=== PATIENT | female | born 1960 | race Caucasian/White ===

== ENCOUNTER 2018-03-18 13:28 | Inpatient (IN) ==
[2018-03-18] MEDS ORDERED: Acetaminophen 325 MG Tablet PO ONE (14:43)
[2018-03-18] MEDS ORDERED: MethylPREDNISolone Sod Succinate Inj 125 MG/2 ML Vial IV.PUSH ONE (14:43)
[2018-03-18] MEDS ORDERED: Sod Chloride 0.9% Inj 2,000 ML IV.SIG ONE (14:48)
[2018-03-18 14:59] LABS: VBG Base Excess 0.2 mmol/L (-2-2); VBG Blood Gas Oxygen Content 9.7 Vol % (9.0-17.0); VBG PCO2 33 mmHG (44-48); VBG PH 7.47 (7.360-7.400); VBG PO2 34 mmHG (35-40)
[2018-03-18 15:18] LABS: Baso % (Auto) 0.3 % (0.0-2.0); Eos % (Auto) 0.3 % (0.0-4.0); Hematocrit 33.3 % (35.0-46.0); Hemoglobin 11.2 gm/dL (11.6-15.3); Lymph # (Auto) 1.4 th/mm3 (1.0-4.8); Lymph % (Auto) 13.1 % (9.0-44.0); Mean Corpuscular HGB Conc 33.8 % (32.0-36.0); Mean Corpuscular Hemoglobin 31.2 pg (27.0-34.0); Mean Corpuscular Volume 92.4 fL (80.0-100.0); Mean Platelet Volume 7.7 fL (7.0-11.0); Mono % (Auto) 8.8 % (0.0-8.0); Neut # (Auto) 8.4 th/mm3 (1.8-7.7); Neut % (Auto) 77.5 % (16.0-70.0); Platelet Count 441 th/mm3 (150-450); Red Cell Distribution Width 14.4 % (11.6-17.2); White Blood Count 10.9 th/mm3 (4.0-11.0)
--- NOTE | 2018-03-18 15:27 | ED ---
HPI General Chief Complaint: Respiratory Symptoms Stated Complaint: Sob Time Seen by Provider: 03/18/18 14:35 Source: patient Mode of arrival: ambulatory Limitations: no limitations History of Present Illness HPI Narrative: 58-year-old female with PMH of GERD presents to the ED for evaluation of 1 week history of SOB. She endorses accompanying chest tightness, nausea and palpitations. She denies chest pain, diaphoresis ,vomiting. She states that she was evaluated a few days ago. She states that the chest x-ray was "clear." At that time the provider suspected that she was having asthma symptoms. She has been treating with albuterol treatments at home. She states that her symptoms became acutely worse 2 days ago after flying to [facility] from [place]. She states that she is unable to walk "even a few feet" without GALINDO. She denies cigarette smoking, OC use, leg pain, history of blood clot. Related Data Allergies Allergy/AdvReac Type Severity Reaction Status Date / Time Penicillins Allergy Intermediate Hives Verified 03/19/18 21:08 Sulfa (Sulfonamide Allergy Intermediate Anxiety Verified 03/18/18 14:16 Antibiotics) Review of Systems ROS: all other systems reviewed are negative [facility] Medical History Medical History BMI 38.0-38.9,adult (Acute) Bronchitis (Acute) Chronic kidney disease, stage II (mild) (Acute) Gastroesophageal reflux disease (Acute) Hyperlipidemia (Acute) Mild intermittent asthma (Acute) Surgical History Surgical History H/O wisdom tooth extraction (Acute) S/P bunionectomy (Acute) Family History Family History Brother Family history of hypertension Sister Family history of hypertension Family history of hyperlipidemia Other Family history of breast cancer in mother Social History Social History Substance History: No History of Abuse Second Hand Smoke Exposure: Yes Smoking Status: Never smoker Tobacco Type: Cigarettes How Often Do You Have a Drink Containing Alcohol: Monthly or less Recent Travel in [facility] within the Last 8 Weeks: No Recent Out of Country Travel within the Last 8 Weeks: No Immunization History Tetanus Immunization: Unsure Hx Influenza Vaccine This Season: No Exam Narrative Exam Narrative: GENERAL: Well-nourished, well-developed, tachypneic white female. Speaking in complete sentences. On 15 L by nonrebreather. SKIN: Focused skin assessment warm/dry. HEAD: Atraumatic. Normocephalic. EYES: Pupils equal and round. No scleral icterus. No injection or drainage. ENT: No nasal bleeding or discharge. Mucous membranes pink and moist. NECK: Trachea midline. No JVD. CARDIOVASCULAR: Regular rate and rhythm. No murmur appreciated. RESPIRATORY: No accessory muscle use. Crackles in bilateral lower lobes.. Breath sounds equal bilaterally. GASTROINTESTINAL: Abdomen soft, non-tender, nondistended. Hepatic and splenic margins not palpable. MUSCULOSKELETAL: No obvious deformities. No clubbing. No cyanosis. No edema. NEUROLOGICAL: Awake and alert. No obvious cranial nerve deficits. Motor grossly within normal limits. Normal speech. PSYCHIATRIC: Appropriate mood and affect; insight and judgment normal. Course Initial Documented Vital Signs Temperature 102.6 F H 03/18/18 13:38 Pulse Rate 117 H 03/18/18 13:38 Respiratory Rate 16 03/18/18 13:38 Blood Pressure 128/59 L 03/18/18 13:38 Pulse Oximetry 66 L 03/18/18 13:38 Last Documented Vital Signs Temperature 98.6 F 03/21/18 04:00 Pulse Rate 91 H 03/21/18 11:46 Respiratory Rate 24 03/21/18 11:46 Blood Pressure 129/69 03/21/18 09:57 Pulse Oximetry 91 L 03/21/18 11:00 Critical Care Time Critical Care Time: Yes Total Critical Care Time: 35 Attestation: Aggregate critical care time was 35 minutes. Time to perform other separately billable procedures was not included in the critical care time. My time did not include minutes spent treating any other patients simultaneously or on activities that did not directly contribute to the patient's treatment. The services I provided to this patient were to treat and/or prevent clinically significant deterioration that could result in: , disability, organ failure. I provided critical care services requiring my management, as noted below: Chart data review, documentation time, medication orders and management, vital sign assessments/reviewing monitor data, ordering and reviewing lab tests, ordering and interpreting/reviewing x-rays and diagnostic studies, care of the patient and discussion of the patient with the admitting physicians. Medical Decision Making BALDEMAR Attestation BALDEMAR supervised visit: Yes Attestation: I, Dr. Ward, have reviewed the advance practice practitioner's documentation and am in agreement, met with the patient face to face, made the diagnosis, and the medical decision making was done by me. *My assessment and Findings: Patient seen and examined by me in addition to Denise Menchaca. My first evaluation with the patient she has bi-basilar rales , tachypneic and tachycardic on a non-rebreather. Apparently had saturations of 60% in the waiting room. She is improving quickly however. BP WNL. CXR shows near white out of both lung ignacio. She has a history of recent travel and possibility for PE remains. Patient needs CT regardless to further assess this CXR finding. Patient trop, BNP are elevated. No CP, no EKG changes to support active stemi. Patient reassessed several times by me, improving quite well on NRB O2. Several differentials have been given consideration, pneumonia , acute pulmonary edema, CHF, NSTEMI, renal failure, ARDS, Pulmonary embolism, and less likely is tuberculosis as the patient has no identifiable risk factors. She was started on broad spectrum antibiotics, initially ordered for 2L NS bolus, lactic acid returns WNL and fluid recussitation was halted at 500cc total in the ER. Patient states she feels much better. No CO2 retention. Patient discussed with Dr. Graham. We discussed and formed the DDx above together. Patient had orders for isolation, will be admitted to ICU under Dr. Graham's care. MDM Narrative Medical decision making narrative: 58-year-old female with PMH of GERD presents to the ED for evaluation of 1 week history of SOB. She endorses accompanying chest tightness, nausea and palpitations. She denies chest pain, diaphoresis , vomiting. She states that her symptoms became acutely worse 2 days ago after flying to [facility] from [place]. She states that she is unable to walk "even a few feet" without GALINDO. She denies cigarette smoking, OC use, leg pain, history of blood clot. Patient's febrile, tachycardic, tachypneic and O2 saturations are in the 60s on arrival and triaged. She was placed on 15 mL O2 by nonrebreather, O2 sats improved. On exam she is able to speak in complete sentences. There are crackles in the lung base, otherwise unremarkable. She was administered approximately half liter of normal saline, duo nebs x2, IV steroids. X-ray suspicious for bilateral pneumonia. She was administered IV vancomycin and Zosyn. Plan to place in the ICU. Dr. Ward spoke with Dr. Graham who agrees to accept the patient. Please see medicine notes for disposition. Medical Screen Exam Complete: Yes Emergency Medical Condition: Yes Differential Diagnosis Differential Diagnosis: PNA versus sepsis versus PE versus acute heart failure versus flash pulmonary edema versus other Lab Data Result diagrams: 03/20/18 03:27 03/20/18 03:27 Lab Results 03/18/18 03/18/18 03/18/18 Range/Units 14:49 14:55 14:55 WBC 10.9 (4.0-11.0) th/mm3 RBC 3.60 L (4.00-5.30) mil/mm3 Hgb 11.2 L (11.6-15.3) gm/dL Hct 33.3 L (35.0-46.0) % MCV 92.4 (80.0-100.0) fL MCH 31.2 (27.0-34.0) pg MCHC 33.8 (32.0-36.0) % RDW 14.4 (11.6-17.2) % Plt Count 441 (150-450) th/mm3 MPV 7.7 (7.0-11.0) fL Neut % (Auto) 77.5 H (16.0-70.0) % Lymph % (Auto) 13.1 (9.0-44.0) % Long % (Auto) 8.8 H (0.0-8.0) % Eos % (Auto) 0.3 (0.0-4.0) % Baso % (Auto) 0.3 (0.0-2.0) % Neut # (Auto) 8.4 H (1.8-7.7) th/mm3 Lymph # (Auto) 1.4 (1.0-4.8) th/mm3 Long # (Auto) 1.0 H (0.0-0.9) th/mm3 Eos # (Auto) 0.0 (0.0-0.4) th/mm3 Baso # (Auto) 0.0 (0.0-0.2) th/mm3 WBC Differential . Differential Comment Auto diff final PT (9.8-11.6) sec INR Ratio APTT (24.3-30.1) sec D-Dimer Quant (PE/DVT) (0.00-0.50) mg/L FEU Puncture Site Lh Patient Temperature 98.6 O2 Saturation (90-100) % ABG pH (7.380-7.420) ABG pCO2 (38-42) mmHg ABG pO2 (61-120) mmHG ABG HCO3 (22-26) mmol/L ABG O2 Content (12.0-20.0) Vol % ABG Base Excess (-2-2) mmol/L ABG Methemoglobin (0-2) % Jorge Luis Test VBG pH 7.47 H (7.360-7.400) VBG pCO2 33 L (44-48) mmHG VBG pO2 34 L (35-40) mmHG VBG HCO3 24 (22-26) mmol/L VBG O2 Saturation 59 L (70-76) % VBG O2 Content 9.7 (9.0-17.0) Vol % VBG Base Excess 0.2 (-2-2) mmol/L VBG Carboxyhemoglobin 1.5 (0-4) % VBG Methemoglobin 0.6 (0-2) % Hemoglobin 11.6 L (12.0-16.0) G/DL Carboxyhemoglobin (0-4) % O2 Delivery Device Nrb Liter Flow 15.00 L/M Inspired O2 % Critical Value No Sodium 137 (136-145) meq/L Potassium 4.2 (3.5-5.1) meq/L Chloride 102 (98-107) meq/L Carbon Dioxide 23.8 (21.0-32.0) meq/L Anion Gap 11 (5-15) meq/L BUN 12 (7-18) mg/dL Creatinine 0.75 (0.50-1.00) mg/dL Estimated GFR 80 L (>89) mL/min POC Glucose (68-110) mg/dl Random Glucose 101 (74-106) mg/dL Lactic Acid (0.4-2.0) mmol/L Calcium 8.3 L (8.5-10.1) mg/dL Phosphorus (2.5-4.9) mg/dL Magnesium (1.5-2.5) mg/dL Total Bilirubin (0.2-1.0) mg/dL Direct Bilirubin (0.0-0.2) mg/dL Indirect Bilirubin (0.0-0.8) mg/dL AST (15-37) U/L ALT (10-53) U/L Alkaline Phosphatase (45-117) U/L Total Creatine Kinase 146 (26-192) U/L CK-MB (CK-2) 1.8 (0.5-3.6) ng/mL Troponin I 0.55 H (0.02-0.05) ng/mL C-Reactive Protein (0.00-0.30) mg/dL B-Natriuretic Peptide (0-100) pg/mL Total Protein (6.4-8.2) g/dL Albumin (3.4-5.0) g/dL Triglycerides (42-150) mg/dL Cholesterol (120-200) mg/dL LDL Cholesterol, Calc (0-99) mg/dL HDL Cholesterol (40.0-60.0) mg/dL Cholesterol/HDL Ratio Ratio Amylase (25-115) U/L Lipase (73-393) U/L Procalcitonin (0.00-0.08) ng/mL TSH (0.358-3.740) uIU/mL Urine Color (Yellw/Straw) Urine Clarity (Clear) Urine pH (5.0-8.5) Ur Specific [place] (1.002-1.035) Urine Protein (Neg-Trace) mg/dL Urine Glucose (UA) (Negative) mg/dL Urine Ketones (Negative) mg/dL Urine Occult Blood (Negative) Urine Nitrate (Negative) Urine Bilirubin (Negative) Urine Urobilinogen (Less than 2) mg/dL Ur Leukocyte Esterase (Negative) Urine WBC (0-5) /hpf Urine Mucus (Occasional) /lpf Micro UA Comment Ur Microscopic Review Urine Culture Comments Nasal Screen MRSA (PCR) (Negative) Vancomycin Trough (5.0-10.0) mcg/mL IgE (<= 214) kU/L Rheumatoid Factor Scrn (Negative) Rheumatoid Factor Titer (0.0-14.9) IU/mL ELIN Screen (Neg) Complement C3 (90-180) mg/dL Complement C4 (10-40) mg/dL [place] Type B(1) Ab [place] Type B(2) Ab [place] Type B(3) Ab [place] Type B(4) Ab [place] Type B(5) Ab [place] Type B(6) Ab M. pneumoniae Interp Mycoplasma pneumon IgG (Negative) Mycoplasma pneumon IgM (Negative) 03/18/18 03/18/18 03/18/18 Range/Units 14:55 14:55 14:55 WBC (4.0-11.0) th/mm3 RBC (4.00-5.30) mil/mm3 Hgb (11.6-15.3) gm/dL Hct (35.0-46.0) % MCV (80.0-100.0) fL MCH (27.0-34.0) pg MCHC (32.0-36.0) % RDW (11.6-17.2) % Plt Count (150-450) th/mm3 MPV (7.0-11.0) fL Neut % (Auto) (16.0-70.0) % Lymph % (Auto) (9.0-44.0) % Long % (Auto) (0.0-8.0) % Eos % (Auto) (0.0-4.0) % Baso % (Auto) (0.0-2.0) % Neut # (Auto) (1.8-7.7) th/mm3 Lymph # (Auto) (1.0-4.8) th/mm3 Long # (Auto) (0.0-0.9) th/mm3 Eos # (Auto) (0.0-0.4) th/mm3 Baso # (Auto) (0.0-0.2) th/mm3 WBC Differential Differential Comment PT 10.3 (9.8-11.6) sec INR 1.0 Ratio APTT (24.3-30.1) sec D-Dimer Quant (PE/DVT) 1.47 H (0.00-0.50) mg/L FEU Puncture Site Patient Temperature O2 Saturation (90-100) % ABG pH (7.380-7.420) ABG pCO2 (38-42) mmHg ABG pO2 (61-120) mmHG ABG HCO3 (22-26) mmol/L ABG O2 Content (12.0-20.0) Vol % ABG Base Excess (-2-2) mmol/L ABG Methemoglobin (0-2) % Jorge Luis Test VBG pH (7.360-7.400) VBG pCO2 (44-48) mmHG VBG pO2 (35-40) mmHG VBG HCO3 (22-26) mmol/L VBG O2 Saturation (70-76) % VBG O2 Content (9.0-17.0) Vol % VBG Base Excess (-2-2) mmol/L VBG Carboxyhemoglobin (0-4) % VBG Methemoglobin (0-2) % Hemoglobin (12.0-16.0) G/DL Carboxyhemoglobin (0-4) % O2 Delivery Device Liter Flow L/M Inspired O2 % Critical Value Sodium (136-145) meq/L Potassium (3.5-5.1) meq/L Chloride (98-107) meq/L Carbon Dioxide (21.0-32.0) meq/L Anion Gap (5-15) meq/L BUN (7-18) mg/dL Creatinine (0.50-1.00) mg/dL Estimated GFR (>89) mL/min POC Glucose (68-110) mg/dl Random Glucose (74-106) mg/dL Lactic Acid 1.6 (0.4-2.0) mmol/L Calcium (8.5-10.1) mg/dL Phosphorus (2.5-4.9) mg/dL Magnesium (1.5-2.5) mg/dL Total Bilirubin (0.2-1.0) mg/dL Direct Bilirubin (0.0-0.2) mg/dL Indirect Bilirubin (0.0-0.8) mg/dL AST (15-37) U/L ALT (10-53) U/L Alkaline Phosphatase (45-117) U/L Total Creatine Kinase (26-192) U/L CK-MB (CK-2) (0.5-3.6) ng/mL Troponin I (0.02-0.05) ng/mL C-Reactive Protein (0.00-0.30) mg/dL B-Natriuretic Peptide 397 H (0-100) pg/mL Total Protein (6.4-8.2) g/dL Albumin (3.4-5.0) g/dL Triglycerides (42-150) mg/dL Cholesterol (120-200) mg/dL LDL Cholesterol, Calc (0-99) mg/dL HDL Cholesterol (40.0-60.0) mg/dL Cholesterol/HDL Ratio Ratio Amylase (25-115) U/L Lipase (73-393) U/L Procalcitonin (0.00-0.08) ng/mL TSH (0.358-3.740) uIU/mL Urine Color (Yellw/Straw) Urine Clarity (Clear) Urine pH (5.0-8.5) Ur Specific [place] (1.002-1.035) Urine Protein (Neg-Trace) mg/dL Urine Glucose (UA) (Negative) mg/dL Urine Ketones (Negative) mg/dL Urine Occult Blood (Negative) Urine Nitrate (Negative) Urine Bilirubin (Negative) Urine Urobilinogen (Less than 2) mg/dL Ur Leukocyte Esterase (Negative) Urine WBC (0-5) /hpf Urine Mucus (Occasional) /lpf Micro UA Comment Ur Microscopic Review Urine Culture Comments Nasal Screen MRSA (PCR) (Negative) Vancomycin Trough (5.0-10.0) mcg/mL IgE (<= 214) kU/L Rheumatoid Factor Scrn (Negative) Rheumatoid Factor Titer (0.0-14.9) IU/mL ELIN Screen (Neg) Complement C3 (90-180) mg/dL Complement C4 (10-40) mg/dL [place] Type B(1) Ab [place] Type B(2) Ab [place] Type B(3) Ab [place] Type B(4) Ab [place] Type B(5) Ab [place] Type B(6) Ab M. pneumoniae Interp Mycoplasma pneumon IgG (Negative) Mycoplasma pneumon IgM (Negative) 03/18/18 03/18/18 03/18/18 Range/Units 15:42 17:23 18:04 WBC (4.0-11.0) th/mm3 RBC (4.00-5.30) mil/mm3 Hgb (11.6-15.3) gm/dL Hct (35.0-46.0) % MCV (80.0-100.0) fL MCH (27.0-34.0) pg MCHC (32.0-36.0) % RDW (11.6-17.2) % Plt Count (150-450) th/mm3 MPV (7.0-11.0) fL Neut % (Auto) (16.0-70.0) % Lymph % (Auto) (9.0-44.0) % Long % (Auto) (0.0-8.0) % Eos % (Auto) (0.0-4.0) % Baso % (Auto) (0.0-2.0) % Neut # (Auto) (1.8-7.7) th/mm3 Lymph # (Auto) (1.0-4.8) th/mm3 Long # (Auto) (0.0-0.9) th/mm3 Eos # (Auto) (0.0-0.4) th/mm3 Baso # (Auto) (0.0-0.2) th/mm3 WBC Differential Differential Comment PT (9.8-11.6) sec INR Ratio APTT (24.3-30.1) sec D-Dimer Quant (PE/DVT) (0.00-0.50) mg/L FEU Puncture Site Patient Temperature O2 Saturation (90-100) % ABG pH (7.380-7.420) ABG pCO2 (38-42) mmHg ABG pO2 (61-120) mmHG ABG HCO3 (22-26) mmol/L ABG O2 Content (12.0-20.0) Vol % ABG Base Excess (-2-2) mmol/L ABG Methemoglobin (0-2) % Jorge Luis Test VBG pH (7.360-7.400) VBG pCO2 (44-48) mmHG VBG pO2 (35-40) mmHG VBG HCO3 (22-26) mmol/L VBG O2 Saturation (70-76) % VBG O2 Content (9.0-17.0) Vol % VBG Base Excess (-2-2) mmol/L VBG Carboxyhemoglobin (0-4) % VBG Methemoglobin (0-2) % Hemoglobin (12.0-16.0) G/DL Carboxyhemoglobin (0-4) % O2 Delivery Device Liter Flow L/M Inspired O2 % Critical Value Sodium (136-145) meq/L Potassium (3.5-5.1) meq/L Chloride (98-107) meq/L Carbon Dioxide (21.0-32.0) meq/L Anion Gap (5-15) meq/L BUN (7-18) mg/dL Creatinine (0.50-1.00) mg/dL Estimated GFR (>89) mL/min POC Glucose 138 H (68-110) mg/dl Random Glucose (74-106) mg/dL Lactic Acid (0.4-2.0) mmol/L Calcium (8.5-10.1) mg/dL Phosphorus (2.5-4.9) mg/dL Magnesium (1.5-2.5) mg/dL Total Bilirubin (0.2-1.0) mg/dL Direct Bilirubin (0.0-0.2) mg/dL Indirect Bilirubin (0.0-0.8) mg/dL AST (15-37) U/L ALT (10-53) U/L Alkaline Phosphatase (45-117) U/L Total Creatine Kinase (26-192) U/L CK-MB (CK-2) (0.5-3.6) ng/mL Troponin I (0.02-0.05) ng/mL C-Reactive Protein (0.00-0.30) mg/dL B-Natriuretic Peptide (0-100) pg/mL Total Protein (6.4-8.2) g/dL Albumin (3.4-5.0) g/dL Triglycerides (42-150) mg/dL Cholesterol (120-200) mg/dL LDL Cholesterol, Calc (0-99) mg/dL HDL Cholesterol (40.0-60.0) mg/dL Cholesterol/HDL Ratio Ratio Amylase (25-115) U/L Lipase (73-393) U/L Procalcitonin (0.00-0.08) ng/mL TSH (0.358-3.740) uIU/mL Urine Color Yellow (Yellw/Straw) Urine Clarity Hazy H (Clear) Urine pH 5.0 (5.0-8.5) Ur Specific [place] 1.021 (1.002-1.035) Urine Protein 30 H (Neg-Trace) mg/dL Urine Glucose (UA) Negative (Negative) mg/dL Urine Ketones Negative (Negative) mg/dL Urine Occult Blood Negative (Negative) Urine Nitrate Negative (Negative) Urine Bilirubin Negative (Negative) Urine Urobilinogen Less than 2 (Less than 2) mg/dL Ur Leukocyte Esterase Negative (Negative) Urine WBC 2 (0-5) /hpf Urine Mucus Few H (Occasional) /lpf Micro UA Comment Culture not ind Ur Microscopic Review Not Reportable Urine Culture Comments Culture not ind Nasal Screen MRSA (PCR) Not detected (Negative) Vancomycin Trough (5.0-10.0) mcg/mL IgE (<= 214) kU/L Rheumatoid Factor Scrn (Negative) Rheumatoid Factor Titer (0.0-14.9) IU/mL ELIN Screen (Neg) Complement C3 (90-180) mg/dL Complement C4 (10-40) mg/dL [place] Type B(1) Ab [place] Type B(2) Ab [place] Type B(3) Ab [place] Type B(4) Ab [place] Type B(5) Ab [place] Type B(6) Ab M. pneumoniae Interp Mycoplasma pneumon IgG (Negative) Mycoplasma pneumon IgM (Negative) 03/18/18 03/18/18 03/18/18 Range/Units 18:06 18:06 18:06 WBC (4.0-11.0) th/mm3 RBC (4.00-5.30) mil/mm3 Hgb (11.6-15.3) gm/dL Hct (35.0-46.0) % MCV (80.0-100.0) fL MCH (27.0-34.0) pg MCHC (32.0-36.0) % RDW (11.6-17.2) % Plt Count (150-450) th/mm3 MPV (7.0-11.0) fL Neut % (Auto) (16.0-70.0) % Lymph % (Auto) (9.0-44.0) % Long % (Auto) (0.0-8.0) % Eos % (Auto) (0.0-4.0) % Baso % (Auto) (0.0-2.0) % Neut # (Auto) (1.8-7.7) th/mm3 Lymph # (Auto) (1.0-4.8) th/mm3 Long # (Auto) (0.0-0.9) th/mm3 Eos # (Auto) (0.0-0.4) th/mm3 Baso # (Auto) (0.0-0.2) th/mm3 WBC Differential Differential Comment PT (9.8-11.6) sec INR Ratio APTT (24.3-30.1) sec D-Dimer Quant (PE/DVT) (0.00-0.50) mg/L FEU Puncture Site Patient Temperature O2 Saturation (90-100) % ABG pH (7.380-7.420) ABG pCO2 (38-42) mmHg ABG pO2 (61-120) mmHG ABG HCO3 (22-26) mmol/L ABG O2 Content (12.0-20.0) Vol % ABG Base Excess (-2-2) mmol/L ABG Methemoglobin (0-2) % Jorge Luis Test VBG pH (7.360-7.400) VBG pCO2 (44-48) mmHG VBG pO2 (35-40) mmHG VBG HCO3 (22-26) mmol/L VBG O2 Saturation (70-76) % VBG O2 Content (9.0-17.0) Vol % VBG Base Excess (-2-2) mmol/L VBG Carboxyhemoglobin (0-4) % VBG Methemoglobin (0-2) % Hemoglobin (12.0-16.0) G/DL Carboxyhemoglobin (0-4) % O2 Delivery Device Liter Flow L/M Inspired O2 % Critical Value Sodium (136-145) meq/L Potassium (3.5-5.1) meq/L Chloride (98-107) meq/L Carbon Dioxide (21.0-32.0) meq/L Anion Gap (5-15) meq/L BUN (7-18) mg/dL Creatinine (0.50-1.00) mg/dL Estimated GFR (>89) mL/min POC Glucose (68-110) mg/dl Random Glucose (74-106) mg/dL Lactic Acid (0.4-2.0) mmol/L Calcium (8.5-10.1) mg/dL Phosphorus (2.5-4.9) mg/dL Magnesium (1.5-2.5) mg/dL Total Bilirubin 0.6 (0.2-1.0) mg/dL Direct Bilirubin 0.2 (0.0-0.2) mg/dL Indirect Bilirubin 0.4 (0.0-0.8) mg/dL AST 52 H (15-37) U/L ALT 35 (10-53) U/L Alkaline Phosphatase 81 (45-117) U/L Total Creatine Kinase 141 (26-192) U/L CK-MB (CK-2) (0.5-3.6) ng/mL Troponin I 0.47 H (0.02-0.05) ng/mL C-Reactive Protein 21.10 H (0.00-0.30) mg/dL B-Natriuretic Peptide (0-100) pg/mL Total Protein 7.5 (6.4-8.2) g/dL Albumin 2.4 L (3.4-5.0) g/dL Triglycerides (42-150) mg/dL Cholesterol (120-200) mg/dL LDL Cholesterol, Calc (0-99) mg/dL HDL Cholesterol (40.0-60.0) mg/dL Cholesterol/HDL Ratio Ratio Amylase 63 (25-115) U/L Lipase (73-393) U/L Procalcitonin (0.00-0.08) ng/mL TSH (0.358-3.740) uIU/mL Urine Color (Yellw/Straw) Urine Clarity (Clear) Urine pH (5.0-8.5) Ur Specific [place] (1.002-1.035) Urine Protein (Neg-Trace) mg/dL Urine Glucose (UA) (Negative) mg/dL Urine Ketones (Negative) mg/dL Urine Occult Blood (Negative) Urine Nitrate (Negative) Urine Bilirubin (Negative) Urine Urobilinogen (Less than 2) mg/dL Ur Leukocyte Esterase (Negative) Urine WBC (0-5) /hpf Urine Mucus (Occasional) /lpf Micro UA Comment Ur Microscopic Review Urine Culture Comments Nasal Screen MRSA (PCR) (Negative) Vancomycin Trough (5.0-10.0) mcg/mL IgE (<= 214) kU/L Rheumatoid Factor Scrn (Negative) Rheumatoid Factor Titer (0.0-14.9) IU/mL ELIN Screen (Neg) Complement C3 (90-180) mg/dL Complement C4 (10-40) mg/dL [place] Type B(1) Ab [place] Type B(2) Ab [place] Type B(3) Ab [place] Type B(4) Ab [place] Type B(5) Ab [place] Type B(6) Ab M. pneumoniae Interp . Mycoplasma pneumon IgG Positive (Negative) Mycoplasma pneumon IgM Negative (Negative) 03/18/18 03/18/18 03/18/18 Range/Units 18:06 20:45 22:07 WBC (4.0-11.0) th/mm3 RBC (4.00-5.30) mil/mm3 Hgb (11.6-15.3) gm/dL Hct (35.0-46.0) % MCV (80.0-100.0) fL MCH (27.0-34.0) pg MCHC (32.0-36.0) % RDW (11.6-17.2) % Plt Count (150-450) th/mm3 MPV (7.0-11.0) fL Neut % (Auto) (16.0-70.0) % Lymph % (Auto) (9.0-44.0) % Long % (Auto) (0.0-8.0) % Eos % (Auto) (0.0-4.0) % Baso % (Auto) (0.0-2.0) % Neut # (Auto) (1.8-7.7) th/mm3 Lymph # (Auto) (1.0-4.8) th/mm3 Long # (Auto) (0.0-0.9) th/mm3 Eos # (Auto) (0.0-0.4) th/mm3 Baso # (Auto) (0.0-0.2) th/mm3 WBC Differential Differential Comment PT (9.8-11.6) sec INR Ratio APTT (24.3-30.1) sec D-Dimer Quant (PE/DVT) (0.00-0.50) mg/L FEU Puncture Site Patient Temperature O2 Saturation (90-100) % ABG pH (7.380-7.420) ABG pCO2 (38-42) mmHg ABG pO2 (61-120) mmHG ABG HCO3 (22-26) mmol/L ABG O2 Content (12.0-20.0) Vol % ABG Base Excess (-2-2) mmol/L ABG Methemoglobin (0-2) % Jorge Luis Test VBG pH (7.360-7.400) VBG pCO2 (44-48) mmHG VBG pO2 (35-40) mmHG VBG HCO3 (22-26) mmol/L VBG O2 Saturation (70-76) % VBG O2 Content (9.0-17.0) Vol % VBG Base Excess (-2-2) mmol/L VBG Carboxyhemoglobin (0-4) % VBG Methemoglobin (0-2) % Hemoglobin (12.0-16.0) G/DL Carboxyhemoglobin (0-4) % O2 Delivery Device Liter Flow L/M Inspired O2 % Critical Value Sodium (136-145) meq/L Potassium (3.5-5.1) meq/L Chloride (98-107) meq/L Carbon Dioxide (21.0-32.0) meq/L Anion Gap (5-15) meq/L BUN (7-18) mg/dL Creatinine (0.50-1.00) mg/dL Estimated GFR (>89) mL/min POC Glucose 239 H 214 H (68-110) mg/dl Random Glucose (74-106) mg/dL Lactic Acid (0.4-2.0) mmol/L Calcium (8.5-10.1) mg/dL Phosphorus (2.5-4.9) mg/dL Magnesium (1.5-2.5) mg/dL Total Bilirubin (0.2-1.0) mg/dL Direct Bilirubin (0.0-0.2) mg/dL Indirect Bilirubin (0.0-0.8) mg/dL AST (15-37) U/L ALT (10-53) U/L Alkaline Phosphatase (45-117) U/L Total Creatine Kinase (26-192) U/L CK-MB (CK-2) (0.5-3.6) ng/mL Troponin I (0.02-0.05) ng/mL C-Reactive Protein (0.00-0.30) mg/dL B-Natriuretic Peptide (0-100) pg/mL Total Protein (6.4-8.2) g/dL Albumin (3.4-5.0) g/dL Triglycerides (42-150) mg/dL Cholesterol (120-200) mg/dL LDL Cholesterol, Calc (0-99) mg/dL HDL Cholesterol (40.0-60.0) mg/dL Cholesterol/HDL Ratio Ratio Amylase (25-115) U/L Lipase (73-393) U/L Procalcitonin 0.17 H (0.00-0.08) ng/mL TSH (0.358-3.740) uIU/mL Urine Color (Yellw/Straw) Urine Clarity (Clear) Urine pH (5.0-8.5) Ur Specific [place] (1.002-1.035) Urine Protein (Neg-Trace) mg/dL Urine Glucose (UA) (Negative) mg/dL Urine Ketones (Negative) mg/dL Urine Occult Blood (Negative) Urine Nitrate (Negative) Urine Bilirubin (Negative) Urine Urobilinogen (Less than 2) mg/dL Ur Leukocyte Esterase (Negative) Urine WBC (0-5) /hpf Urine Mucus (Occasional) /lpf Micro UA Comment Ur Microscopic Review Urine Culture Comments Nasal Screen MRSA (PCR) (Negative) Vancomycin Trough (5.0-10.0) mcg/mL IgE (<= 214) kU/L Rheumatoid Factor Scrn (Negative) Rheumatoid Factor Titer (0.0-14.9) IU/mL ELIN Screen (Neg) Complement C3 (90-180) mg/dL Complement C4 (10-40) mg/dL [place] Type B(1) Ab [place] Type B(2) Ab [place] Type B(3) Ab [place] Type B(4) Ab [place] Type B(5) Ab [place] Type B(6) Ab M. pneumoniae Interp Mycoplasma pneumon IgG (Negative) Mycoplasma pneumon IgM (Negative) 03/19/18 03/19/18 03/19/18 Range/Units 03:46 03:46 03:46 WBC 9.8 (4.0-11.0) th/mm3 RBC 3.39 L (4.00-5.30) mil/mm3 Hgb 10.5 L (11.6-15.3) gm/dL Hct 32.0 L (35.0-46.0) % MCV 94.5 (80.0-100.0) fL MCH 30.9 (27.0-34.0) pg MCHC 32.7 (32.0-36.0) % RDW 14.6 (11.6-17.2) % Plt Count 396 (150-450) th/mm3 MPV 7.8 (7.0-11.0) fL Neut % (Auto) 76.3 H (16.0-70.0) % Lymph % (Auto) 20.5 (9.0-44.0) % Long % (Auto) 2.9 (0.0-8.0) % Eos % (Auto) 0.0 (0.0-4.0) % Baso % (Auto) 0.3 (0.0-2.0) % Neut # (Auto) 7.4 (1.8-7.7) th/mm3 Lymph # (Auto) 2.0 (1.0-4.8) th/mm3 Long # (Auto) 0.3 (0.0-0.9) th/mm3 Eos # (Auto) 0.0 (0.0-0.4) th/mm3 Baso # (Auto) 0.0 (0.0-0.2) th/mm3 WBC Differential . Differential Comment Auto diff final PT 10.5 (9.8-11.6) sec INR 1.0 Ratio APTT 29.2 (24.3-30.1) sec D-Dimer Quant (PE/DVT) (0.00-0.50) mg/L FEU Puncture Site Patient Temperature O2 Saturation (90-100) % ABG pH (7.380-7.420) ABG pCO2 (38-42) mmHg ABG pO2 (61-120) mmHG ABG HCO3 (22-26) mmol/L ABG O2 Content (12.0-20.0) Vol % ABG Base Excess (-2-2) mmol/L ABG Methemoglobin (0-2) % Jorge Luis Test VBG pH (7.360-7.400) VBG pCO2 (44-48) mmHG VBG pO2 (35-40) mmHG VBG HCO3 (22-26) mmol/L VBG O2 Saturation (70-76) % VBG O2 Content (9.0-17.0) Vol % VBG Base Excess (-2-2) mmol/L VBG Carboxyhemoglobin (0-4) % VBG Methemoglobin (0-2) % Hemoglobin (12.0-16.0) G/DL Carboxyhemoglobin (0-4) % O2 Delivery Device Liter Flow L/M Inspired O2 % Critical Value Sodium (136-145) meq/L Potassium (3.5-5.1) meq/L Chloride (98-107) meq/L Carbon Dioxide (21.0-32.0) meq/L Anion Gap (5-15) meq/L BUN (7-18) mg/dL Creatinine (0.50-1.00) mg/dL Estimated GFR (>89) mL/min POC Glucose (68-110) mg/dl Random Glucose (74-106) mg/dL Lactic Acid (0.4-2.0) mmol/L Calcium (8.5-10.1) mg/dL Phosphorus (2.5-4.9) mg/dL Magnesium (1.5-2.5) mg/dL Total Bilirubin (0.2-1.0) mg/dL Direct Bilirubin (0.0-0.2) mg/dL Indirect Bilirubin (0.0-0.8) mg/dL AST (15-37) U/L ALT (10-53) U/L Alkaline Phosphatase (45-117) U/L Total Creatine Kinase (26-192) U/L CK-MB (CK-2) (0.5-3.6) ng/mL Troponin I (0.02-0.05) ng/mL C-Reactive Protein (0.00-0.30) mg/dL B-Natriuretic Peptide 389 H (0-100) pg/mL Total Protein (6.4-8.2) g/dL Albumin (3.4-5.0) g/dL Triglycerides (42-150) mg/dL Cholesterol (120-200) mg/dL LDL Cholesterol, Calc (0-99) mg/dL HDL Cholesterol (40.0-60.0) mg/dL Cholesterol/HDL Ratio Ratio Amylase (25-115) U/L Lipase (73-393) U/L Procalcitonin (0.00-0.08) ng/mL TSH (0.358-3.740) uIU/mL Urine Color (Yellw/Straw) Urine Clarity (Clear) Urine pH (5.0-8.5) Ur Specific [place] (1.002-1.035) Urine Protein (Neg-Trace) mg/dL Urine Glucose (UA) (Negative) mg/dL Urine Ketones (Negative) mg/dL Urine Occult Blood (Negative) Urine Nitrate (Negative) Urine Bilirubin (Negative) Urine Urobilinogen (Less than 2) mg/dL Ur Leukocyte Esterase (Negative) Urine WBC (0-5) /hpf Urine Mucus (Occasional) /lpf Micro UA Comment Ur Microscopic Review Urine Culture Comments Nasal Screen MRSA (PCR) (Negative) Vancomycin Trough (5.0-10.0) mcg/mL IgE (<= 214) kU/L Rheumatoid Factor Scrn (Negative) Rheumatoid Factor Titer (0.0-14.9) IU/mL ELIN Screen (Neg) Complement C3 (90-180) mg/dL Complement C4 (10-40) mg/dL [place] Type B(1) Ab [place] Type B(2) Ab [place] Type B(3) Ab [place] Type B(4) Ab [place] Type B(5) Ab [place] Type B(6) Ab M. pneumoniae Interp Mycoplasma pneumon IgG (Negative) Mycoplasma pneumon IgM (Negative) 03/19/18 03/19/18 03/19/18 Range/Units 03:46 03:46 04:28 WBC (4.0-11.0) th/mm3 RBC (4.00-5.30) mil/mm3 Hgb (11.6-15.3) gm/dL Hct (35.0-46.0) % MCV (80.0-100.0) fL MCH (27.0-34.0) pg MCHC (32.0-36.0) % RDW (11.6-17.2) % Plt Count (150-450) th/mm3 MPV (7.0-11.0) fL Neut % (Auto) (16.0-70.0) % Lymph % (Auto) (9.0-44.0) % Long % (Auto) (0.0-8.0) % Eos % (Auto) (0.0-4.0) % Baso % (Auto) (0.0-2.0) % Neut # (Auto) (1.8-7.7) th/mm3 Lymph # (Auto) (1.0-4.8) th/mm3 Long # (Auto) (0.0-0.9) th/mm3 Eos # (Auto) (0.0-0.4) th/mm3 Baso # (Auto) (0.0-0.2) th/mm3 WBC Differential Differential Comment PT (9.8-11.6) sec INR Ratio APTT (24.3-30.1) sec D-Dimer Quant (PE/DVT) (0.00-0.50) mg/L FEU Puncture Site Right radial Patient Temperature 98.6 O2 Saturation 88 L* (90-100) % ABG pH 7.43 H (7.380-7.420) ABG pCO2 32 L (38-42) mmHg ABG pO2 61 (61-120) mmHG ABG HCO3 21 L (22-26) mmol/L ABG O2 Content 13.1 (12.0-20.0) Vol % ABG Base Excess -2.8 L (-2-2) mmol/L ABG Methemoglobin 1.4 (0-2) % Jorge Luis Test Present VBG pH (7.360-7.400) VBG pCO2 (44-48) mmHG VBG pO2 (35-40) mmHG VBG HCO3 (22-26) mmol/L VBG O2 Saturation (70-76) % VBG O2 Content (9.0-17.0) Vol % VBG Base Excess (-2-2) mmol/L VBG Carboxyhemoglobin (0-4) % VBG Methemoglobin (0-2) % Hemoglobin 10.5 L (12.0-16.0) G/DL Carboxyhemoglobin 0.9 (0-4) % O2 Delivery Device Venti mask Liter Flow 6.00 L/M Inspired O2 50 % Critical Value Yes Sodium 142 (136-145) meq/L Potassium 3.9 (3.5-5.1) meq/L Chloride 108 H (98-107) meq/L Carbon Dioxide 22.2 (21.0-32.0) meq/L Anion Gap 12 (5-15) meq/L BUN 13 (7-18) mg/dL Creatinine 0.66 (0.50-1.00) mg/dL Estimated GFR Greater than 89 (>89) mL/min POC Glucose (68-110) mg/dl Random Glucose 141 H (74-106) mg/dL Lactic Acid 1.6 (0.4-2.0) mmol/L Calcium 8.0 L (8.5-10.1) mg/dL Phosphorus 3.0 (2.5-4.9) mg/dL Magnesium 2.2 (1.5-2.5) mg/dL Total Bilirubin 0.2 (0.2-1.0) mg/dL Direct Bilirubin (0.0-0.2) mg/dL Indirect Bilirubin (0.0-0.8) mg/dL AST 46 H (15-37) U/L ALT 34 (10-53) U/L Alkaline Phosphatase 79 (45-117) U/L Total Creatine Kinase (26-192) U/L CK-MB (CK-2) (0.5-3.6) ng/mL Troponin I 0.10 H D (0.02-0.05) ng/mL C-Reactive Protein (0.00-0.30) mg/dL B-Natriuretic Peptide (0-100) pg/mL Total Protein 7.6 (6.4-8.2) g/dL Albumin 2.3 L (3.4-5.0) g/dL Triglycerides 100 (42-150) mg/dL Cholesterol 186 (120-200) mg/dL LDL Cholesterol, Calc 137 H (0-99) mg/dL HDL Cholesterol 28.8 L (40.0-60.0) mg/dL Cholesterol/HDL Ratio 6.45 Ratio Amylase (25-115) U/L Lipase 80 (73-393) U/L Procalcitonin (0.00-0.08) ng/mL TSH 0.998 (0.358-3.740) uIU/mL Urine Color (Yellw/Straw) Urine Clarity (Clear) Urine pH (5.0-8.5) Ur Specific [place] (1.002-1.035) Urine Protein (Neg-Trace) mg/dL Urine Glucose (UA) (Negative) mg/dL Urine Ketones (Negative) mg/dL Urine Occult Blood (Negative) Urine Nitrate (Negative) Urine Bilirubin (Negative) Urine Urobilinogen (Less than 2) mg/dL Ur Leukocyte Esterase (Negative) Urine WBC (0-5) /hpf Urine Mucus (Occasional) /lpf Micro UA Comment Ur Microscopic Review Urine Culture Comments Nasal Screen MRSA (PCR) (Negative) Vancomycin Trough (5.0-10.0) mcg/mL IgE (<= 214) kU/L Rheumatoid Factor Scrn (Negative) Rheumatoid Factor Titer (0.0-14.9) IU/mL ELIN Screen (Neg) Complement C3 (90-180) mg/dL Complement C4 (10-40) mg/dL [place] Type B(1) Ab [place] Type B(2) Ab [place] Type B(3) Ab [place] Type B(4) Ab [place] Type B(5) Ab [place] Type B(6) Ab M. pneumoniae Interp Mycoplasma pneumon IgG (Negative) Mycoplasma pneumon IgM (Negative) 03/19/18 03/19/18 03/19/18 Range/Units 08:29 09:51 11:45 WBC (4.0-11.0) th/mm3 RBC (4.00-5.30) mil/mm3 Hgb (11.6-15.3) gm/dL Hct (35.0-46.0) % MCV (80.0-100.0) fL MCH (27.0-34.0) pg MCHC (32.0-36.0) % RDW (11.6-17.2) % Plt Count (150-450) th/mm3 MPV (7.0-11.0) fL Neut % (Auto) (16.0-70.0) % Lymph % (Auto) (9.0-44.0) % Long % (Auto) (0.0-8.0) % Eos % (Auto) (0.0-4.0) % Baso % (Auto) (0.0-2.0) % Neut # (Auto) (1.8-7.7) th/mm3 Lymph # (Auto) (1.0-4.8) th/mm3 Long # (Auto) (0.0-0.9) th/mm3 Eos # (Auto) (0.0-0.4) th/mm3 Baso # (Auto) (0.0-0.2) th/mm3 WBC Differential Differential Comment PT (9.8-11.6) sec INR Ratio APTT (24.3-30.1) sec D-Dimer Quant (PE/DVT) (0.00-0.50) mg/L FEU Puncture Site Patient Temperature O2 Saturation (90-100) % ABG pH (7.380-7.420) ABG pCO2 (38-42) mmHg ABG pO2 (61-120) mmHG ABG HCO3 (22-26) mmol/L ABG O2 Content (12.0-20.0) Vol % ABG Base Excess (-2-2) mmol/L ABG Methemoglobin (0-2) % Jorge Luis Test VBG pH (7.360-7.400) VBG pCO2 (44-48) mmHG VBG pO2 (35-40) mmHG VBG HCO3 (22-26) mmol/L VBG O2 Saturation (70-76) % VBG O2 Content (9.0-17.0) Vol % VBG Base Excess (-2-2) mmol/L VBG Carboxyhemoglobin (0-4) % VBG Methemoglobin (0-2) % Hemoglobin (12.0-16.0) G/DL Carboxyhemoglobin (0-4) % O2 Delivery Device Liter Flow L/M Inspired O2 % Critical Value Sodium (136-145) meq/L Potassium (3.5-5.1) meq/L Chloride (98-107) meq/L Carbon Dioxide (21.0-32.0) meq/L Anion Gap (5-15) meq/L BUN (7-18) mg/dL Creatinine (0.50-1.00) mg/dL Estimated GFR (>89) mL/min POC Glucose 137 H (68-110) mg/dl Random Glucose (74-106) mg/dL Lactic Acid (0.4-2.0) mmol/L Calcium (8.5-10.1) mg/dL Phosphorus (2.5-4.9) mg/dL Magnesium (1.5-2.5) mg/dL Total Bilirubin (0.2-1.0) mg/dL Direct Bilirubin (0.0-0.2) mg/dL Indirect Bilirubin (0.0-0.8) mg/dL AST (15-37) U/L ALT (10-53) U/L Alkaline Phosphatase (45-117) U/L Total Creatine Kinase (26-192) U/L CK-MB (CK-2) (0.5-3.6) ng/mL Troponin I (0.02-0.05) ng/mL C-Reactive Protein (0.00-0.30) mg/dL B-Natriuretic Peptide (0-100) pg/mL Total Protein (6.4-8.2) g/dL Albumin (3.4-5.0) g/dL Triglycerides (42-150) mg/dL Cholesterol (120-200) mg/dL LDL Cholesterol, Calc (0-99) mg/dL HDL Cholesterol (40.0-60.0) mg/dL Cholesterol/HDL Ratio Ratio Amylase (25-115) U/L Lipase (73-393) U/L Procalcitonin (0.00-0.08) ng/mL TSH (0.358-3.740) uIU/mL Urine Color (Yellw/Straw) Urine Clarity (Clear) Urine pH (5.0-8.5) Ur Specific [place] (1.002-1.035) Urine Protein (Neg-Trace) mg/dL Urine Glucose (UA) (Negative) mg/dL Urine Ketones (Negative) mg/dL Urine Occult Blood (Negative) Urine Nitrate (Negative) Urine Bilirubin (Negative) Urine Urobilinogen (Less than 2) mg/dL Ur Leukocyte Esterase (Negative) Urine WBC (0-5) /hpf Urine Mucus (Occasional) /lpf Micro UA Comment Ur Microscopic Review Urine Culture Comments Nasal Screen MRSA (PCR) (Negative) Vancomycin Trough (5.0-10.0) mcg/mL IgE 27.4 (<= 214) kU/L Rheumatoid Factor Scrn Positive H (Negative) Rheumatoid Factor Titer 19.4 H (0.0-14.9) IU/mL ELIN Screen (Neg) Complement C3 164 (90-180) mg/dL Complement C4 24 (10-40) mg/dL [place] Type B(1) Ab [place] Type B(2) Ab [place] Type B(3) Ab [place] Type B(4) Ab [place] Type B(5) Ab [place] Type B(6) Ab M. pneumoniae Interp Mycoplasma pneumon IgG (Negative) Mycoplasma pneumon IgM (Negative) 03/19/18 03/19/18 03/19/18 Range/Units 11:45 12:18 17:28 WBC (4.0-11.0) th/mm3 RBC (4.00-5.30) mil/mm3 Hgb (11.6-15.3) gm/dL Hct (35.0-46.0) % MCV (80.0-100.0) fL MCH (27.0-34.0) pg MCHC (32.0-36.0) % RDW (11.6-17.2) % Plt Count (150-450) th/mm3 MPV (7.0-11.0) fL Neut % (Auto) (16.0-70.0) % Lymph % (Auto) (9.0-44.0) % Long % (Auto) (0.0-8.0) % Eos % (Auto) (0.0-4.0) % Baso % (Auto) (0.0-2.0) % Neut # (Auto) (1.8-7.7) th/mm3 Lymph # (Auto) (1.0-4.8) th/mm3 Long # (Auto) (0.0-0.9) th/mm3 Eos # (Auto) (0.0-0.4) th/mm3 Baso # (Auto) (0.0-0.2) th/mm3 WBC Differential Differential Comment PT (9.8-11.6) sec INR Ratio APTT (24.3-30.1) sec D-Dimer Quant (PE/DVT) (0.00-0.50) mg/L FEU Puncture Site Patient Temperature O2 Saturation (90-100) % ABG pH (7.380-7.420) ABG pCO2 (38-42) mmHg ABG pO2 (61-120) mmHG ABG HCO3 (22-26) mmol/L ABG O2 Content (12.0-20.0) Vol % ABG Base Excess (-2-2) mmol/L ABG Methemoglobin (0-2) % Jorge Luis Test VBG pH (7.360-7.400) VBG pCO2 (44-48) mmHG VBG pO2 (35-40) mmHG VBG HCO3 (22-26) mmol/L VBG O2 Saturation (70-76) % VBG O2 Content (9.0-17.0) Vol % VBG Base Excess (-2-2) mmol/L VBG Carboxyhemoglobin (0-4) % VBG Methemoglobin (0-2) % Hemoglobin (12.0-16.0) G/DL Carboxyhemoglobin (0-4) % O2 Delivery Device Liter Flow L/M Inspired O2 % Critical Value Sodium (136-145) meq/L Potassium (3.5-5.1) meq/L Chloride (98-107) meq/L Carbon Dioxide (21.0-32.0) meq/L Anion Gap (5-15) meq/L BUN (7-18) mg/dL Creatinine (0.50-1.00) mg/dL Estimated GFR (>89) mL/min POC Glucose 134 H 126 H (68-110) mg/dl Random Glucose (74-106) mg/dL Lactic Acid (0.4-2.0) mmol/L Calcium (8.5-10.1) mg/dL Phosphorus (2.5-4.9) mg/dL Magnesium (1.5-2.5) mg/dL Total Bilirubin (0.2-1.0) mg/dL Direct Bilirubin (0.0-0.2) mg/dL Indirect Bilirubin (0.0-0.8) mg/dL AST (15-37) U/L ALT (10-53) U/L Alkaline Phosphatase (45-117) U/L Total Creatine Kinase (26-192) U/L CK-MB (CK-2) (0.5-3.6) ng/mL Troponin I (0.02-0.05) ng/mL C-Reactive Protein (0.00-0.30) mg/dL B-Natriuretic Peptide (0-100) pg/mL Total Protein (6.4-8.2) g/dL Albumin (3.4-5.0) g/dL Triglycerides (42-150) mg/dL Cholesterol (120-200) mg/dL LDL Cholesterol, Calc (0-99) mg/dL HDL Cholesterol (40.0-60.0) mg/dL Cholesterol/HDL Ratio Ratio Amylase (25-115) U/L Lipase (73-393) U/L Procalcitonin (0.00-0.08) ng/mL TSH (0.358-3.740) uIU/mL Urine Color (Yellw/Straw) Urine Clarity (Clear) Urine pH (5.0-8.5) Ur Specific [place] (1.002-1.035) Urine Protein (Neg-Trace) mg/dL Urine Glucose (UA) (Negative) mg/dL Urine Ketones (Negative) mg/dL Urine Occult Blood (Negative) Urine Nitrate (Negative) Urine Bilirubin (Negative) Urine Urobilinogen (Less than 2) mg/dL Ur Leukocyte Esterase (Negative) Urine WBC (0-5) /hpf Urine Mucus (Occasional) /lpf Micro UA Comment Ur Microscopic Review Urine Culture Comments Nasal Screen MRSA (PCR) (Negative) Vancomycin Trough (5.0-10.0) mcg/mL IgE (<= 214) kU/L Rheumatoid Factor Scrn (Negative) Rheumatoid Factor Titer (0.0-14.9) IU/mL ELIN Screen Pos H (Neg) Complement C3 (90-180) mg/dL Complement C4 (10-40) mg/dL [place] Type B(1) Ab [place] Type B(2) Ab [place] Type B(3) Ab [place] Type B(4) Ab [place] Type B(5) Ab [place] Type B(6) Ab M. pneumoniae Interp Mycoplasma pneumon IgG (Negative) Mycoplasma pneumon IgM (Negative) 03/19/18 03/20/18 03/20/18 Range/Units 20:43 03:27 03:27 WBC 12.8 H (4.0-11.0) th/mm3 RBC 3.11 L (4.00-5.30) mil/mm3 Hgb 9.5 L (11.6-15.3) gm/dL Hct 29.1 L (35.0-46.0) % MCV 93.3 (80.0-100.0) fL MCH 30.5 (27.0-34.0) pg MCHC 32.7 (32.0-36.0) % RDW 14.5 (11.6-17.2) % Plt Count 421 (150-450) th/mm3 MPV 7.8 (7.0-11.0) fL Neut % (Auto) 87.2 H (16.0-70.0) % Lymph % (Auto) 8.3 L (9.0-44.0) % Long % (Auto) 4.4 (0.0-8.0) % Eos % (Auto) 0.0 (0.0-4.0) % Baso % (Auto) 0.1 (0.0-2.0) % Neut # (Auto) 11.1 H (1.8-7.7) th/mm3 Lymph # (Auto) 1.1 (1.0-4.8) th/mm3 Long # (Auto) 0.6 (0.0-0.9) th/mm3 Eos # (Auto) 0.0 (0.0-0.4) th/mm3 Baso # (Auto) 0.0 (0.0-0.2) th/mm3 WBC Differential . Differential Comment Auto diff final PT (9.8-11.6) sec INR Ratio APTT (24.3-30.1) sec D-Dimer Quant (PE/DVT) (0.00-0.50) mg/L FEU Puncture Site Patient Temperature O2 Saturation (90-100) % ABG pH (7.380-7.420) ABG pCO2 (38-42) mmHg ABG pO2 (61-120) mmHG ABG HCO3 (22-26) mmol/L ABG O2 Content (12.0-20.0) Vol % ABG Base Excess (-2-2) mmol/L ABG Methemoglobin (0-2) % Jorge Luis Test VBG pH (7.360-7.400) VBG pCO2 (44-48) mmHG VBG pO2 (35-40) mmHG VBG HCO3 (22-26) mmol/L VBG O2 Saturation (70-76) % VBG O2 Content (9.0-17.0) Vol % VBG Base Excess (-2-2) mmol/L VBG Carboxyhemoglobin (0-4) % VBG Methemoglobin (0-2) % Hemoglobin (12.0-16.0) G/DL Carboxyhemoglobin (0-4) % O2 Delivery Device Liter Flow L/M Inspired O2 % Critical Value Sodium (136-145) meq/L Potassium (3.5-5.1) meq/L Chloride (98-107) meq/L Carbon Dioxide (21.0-32.0) meq/L Anion Gap (5-15) meq/L BUN (7-18) mg/dL Creatinine (0.50-1.00) mg/dL Estimated GFR (>89) mL/min POC Glucose 92 (68-110) mg/dl Random Glucose (74-106) mg/dL Lactic Acid (0.4-2.0) mmol/L Calcium (8.5-10.1) mg/dL Phosphorus (2.5-4.9) mg/dL Magnesium (1.5-2.5) mg/dL Total Bilirubin (0.2-1.0) mg/dL Direct Bilirubin (0.0-0.2) mg/dL Indirect Bilirubin (0.0-0.8) mg/dL AST (15-37) U/L ALT (10-53) U/L Alkaline Phosphatase (45-117) U/L Total Creatine Kinase (26-192) U/L CK-MB (CK-2) (0.5-3.6) ng/mL Troponin I (0.02-0.05) ng/mL C-Reactive Protein (0.00-0.30) mg/dL B-Natriuretic Peptide 196 H (0-100) pg/mL Total Protein (6.4-8.2) g/dL Albumin (3.4-5.0) g/dL Triglycerides (42-150) mg/dL Cholesterol (120-200) mg/dL LDL Cholesterol, Calc (0-99) mg/dL HDL Cholesterol (40.0-60.0) mg/dL Cholesterol/HDL Ratio Ratio Amylase (25-115) U/L Lipase (73-393) U/L Procalcitonin (0.00-0.08) ng/mL TSH (0.358-3.740) uIU/mL Urine Color (Yellw/Straw) Urine Clarity (Clear) Urine pH (5.0-8.5) Ur Specific [place] (1.002-1.035) Urine Protein (Neg-Trace) mg/dL Urine Glucose (UA) (Negative) mg/dL Urine Ketones (Negative) mg/dL Urine Occult Blood (Negative) Urine Nitrate (Negative) Urine Bilirubin (Negative) Urine Urobilinogen (Less than 2) mg/dL Ur Leukocyte Esterase (Negative) Urine WBC (0-5) /hpf Urine Mucus (Occasional) /lpf Micro UA Comment Ur Microscopic Review Urine Culture Comments Nasal Screen MRSA (PCR) (Negative) Vancomycin Trough (5.0-10.0) mcg/mL IgE (<= 214) kU/L Rheumatoid Factor Scrn (Negative) Rheumatoid Factor Titer (0.0-14.9) IU/mL ELIN Screen (Neg) Complement C3 (90-180) mg/dL Complement C4 (10-40) mg/dL [place] Type B(1) Ab [place] Type B(2) Ab [place] Type B(3) Ab [place] Type B(4) Ab [place] Type B(5) Ab [place] Type B(6) Ab M. pneumoniae Interp Mycoplasma pneumon IgG (Negative) Mycoplasma pneumon IgM (Negative) 03/20/18 03/20/18 03/20/18 Range/Units 03:27 07:37 11:49 WBC (4.0-11.0) th/mm3 RBC (4.00-5.30) mil/mm3 Hgb (11.6-15.3) gm/dL Hct (35.0-46.0) % MCV (80.0-100.0) fL MCH (27.0-34.0) pg MCHC (32.0-36.0) % RDW (11.6-17.2) % Plt Count (150-450) th/mm3 MPV (7.0-11.0) fL Neut % (Auto) (16.0-70.0) % Lymph % (Auto) (9.0-44.0) % Long % (Auto) (0.0-8.0) % Eos % (Auto) (0.0-4.0) % Baso % (Auto) (0.0-2.0) % Neut # (Auto) (1.8-7.7) th/mm3 Lymph # (Auto) (1.0-4.8) th/mm3 Long # (Auto) (0.0-0.9) th/mm3 Eos # (Auto) (0.0-0.4) th/mm3 Baso # (Auto) (0.0-0.2) th/mm3 WBC Differential Differential Comment PT (9.8-11.6) sec INR Ratio APTT (24.3-30.1) sec D-Dimer Quant (PE/DVT) (0.00-0.50) mg/L FEU Puncture Site Patient Temperature O2 Saturation (90-100) % ABG pH (7.380-7.420) ABG pCO2 (38-42) mmHg ABG pO2 (61-120) mmHG ABG HCO3 (22-26) mmol/L ABG O2 Content (12.0-20.0) Vol % ABG Base Excess (-2-2) mmol/L ABG Methemoglobin (0-2) % Jorge Luis Test VBG pH (7.360-7.400) VBG pCO2 (44-48) mmHG VBG pO2 (35-40) mmHG VBG HCO3 (22-26) mmol/L VBG O2 Saturation (70-76) % VBG O2 Content (9.0-17.0) Vol % VBG Base Excess (-2-2) mmol/L VBG Carboxyhemoglobin (0-4) % VBG Methemoglobin (0-2) % Hemoglobin (12.0-16.0) G/DL Carboxyhemoglobin (0-4) % O2 Delivery Device Liter Flow L/M Inspired O2 % Critical Value Sodium 142 (136-145) meq/L Potassium 4.2 (3.5-5.1) meq/L Chloride 107 (98-107) meq/L Carbon Dioxide 24.7 (21.0-32.0) meq/L Anion Gap 10 (5-15) meq/L BUN 15 (7-18) mg/dL Creatinine 0.59 (0.50-1.00) mg/dL Estimated GFR Greater than 89 (>89) mL/min POC Glucose 149 H 184 H (68-110) mg/dl Random Glucose 139 H (74-106) mg/dL Lactic Acid (0.4-2.0) mmol/L Calcium 7.6 L (8.5-10.1) mg/dL Phosphorus 3.3 (2.5-4.9) mg/dL Magnesium 2.2 (1.5-2.5) mg/dL Total Bilirubin (0.2-1.0) mg/dL Direct Bilirubin (0.0-0.2) mg/dL Indirect Bilirubin (0.0-0.8) mg/dL AST (15-37) U/L ALT (10-53) U/L Alkaline Phosphatase (45-117) U/L Total Creatine Kinase (26-192) U/L CK-MB (CK-2) (0.5-3.6) ng/mL Troponin I (0.02-0.05) ng/mL C-Reactive Protein (0.00-0.30) mg/dL B-Natriuretic Peptide (0-100) pg/mL Total Protein (6.4-8.2) g/dL Albumin (3.4-5.0) g/dL Triglycerides (42-150) mg/dL Cholesterol (120-200) mg/dL LDL Cholesterol, Calc (0-99) mg/dL HDL Cholesterol (40.0-60.0) mg/dL Cholesterol/HDL Ratio Ratio Amylase (25-115) U/L Lipase (73-393) U/L Procalcitonin (0.00-0.08) ng/mL TSH (0.358-3.740) uIU/mL Urine Color (Yellw/Straw) Urine Clarity (Clear) Urine pH (5.0-8.5) Ur Specific [place] (1.002-1.035) Urine Protein (Neg-Trace) mg/dL Urine Glucose (UA) (Negative) mg/dL Urine Ketones (Negative) mg/dL Urine Occult Blood (Negative) Urine Nitrate (Negative) Urine Bilirubin (Negative) Urine Urobilinogen (Less than 2) mg/dL Ur Leukocyte Esterase (Negative) Urine WBC (0-5) /hpf Urine Mucus (Occasional) /lpf Micro UA Comment Ur Microscopic Review Urine Culture Comments Nasal Screen MRSA (PCR) (Negative) Vancomycin Trough (5.0-10.0) mcg/mL IgE (<= 214) kU/L Rheumatoid Factor Scrn (Negative) Rheumatoid Factor Titer (0.0-14.9) IU/mL ELIN Screen (Neg) Complement C3 (90-180) mg/dL Complement C4 (10-40) mg/dL [place] Type B(1) Ab [place] Type B(2) Ab [place] Type B(3) Ab [place] Type B(4) Ab [place] Type B(5) Ab [place] Type B(6) Ab M. pneumoniae Interp Mycoplasma pneumon IgG (Negative) Mycoplasma pneumon IgM (Negative) 03/20/18 03/20/1803/20/18 Range/Units 17:03 20:16 21:14 WBC (4.0-11.0) th/mm3 RBC (4.00-5.30) mil/mm3 Hgb (11.6-15.3) gm/dL Hct (35.0-46.0) % MCV (80.0-100.0) fL MCH (27.0-34.0) pg MCHC (32.0-36.0) % RDW (11.6-17.2) % Plt Count (150-450) th/mm3 MPV (7.0-11.0) fL Neut % (Auto) (16.0-70.0) % Lymph % (Auto) (9.0-44.0) % Long % (Auto) (0.0-8.0) % Eos % (Auto) (0.0-4.0) % Baso % (Auto) (0.0-2.0) % Neut # (Auto) (1.8-7.7) th/mm3 Lymph # (Auto) (1.0-4.8) th/mm3 Long # (Auto) (0.0-0.9) th/mm3 Eos # (Auto) (0.0-0.4) th/mm3 Baso # (Auto) (0.0-0.2) th/mm3 WBC Differential Differential Comment PT (9.8-11.6) sec INR Ratio APTT (24.3-30.1) sec D-Dimer Quant (PE/DVT) (0.00-0.50) mg/L FEU Puncture Site Patient Temperature O2 Saturation (90-100) % ABG pH (7.380-7.420) ABG pCO2 (38-42) mmHg ABG pO2 (61-120) mmHG ABG HCO3 (22-26) mmol/L ABG O2 Content (12.0-20.0) Vol % ABG Base Excess (-2-2) mmol/L ABG Methemoglobin (0-2) % Jorge Luis Test VBG pH (7.360-7.400) VBG pCO2 (44-48) mmHG VBG pO2 (35-40) mmHG VBG HCO3 (22-26) mmol/L VBG O2 Saturation (70-76) % VBG O2 Content (9.0-17.0) Vol % VBG Base Excess (-2-2) mmol/L VBG Carboxyhemoglobin (0-4) % VBG Methemoglobin (0-2) % Hemoglobin (12.0-16.0) G/DL Carboxyhemoglobin (0-4) % O2 Delivery Device Liter Flow L/M Inspired O2 % Critical Value Sodium (136-145) meq/L Potassium (3.5-5.1) meq/L Chloride (98-107) meq/L Carbon Dioxide (21.0-32.0) meq/L Anion Gap (5-15) meq/L BUN (7-18) mg/dL Creatinine (0.50-1.00) mg/dL Estimated GFR (>89) mL/min POC Glucose 141 H 132 H (68-110) mg/dl Random Glucose (74-106) mg/dL Lactic Acid (0.4-2.0) mmol/L Calcium (8.5-10.1) mg/dL Phosphorus (2.5-4.9) mg/dL Magnesium (1.5-2.5) mg/dL Total Bilirubin (0.2-1.0) mg/dL Direct Bilirubin (0.0-0.2) mg/dL Indirect Bilirubin (0.0-0.8) mg/dL AST (15-37) U/L ALT (10-53) U/L Alkaline Phosphatase (45-117) U/L Total Creatine Kinase (26-192) U/L CK-MB (CK-2) (0.5-3.6) ng/mL Troponin I (0.02-0.05) ng/mL C-Reactive Protein (0.00-0.30) mg/dL B-Natriuretic Peptide (0-100) pg/mL Total Protein (6.4-8.2) g/dL Albumin (3.4-5.0) g/dL Triglycerides (42-150) mg/dL Cholesterol (120-200) mg/dL LDL Cholesterol, Calc (0-99) mg/dL HDL Cholesterol (40.0-60.0) mg/dL Cholesterol/HDL Ratio Ratio Amylase (25-115) U/L Lipase (73-393) U/L Procalcitonin (0.00-0.08) ng/mL TSH (0.358-3.740) uIU/mL Urine Color (Yellw/Straw) Urine Clarity (Clear) Urine pH (5.0-8.5) Ur Specific [place] (1.002-1.035) Urine Protein (Neg-Trace) mg/dL Urine Glucose (UA) (Negative) mg/dL Urine Ketones (Negative) mg/dL Urine Occult Blood (Negative) Urine Nitrate (Negative) Urine Bilirubin (Negative) Urine Urobilinogen (Less than 2) mg/dL Ur Leukocyte Esterase (Negative) Urine WBC (0-5) /hpf Urine Mucus (Occasional) /lpf Micro UA Comment Ur Microscopic Review Urine Culture Comments Nasal Screen MRSA (PCR) (Negative) Vancomycin Trough 6.7 (5.0-10.0) mcg/mL IgE (<= 214) kU/L Rheumatoid Factor Scrn (Negative) Rheumatoid Factor Titer (0.0-14.9) IU/mL ELIN Screen (Neg) Complement C3 (90-180) mg/dL Complement C4 (10-40) mg/dL [place] Type B(1) Ab [place] Type B(2) Ab [place] Type B(3) Ab [place] Type B(4) Ab [place] Type B(5) Ab [place] Type B(6) Ab M. pneumoniae Interp Mycoplasma pneumon IgG (Negative) Mycoplasma pneumon IgM (Negative) 03/21/18 03/21/18 Range/Units 02:39 08:40 WBC (4.0-11.0) th/mm3 RBC (4.00-5.30) mil/mm3 Hgb (11.6-15.3) gm/dL Hct (35.0-46.0) % MCV (80.0-100.0) fL MCH (27.0-34.0) pg MCHC (32.0-36.0) % RDW (11.6-17.2) % Plt Count (150-450) th/mm3 MPV (7.0-11.0) fL Neut % (Auto) (16.0-70.0) % Lymph % (Auto) (9.0-44.0) % Long % (Auto) (0.0-8.0) % Eos % (Auto) (0.0-4.0) % Baso % (Auto) (0.0-2.0) % Neut # (Auto) (1.8-7.7) th/mm3 Lymph # (Auto) (1.0-4.8) th/mm3 Long # (Auto) (0.0-0.9) th/mm3 Eos # (Auto) (0.0-0.4) th/mm3 Baso # (Auto) (0.0-0.2) th/mm3 WBC Differential Differential Comment PT (9.8-11.6) sec INR Ratio APTT (24.3-30.1) sec D-Dimer Quant (PE/DVT) (0.00-0.50) mg/L FEU Puncture Site Patient Temperature O2 Saturation (90-100) % ABG pH (7.380-7.420) ABG pCO2 (38-42) mmHg ABG pO2 (61-120) mmHG ABG HCO3 (22-26) mmol/L ABG O2 Content (12.0-20.0) Vol % ABG Base Excess (-2-2) mmol/L ABG Methemoglobin (0-2) % Jorge Luis Test VBG pH (7.360-7.400) VBG pCO2 (44-48) mmHG VBG pO2 (35-40) mmHG VBG HCO3 (22-26) mmol/L VBG O2 Saturation (70-76) % VBG O2 Content (9.0-17.0) Vol % VBG Base Excess (-2-2) mmol/L VBG Carboxyhemoglobin (0-4) % VBG Methemoglobin (0-2) % Hemoglobin (12.0-16.0) G/DL Carboxyhemoglobin (0-4) % O2 Delivery Device Liter Flow L/M Inspired O2 % Critical Value Sodium (136-145) meq/L Potassium (3.5-5.1) meq/L Chloride (98-107) meq/L Carbon Dioxide (21.0-32.0) meq/L Anion Gap (5-15) meq/L BUN (7-18) mg/dL Creatinine (0.50-1.00) mg/dL Estimated GFR (>89) mL/min POC Glucose 151 H (68-110) mg/dl Random Glucose (74-106) mg/dL Lactic Acid (0.4-2.0) mmol/L Calcium (8.5-10.1) mg/dL Phosphorus (2.5-4.9) mg/dL Magnesium (1.5-2.5) mg/dL Total Bilirubin (0.2-1.0) mg/dL Direct Bilirubin (0.0-0.2) mg/dL Indirect Bilirubin (0.0-0.8) mg/dL AST (15-37) U/L ALT (10-53) U/L Alkaline Phosphatase (45-117) U/L Total Creatine Kinase (26-192) U/L CK-MB (CK-2) (0.5-3.6) ng/mL Troponin I (0.02-0.05) ng/mL C-Reactive Protein (0.00-0.30) mg/dL B-Natriuretic Peptide (0-100) pg/mL Total Protein (6.4-8.2) g/dL Albumin (3.4-5.0) g/dL Triglycerides (42-150) mg/dL Cholesterol (120-200) mg/dL LDL Cholesterol, Calc (0-99) mg/dL HDL Cholesterol (40.0-60.0) mg/dL Cholesterol/HDL Ratio Ratio Amylase (25-115) U/L Lipase (73-393) U/L Procalcitonin (0.00-0.08) ng/mL TSH (0.358-3.740) uIU/mL Urine Color (Yellw/Straw) Urine Clarity (Clear) Urine pH (5.0-8.5) Ur Specific [place] (1.002-1.035) Urine Protein (Neg-Trace) mg/dL Urine Glucose (UA) (Negative) mg/dL Urine Ketones (Negative) mg/dL Urine Occult Blood (Negative) Urine Nitrate (Negative) Urine Bilirubin (Negative) Urine Urobilinogen (Less than 2) mg/dL Ur Leukocyte Esterase (Negative) Urine WBC (0-5) /hpf Urine Mucus (Occasional) /lpf Micro UA Comment Ur Microscopic Review Urine Culture Comments Nasal Screen MRSA (PCR) (Negative) Vancomycin Trough (5.0-10.0) mcg/mL IgE (<= 214) kU/L Rheumatoid Factor Scrn (Negative) Rheumatoid Factor Titer (0.0-14.9) IU/mL ELIN Screen (Neg) Complement C3 (90-180) mg/dL Complement C4 (10-40) mg/dL [place]ackie Type B(1) Ab Cancelled [place] Type B(2) Ab Cancelled [place] Type B(3) Ab Cancelled [place] Type B(4) Ab Cancelled [place] Type B(5) Ab Cancelled [place] Type B(6) Ab Cancelled M. pneumoniae Interp Mycoplasma pneumon IgG (Negative) Mycoplasma pneumon IgM (Negative) Imaging Data Radiologist's impression: Abdomen X-Ray 03/18/18 00:00 CONCLUSION: Negative examination. Venous Doppler Study 03/18/18 00:00 CONCLUSION: 1. The study is negative for bilateral lower extremity deep venous thrombosis. Chest X-Ray 03/18/18 14:35 CONCLUSION: Bilateral pulmonary infiltrates. Chest CTA 03/18/18 16:02 CONCLUSION: 1. There is no evidence of PE for technique. 2. Extensive airspace process most likely inflammatory and pneumonia, possibility of pulmonary edema is not excluded. 3. Tiny bilateral pleural effusions with nonspecific most likely benign lymph nodes within the mediastinum. Chest X-Ray 03/19/18 06:00 CONCLUSION: No significant interval change in bilateral diffuse pulmonary opacity. Chest X-Ray 03/20/18 06:00 CONCLUSION: No significant interval change of bilateral diffuse pulmonary parenchymal opacity. Chest X-Ray 03/21/18 09:43 CONCLUSION: 1. Improving patchy bilateral diffuse airspace disease. Discharge Plan Discharge Disposition Patient Disposition: 30 Still Patient Physicians Team ED Provider: Albert Ward ED Midlevel Provider: Denise Menchaca Primary Care Provider: UNKNOWN, Attending Provider: Garcia Graham Other Providers: Duarte Calixto ; Joseluis Hudson ; Levy Smith ; Walter Eng Discharge Interventions Interventions: ED Discharge Assessment Last Done: 03/18/18 17:57 Status ED Status: Left Department Discharge Information Discharge Date/Time: 03/18/18 18:00
[2018-03-18 15:31] LABS: Anion Gap 11 meq/L (5-15); Blood Urea Nitrogen 12 mg/dL (7-18); Calcium 8.3 mg/dL (8.5-10.1); Carbon Dioxide 23.8 meq/L (21.0-32.0); Chloride 102 meq/L (98-107); Glomerular Filtration Rate 80 mL/min (>89); Glucose,Random 101 mg/dL (74-106); Potassium 4.2 meq/L (3.5-5.1); Sodium 137 meq/L (136-145)
[2018-03-18 15:35] LABS: Creatine Kinase 146 U/L (26-192); Troponin I 0.55 ng/mL (0.02-0.05)
--- NOTE | 2018-03-18 15:43 | XR ---
EXAM DATE: 03/18/2018 3:40 PM EDT AGE/SEX: 58 years / Female INDICATIONS: . Shortness of breath. CLINICAL DATA: This is the patient's initial encounter. Patient reports that signs and symptoms have been present for 1 day and indicates a pain score of 0/10. MEDICAL/SURGICAL HISTORY: None. None. COMPARISON: No prior exams available for comparison. FINDINGS: There are diffuse bilateral alveolar infiltrates suspected. Osseous structures demonstrate degenerati ve changes of the spine. Air bronchogram formation is noted in the lower lobes. Cardiomegaly. CONCLUSION: Bilateral pulmonary infiltrates. Electronically signed by: Parmjit Vallecillo MD 03/18/2018 3:42 PM EDT
[2018-03-18 15:47] LABS: Creatine Kinase MB 1.8 ng/mL (0.5-3.6)
[2018-03-18] MEDS ORDERED: Piperacil/Tazo 4.5 GM Premix 4.5 GM/100 ML BAG IV.SIG ONE (15:53)
[2018-03-18] MEDS ORDERED: Vancomycin Inj 1 GM/200 ML PIGGYBACK IV.SIG ONE (15:53)
[2018-03-18 15:57] LABS: Prothrombin Time 10.3 sec (9.8-11.6)
[2018-03-18 15:58] LABS: D-Dimer 1.47 mg/L FEU (0.00-0.50)
[2018-03-18 16:17] LABS: Bilirubin,Urine Negative (Negative); Clarity,Urine Hazy (Clear); Color,Urine Yellow (Yellw/Straw); Glucose,Urine (UA) Negative (Negative); Leukocyte Esterase,Urine Negative (Negative); Mucus,Urine Few /lpf (Occasional); Nitrite,Urine Negative (Negative); Specific Gravity,Urine 1.021 (1.002-1.035)
[2018-03-18] MEDS ORDERED: Bisacodyl 10 MG Supp RECTAL PRN (16:28)
[2018-03-18] MEDS ORDERED: Morphine Sulfate Inj 2 MG/ML Vial IV.PUSH PRN (16:28)
[2018-03-18] MEDS ORDERED: Acetaminophen 325 MG Tablet PO PRN (16:28)
[2018-03-18] MEDS ORDERED: Vancomycin Inj 1,000 MG in Sodium Chlor 0.9% Inj 250 ML IV.SIG ONE (16:30)
[2018-03-18] MEDS ORDERED: Heparin - SQ 10,000 UNITS/ML Vial SQ SCH (16:30)
[2018-03-18] MEDS ORDERED: Vancomycin Consult Pharmacy OTHER PRN (16:36)
[2018-03-18] MEDS ORDERED: Sodium Phosphate Inj 30 MMOL in Sodium Chlor 0.9% Inj 250 ML IV.SIG PRN (16:37)
[2018-03-18] MEDS ORDERED: Potassium Phosphate 500 MG Soluble Tablet PO PRN ×2 (16:37)
[2018-03-18] MEDS ORDERED: Magnesium Sulfate Inj 4 GM in Sodium Chlor 0.9% Inj 92 ML IV.SIG PRN (16:37)
[2018-03-18] MEDS ORDERED: Potassium Phosphate Inj 30 MMOL in Sodium Chlor 0.9% Inj 250 ML IV.SIG PRN (16:37)
[2018-03-18] MEDS ORDERED: Potassium Chloride 25 MEQ Effervescent Tablet PO PRN (16:37)
[2018-03-18] MEDS ORDERED: Dextrose 50% in Water 50 ML Vial IV.PUSH PRN (16:37)
[2018-03-18] MEDS ORDERED: Magnesium Oxide 400 MG Tablet PO PRN ×2 (16:37→16:58)
[2018-03-18] MEDS ORDERED: Potassium Chlor 20 mEq Premix 20 MEQ/100 ML PIGGYBACK IV.SIG PRN ×2 (16:37)
[2018-03-18] MEDS ORDERED: Magnesium Sulfate Inj 2 GM in Sodium Chlor 0.9% Inj 96 ML IV.SIG PRN (16:37)
[2018-03-18] MEDS ORDERED: Potassium Chlor 40 mEq Premix 40 MEQ/100 ML PIGGYBACK IV.SIG PRN ×2 (16:37)
--- NOTE | 2018-03-18 16:38 | P.HPCC ---
History of Present Illness Service: Critical care medicine Primary Care Physician: UNKNOWN Chief Complaint: Shortness of breath History of Present Illness: This is a 58-year-old female. Date of admission 03/18/2018. Past medical history includes gastroesophageal reflux disease, seasonal asthma, elevated BMI, hyperlipidemia untreated and chronic kidney disease. Today, she presents to [facility] ED for evaluation of 1 week history of SOB. She is originally from [facility]. Her chief complaint consists of shortness of breath, chest tightness without radiation to the neck, down left arm or back, persistent nausea without emesis, abdominal pain or diarrhea. Her original temperature was 102 Fahrenheit according to patient, patient was evaluated in [place]. At that time, she states the chest x-ray was "clear. " At that time the provider suspected that she was having asthma symptoms. She was prescribed albuterol nebulizers and sent home. She is normally on an albuterol inhaler at home along with ranitidine and intermittently intermixing with PPI for gastroesophageal reflux disease. She states that her respiratory and nausea symptoms became acutely worse 2 days ago after flying to [facility] from [place]. She states that she is unable to walk "even a few feet" without GALINDO. Lying flat also makes symptoms worse. Chest x-ray revealed diffuse pulmonary fluffy infiltrates bilaterally.. EKG revealed sinus tachycardia with normal TX, QRS and QT intervals. Troponin was 0.55. She was seen in consultation by cardiology who recommended possible heart catheterization in the a.m. Will trend troponins. She is currently undergoing a CT angiogram of the chest. She received piperacillin/tazobactam and vancomycin in the ED. Her white blood cell count is normal. Her lactate was normal. Her d-dimer was slightly elevated. She complains of some slightly increased swelling in her bilateral lower extremities. She was placed on 100% nonrebreather with saturations currently 99-100%. At the present time she is able to speak complete sentences. Denies cough Inpatient Certification: I certify that the inpatient services were ordered in accordance with Medicare regulations governing the order. This includes certification that hospital inpatient services are reasonable and necessary and in the case of services not specified as inpatient-only under 42 CFR 419.22(n), that they are appropriately provided as inpatient services in accordance to with the 2-midnight benchmark under 43 CFR 412.3(e) Estimated Total Length of Stay (Days): 5 Plans for Post Hospital Care: Home Review of Systems Constitutional: Reports body ache(s), Reports chills, Reports excessive sweating , Reports fatigue, Reports fever(s), Reports lack of energy, Reports malaise, Reports night sweats, Reports weakness, Denies anorexia, Denies daytime sleepiness, Denies headache(s), Denies weight gain, Denies weight loss Eyes: Denies blind spots, Denies blurry vision, Denies dry eyes, Denies sensitivity to light Ears, Nose, Mouth, and Throat: Denies bleeding gums, Denies dry mouth, Denies hoarseness, Denies mouth lesions, Denies nasal congestion, Denies post nasal drip, Denies sinus pressure, Denies sore throat Cardiovascular: Reports chest pain, Reports excessive sweating, Reports fast heart rate, Reports leg swelling, Reports shortness of breath, Reports shortness of breath with activity, Reports shortness of breath when lying down, Denies generalized swelling, Denies leg sores, Denies radiating jaw, neck or arm pain, Denies rapid, pounding, or irregular heartbeat, Denies shortness of breath causing sudden awakening Respiratory: Reports chest congestion, Denies change in phlegm color, Denies cough, Denies excessive phlegm production, Denies pain on inspiration, Denies snoring Gastrointestinal: Reports constipation, Reports nausea, Denies abdominal pain, Denies vomiting Genitourinary: Reports frequent nighttime urination, Denies difficulty urinating Musculoskeletal: Reports body aches, Denies abnormal walking, Denies back pain Skin/Breast: Denies bleeding lesions, Denies rash Neurologic: Reports dizziness, Denies confusion, Denies fainting Psychiatric: Reports anxiety, Denies behavioral changes Endocrine: Reports cold intolerance, Reports excessive sweating, Denies flushing Hematologic/Lymphatic: Denies easy bleeding Allergic/Immunologic: Reports GI upset with certain foods, Reports seasonal runny nose PMFSH - History History Provided By: Patient, Family Member - Medical History Medical History: Medical History (Last Updated 03/18/18 @ 16:42 by Walter Eng MD) BMI 38.0-38.9,adult Bronchitis Chronic kidney disease, stage II (mild) Gastroesophageal reflux disease Hyperlipidemia Mild intermittent asthma - Surgical History Surgical History: Surgical History (Last Updated 03/18/18 @ 16:42 by Walter Eng MD) H/O wisdom tooth extraction S/P bunionectomy - Family History Family History: Family History (Last Updated 03/18/18 @ 16:43 by Walter Eng MD) Brother Family history of hypertension Sister Family history of hypertension Family history of hyperlipidemia Other Family history of breast cancer in mother - Tobacco History Second Hand Smoke Exposure: No Tobacco Use In Past 30 Days: No Smoking Status: Never smoker Tobacco Type: Cigarettes - Alcohol History How Often Do You Have a Drink Containing Alcohol: Never - Substance Use History Substance History: No History of Abuse - Travel History Recent Travel in the [place] Within the Last 8 Weeks: No Recent Travel Out of the Country Within the Last 8 Weeks: No - Immunization History Tetanus Immunization: Unsure Hx Influenza Vaccine This Season: No Medications and Allergies Active Medications: Active Medications Acetaminophen (Tylenol) 650 mg PO Q6H PRN PRN Reason: Fever >100f Hydrocodone Bitart/Acetaminophen ([place] 5/325) 1 tab PO Q4H PRN PRN Reason: PAIN SCALE 1 TO 5 Al Hydroxide/Mg Hydroxide (Milk Of Magnesia Liq) 30 ml PO Q12H PRN PRN Reason: Mild Constipation Albuterol (Albuterol Neb (Bill)) 2.5 mg NEB Q2HR NEB PRN PRN Reason: SHORTNESS OF BREATH/WHEEZING Albuterol (Duoneb Neb (Prn)) 1 ampul NEB Q4HR NEB BILL Aspirin (Aspirin Chew) 81 mg PO DAILY BILL Bisacodyl (Dulcolax Supp) 10 mg RECTAL DAILY PRN PRN Reason: SEVERE CONSITIPATION Chlorhexidine Gluconate (Chlorhexidine 2% Cloth) 3 pack TOPICAL DAILY@0400 BILL Stop: 03/24/18 03:59 Chlorhexidine Gluconate (Chlorhexidine 2% Cloth) 3 pack TOPICAL DAILY@0400 PRN PRN Reason: Extra cloth needed Stop: 03/24/18 03:59 Heparin Sodium (Porcine) (Heparin Inj) 5,000 units SQ Q8H BILL Vancomycin HCl 1,000 mg/ (Sodium Chloride) 250 mls @ 250 mls/hr IV.SIG ONCE ONE Stop: 03/18/18 17:29 Lactulose (Lactulose Liq) 30 ml PO DAILY PRN PRN Reason: SEVERE CONSITIPATION Morphine Sulfate (Morphine Inj) 2 mg IV.PUSH Q2H PRN PRN Reason: PAIN SCALE 6 TO 10 Ondansetron HCl (Zofran Inj) 4 mg IV.PUSH Q6H PRN PRN Reason: NAUSEA OR VOMITING Pantoprazole Sodium (Protonix Inj) 40 mg IV.PUSH DAILY BILL Senna/Docusate Sodium (Sofi-Colace) 1 tab PO BID BILL Sennosides (Senokot) 17.2 mg PO Q12H PRN PRN Reason: Moderate Constipation Sodium Chloride (Ns Flush) 2 ml IV.FLUSH BID BILL Sodium Chloride (Ns Flush) 2 ml IV.FLUSH PRN PRN PRN Reason: FLUSH AFTER USING IV ACCESS Allergies Allergy/AdvReac Type Severity Reaction Status Date / Time Sulfa (Sulfonamide Allergy Intermediate Anxiety Verified 03/18/18 14:16 Antibiotics) Results - Labs CBC & Chem 7: 03/18/18 14:55 03/18/18 14:55 Labs: Short CBC 03/18/18 Range/Units 14:55 WBC 10.9 (4.0-11.0) th/mm3 Hgb 11.2 L (11.6-15.3) gm/dL Hct 33.3 L (35.0-46.0) % Plt Count 441 (150-450) th/mm3 BMP 03/18/18 14:55 Sodium 137 Potassium 4.2 Chloride 102 Carbon Dioxide 23.8 BUN 12 Creatinine 0.75 Calcium 8.3 L Cardiac Enzymes 03/18/18 Range/Units 14:55 Total Creatine Kinase 146 (26-192) U/L CK-MB (CK-2) 1.8 (0.5-3.6) ng/mL Troponin I 0.55 H (0.02-0.05) ng/mL Urine 03/18/18 Range/Units 15:42 Urine Color Yellow (Yellw/Straw) Urine Clarity Hazy H (Clear) Urine pH 5.0 (5.0-8.5) Ur Specific [place] 1.021 (1.002-1.035) Urine Protein 30 H (Neg-Trace) mg/dL Urine Glucose (UA) Negative (Negative) mg/dL - Imaging Impressions Chest X-Ray 03/18/18 14:35 CONCLUSION: Bilateral pulmonary infiltrates. Exam Vital signs: Vital Signs 03/18/18 13:38 03/18/18 14:35 03/18/18 14:37 Temperature 102.6 F H 100.8 F H Pulse Rate 117 H 112 H Respiratory Rate 16 30 H Blood Pressure 128/59 L 136/71 Pulse Oximetry 66 L 99 98 03/18/18 14:45 03/18/18 15:00 03/18/18 16:10 Temperature 99.3 F Pulse Rate 112 H 107 H 102 H Respiratory Rate 28 H 28 H 18 Blood Pressure 127/67 Pulse Oximetry 100 Intake & Output 03/17/18 03/18/18 03/18/18 18:59 06:59 18:59 Intake Total 800 / 800 Balance 800 / 800 Weight 86.183 kg Intake: IV 800 / 800 NS Inj 2,000 ML @ Wide Open IV. 800 / 800 SIG BOLUS ONE Rx#:[id number] - Constitutional no acute distress - Routine HEENT Exam Head: Present: normocephalic, atraumatic Eye: Present: EOMI, PERRL, normal accommodation ENT: Present: mucous membranes moist - Routine Neck Exam Present: supple, full ROM. Absent: JVD, carotid bruit - Routine Chest/Breast/Axilla Exam Chest wall: Absent: tenderness Breast: Absent: tenderness Axillae: Absent: lymphadenopathy - Routine Respiratory Exam Present: accessory muscle use, crackles, distant breath sounds, diminished air movement. Absent: wheezes - Routine Cardiovascular Exam Present: S1, S2, murmur, tachycardia. Absent: S3 - Routine Abdominal Exam Present: soft, normoactive bowel sounds. Absent: tenderness - Routine Extremities Exam Present: edema. Absent: cyanosis, clubbing - Routine Skin Exam Present: intact - Routine Neurological Exam Present: alert, oriented X3, CN II-XII intact. Absent: sensory deficit, motor deficit Septic Shock Reassessment Septic shock perfusion: reassessment completed Caprini VTE Risk Assessment Caprini VTE Risk Assessment: Moderate/High Risk (score >= 2) Caprini Risk Assessment Model: Point Value = 1 Point Value = 2 Point Value = 3 Point Value = 5 Age 41-60 Minor surgery BMI > 25 kg/m2 Swollen legs Varicose veins or History of unexplained or recurrent spontaneous Oral contraceptives or hormone replacement Sepsis (< 1 month) Serious lung disease, including pneumonia (< 1 month) Abnormal pulmonary function Acute myocardial infarction Congestive heart failure (< 1 month) History of inflammatory bowel disease Medical patient at bed rest Age 61-74 Arthroscopic surgery Major open surgery (> 45 min) Laparoscopic surgery (> 45 min) Malignancy Confined to bed (> 72 hours) Immobilizing plaster cast Central venous access Age >= 75 History of VTE Family history of VTE Factor V Leiden Prothrombin [id number] Lupus anticoagulant Anticardiolipin antibodies Elevated serum homocysteine Heparin-induced thrombocytopenia Other congenital or acquired thrombophilia Stroke (< 1 month) Elective arthroplasty Hip, pelvis, or leg fracture Acute spinal cord injury (< 1 month) Prophylaxis Regimen: Total Risk Factor Score Risk Level Prophylaxis Regimen 0-1 Low Early ambulation 2 Moderate Order ONE of the following: *Sequential Compression Device (SCD) *Heparin 5000 units SQ BID 3-4 Higher Order ONE of the following medications: *Heparin 5000 units SQ TID *Enoxaparin/Lovenox 40 mg SQ daily (WT < 150 kg, CrCl > 30 mL/min) *Enoxaparin/Lovenox 30 mg SQ daily (WT < 150 kg, CrCl > 10-29 mL/min) *Enoxaparin/Lovenox 30 mg SQ BID (WT < 150 kg, CrCl > 30 mL/min) AND/OR *Sequential Compression Device (SCD) 5 or more Highest Order ONE of the following medications: *Heparin 5000 units SQ TID (Preferred with Epidurals) *Enoxaparin/Lovenox 40 mg SQ daily (WT < 150 kg, CrCl > 30 mL/min) *Enoxaparin/Lovenox 30 mg SQ daily (WT < 150 kg, CrCl > 10-29 mL/min) *Enoxaparin/Lovenox 30 mg SQ BID (WT < 150 kg, CrCl > 30 mL/min) AND *Sequential Compression Device (SCD) Assessment and Plan - Assessment and Plan Plan: Neuro/Psych: Acetaminophen 650 mg p.o. every 6 hours as needed fever Hydrocodone/acetaminophen 5/325 1 tablet every 4 hours as needed 1 through 5 Morphine sulfate 2 g IV every 2 hours as needed pain 6-10 CV: Non-STEMI likely type II demand ischemia Elevated troponin History of hyperlipidemia Sinus tachycardia Elevated BNP Received 2 L normal saline in the ED. Noted her lactate was normal at 1.6. Recheck in a.m. We will start on metoprolol tartrate 5 mg IV every 6 hours Aspirin 162 mg p.o. x1 now. 81 milligrams in a.m. Hold DEJA inhibitor in light of acute kidney injury by history Check lipid panel in a.m. Serial troponins every 8 hours x2. 2D echocardiogram ordered. Dr. Calixto/cardiology to evaluate. Possible heart catheterization in a.m. Resp: Acute hypoxic hypercapnic respiratory failure History of mild intermittent asthma Tobaccoism Chest x-ray revealed diffuse bilateral pulmonary infiltrates with air bronchograms and lower lobes. CT angiogram currently pending Currently on her percent nonrebreather with saturation 100%. Wean Albuterol/ipratropium aerosols every 4 hours with albuterol aerosols every 2 as needed for dyspnea Incentive spirometry while awake Tobacco sensation self-evaluation booklet will provide when appropriate Follow-up chest x-ray in a.m. GI: Gastroesophageal reflux disease History of constipation Cardiac diet with n.p.o. after midnight At home on ranitidine 150 mg daily with esomeprazole as needed Start on pantoprazole 40 mg IV daily Docusate sodium/senna 1 tablet twice daily for bowel regimen Check lipase : History of urinary frequency UA negative. No indication for Brown catheter Endo: Sliding scale insulin Accu-Cheks to maintain euglycemia/AC at bedtime low regimen Check TSH Renal: History of chronic kidney disease stage II Creatinine currently within normal limits Monitor urine output Accurate I's and O's Avoid nephrotoxic medications Heme: Normocytic anemia Monitor CBC daily. Follow trends. No indication for transfusion of blood products at this time ID: Probable community acquired pneumonia Receiving piperacillin/tazobactam and vancomycin ED. Will initiate schedule on vancomycin, cefepime and azithromycin Infectious disease consultation UA negative Influenza a and B-. Respiratory panel ordered for confirmation Blood cultures x2 03/18 pending Check urinary pneumococcal and Legionella antigens, mycoplasma and chlamydia No history of immunosuppression FEN: Replace electrolytes as clinically indicated per ICU electrolyte protocol MSK: Elevated BMI Weight loss encouraged PT evaluate and treat Access -Utilize peripheral IV. Central line if indicated Prophylaxis -GI-pantoprazole -DVT SCD/heparin subcu Admission 35 minutes critical care time Code Status: Full code Discussed Condition With: Patient. RN. Dr. Calixto. CARE plan discussed and all questions answered.
--- NOTE | 2018-03-18 17:09 | CT ---
EXAM DATE: 03/18/2018 5:03 PM EDT AGE/SEX: 58 years / Female INDICATIONS: Short of breath, fever, dizzy, recent bronchitis CLINICAL DATA: This is the patient's initial encounter. Patient reports that signs and symptoms have been present for 2 days and indicates a pain score of 8/10. MEDICAL/SURGICAL HISTORY: Gastroesophageal reflux disease. None. RADIATION DOSE: 21.21 CTDI (mGy) COMPARISON: No prior exams available for comparison. TECHNIQUE: Volumetric scanning was performed using a multi-row detector CT scanner during bolus infu derek of 74ML ml Omnipaque 350 (iohexol) nonionic water-soluble contrast as a single exam dose. The d tata was post processed with a variety of visualization algorithms including full volume maximum inten sity projection and sliding thin slab reformation. Using automated exposure control and adjustment o f the mA and/or kV according to patient size, radiation dose was kept as low as reasonably achievable to obtain optimal diagnostic quality images. DICOM format image data is available electronically fo r review and comparison. FINDINGS: There is no evidence of PE for technique. Extensive airspace process is seen in bilateral lungs invo lving all lobes and segments most likely inflammatory, however pulmonary edema is not excluded. Tiny bilateral pleural effusions are seen and there are lymph nodes in the mediastinum nonspecific in the AP window pretracheal and subcarinal area difficult to accurately measure the subcarinal lymph nodes due to presence of fluid in the adjacent pleural space, however these lymph nodes are probably not pa thological. CONCLUSION: 1. There is no evidence of PE for technique. 2. Extensive airspace process most likely inflammatory and pneumonia, possibility of pulmonary edema is not excluded. 3. Tiny bilateral pleural effusions with nonspecific most likely benign lymph nodes within the media stinum. Electronically signed by: Alo Florez MD 03/18/2018 5:08 PM EDT
--- NOTE | 2018-03-18 17:50 | XR ---
EXAM DATE: 03/18/2018 5:47 PM EDT AGE/SEX: 58 years / Female INDICATIONS: Abdominal distention. CLINICAL DATA: This is the patient's initial encounter. Patient reports that signs and symptoms have been present for 1 day and indicates a pain score of 2/10. MEDICAL/SURGICAL HISTORY: . GERD, high cholesterol None. COMPARISON: No prior exams available for comparison. FINDINGS: The abdominal bowel gas pattern is normal. No abnormal masses, calcifications, or organomegaly is s een. The osseous structures are unremarkable. There is contrast media within the urinary bladder. Co ntrast is also seen within the bilateral ureters. CONCLUSION: Negative examination. Electronically signed by: Parmjit Vallecillo MD 03/18/2018 5:49 PM EDT
[2018-03-18] MEDS: Heparin - SQ 10,000 UNITS/ML Vial SQ SCH (18:00)
[2018-03-18] MEDS: Azithromycin Inj 500 MG in Sodium Chlor 0.9% Inj 250 ML IV.SIG SCH (18:01)
[2018-03-18] MEDS: Metoprolol Inj 5 MG/5 ML Vial IV.PUSH SCH ×2 (18:01→22:14)
[2018-03-18 18:43] LABS: Albumin 2.4 g/dL (3.4-5.0)
[2018-03-18 18:50] LABS: C-Reactive Protein 21.1 mg/dL (0.00-0.30); Total Protein 7.5 g/dL (6.4-8.2); Troponin I 0.47 ng/mL (0.02-0.05)
[2018-03-18] MEDS: Insulin NovoLOG Aspart Correctional Sugar Inj SQ SCH ×2 (19:50→22:14)
--- NOTE | 2018-03-18 20:32 | MB ---
cc: Duarte Calixto MD DATE: 03/18/2018 HISTORY OF PRESENT ILLNESS: Linda is a 58-year-old lady visiting from out of town who presents with a chief complaint of chest tightness, shortness of breath, weight gain of about 8 pounds over the last year. She notes that her dyspnea started while she was in a parade several months ago. She is currently on oxygen, currently chest pain free. Otherwise, denies any fevers, chills, cough, GI or bleeding, PND, orthopnea, syncope or dizziness. PAST MEDICAL HISTORY: As per history of present illness. Also includes bronchitis, stage II kidney failure, gastroesophageal reflux disease, hyperlipidemia, asthma, bunionectomy. ALLERGIES: SULFA. SOCIAL HISTORY: Denies tobacco use. Denies alcohol use. MEDICATIONS IN THE HOSPITAL: 1. Albuterol. 2. Aspirin 81 mg daily. 3. Azithromycin. 4. Cefepime. 5. Heparin 5000 subcutaneous q.8 hours. 6. Insulin. 7. Magnesium. 8. Metoprolol 5 mg IV q.6 hours. 9. Pantoprazole 40 mg IV push. 10. Potassium supplementation. 11. Vancomycin. 12. Sodium phosphate. PHYSICAL EXAMINATION: VITAL SIGNS: Pulse 102, temperature 99.3, respiratory rate 18, blood pressure 127/67, sats 100% on room air. GENERAL: She is alert and oriented x 3, in mild distress, on oxygen by face mask. NECK: Supple. No JVD. No bruit. CARDIOVASCULAR: S1, S2. No murmurs, rubs or gallops. LUNGS: Notable for decreased air movement at the bases and lower lobes bilaterally. ABDOMEN: Soft, nontender, nondistended with positive bowel sounds. EXTREMITIES: 1+ lower extremity edema bilaterally. DIAGNOSTIC DATA: Chest x-ray shows bilateral pulmonary infiltrates. EKG, sinus tachycardia at 113 beats per minute, late R-wave transition, nonspecific ST-T wave changes. CTA of the chest, no evidence of PE. Extensive airspace process, most likely inflammatory and pneumonia. Possibility of pulmonary edema is not excluded. Tiny bilateral pleural effusions with nonspecific most likely benign lymph nodes within the mediastinum. LABORATORY DATA: White count 10.9, hemoglobin 11.2, hematocrit 33.3, platelet count 441. INR is 1.0. Blood gas, pH 7.47, pCO2 of 33, pO2 of 34. Sodium 137, potassium 4.2, chloride 102, bicarbonate 23.8, BUN 12, creatinine 0.75. Troponin is 0.55. BNP is 397. CK 146. Lactic acid 1.6. DIAGNOSES: 1. Rhm-VL-[id number] myocardial infarction. 2. Decompensated congestive heart failure. 3. Pneumonia. 4. Anemia. 5. Hypoxia. DISCUSSION: At this point in time, it is unclear whether the troponin elevation is secondary to hypoxia and wall tension from pulmonary edema and increased intracardiac pressures versus a primary obstructive event. She has multiple cardiac risk factors for a primary obstructive event. She is being treated with antibiotics. We will give her a dose of diuretic and follow up her labs in the a.m. I tentatively placed her on the laborer sawmill schedule for a right and left heart catheterization for tomorrow. I explained this to her. She understands the indication. Continue aspirin. MD RUBÉN Brooks/deena , 05:32 PM , 05:40 PM
[2018-03-18] MEDS: Senna/Docusate Sodium 8.6/50 MG Tablet PO SCH (20:51)
--- NOTE | 2018-03-18 22:13 | US ---
EXAM DATE: 03/18/2018 9:56 PM EDT AGE/SEX: 58 years / Female INDICATIONS: Bilateral leg swelling. CLINICAL DATA: This is the patient's initial encounter. Patient reports that signs and symptoms have been present for 2 days and indicates a pain score of 0/10. MEDICAL/SURGICAL HISTORY: Renal insufficiency, chronic. Gastroesophageal reflux disease. Asth ma. Bronchitis. Hyperlipidemia. . Bunionectomy. COMPARISON: No prior exams available for comparison. TECHNIQUE: Venous ultrasound of both lower extremities was performed from the inguinal ligament to t he proximal calf. Real-time, color Doppler and spectral tracing, compression and augmentation techni ques were used. FINDINGS: Right Leg: Normal compression of the deep venous system from the inguinal region to the proximal kyle f. No echogenic clot is seen. Normal response of the venous system to augmentation and respiration. Left Leg: Normal compression of the deep venous system from the inguinal region to the proximal calf . No echogenic clot is seen. Normal response of the venous system to augmentation and respiration. Other: None. CONCLUSION: 1. The study is negative for bilateral lower extremity deep venous thrombosis. Electronically signed by: Alo Florez MD 03/18/2018 10:12 PM EDT
[2018-03-19] MEDS: Heparin - SQ 10,000 UNITS/ML Vial SQ SCH ×3 (02:34→17:21)
--- NOTE | 2018-03-19 03:54 | XR ---
EXAM DATE: 03/19/2018 3:46 AM EDT AGE/SEX: 58 years / Female INDICATIONS: Shortness of breath, possible pulmonary disease. CLINICAL DATA: This is the patient's subsequent encounter. Patient reports that signs and symptoms h ave been present for 2 days and indicates a pain score of 0/10. MEDICAL/SURGICAL HISTORY: Renal insufficiency, chronic. Gastroesophageal reflux disease. Asth ma. Hyperlipidemia. None. COMPARISON: [facility] [place]ST 2V PA&LAT, 03/18/2018. . FINDINGS: Single AP view of the chest. Bilateral diffuse pulmonary parenchymal opacity again seen. No significa nt interval change. No change in cardiomediastinal silhouette. No evidence of pleural effusion or pne umothorax. CONCLUSION: No significant interval change in bilateral diffuse pulmonary opacity. Electronically signed by: Jian Villeda MD 03/19/2018 3:53 AM EDT
[2018-03-19] MEDS ORDERED: Chlorhexidine Gluconate 2% 1 Pack (2 Cloths) TOPICAL PRN (04:00)
[2018-03-19 04:20] LABS: Baso % (Auto) 0.3 % (0.0-2.0); Hemoglobin 10.5 gm/dL (11.6-15.3); Lymph % (Auto) 20.5 % (9.0-44.0); Mean Corpuscular HGB Conc 32.7 % (32.0-36.0); Mean Corpuscular Hemoglobin 30.9 pg (27.0-34.0); Mean Corpuscular Volume 94.5 fL (80.0-100.0); Mean Platelet Volume 7.8 fL (7.0-11.0); Mono # (Auto) 0.3 th/mm3 (0.0-0.9); Mono % (Auto) 2.9 % (0.0-8.0); Neut # (Auto) 7.4 th/mm3 (1.8-7.7); Neut % (Auto) 76.3 % (16.0-70.0); Platelet Count 396 th/mm3 (150-450); Red Blood Count 3.39 mil/mm3 (4.00-5.30); Red Cell Distribution Width 14.6 % (11.6-17.2); White Blood Count 9.8 th/mm3 (4.0-11.0)
[2018-03-19 04:30] LABS: Activated Partial Thrombo Time 29.2 sec (24.3-30.1); Prothrombin Time 10.5 sec (9.8-11.6)
[2018-03-19] MEDS: Chlorhexidine Gluconate 2% 1 Pack (2 Cloths) TOPICAL SCH (04:32)
[2018-03-19 04:43] LABS: Albumin 2.3 g/dL (3.4-5.0); Anion Gap 12 meq/L (5-15); Aspartate Aminotransferase 46 U/L (15-37); Blood Urea Nitrogen 13 mg/dL (7-18); Carbon Dioxide 22.2 meq/L (21.0-32.0); Chloride 108 meq/L (98-107); Cholesterol 186 mg/dL (120-200); Glomerular Filtration Rate Greater Than 89 mL/min (>89); Glucose,Random 141 mg/dL (74-106); Lipase 80 U/L (73-393); Magnesium 2.2 mg/dL (1.5-2.5); Potassium 3.9 meq/L (3.5-5.1); Sodium 142 meq/L (136-145); Triglycerides 100 mg/dL (42-150)
[2018-03-19 04:49] LABS: ABG Base Excess -2.8 mmol/L (-2-2); ABG PCO2 32 mmHg (38-42); ABG PO2 61 mmHG (61-120)
[2018-03-19 04:53] LABS: Alanine Aminotransferase 34 U/L (10-53); Alkaline Phosphatase 79 U/L (45-117); Chol/HDL Ratio 6.45 Ratio; HDL Cholesterol 28.8 mg/dL (40.0-60.0); LDL Cholesterol,Calculated 137 mg/dL (0-99); Thyroid Stimulating Hormone 0.998 uIU/mL (0.358-3.740); Total Protein 7.6 g/dL (6.4-8.2)
[2018-03-19] MEDS: Metoprolol Inj 5 MG/5 ML Vial IV.PUSH SCH ×4 (05:16→23:08)
[2018-03-19] MEDS: Pantoprazole Inj 40 MG Vial IV.PUSH SCH (08:55)
[2018-03-19] MEDS: Senna/Docusate Sodium 8.6/50 MG Tablet PO SCH ×2 (08:56→20:54)
[2018-03-19] MEDS: Vancomycin Inj 1,250 MG in Sodium Chlor 0.9% Inj 250 ML IV.SIG SCH (08:56)
[2018-03-19] MEDS: Insulin NovoLOG Aspart Correctional Sugar Inj SQ SCH ×4 (08:57→20:53)
--- NOTE | 2018-03-19 08:59 | P.PNCC ---
Subjective Subjective Remarks/Hospital Course: This is a 58-year-old female. Date of admission 03/18/2018. Past medical history includes gastroesophageal reflux disease, seasonal asthma, elevated BMI, hyperlipidemia untreated and chronic kidney disease. Today, she presents to [facility] for evaluation of 1 week history of SOB. She is originally from [facility]. Her chief complaint consists of shortness of breath, chest tightness without radiation to the neck, down left arm or back, persistent nausea without emesis, abdominal pain or diarrhea. Her original temperature was 102 Fahrenheit according to patient, patient was evaluated in [place]. At that time, she states the chest x-ray was "clear. " At that time the provider suspected that she was having asthma symptoms. She was prescribed albuterol nebulizers and sent home. She is normally on an albuterol inhaler at home along with ranitidine and intermittently intermixing with PPI for gastroesophageal reflux disease. She states that her respiratory and nausea symptoms became acutely worse 2 days ago after flying to [facility] from [place]. She states that she is unable to walk "even a few feet" without GALINDO. Lying flat also makes symptoms worse. Chest x-ray revealed diffuse pulmonary fluffy infiltrates bilaterally.. EKG revealed sinus tachycardia with normal NE, QRS and QT intervals. Troponin was 0.55. She was seen in consultation by cardiology who recommended possible heart catheterization in the a.m. Will trend troponins. She is currently undergoing a CT angiogram of the chest. She received piperacillin/tazobactam and vancomycin in the ED. Her white blood cell count is normal. Her lactate was normal. Her d-dimer was slightly elevated. She complains of some slightly increased swelling in her bilateral lower extremities. She was placed on 100% nonrebreather with saturations currently 99-100%. At the present time she is able to speak complete sentences. Denies cough. SUBJECTIVE: 03/19: T-max 102.8. Currently afebrile. Currently on partial nonrebreather 10 L satting 92-99%. Pro-calcitonin 0.12. Does not appear volume overloaded on examination. Patient has a dry nonproductive cough. Denies chest pain.. Will give 40 mg furosemide IV 1 now Objective Vital Signs / I&O: Vital Signs 03/18/18 13:38 03/18/18 14:35 03/18/18 14:37 Temperature 102.6 F H 100.8 F H Pulse Rate 117 H 112 H Respiratory Rate 16 30 H Blood Pressure 128/59 L 136/71 Pulse Oximetry 66 L 99 98 03/18/18 14:45 03/18/18 15:00 03/18/18 16:10 Temperature 99.3 F Pulse Rate 112 H 107 H 102 H Respiratory Rate 28 H 28 H 18 Blood Pressure 127/67 Pulse Oximetry 100 03/18/18 17:19 03/18/18 17:21 03/18/18 17:44 Temperature Pulse Rate Respiratory Rate Blood Pressure 127/75 Pulse Oximetry 90 L 97 95 03/18/18 18:00 03/18/18 19:00 03/18/18 19:01 Temperature 98.2 F Pulse Rate 91 H 79 79 Respiratory Rate 27 H 37 H 34 H Blood Pressure 120/74 102/68 102/68 Pulse Oximetry 91 L 98 98 03/18/18 19:19 03/18/18 20:00 03/18/18 20:01 Temperature 98.2 F Pulse Rate 80 89 90 Respiratory Rate 34 H 33 H 43 H Blood Pressure 108/64 Pulse Oximetry 98 98 92 L 03/18/18 21:00 03/18/18 22:00 03/18/18 23:00 Temperature Pulse Rate 85 82 79 Respiratory Rate 33 H 34 H 25 H Blood Pressure 113/61 107/60 121/63 Pulse Oximetry 96 93 L 95 03/18/18 23:19 03/19/18 00:00 03/19/18 01:00 Temperature Pulse Rate 78 78 72 Respiratory Rate 32 H 29 H 24 Blood Pressure 113/62 117/58 L Pulse Oximetry 95 95 97 03/19/18 01:01 03/19/18 02:00 03/19/18 03:00 Temperature Pulse Rate 72 72 76 Respiratory Rate 24 28 H 21 Blood Pressure 117/58 L 107/61 Pulse Oximetry 97 95 94 L 03/19/18 03:01 03/19/18 03:14 03/19/18 04:00 Temperature Pulse Rate 76 76 91 H Respiratory Rate 32 H 32 H 39 H Blood Pressure 131/78 139/68 Pulse Oximetry 93 L 95 03/19/18 05:00 03/19/18 05:01 03/19/18 06:00 Temperature Pulse Rate 79 Respiratory Rate 31 H Blood Pressure 140/67 140/67 128/67 Pulse Oximetry 97 97 99 03/19/18 07:14 Temperature Pulse Rate 81 Respiratory Rate 20 Blood Pressure Pulse Oximetry 99 Intake & Output 03/18/18 03/19/18 03/19/18 18:59 06:59 18:59 Intake Total 1850 / 1850 850 / 850 Output Total 1500 / 1500 800 / 800 Balance 350 / 350 50 / 50 Weight 86.183 kg 85.786 kg Intake: IV 1250 / 1250 350 / 350 Azithromycin Inj 500 MG In NS 250 / 250 Inj 250 ML @ 250 mls/hr IV.SIG Q24H JENA Rx#:[id number] Maxipime Inj 2,000 MG In NS Inj 100 / 100 100 / 100 100 ML @ 200 mls/hr IV.SIG Q8H JENA Rx#:[id number] Zosyn 4.5 GM Premix 4.5 gm In 100 / 100 100 ml @ 200 mls/hr IV.SIG ONCE ONE Rx#:[id number] NS Inj 2,000 ML @ Wide Open IV. 800 / 800 SIG BOLUS ONE Rx#:[id number] Vancomycin Inj 1,000 MG In NS 250 / 250 Inj 250 ML @ 250 mls/hr IV.SIG ONCE ONE Rx#:[id number] Oral 600 / 600 500 / 500 Output: Urine 1500 / 1500 800 / 800 Other: # Voids 2 Date of Last Bowel Movement 03/18/18 Result Diagrams: 03/19/18 03:46 03/19/18 03:46 Other Results: Microbiology 03/18/18 16:01 Nasal Wash Influenza Types A,B Antigen - Final Negative for FLU A and B antigen Infection due to influenza A or B cannot be ruled out since the antigen present in the sample may be below the detection limit of the test. Imaging: Abdomen X-Ray 03/18/18 00:00 CONCLUSION: Negative examination. Venous Doppler Study 03/18/18 00:00 CONCLUSION: 1. The study is negative for bilateral lower extremity deep venous thrombosis. Chest X-Ray 03/18/18 14:35 CONCLUSION: Bilateral pulmonary infiltrates. Chest CTA 03/18/18 16:02 CONCLUSION: 1. There is no evidence of PE for technique. 2. Extensive airspace process most likely inflammatory and pneumonia, possibility of pulmonary edema is not excluded. 3. Tiny bilateral pleural effusions with nonspecific most likely benign lymph nodes within the mediastinum. Chest X-Ray 03/19/18 06:00 CONCLUSION: No significant interval change in bilateral diffuse pulmonary opacity. Objective Remarks: GENERAL: 58-year-old female currently resting in bed on partial nonrebreather in no acute distress SKIN: Warm and dry. HEAD: Atraumatic. Normocephalic. EYES: Pupils equal and round. No scleral icterus. No injection or drainage. ENT: No nasal bleeding or discharge. Mucous membranes pink and moist. NECK: Trachea midline. No JVD. CARDIOVASCULAR: Regular rate and rhythm. S1, S2. No S4. Without murmur RESPIRATORY: Fine crackles are appreciated bilaterally. Diminished breath sounds anteriorly. No wheezing GASTROINTESTINAL: Abdomen soft, non-tender, nondistended. Hepatic and splenic margins not palpable. MUSCULOSKELETAL: Extremities with trace nonpitting bilateral lower extremity edema. No obvious deformities. NEUROLOGICAL: Awake and alert. No obvious cranial nerve deficits. Motor grossly within normal limits. Five out of 5 muscle strength in the arms and legs. Normal speech. PSYCHIATRIC: Appropriate mood and affect; insight and judgment normal. Assessment and Plan - Assessment and Plan Plan: Neuro/Psych: Acetaminophen 650 mg p.o. every 6 hours as needed fever Hydrocodone/acetaminophen 5/325 1 tablet every 4 hours as needed 1 through 5 Morphine sulfate 2 g IV every 2 hours as needed pain 6-10 CV: Non-STEMI likely type II demand ischemia Elevated troponin History of hyperlipidemia Sinus tachycardia Elevated BNP Elevated LDL Received 2 L normal saline in the ED. Noted her lactate was normal at 1.6. Recheck in a.m. stable at 1.6 We will start on metoprolol tartrate 5 mg IV every 6 hours Aspirin 81 milligrams in a.m. Hold DEJA inhibitor in light of acute kidney injury by history Start on atorvastatin 40 mg at night for elevated LDL Serial troponins every 8 hours x2. Trending downward peaked at 0.55. Currently at 0.[address] Calixto/cardiology to evaluate. Possible heart catheterization in a.m. Resp: Acute hypoxic hypercapnic respiratory failure History of mild intermittent asthma Tobaccoism Chest x-ray revealed diffuse bilateral pulmonary infiltrates with air bronchograms and lower lobes. CT angiogram revealed no central pulmonary. Diffuse infiltrates bilaterally inflammatory/infiltrative. Currently on 10 L partial nonrebreather saturations are 100%. Wean as tolerated Albuterol/ipratropium aerosols every 4 hours with albuterol aerosols every 2 as needed for dyspnea Methylprednisolone succinate 40 mg IV twice daily Incentive spirometry while awake Tobacco sensation self-evaluation booklet will provide when appropriate Follow-up chest x-ray in a.m. 03/20 Pulmonary consultation GI: Gastroesophageal reflux disease History of constipation Cardiac diet with n.p.o. after midnight At home on ranitidine 150 mg daily with esomeprazole as needed Start on pantoprazole 40 mg IV daily Docusate sodium/senna 1 tablet twice daily for bowel regimen Amylase and lipase and LFTs within normal limits : History of urinary frequency UA negative. No indication for Brown catheter Endo: Sliding scale insulin Accu-Cheks to maintain euglycemia/AC at bedtime low regimen TSH 0.998 Renal: History of chronic kidney disease stage II Creatinine currently within normal limits Monitor urine output Accurate I's and O's Avoid nephrotoxic medications Heme: Normocytic anemia Monitor CBC daily. Follow trends. No indication for transfusion of blood products at this time ID: Probable community acquired pneumonia Receiving piperacillin/tazobactam and vancomycin ED. Will initiate schedule on vancomycin, cefepime and azithromycin Infectious disease consultation UA negative Influenza a and B-. Respiratory panel ordered for confirmation Blood cultures x2 03/18 pending Check urinary pneumococcal and Legionella antigens, mycoplasma and chlamydia No history of immunosuppression FEN: Replace electrolytes as clinically indicated per ICU electrolyte protocol MSK: Elevated BMI Weight loss encouraged PT evaluate and treat Access -Utilize peripheral IV. Central line if indicated Prophylaxis -GI-pantoprazole -DVT SCD/heparin subcu Follow-up 35 minutes critical care time
[2018-03-19 12:43] LABS: Complement C3 164 mg/dL (90-180)
--- NOTE | 2018-03-19 14:41 | MB ---
cc: Joseluis Hudson MD DATE: 03/19/2018 REQUESTING PHYSICIAN: Dr. Eng REASON: Acute respiratory failure, acute febrile illness, assistance with infection workup. HISTORY OF PRESENT ILLNESS: This is a 58-year-old white female who presented to the emergency department with respiratory distress. The patient reports that her symptoms began on 03/04/2018 while she was in [place]. She lives in [place], [place]. 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 She notes that she was getting fatigued after she played at a parade on 03/04/2018. Subsequently, she had another parade which she played in on 03/11/2018, the following weekend, and that she continue to feel some degree of fatigue, more so than usual. She went to a clinic for evaluation last Monday, and she was felt to have probable bronchitis/asthma and was given a nebulizer. She did not use the nebulizer because she did not get it. She was planning on coming down to [place] and she left [place] on , 03/15/2018. She arrived at [place] and rented a vehicle and drove from [place] to [place]. She then started to feel very fatigued. She was able to get the nebulizer prescription and she took the nebulizers all day on Monday, and she still continued to have dyspnea on exertion and some chest tightness and she presented to the emergency department. She was evaluated and admitted to the hospital. In the emergency department, she had an oxygen saturation of 66% on pulse oximetry and temperature was 102.6 degrees. Her blood pressure was 128/59. White count was normal at 10.9. Chest x-ray was performed and it shows bilateral pulmonary infiltrate with diffuse alveolar infiltrate. Chest x-ray was repeated today and it shows no significant interval change in the bilateral diffuse pulmonary infiltrate. The patient is currently on 10 liters of oxygen via facemask. Oxygen saturation is 94%. She has some dyspnea when she talks a lot has to periodically stop to take some deep breaths. She is in no distress otherwise. She denies sweats, headache, abdominal pain. The patient states that she was able to do several bike rides in 01/2018 without much difficulty. She noticed the shortness of breath started abruptly on 03/04/2018. She has had occasional cough. She has not had any sputum production. Denies any exposure to persons who have been sick. She works as a psychotherapist. She has not had a flu shot this year. Influenza test is negative. Blood cultures have been taken and have no growth in [address] of the lungs is negative for pulmonary embolus. Extensive airspace process read as most likely inflammatory and pneumonia, possibility of pulmonary edema. Tiny bilateral effusions and benign lymph nodes within the mediastinum. The patient has a cat at home. She states that she gets occasional scratches from the cat. No unusual pets otherwise. She is a nonsmoker. She denies any unusual chemical exposure. She does report that at one time the wind instrument, which she normally plays, was not available to her and there was another person's instrument which she used and played in a parade one week ago. PAST MEDICAL HISTORY: Bronchitis, gastroesophageal reflux disease, chronic kidney disease stage II, hyperlipidemia, bunionectomy. ALLERGIES: SULFA. MEDICATIONS: 1. Vancomycin. 2. Azithromycin. 3. Cefepime. 4. Lactulose. 5. Aspirin. 6. Albuterol inhaler. 7. [place] 5 p.r.n. SOCIAL HISTORY: No tobacco, no alcohol, no illicit drugs. FAMILY HISTORY: The patient's mom had colon cancer and breast cancer and hypertension. The patient's dad had heart disease and Alzheimer's disease. REVIEW OF SYSTEMS: All systems have been reviewed and reported in history of present illness. In addition, the patient also notes constipation. PHYSICAL EXAMINATION: GENERAL: This is a moderately obese female who is in no acute distress. She is awake and alert and oriented. VITAL SIGNS: Temperature 98.3, BP 165/86, respirations 44, saturation 94%. HEENT: Head is atraumatic. Extraocular movements are grossly intact. Pupils reactive to light. No icterus. Oropharynx, moist mucosa. No visible lesions. NECK: Supple without adenopathy. LUNGS: Decreased breath sounds throughout with slight rales. HEART: Regular rate and rhythm without murmurs, rubs or gallops. ABDOMEN: Bowel sounds present. Soft, obese, nontender. RECTAL: Not performed. EXTREMITIES: No clubbing, cyanosis or edema. SKIN: No rash. NEUROLOGIC: No gross focal findings. The patient is awake and alert and oriented. LABORATORY DATA: WBC 9.8, platelets 398, hemoglobin 10.5, 76% neutrophils, 20% lymphocytes. Creatinine 0.6, BUN 13, sodium 142, AST 46, ALT 34, alkaline phosphatase 79. C-reactive protein 0.1. B-natriuretic peptide is 389. IMPRESSION: Bilateral pulmonary infiltrates. The patient presented with fever, nausea, and dyspnea on exertion. Has some component of cough, but little and the patient is not producing sputum. This could potentially be atypical versus viral pneumonia. Also, potentially this could be congestive heart failure or other inflammatory condition. RECOMMENDATIONS: 1. Continue vancomycin. 2. Continue azithromycin. 3. Change cefepime to Levaquin. 4. Obtain sputum culture if coughs she up any sputum. 5. Follow mycoplasma and chlamydia serology. 6. Obtain legionella urine antigen. 7. Monitor temperature. 8. Monitor white cell count. 9. A 2D echocardiogram for evaluation of cardiac function. Thank you for this consultation. The patient's progress will be monitored and further recommendations will be given upon followup. MD ROSINA Soto/robbin , 11:39 AM , 12:01 PM PAUL
--- NOTE | 2018-03-19 14:45 | P.PNCA ---
Subjective Interval history: alert in nad on O2, feels better Medications and Allergies Active Medications: Active Medications Acetaminophen (Tylenol) 650 mg PO Q6H PRN PRN Reason: Fever >100f Hydrocodone Bitart/Acetaminophen ([place] 5/325) 1 tab PO Q4H PRN PRN Reason: PAIN SCALE 1 TO 5 Al Hydroxide/Mg Hydroxide (Milk Of [place] Liq) 30 ml PO Q12H PRN PRN Reason: Mild Constipation Albuterol (Albuterol Neb (Prn)) 2.5 mg NEB Q2HR NEB PRN PRN Reason: SHORTNESS OF BREATH/WHEEZING Albuterol (Duoneb Neb ([place])) 1 ampul NEB Q4HR NEB [facility] Last Admin: 03/19/18 11:32 Dose: 1 ampul Aspirin (Aspirin Chew) 81 mg PO DAILY [facility] Last Admin: 03/19/18 08:56 Dose: Not Given Atorvastatin Calcium (Lipitor) 40 mg PO HS [facility] Bisacodyl (Dulcolax Supp) 10 mg RECTAL DAILY PRN PRN Reason: SEVERE CONSITIPATION Chlorhexidine Gluconate (Chlorhexidine 2% Cloth) 3 pack TOPICAL DAILY@0400 [facility] Stop: 03/24/18 03:59 Last Admin: 03/19/18 04:32 Dose: 3 pack Chlorhexidine Gluconate (Chlorhexidine 2% Cloth) 3 pack TOPICAL DAILY@0400 PRN PRN Reason: Extra cloth needed Stop: 03/24/18 03:59 Dextrose (D50w Vial) 50 ml IV.PUSH UNSCH PRN PRN Reason: PER HYPOGLYCEMIA PROTOCOL Glucagon (Glucagon Inj) 1 mg OTHER PRN PRN PRN Reason: for Hypoglycemia Protocol Heparin Sodium (Porcine) (Heparin Inj) 5,000 units SQ Q8H [facility] Last Admin: 03/19/18 10:13 Dose: 5,000 units Azithromycin 500 mg/ Sodium (Chloride) 250 mls @ 250 mls/hr IV.SIG Q24H [facility] Last Infusion: 03/18/18 20:40 Dose: Infused Magnesium Sulfate 4 gm/ Sodium (Chloride) 100 mls @ 50 mls/hr IV.SIG UNSCH PRN PRN Reason: For Magnesium 0.9 - 1.1 mg/dL Magnesium Sulfate 2 gm/ Sodium (Chloride) 100 mls @ 50 mls/hr IV.SIG UNSCH PRN PRN Reason: For Magnesium 1.2 - 1.6 mg/dL Potassium Chloride (Kcl 40 Meq Premix Inj) 40 meq in 100 mls @ 25 mls/hr IV.SIG Q2H PRN PRN Reason: For Potassium 2.8 - 3.2 mEq/L Potassium Chloride (Kcl 20 Meq Premix Inj) 20 meq in 100 mls @ 50 mls/hr IV.SIG Q2H PRN PRN Reason: For Potassium 3.3 - 3.5 mEq/L Potassium Chloride (Kcl 20 Meq Premix Inj) 20 meq in 100 mls @ 50 mls/hr IV.SIG Q2H PRN PRN Reason: For Potassium 2.8 - 3.2 mEq/L Potassium Phosphate 30 mmol/ (Sodium Chloride) 260 mls @ 42 mls/hr IV.SIG UNSCH PRN PRN Reason: SEE LABEL COMMENTS Sodium Phosphate 30 mmol/ (Sodium Chloride) 260 mls @ 42 mls/hr IV.SIG UNSCH PRN PRN Reason: For Phosphorus < 2.5 mg/dL Potassium Chloride (Kcl 40 Meq Premix Inj) 40 meq in 100 mls @ 25 mls/hr IV.SIG UNSCH PRN PRN Reason: For Potassium 3.3 - 3.5 mEq/L Vancomycin HCl 1,250 mg/ (Sodium Chloride) 262.5 mls @ 250 mls/hr IV.SIG Q18H [facility] Last Admin: 03/19/18 08:56 Dose: 250 mls/hr Levofloxacin/Dextrose (Levaquin 750 Mg Premix Inj) 150 mls @ 100 mls/hr IV.SIG Q24H [facility] Last Admin: 03/19/18 13:11 Dose: 100 mls/hr Insulin Aspart (Novolog Insulin Correctional Sugar Inj) 0 unit SQ ACHS [facility]; Protocol Last Admin: 03/19/18 13:11 Dose: Not Given Lactulose (Lactulose Liq) 30 ml PO DAILY PRN PRN Reason: SEVERE CONSITIPATION Magnesium Oxide (Mag-Ox) 800 mg PO UNSCH PRN PRN Reason: For Magnesium 1.2 - 1.6 mg/dL Methylprednisolone Sodium Succinate (Solumedrol Inj) 40 mg IV.PUSH Q12HR [facility] Metoprolol Tartrate (Lopressor Inj) 5 mg IV.PUSH Q6H [facility] Last Admin: 03/19/18 11:45 Dose: 5 mg Miscellaneous Information ([facility] [place] Info) 0 each OTHER ONCE ONE Stop: 03/20/18 19:46 Morphine Sulfate (Morphine Inj) 2 mg IV.PUSH Q2H PRN PRN Reason: PAIN SCALE 6 TO 10 Ondansetron HCl (Zofran Inj) 4 mg IV.PUSH Q6H PRN PRN Reason: NAUSEA OR VOMITING Pantoprazole Sodium (Protonix Inj) 40 mg IV.PUSH DAILY [facility] Last Admin: 03/19/18 08:55 Dose: 40 mg Pharmacy Profile Note (Vancomycin Consult Pharmacy) 1 each OTHER UNSCH PRN PRN Reason: Pharmacy to dose Potassium Bicarb/Potassium Chloride (K-Lyte Cl Eff) 50 meq PO UNSCH PRN PRN Reason: For Potassium 3.3 - 3.5 mEq/L Potassium Phosphate (K-Phos Original) 2,000 mg PO Q4H PRN PRN Reason: Phosphorus Less Than 2.5 mg/dL Potassium Phosphate (K-Phos Original) 2,000 mg PO UNSCH PRN PRN Reason: SEE LABEL COMMENTS Senna/Docusate Sodium (Sofi-Colace) 1 tab PO BID [facility] Last Admin: 03/19/18 08:56 Dose: 1 tab Sennosides (Senokot) 17.2 mg PO Q12H PRN PRN Reason: Moderate Constipation Sodium Chloride (Ns Flush) 2 ml IV.FLUSH BID [facility] Last Admin: 03/19/18 08:57 Dose: 2 ml Sodium Chloride (Ns Flush) 2 ml IV.FLUSH PRN PRN PRN Reason: FLUSH AFTER USING IV ACCESS Spironolactone (Aldactone) 25 mg PO BID@0900,1800 [facility] Allergies Allergy/AdvReac Type Severity Reaction Status Date / Time Sulfa (Sulfonamide Allergy Intermediate Anxiety Verified 03/18/18 14:16 Antibiotics) Physical Exam Vital signs: Vital Signs 03/18/18 14:45 03/18/18 15:00 03/18/18 16:10 Temperature 99.3 F Pulse Rate 112 H 107 H 102 H Respiratory Rate 28 H 28 H 18 Blood Pressure 127/67 Pulse Oximetry 100 03/18/18 17:19 03/18/18 17:21 03/18/18 17:44 Temperature Pulse Rate Respiratory Rate Blood Pressure 127/75 Pulse Oximetry 90 L 97 95 03/18/18 18:00 03/18/18 19:00 03/18/18 19:01 Temperature 98.2 F Pulse Rate 91 H 79 79 Respiratory Rate 27 H 37 H 34 H Blood Pressure 120/74 102/68 102/68 Pulse Oximetry 91 L 98 98 03/18/18 19:19 03/18/18 20:00 03/18/18 20:01 Temperature 98.2 F Pulse Rate 80 89 90 Respiratory Rate 34 H 33 H 43 H Blood Pressure 108/64 Pulse Oximetry 98 98 92 L 03/18/18 21:00 03/18/18 22:00 03/18/18 23:00 Temperature Pulse Rate 85 82 79 Respiratory Rate 33 H 34 H 25 H Blood Pressure 113/61 107/60 121/63 Pulse Oximetry 96 93 L 95 03/18/18 23:19 03/19/18 00:00 03/19/18 01:00 Temperature Pulse Rate 78 78 72 Respiratory Rate 32 H 29 H 24 Blood Pressure 113/62 117/58 L Pulse Oximetry 95 95 97 03/19/18 01:01 03/19/18 02:00 03/19/18 03:00 Temperature Pulse Rate 72 72 76 Respiratory Rate 24 28 H 21 Blood Pressure 117/58 L 107/61 Pulse Oximetry 97 95 94 L 03/19/18 03:01 03/19/18 03:14 03/19/18 04:00 Temperature Pulse Rate 76 76 91 H Respiratory Rate 32 H 32 H 39 H Blood Pressure 131/78 139/68 Pulse Oximetry 93 L 95 03/19/18 05:00 03/19/18 05:01 03/19/18 06:00 Temperature Pulse Rate 79 Respiratory Rate 31 H Blood Pressure 140/67 140/67 128/67 Pulse Oximetry 97 97 99 03/19/18 07:00 03/19/18 07:14 03/19/18 08:00 Temperature 98.3 F Pulse Rate 77 81 87 Respiratory Rate 26 H 20 18 Blood Pressure 117/61 111/62 Pulse Oximetry 99 99 100 03/19/18 09:00 03/19/18 10:00 03/19/18 11:00 Temperature 98.3 F Pulse Rate 90 93 H 93 H Respiratory Rate 17 48 H 48 H Blood Pressure 116/80 114/57 L 165/86 H Pulse Oximetry 95 95 95 03/19/18 11:36 03/19/18 12:00 03/19/18 12:01 Temperature 98.3 F Pulse Rate 87 93 H 93 H Respiratory Rate 24 6 L 9 L Blood Pressure 117/60 117/60 Pulse Oximetry 93 L 94 L Intake & Output 03/18/18 03/19/18 03/19/18 18:59 06:59 18:59 Intake Total 1850 / 1850 850 / 850 Output Total 1500 / 1500 800 / 800 Balance 350 / 350 50 / 50 Weight 86.183 kg 85.786 kg Intake: IV 1250 / 1250 350 / 350 Azithromycin Inj 500 MG In NS 250 / 250 Inj 250 ML @ 250 mls/hr IV.SIG Q24H [facility] Rx#:[id number] Maxipime Inj 2,000 MG In NS Inj 100 / 100 100 / 100 100 ML @ 200 mls/hr IV.SIG Q8H [facility] Rx#:[id number] Zosyn 4.5 GM Premix 4.5 gm In 100 / 100 100 ml @ 200 mls/hr IV.SIG ONCE ONE Rx#:[id number] NS Inj 2,000 ML @ Wide Open IV. 800 / 800 SIG BOLUS ONE Rx#:[id number] Vancomycin Inj 1,000 MG In NS 250 / 250 Inj 250 ML @ 250 mls/hr IV.SIG ONCE ONE Rx#:[id number] Oral 600 / 600 500 / 500 Output: Urine 1500 / 1500 800 / 800 Other: # Voids 2 Date of Last Bowel Movement 03/18/18 03/19/18 Results 03/19/18 03:46 03/19/18 03:46 Cardiac Enzymes 03/18/18 03/18/18 03/18/18 Range/Units 14:55 14:55 18:06 AST 52 H (15-37) U/L CK-MB (CK-2) 1.8 (0.5-3.6) ng/mL Troponin I 0.55 H 0.47 H (0.02-0.05) ng/mL B-Natriuretic Peptide 397 H (0-100) pg/mL 03/19/18 03/19/18 Range/Units 03:46 03:46 AST 46 H (15-37) U/L CK-MB (CK-2) (0.5-3.6) ng/mL Troponin I 0.10 H D (0.02-0.05) ng/mL B-Natriuretic Peptide 389 H (0-100) pg/mL Coagulation 03/18/18 03/18/18 03/19/18 Range/Units 14:55 14:55 03:46 PT 10.3 (9.8-11.6) sec APTT (24.3-30.1) sec B-Natriuretic Peptide 397 H 389 H (0-100) pg/mL 03/19/18 Range/Units 03:46 PT 10.5 (9.8-11.6) sec APTT 29.2 (24.3-30.1) sec B-Natriuretic Peptide (0-100) pg/mL Lipids 03/19/18 Range/Units 03:46 Triglycerides 100 (42-150) mg/dL Cholesterol 186 (120-200) mg/dL HDL Cholesterol 28.8 L (40.0-60.0) mg/dL Cholesterol/HDL Ratio 6.45 Ratio CBC 03/18/18 03/19/18 Range/Units 14:55 03:46 WBC 10.9 9.8 (4.0-11.0) th/mm3 RBC 3.60 L 3.39 L (4.00-5.30) mil/mm3 Hgb 11.2 L 10.5 L (11.6-15.3) gm/dL Hct 33.3 L 32.0 L (35.0-46.0) % Plt Count 441 396 (150-450) th/mm3 Neut # (Auto) 8.4 H 7.4 (1.8-7.7) th/mm3 Lymph # (Auto) 1.4 2.0 (1.0-4.8) th/mm3 Falls # (Auto) 1.0 H 0.3 (0.0-0.9) th/mm3 Eos # (Auto) 0.0 0.0 (0.0-0.4) th/mm3 Baso # (Auto) 0.0 0.0 (0.0-0.2) th/mm3 Comprehensive Metabolic Panel 03/18/18 03/18/18 03/19/18 Range/Units 14:55 18:06 03:46 Sodium 137 142 (136-145) meq/L Potassium 4.2 3.9 (3.5-5.1) meq/L Chloride 102 108 H (98-107) meq/L Carbon Dioxide 23.8 22.2 (21.0-32.0) meq/L BUN 12 13 (7-18) mg/dL Creatinine 0.75 0.66 (0.50-1.00) mg/dL Calcium 8.3 L 8.0 L (8.5-10.1) mg/dL Direct Bilirubin 0.2 (0.0-0.2) mg/dL Indirect Bilirubin 0.4 (0.0-0.8) mg/dL AST 52 H 46 H (15-37) U/L ALT 35 34 (10-53) U/L Alkaline Phosphatase 81 79 (45-117) U/L Total Protein 7.5 7.6 (6.4-8.2) g/dL Albumin 2.4 L 2.3 L (3.4-5.0) g/dL Intake and Output 03/18/18 03/19/18 03/19/18 22:59 06:59 14:59 Intake Total 2100 / 2100 600 / 600 Output Total 1500 / 1500 800 / 800 Balance 600 / 600 -200 / -200 Intake: IV 1500 / 1500 100 / 100 Azithromycin Inj 500 MG In NS 250 / 250 Inj 250 ML @ 250 mls/hr IV.SIG Q24H [facility] Rx#:[id number] Maxipime Inj 2,000 MG In NS Inj 100 / 100 100 / 100 100 ML @ 200 mls/hr IV.SIG Q8H [facility] Rx#:[id number] Zosyn 4.5 GM Premix 4.5 gm In 100 / 100 100 ml @ 200 mls/hr IV.SIG ONCE ONE Rx#:[id number] NS Inj 2,000 ML @ Wide Open IV. 800 / 800 SIG BOLUS ONE Rx#:[id number] Vancomycin Inj 1,000 MG In NS 250 / 250 Inj 250 ML @ 250 mls/hr IV.SIG ONCE ONE Rx#:[id number] Oral 600 / 600 500 / 500 Output: Urine 1500 / 1500 800 / 800 Other: # Voids 2 Date of Last Bowel Movement 03/18/18 03/18/18 03/19/18 Weight 85.786 kg - Imaging and Cardiology Imaging: Impressions Abdomen X-Ray 03/18/18 00:00 CONCLUSION: Negative examination. Venous Doppler Study 03/18/18 00:00 CONCLUSION: 1. The study is negative for bilateral lower extremity deep venous thrombosis. Chest X-Ray 03/18/18 14:35 CONCLUSION: Bilateral pulmonary infiltrates. Chest CTA 03/18/18 16:02 CONCLUSION: 1. There is no evidence of PE for technique. 2. Extensive airspace process most likely inflammatory and pneumonia, possibility of pulmonary edema is not excluded. 3. Tiny bilateral pleural effusions with nonspecific most likely benign lymph nodes within the mediastinum. Chest X-Ray 03/19/18 06:00 CONCLUSION: No significant interval change in bilateral diffuse pulmonary opacity. Assessment and Plan - Assessment (1) NSTEMI (non-ST elevated myocardial infarction) Code(s): I21.4 - Non-ST elevation (NSTEMI) myocardial infarction Status: Acute (2) CHF (congestive heart failure) Code(s): I50.9 - Heart failure, unspecified Status: Acute (3) Hypoxia Code(s): R09.02 - Hypoxemia Status: Acute (4) Dyspnea Code(s): R06.00 - Dyspnea, unspecified Status: Acute - Plan 1.) NSTEMI - rhc/lhc scheduled for 03/20/18, start aldactone, f/u bnp, continue aspirin
--- NOTE | 2018-03-19 16:07 | ECHRPT ---
Indication: HEART FAILURE CONCLUSIONS The left ventricular systolic function is low normal with an estimated ejection fraction in the rang e of 50- 55%. Normal LV size and wall thickness. No significant valvular heart disease The estimated pulmonary arterial pressure is 30 mmHg. IVC is normal size with greater than 50 % respiratory variation reflecting normal CVP. No prior echo for comparison. BP: / HR: Rhythm: MEASUREMENTS (Male / Female) Normal Values Technical Quality: 2D ECHO LV Diastolic Diameter PLAX 4.6 cm 4.2 - 5.9 / 3.9 - 5.3 cm LV Systolic Diameter PLAX 2.7 cm IVS Diastolic Thickness 0.8 cm 0.6 - 1.0 / 0.6 - 0.9 cm LVPW Diastolic Thickness 0.9 cm 0.6 - 1.0 / 0.6 - 0.9 cm LV Relative Wall Thickness 0.4 RV Internal Dim ED PLAX 2.2 cm LVOT Diameter 1.5 cm Aortic Root Diameter 2.1 cm LA Systolic Diameter LX 3.1 cm 3.0 - 4.0 / 2.7 - 3.8 cm LV Ejection Fraction MOD 4C 49.4 % LV Ejection Fraction 4C AL 49.9 % M-MODE Aortic Root Diameter MM 2.6 cm LA Systolic Diameter MM 3.5 cm LA Ao Ratio MM 1.3 AV Cusp Separation MM 1.3 cm DOPPLER AV Peak Velocity 149.0 cm/s AV Peak Gradient 8.9 mmHg Mitral E Point Velocity 82.9 cm/s Mitral A Point Velocity 95.8 cm/s Mitral E to A Ratio 0.9 LV E' Lateral Velocity 12.6 cm/s Mitral E to LV E' Lateral Ratio 6.6 LV E' Septal Velocity 8.2 cm/s Mitral E to LV E' Septal Ratio 10.1 TR Peak Velocity 228.0 cm/s TR Peak Gradient 20.8 mmHg Right Atrial Pressure 10.0 mmHg Pulmonary Artery Systolic Pressu 30.8 mmHg Right Ventricular Systolic Press 30.8 mmHg PV Peak Velocity 114.0 cm/s PV Peak Gradient 5.2 mmHg FINDINGS LEFT VENTRICLE Normal left ventricular size. Wall thickness is normal. The left ventricular systolic function is low normal with an estimated ejection fraction in the rang e of 50- 55%. RIGHT VENTRICLE Normal right ventricular size and systolic function. LEFT ATRIUM The left atrial size is normal. RIGHT ATRIUM The right atrial size is normal. ATRIAL SEPTUM Normal atrial septal thickness without atrial level shunting by limited color doppler interrogation. AORTA The aortic root and proximal ascending aorta are normal in size on limited imaging. MITRAL VALVE Trace mitral valve regurgitation. AORTIC VALVE Trileaflet aortic valve. No aortic valve stenosis or regurgitation. TRICUSPID VALVE There is trace tricuspid valve regurgitation. The estimated pulmonary arterial pressure is 30 mmHg. PULMONARY VALVE No pulmonary valve regurgitation or stenosis. VESSELS The inferior vena cava is normal in size. PERICARDIUM No pericardial effusion. Wanda Dias MD (Electronically Signed) Final Date:19 March 2018 16:06
[2018-03-19] MEDS: Azithromycin Inj 500 MG in Sodium Chlor 0.9% Inj 250 ML IV.SIG SCH (17:18)
[2018-03-19] MEDS: Spironolactone 25 MG Tablet PO SCH (17:19)
--- NOTE | 2018-03-19 18:43 | ECG ---
Date Performed: 03/18/2018 Time Performed: 14:20:58 PTAGE: 58 years EKG: SINUS TACHYCARDIA BORDERLINE LEFT AXIS DEVIATION ABNORMAL RHYTHM ECG NO PREVIOUS TRACING DOCTOR: Nish Jennings Interpretating Date/Time 03/19/2018 18:37:17
[2018-03-19] MEDS: MethylPREDNISolone Sod Succinate Inj 40 MG/ML Vial IV.PUSH SCH (20:53)
[2018-03-19] MEDS ORDERED: MethylPREDNISolone Sod Succinate Inj 40 MG/ML Vial IV.PUSH SCH (21:00)
--- NOTE | 2018-03-19 22:44 | MB ---
cc: Levy Smith MD,Walter Espinosa MD DATE: 03/19/2018 REQUESTING PHYSICIAN: Walter Eng MD REASON FOR CONSULTATION: Bilateral lung infiltrates. HISTORY OF PRESENT ILLNESS: Ms. Mo is a pleasant 58-year-old female with a history of exercise-induced asthma, history of GERD. She lives in [place]. The patient states until 2 weeks ago, she was doing well and she was participating in the [employer]. On around 03/11/2018, about 8 days ago, she was marching in the parade and she felt that she was not able to take deep enough breaths. She was complaining of some discomfort in the chest and was complaining of fatigue. She had a cough and low-grade fever. She went to see her physician in [place] about 5 days ago. She was given treatment with a nebulizer and was told her chest x-ray was clear. She came over here the next day, and she noted that she was getting much worse. Her breathing was getting worse and she had a fever. Because of the worsening in her symptoms, she came to the hospital. She had a workup done. Her CT scan of the chest did not show any pulmonary embolus, but showed bilateral diffuse infiltrates and she had a non-STEMI. The patient was seen by Dr. Calixto and she is being planned for a cardiac catheterization. Her echocardiogram shows normal ventricular function. LABORATORY DATA: Her CBC shows WBC count 9.8, hemoglobin 10.1, hematocrit 32, MCV 94, platelet count 396. Sodium 142, potassium 3.9, chloride 108, CO2 of 22, BUN 13, creatinine 0.66. Blood gas on 6 liters Ventimask, pH of 7.2, pCO2 of 30, pO2 of 61, saturation 88%. Urine pneumococcal antigen is negative. Legionella antigen is pending. Influenza antigen is negative. Blood culture so far is negative. Currently, she is on a nonrebreather mask. She seems a little comfortable. She still has a dry cough. PAST MEDICAL HISTORY: Significant for the history of exercise-induced asthma, history of GERD, history of ankle surgery and wrist surgery. MEDICATIONS: She is currently takin. Hydrocodone. 2. Albuterol nebulizer treatment. 3. Aspirin 81 mg a day. 4. Lipitor 40 mg a day. 5. Zithromax 500 mg a day. 6. Heparin 5000 q.8 hours. 7. Levaquin 750 mg a day. 8. Solu-Medrol 40 mg q.12 hours. 9. Metoprolol 5 mg IV push. 10. Protonix 40 mg a day. 11. Spironolactone 25 mg a day. 12. Vancomycin IV. ALLERGIES: SHE IS ALLERGIC TO SULFA. SOCIAL HISTORY: She is single. No history of smoking. She drinks socially. No drug abuse. She works. FAMILY HISTORY: She has 1 sister and 4 brothers. One brother of alcohol complications. REVIEW OF SYSTEMS: Normally, she is up, around and active. Weight is stable. Denies any sick contacts. One of her friends had pneumonia recently, but she was in contact with them only for 5 minutes. She has cats who are healthy. PHYSICAL EXAMINATION: GENERAL: WBWN WF, mildly short of breath. VITAL SIGNS: Her blood pressure is 114/63, heart rate 99, respirations 26, temperature 98.1. HEENT: Pupils are equal and reactive to light. Oral mucosa and nasal mucosa normal. NECK: No JVD noted. CHEST: She has bilateral rales. CARDIOVASCULAR: S1, S2 normal. ABDOMEN: Benign. EXTREMITIES: No edema. IMPRESSION: 1. Hypoxic respiratory failure. 2. Bilateral diffuse lung infiltrates, possibly viral pneumonia, atypical pneumonia or inflammatory process. 3. Non-ST elevation myocardial infarction. 4. History of bronchial asthma. PLAN: I will continue with the present antibiotics per ID recommendations and check her culture. She is going for a heart catheterization. Supplemental oxygen. I will increase her steroids to 40 mg q.6 hours. Continue aerosol treatment. Further treatment will depend on the course in the hospital. Thank you, Dr. Walter Eng, for this consult. MD ALICE Gallego/deena/ , 06:36 PM , 06:47 PM MTDD
[2018-03-20] MEDS: MethylPREDNISolone Sod Succinate Inj 40 MG/ML Vial IV.PUSH SCH ×4 (02:52→21:18)
[2018-03-20] MEDS: Vancomycin Inj 1,250 MG in Sodium Chlor 0.9% Inj 250 ML IV.SIG SCH ×2 (02:52→21:28)
[2018-03-20] MEDS: Heparin - SQ 10,000 UNITS/ML Vial SQ SCH ×3 (02:53→18:06)
[2018-03-20 05:05] LABS: Baso % (Auto) 0.1 % (0.0-2.0); Hematocrit 29.1 % (35.0-46.0); Hemoglobin 9.5 gm/dL (11.6-15.3); Lymph # (Auto) 1.1 th/mm3 (1.0-4.8); Lymph % (Auto) 8.3 % (9.0-44.0); Mean Corpuscular HGB Conc 32.7 % (32.0-36.0); Mean Corpuscular Hemoglobin 30.5 pg (27.0-34.0); Mean Corpuscular Volume 93.3 fL (80.0-100.0); Mean Platelet Volume 7.8 fL (7.0-11.0); Mono # (Auto) 0.6 th/mm3 (0.0-0.9); Mono % (Auto) 4.4 % (0.0-8.0); Neut # (Auto) 11.1 th/mm3 (1.8-7.7); Neut % (Auto) 87.2 % (16.0-70.0); Platelet Count 421 th/mm3 (150-450); Red Blood Count 3.11 mil/mm3 (4.00-5.30); Red Cell Distribution Width 14.5 % (11.6-17.2); White Blood Count 12.8 th/mm3 (4.0-11.0)
[2018-03-20 05:24] LABS: Anion Gap 10 meq/L (5-15); Blood Urea Nitrogen 15 mg/dL (7-18); Calcium 7.6 mg/dL (8.5-10.1); Carbon Dioxide 24.7 meq/L (21.0-32.0); Chloride 107 meq/L (98-107); Glomerular Filtration Rate Greater Than 89 mL/min (>89); Glucose,Random 139 mg/dL (74-106); Magnesium 2.2 mg/dL (1.5-2.5); Phosphorus 3.3 mg/dL (2.5-4.9); Potassium 4.2 meq/L (3.5-5.1); Sodium 142 meq/L (136-145)
--- NOTE | 2018-03-20 06:01 | XR ---
EXAM DATE: 03/20/2018 5:41 AM EDT AGE/SEX: 58 years / Female INDICATIONS: Short of breath. CLINICAL DATA: This is the patient's subsequent encounter. Patient reports that signs and symptoms h ave been present for 3 days and indicates a pain score of 0/10. MEDICAL/SURGICAL HISTORY: Renal insufficiency, chronic. Gastroesophageal reflux disease. Asth ma. Hyperlipidemia. None. COMPARISON: [facility] – [place], CHEST 1V SINGLE AP, 03/19/2018. . FINDINGS: Single AP view the chest. Bilateral confluent pulmonary opacity again seen. No significant interval c hange. No evidence of pleural effusion or pneumothorax. Cardiomediastinal silhouette unchanged. CONCLUSION: No significant interval change of bilateral diffuse pulmonary parenchymal opacity. Electronically signed by: Jian Villeda MD 03/20/2018 5:59 AM EDT
[2018-03-20] MEDS: Metoprolol Inj 5 MG/5 ML Vial IV.PUSH SCH ×4 (06:37→23:25)
[2018-03-20] MEDS: Chlorhexidine Gluconate 2% 1 Pack (2 Cloths) TOPICAL SCH (06:38)
[2018-03-20] MEDS: Pantoprazole Inj 40 MG Vial IV.PUSH SCH (08:21)
[2018-03-20] MEDS: Insulin NovoLOG Aspart Correctional Sugar Inj SQ SCH ×4 (08:21→21:18)
[2018-03-20] MEDS: Senna/Docusate Sodium 8.6/50 MG Tablet PO SCH ×3 (08:22→21:33)
[2018-03-20] MEDS: Spironolactone 25 MG Tablet PO SCH ×2 (08:35→18:06)
--- NOTE | 2018-03-20 11:16 | P.PNPL ---
Subjective Interval history: 58 YOWF with br asthma, bilat diffuse infilt, hypoxic RF ON PRB Desaturates on taking mask no fever Cough, not able to expactorate plans for Heart cath Physical Exam Vital signs: Vital Signs 03/19/18 11:36 03/19/18 12:00 03/19/18 12:01 Temperature 98.3 F Pulse Rate 87 93 H 93 H Respiratory Rate 24 6 L 9 L Blood Pressure 117/60 117/60 Pulse Oximetry 93 L 94 L 03/19/18 13:00 03/19/18 14:00 03/19/18 14:01 Temperature Pulse Rate 98 H 82 82 Respiratory Rate 28 H 32 H 28 H Blood Pressure 127/66 108/57 L 108/57 L Pulse Oximetry 93 L 93 L 96 03/19/18 15:00 03/19/18 16:00 03/19/18 17:00 Temperature 98.1 F Pulse Rate 86 82 87 Respiratory Rate 36 H 28 H 30 H Blood Pressure 112/62 114/63 106/60 Pulse Oximetry 98 74 L 97 03/19/18 18:00 03/19/18 19:00 03/19/18 20:00 Temperature 99.2 F Pulse Rate 82 87 86 Respiratory Rate 35 H 25 H 41 H Blood Pressure 112/64 112/68 110/63 Pulse Oximetry 98 88 L 97 03/19/18 20:16 03/19/18 21:00 03/19/18 22:00 Temperature Pulse Rate 90 107 H 100 H Respiratory Rate 23 38 H 64 H Blood Pressure 117/55 L 123/63 Pulse Oximetry 86 L 95 03/19/18 23:00 03/19/18 23:29 03/20/18 00:00 Temperature 98.9 F Pulse Rate 106 H 92 H 106 H Respiratory Rate 106 H 24 39 H Blood Pressure 132/65 136/78 Pulse Oximetry 95 91 L 03/20/18 01:00 03/20/18 02:00 03/20/18 03:00 Temperature Pulse Rate 89 87 86 Respiratory Rate 31 H 36 H 37 H Blood Pressure 124/62 119/65 119/67 Pulse Oximetry 99 100 98 03/20/18 03:58 03/20/18 04:00 03/20/18 05:00 Temperature 98.8 F Pulse Rate 78 81 84 Respiratory Rate 22 28 H 29 H Blood Pressure 113/65 122/65 Pulse Oximetry 100 98 03/20/18 06:00 03/20/18 07:00 03/20/18 07:21 Temperature 97.5 F L Pulse Rate 77 68 68 Respiratory Rate 18 25 H 18 Blood Pressure 119/67 110/59 L Pulse Oximetry 99 100 100 03/20/18 08:00 03/20/18 09:00 03/20/18 10:00 Temperature Pulse Rate 74 71 77 Respiratory Rate 59 H 28 H 35 H Blood Pressure 116/66 112/56 L 111/55 L Pulse Oximetry 100 96 89 L 03/20/18 10:01 03/20/18 11:02 03/20/18 11:03 Temperature Pulse Rate 78 83 Respiratory Rate 49 H 20 Blood Pressure 111/55 L Pulse Oximetry 90 L 98 Intake & Output 03/19/18 03/20/18 03/20/18 18:59 06:59 18:59 Intake Total 1712.5 / 1712.5 742.5 / 742.5 Output Total 1750 / 1750 475 / 475 Balance -37.5 / -37.5 267.5 / 267.5 Weight 86.1 kg Intake: IV 512.5 / 512.5 262.5 / 262.5 Maxipime Inj 2,000 MG In NS Inj 100 / 100 100 ML @ 200 mls/hr IV.SIG Q8H [facility] Rx#:[id number] Levaquin 750 mg Premix Inj 150 150 / 150 ML @ 100 mls/hr IV.SIG Q24H [facility] Rx#:[id number] Vancomycin Inj 1,250 MG In NS 262.5 / 262.5 262.5 / 262.5 Inj 250 ML @ 250 mls/hr IV.SIG Q18H [facility] Rx#:[id number] Oral 1200 / 1200 480 / 480 Output: Urine 1750 / 1750 475 / 475 Other: # Voids 8 Date of Last Bowel Movement 03/19/18 03/19/18 03/19/18 # Bowel Movements 3 0 GENERAL: WBWn, mild sob SKIN: Warm and dry. HEAD: Normocephalic. EYES: No scleral icterus. No injection or drainage. NECK: Supple, trachea midline. No JVD or lymphadenopathy. CARDIOVASCULAR: Regular rate and rhythm without murmurs, gallops, or rubs. RESPIRATORY: Breath sounds equal bilaterally. No accessory muscle use. Bilat scattered rales GASTROINTESTINAL: Abdomen soft, non-tender, nondistended. MUSCULOSKELETAL: No cyanosis, or edema. BACK: Nontender without obvious deformity. No CVA tenderness. Assessment and Plan - Plan IMPRESSION: 1. Hypoxic respiratory failure. 2. Bilateral diffuse lung infiltrates, possibly viral pneumonia, atypical pneumonia or inflammatory process. 3. Non-ST elevation myocardial infarction. 4. History of bronchial asthma. PLAN: IV Solumedrol Cont Abx, ID following Supplement 02 with PRB Titerate 02 to keep sat >90% Cardiology following, plans for Heart cath Use Nanci
--- NOTE | 2018-03-20 11:35 | P.PNCC ---
Subjective Subjective Remarks/Hospital Course: This is a 58-year-old female. Date of admission 03/18/2018. Past medical history includes gastroesophageal reflux disease, seasonal asthma, elevated BMI, hyperlipidemia untreated and chronic kidney disease. Today, she presents to [facility] for evaluation of 1 week history of SOB. She is originally from [facility]. Her chief complaint consists of shortness of breath, chest tightness without radiation to the neck, down left arm or back, persistent nausea without emesis, abdominal pain or diarrhea. Her original temperature was 102 Fahrenheit according to patient, patient was evaluated in [place]. At that time, she states the chest x-ray was "clear. " At that time the provider suspected that she was having asthma symptoms. She was prescribed albuterol nebulizers and sent home. She is normally on an albuterol inhaler at home along with ranitidine and intermittently intermixing with PPI for gastroesophageal reflux disease. She states that her respiratory and nausea symptoms became acutely worse 2 days ago after flying to [facility] from [place]. She states that she is unable to walk "even a few feet" without GALINDO. Lying flat also makes symptoms worse. Chest x-ray revealed diffuse pulmonary fluffy infiltrates bilaterally.. EKG revealed sinus tachycardia with normal OH, QRS and QT intervals. Troponin was 0.55. She was seen in consultation by cardiology who recommended possible heart catheterization in the a.m. Will trend troponins. She is currently undergoing a CT angiogram of the chest. She received piperacillin/tazobactam and vancomycin in the ED. Her white blood cell count is normal. Her lactate was normal. Her d-dimer was slightly elevated. She complains of some slightly increased swelling in her bilateral lower extremities. She was placed on 100% nonrebreather with saturations currently 99-100%. At the present time she is able to speak complete sentences. Denies cough. SUBJECTIVE: 03/19: T-max 102.8. Currently afebrile. Currently on partial nonrebreather 10 L satting 92-99%. Pro-calcitonin 0.12. Does not appear volume overloaded on examination. Patient has a dry nonproductive cough. Denies chest pain.. Will give 40 mg furosemide IV 1 now 03/20: No fever reported today sitting at the side of the bed. Remains on partial nonrebreather to keep oxygen saturation more than 90%. Bilateral clavicles on exam. Chest x-ray shows extensive bilateral infiltrates Objective Vital Signs / I&O: Vital Signs 03/19/18 11:36 03/19/18 12:00 03/19/18 12:01 Temperature 98.3 F Pulse Rate 87 93 H 93 H Respiratory Rate 24 6 L 9 L Blood Pressure 117/60 117/60 Pulse Oximetry 93 L 94 L 03/19/18 13:00 03/19/18 14:00 03/19/18 14:01 Temperature Pulse Rate 98 H 82 82 Respiratory Rate 28 H 32 H 28 H Blood Pressure 127/66 108/57 L 108/57 L Pulse Oximetry 93 L 93 L 96 03/19/18 15:00 03/19/18 16:00 03/19/18 17:00 Temperature 98.1 F Pulse Rate 86 82 87 Respiratory Rate 36 H 28 H 30 H Blood Pressure 112/62 114/63 106/60 Pulse Oximetry 98 74 L 97 03/19/18 18:00 03/19/18 19:00 03/19/18 20:00 Temperature 99.2 F Pulse Rate 82 87 86 Respiratory Rate 35 H 25 H 41 H Blood Pressure 112/64 112/68 110/63 Pulse Oximetry 98 88 L 97 03/19/18 20:16 03/19/18 21:00 03/19/18 22:00 Temperature Pulse Rate 90 107 H 100 H Respiratory Rate 23 38 H 64 H Blood Pressure 117/55 L 123/63 Pulse Oximetry 86 L 95 03/19/18 23:00 03/19/18 23:29 03/20/18 00:00 Temperature 98.9 F Pulse Rate 106 H 92 H 106 H Respiratory Rate 106 H 24 39 H Blood Pressure 132/65 136/78 Pulse Oximetry 95 91 L 03/20/18 01:00 03/20/18 02:00 03/20/18 03:00 Temperature Pulse Rate 89 87 86 Respiratory Rate 31 H 36 H 37 H Blood Pressure 124/62 119/65 119/67 Pulse Oximetry 99 100 98 03/20/18 03:58 03/20/18 04:00 03/20/18 05:00 Temperature 98.8 F Pulse Rate 78 81 84 Respiratory Rate 22 28 H 29 H Blood Pressure 113/65 122/65 Pulse Oximetry 100 98 03/20/18 06:00 03/20/18 07:00 03/20/18 07:21 Temperature 97.5 F L Pulse Rate 77 68 68 Respiratory Rate 18 25 H 18 Blood Pressure 119/67 110/59 L Pulse Oximetry 99 100 100 03/20/18 08:00 03/20/18 09:00 03/20/18 10:00 Temperature Pulse Rate 74 71 77 Respiratory Rate 59 H 28 H 35 H Blood Pressure 116/66 112/56 L 111/55 L Pulse Oximetry 100 96 89 L 03/20/18 10:01 03/20/18 11:02 03/20/18 11:03 Temperature Pulse Rate 78 83 Respiratory Rate 49 H 20 Blood Pressure 111/55 L Pulse Oximetry 90 L 98 Intake & Output 03/19/18 03/20/18 03/20/18 18:59 06:59 18:59 Intake Total 1712.5 / 1712.5 742.5 / 742.5 Output Total 1750 / 1750 475 / 475 Balance -37.5 / -37.5 267.5 / 267.5 Weight 86.1 kg Intake: IV 512.5 / 512.5 262.5 / 262.5 Maxipime Inj 2,000 MG In NS Inj 100 / 100 100 ML @ 200 mls/hr IV.SIG Q8H JENA Rx#:[id number] Levaquin 750 mg Premix Inj 150 150 / 150 ML @ 100 mls/hr IV.SIG Q24H JENA Rx#:[id number] Vancomycin Inj 1,250 MG In NS 262.5 / 262.5 262.5 / 262.5 Inj 250 ML @ 250 mls/hr IV.SIG Q18H JENA Rx#:[id number] Oral 1200 / 1200 480 / 480 Output: Urine 1750 / 1750 475 / 475 Other: # Voids 8 Date of Last Bowel Movement 03/19/18 03/19/18 03/19/18 # Bowel Movements 3 0 Result Diagrams: 03/20/18 03:27 03/20/18 03:27 Objective Remarks: GENERAL: 58-year-old female currently resting in bed on partial nonrebreather in no acute distress SKIN: Warm and dry. HEAD: Atraumatic. Normocephalic. EYES: Pupils equal and round. No scleral icterus. No injection or drainage. ENT: No nasal bleeding or discharge. Mucous membranes pink and moist. NECK: Trachea midline. No JVD. CARDIOVASCULAR: Regular rate and rhythm. S1, S2. No S4. Without murmur RESPIRATORY: Fine crackles are appreciated bilaterally. Diminished breath sounds bilaterally. No wheezing GASTROINTESTINAL: Abdomen soft, non-tender, nondistended. Hepatic and splenic margins not palpable. MUSCULOSKELETAL: Extremities with trace nonpitting bilateral lower extremity edema. No obvious deformities. NEUROLOGICAL: Awake and alert. No obvious cranial nerve deficits. Motor grossly within normal limits. Five out of 5 muscle strength in the arms and legs. Normal speech. Assessment and Plan - Assessment and Plan Plan: Neuro/Psych: Acetaminophen 650 mg p.o. every 6 hours as needed fever Hydrocodone/acetaminophen 5/325 1 tablet every 4 hours as needed 1 through 5 Morphine sulfate 2 g IV every 2 hours as needed pain 6-10 CV: Non-STEMI likely type II demand ischemia Elevated troponin History of hyperlipidemia Sinus tachycardia Elevated BNP Elevated LDL Received 2 L normal saline in the ED. Noted her lactate was normal at 1.6. Recheck in a.m. stable at 1.6 Continue metoprolol tartrate 5 mg IV every 6 hours Aspirin 81 milligrams in a.m. Hold DEJA inhibitor in light of acute kidney injury by history Continue atorvastatin 40 mg at night for elevated LDL Serial troponin every 8 hours x2. Trending downward peaked at 0.55. Currently at 0.10 2D echocardiogram ordered. Low Normal ejection fraction Dr. Calixto/cardiology to evaluate. Possible heart catheterization planned for today-now postponed to tomorrow per RN Resp: Acute hypoxic hypercapnic respiratory failure History of mild intermittent asthma Tobaccoism Chest x-ray revealed diffuse bilateral pulmonary infiltrates with air bronchograms and lower lobes. CT angiogram revealed no central pulmonary. Diffuse infiltrates bilaterally inflammatory/infiltrative. Currently on 10 L partial nonrebreather saturations are 94-97%. Wean as tolerated Albuterol/ipratropium aerosols every 4 hours with albuterol aerosols every 2 as needed for dyspnea Methylprednisolone succinate 40 mg IV twice daily Incentive spirometry while awake Tobacco sensation self-evaluation booklet will provide when appropriate Follow-up chest x-ray in a.m. 03/20 Pulmonary following GI: Gastroesophageal reflux disease History of constipation Cardiac diet with n.p.o. after midnight At home on ranitidine 150 mg daily with esomeprazole as needed Continue pantoprazole 40 mg IV daily Docusate sodium/senna 1 tablet twice daily for bowel regimen Amylase and lipase and LFTs within normal limits : History of urinary frequency UA negative. No indication for Brown catheter Endo: Sliding scale insulin Accu-Cheks to maintain euglycemia/AC at bedtime low regimen TSH 0.998 Renal: History of chronic kidney disease stage II Creatinine currently within normal limits Monitor urine output Accurate I's and O's Avoid nephrotoxic medications Heme: Normocytic anemia Monitor CBC daily. Follow trends. No indication for transfusion of blood products at this time ID: Probable community acquired pneumonia Received piperacillin/tazobactam and vancomycin ED. Continue vancomycin, cefepime and azithromycin Infectious disease consultation UA negative Influenza a and B-. Respiratory panel ordered for confirmation Blood cultures x2 03/18 negative today Check urinary pneumococcal and Legionella antigens, mycoplasma and chlamydia No history of immunosuppression FEN: Replace electrolytes as clinically indicated per ICU electrolyte protocol MSK: Elevated BMI Weight loss encouraged PT evaluate and treat Access -Utilize peripheral IV. Central line if indicated Prophylaxis -GI-pantoprazole -DVT SCD/heparin subcu Follow-up 35 minutes critical care time
--- NOTE | 2018-03-20 12:11 | P.PNID ---
Subjective Remarks: Patient states that she feels a little better. She is currently on oxygen via facemask nonrebreather. Her oxygen desaturates when she removes the mask to talk. She says she is coughing less. Afebrile. Still has cough without sputum production. Chest x-ray showing continued diffuse bilateral infiltrates. This is a 58-year-old white female who presented to the emergency department with respiratory distress. Past Medical History: PAST MEDICAL HISTORY: Bronchitis, gastroesophageal reflux disease, chronic kidney disease stage II, hyperlipidemia, bunionectomy. Allergies/Adverse Reactions: Allergies Penicillins Allergy (Intermediate, Verified 03/19/18 21:08) Hives Sulfa (Sulfonamide Antibiotics) Allergy (Intermediate, Verified 03/18/18 14:16) Anxiety Objective Vital Signs 03/19/18 13:00 03/19/18 14:00 03/19/18 14:01 Temperature Pulse Rate 98 H 82 82 Respiratory Rate 28 H 32 H 28 H Blood Pressure 127/66 108/57 L 108/57 L Pulse Oximetry 93 L 93 L 96 03/19/18 15:00 03/19/18 16:00 03/19/18 17:00 Temperature 98.1 F Pulse Rate 86 82 87 Respiratory Rate 36 H 28 H 30 H Blood Pressure 112/62 114/63 106/60 Pulse Oximetry 98 74 L 97 03/19/18 18:00 03/19/18 19:00 03/19/18 20:00 Temperature 99.2 F Pulse Rate 82 87 86 Respiratory Rate 35 H 25 H 41 H Blood Pressure 112/64 112/68 110/63 Pulse Oximetry 98 88 L 97 03/19/18 20:16 03/19/18 21:00 03/19/18 22:00 Temperature Pulse Rate 90 107 H 100 H Respiratory Rate 23 38 H 64 H Blood Pressure 117/55 L 123/63 Pulse Oximetry 86 L 95 03/19/18 23:00 03/19/18 23:29 03/20/18 00:00 Temperature 98.9 F Pulse Rate 106 H 92 H 106 H Respiratory Rate 106 H 24 39 H Blood Pressure 132/65 136/78 Pulse Oximetry 95 91 L 03/20/18 01:00 03/20/18 02:00 03/20/18 03:00 Temperature Pulse Rate 89 87 86 Respiratory Rate 31 H 36 H 37 H Blood Pressure 124/62 119/65 119/67 Pulse Oximetry 99 100 98 03/20/18 03:58 03/20/18 04:00 03/20/18 05:00 Temperature 98.8 F Pulse Rate 78 81 84 Respiratory Rate 22 28 H 29 H Blood Pressure 113/65 122/65 Pulse Oximetry 100 98 03/20/18 06:00 03/20/18 07:00 03/20/18 07:21 Temperature 97.5 F L Pulse Rate 77 68 68 Respiratory Rate 18 25 H 18 Blood Pressure 119/67 110/59 L Pulse Oximetry 99 100 100 03/20/18 08:00 03/20/18 09:00 03/20/18 10:00 Temperature Pulse Rate 74 71 77 Respiratory Rate 59 H 28 H 35 H Blood Pressure 116/66 112/56 L 111/55 L Pulse Oximetry 100 96 89 L 03/20/18 10:01 03/20/18 11:02 03/20/18 11:03 Temperature Pulse Rate 78 83 Respiratory Rate 49 H 20 Blood Pressure 111/55 L Pulse Oximetry 90 L 98 Intake & Output 03/19/18 03/20/18 03/20/18 18:59 06:59 18:59 Intake Total 1712.5 / 1712.5 742.5 / 742.5 Output Total 1750 / 1750 475 / 475 Balance -37.5 / -37.5 267.5 / 267.5 Weight 86.1 kg Intake: IV 512.5 / 512.5 262.5 / 262.5 Maxipime Inj 2,000 MG In NS Inj 100 / 100 100 ML @ 200 mls/hr IV.SIG Q8H JENA Rx#:[id number] Levaquin 750 mg Premix Inj 150 150 / 150 ML @ 100 mls/hr IV.SIG Q24H JENA Rx#:[id number] Vancomycin Inj 1,250 MG In NS 262.5 / 262.5 262.5 / 262.5 Inj 250 ML @ 250 mls/hr IV.SIG Q18H JENA Rx#:[id number] Oral 1200 / 1200 480 / 480 Output: Urine 1750 / 1750 475 / 475 Other: # Voids 8 Date of Last Bowel Movement 03/19/18 03/19/18 03/19/18 # Bowel Movements 3 0 03/18/18 14:55 Blood - Peripheral Aerobic Blood Culture - Preliminary No growth in 2 days 03/18/18 14:55 Blood - Peripheral Anaerobic Blood Culture - Preliminary No growth in 2 days 03/18/18 14:50 Blood - Peripheral Aerobic Blood Culture - Preliminary No growth in 2 days 03/18/18 14:50 Blood - Peripheral Anaerobic Blood Culture - Preliminary No growth in 2 days 03/19/18 13:00 Clean Catch Urine Urine Culture - Preliminary No growth in 24 hours 03/19/18 13:00 Urine - Clean Catch Urine Legionella Antigen - Final Presumptive negative for Legionella pneumophila serogroup 1 antigen in urine, suggesting no recent or recurrent infection. Infection due to Legionella cannot be ruled out since other serogroups and species may cause disease, antigen may not be present in urine in early infection, and the level of antigen present in the urine may be below the detection limit of the test. 03/19/18 13:00 Urine - Clean Catch Urine Streptococcus pneumoniae Antigen ( M - Final Presumptive negative for streptococcus pneumoniae antigen, suggesting no current or recent infection. Infection due to Streptococcus pneumoniae cannot be ruled out since the antigen present in the sample may be below the detection limit of the test. 03/18/18 16:01 Nasal Wash Influenza Types A,B Antigen - Final Negative for FLU A and B antigen Infection due to influenza A or B cannot be ruled out since the antigen present in the sample may be below the detection limit of the test. Lab - Hematology Results 03/18/18 03/19/18 03/20/18 14:55 03:46 03:27 WBC 10.9 9.8 12.8 H RBC 3.60 L 3.39 L 3.11 L Hgb 11.2 L 10.5 L 9.5 L Hct 33.3 L 32.0 L 29.1 L MCV 92.4 94.5 93.3 MCH 31.2 30.9 30.5 MCHC 33.8 32.7 32.7 RDW 14.4 14.6 14.5 Plt Count 441 396 421 MPV 7.7 7.8 7.8 Neut % (Auto) 77.5 H 76.3 H 87.2 H Lymph % (Auto) 13.1 20.5 8.3 L Dupage % (Auto) 8.8 H 2.9 4.4 Eos % (Auto) 0.3 0.0 0.0 Baso % (Auto) 0.3 0.3 0.1 Neut # (Auto) 8.4 H 7.4 11.1 H Lymph # (Auto) 1.4 2.0 1.1 Dupage # (Auto) 1.0 H 0.3 0.6 Eos # (Auto) 0.0 0.0 0.0 Baso # (Auto) 0.0 0.0 0.0 WBC Differential . . . Differential Comment Auto diff final Auto diff final Auto diff final Lab - Chemistry Results 03/18/18 03/18/18 03/18/18 14:55 14:55 14:55 Sodium 137 Potassium 4.2 Chloride 102 Carbon Dioxide 23.8 Anion Gap 11 BUN 12 Creatinine 0.75 Estimated GFR 80 L POC Glucose Random Glucose 101 Lactic Acid 1.6 Calcium 8.3 L Phosphorus Magnesium Total Bilirubin Direct Bilirubin Indirect Bilirubin AST ALT Alkaline Phosphatase Total Creatine Kinase 146 CK-MB (CK-2) 1.8 Troponin I 0.55 H C-Reactive Protein B-Natriuretic Peptide 397 H Total Protein Albumin Triglycerides Cholesterol LDL Cholesterol, Calc HDL Cholesterol Cholesterol/HDL Ratio Amylase Lipase Procalcitonin [facility] 03/18/18 03/18/18 03/18/18 18:04 18:06 18:06 Sodium Potassium Chloride Carbon Dioxide Anion Gap BUN Creatinine Estimated GFR POC Glucose 138 H Random Glucose Lactic Acid Calcium Phosphorus Magnesium Total Bilirubin 0.6 Direct Bilirubin 0.2 Indirect Bilirubin 0.4 AST 52 H ALT 35 Alkaline Phosphatase 81 Total Creatine Kinase 141 CK-MB (CK-2) Troponin I 0.47 H C-Reactive Protein 21.10 H B-Natriuretic Peptide Total Protein 7.5 Albumin 2.4 L Triglycerides Cholesterol LDL Cholesterol, Calc HDL Cholesterol Cholesterol/HDL Ratio Amylase 63 Lipase Procalcitonin [facility] 03/18/18 03/18/18 03/18/18 18:06 20:45 22:07 Sodium Potassium Chloride Carbon Dioxide Anion Gap BUN Creatinine Estimated GFR POC Glucose 239 H 214 H Random Glucose Lactic Acid Calcium Phosphorus Magnesium Total Bilirubin Direct Bilirubin Indirect Bilirubin AST ALT Alkaline Phosphatase Total Creatine Kinase CK-MB (CK-2) Troponin I C-Reactive Protein B-Natriuretic Peptide Total Protein Albumin Triglycerides Cholesterol LDL Cholesterol, Calc HDL Cholesterol Cholesterol/HDL Ratio Amylase Lipase Procalcitonin 0.17 H [facility] 03/19/18 03/19/18 03/19/18 03:46 03:46 03:46 Sodium 142 Potassium 3.9 Chloride 108 H Carbon Dioxide 22.2 Anion Gap 12 BUN 13 Creatinine 0.66 Estimated GFR Greater than 89 POC Glucose Random Glucose 141 H Lactic Acid 1.6 Calcium 8.0 L Phosphorus 3.0 Magnesium 2.2 Total Bilirubin 0.2 Direct Bilirubin Indirect Bilirubin AST 46 H ALT 34 Alkaline Phosphatase 79 Total Creatine Kinase CK-MB (CK-2) Troponin I 0.10 H D C-Reactive Protein B-Natriuretic Peptide 389 H Total Protein 7.6 Albumin 2.3 L Triglycerides 100 Cholesterol 186 LDL Cholesterol, Calc 137 H HDL Cholesterol 28.8 L Cholesterol/HDL Ratio 6.45 Amylase Lipase 80 Procalcitonin TSH 0.998 03/19/18 03/19/18 03/19/18 08:29 12:18 17:28 Sodium Potassium Chloride Carbon Dioxide Anion Gap BUN Creatinine Estimated GFR POC Glucose 137 H 134 H 126 H Random Glucose Lactic Acid Calcium Phosphorus Magnesium Total Bilirubin Direct Bilirubin Indirect Bilirubin AST ALT Alkaline Phosphatase Total Creatine Kinase CK-MB (CK-2) Troponin I C-Reactive Protein B-Natriuretic Peptide Total Protein Albumin Triglycerides Cholesterol LDL Cholesterol, Calc HDL Cholesterol Cholesterol/HDL Ratio Amylase Lipase Procalcitonin TSH 03/19/18 03/20/18 03/20/18 20:43 03:27 03:27 Sodium 142 Potassium 4.2 Chloride 107 Carbon Dioxide 24.7 Anion Gap 10 BUN 15 Creatinine 0.59 Estimated GFR Greater than 89 POC Glucose 92 Random Glucose 139 H Lactic Acid Calcium 7.6 L Phosphorus 3.3 Magnesium 2.2 Total Bilirubin Direct Bilirubin Indirect Bilirubin AST ALT Alkaline Phosphatase Total Creatine Kinase CK-MB (CK-2) Troponin I C-Reactive Protein B-Natriuretic Peptide 196 H Total Protein Albumin Triglycerides Cholesterol LDL Cholesterol, Calc HDL Cholesterol Cholesterol/HDL Ratio Amylase Lipase Procalcitonin TSH 03/20/18 03/20/18 07:37 11:49 Sodium Potassium Chloride Carbon Dioxide Anion Gap BUN Creatinine Estimated GFR POC Glucose 149 H 184 H Random Glucose Lactic Acid Calcium Phosphorus Magnesium Total Bilirubin Direct Bilirubin Indirect Bilirubin AST ALT Alkaline Phosphatase Total Creatine Kinase CK-MB (CK-2) Troponin I C-Reactive Protein B-Natriuretic Peptide Total Protein Albumin Triglycerides Cholesterol LDL Cholesterol, Calc HDL Cholesterol Cholesterol/HDL Ratio Amylase Lipase Procalcitonin TSH Imaging: ITS Impressions Abdomen X-Ray 03/18/18 00:00 CONCLUSION: Negative examination. Venous Doppler Study 03/18/18 00:00 CONCLUSION: 1. The study is negative for bilateral lower extremity deep venous thrombosis. Chest CTA 03/18/18 16:02 CONCLUSION: 1. There is no evidence of PE for technique. 2. Extensive airspace process most likely inflammatory and pneumonia, possibility of pulmonary edema is not excluded. 3. Tiny bilateral pleural effusions with nonspecific most likely benign lymph nodes within the mediastinum. Chest X-Ray 03/20/18 06:00 CONCLUSION: No significant interval change of bilateral diffuse pulmonary parenchymal opacity. Physical Exam: PHYSICAL EXAMINATION: GENERAL: This is a moderately obese female who is in no acute distress. She is awake and alert and oriented. HEENT: Head is atraumatic. Extraocular movements are grossly intact. Pupils reactive to light. No icterus. Oropharynx, moist mucosa. No visible lesions. NECK: Supple without adenopathy. LUNGS: Decreased breath sounds throughout. HEART: Regular rate and rhythm without murmurs, rubs or gallops. ABDOMEN: Bowel sounds present. Soft, obese, nontender. EXTREMITIES: No clubbing, cyanosis or edema. SKIN: No rash. NEUROLOGIC: No gross focal findings. Awake and alert and oriented. Assessment and Plan - Plan IMPRESSION: Bilateral pulmonary infiltrates. The patient presented with fever, nausea, and dyspnea on exertion. Has some component of cough, but little and the patient is not producing sputum. This could potentially be atypical versus viral pneumonia. Also, potentially this could be congestive heart failure or other inflammatory condition. RECOMMENDATIONS: 1. Continue vancomycin. 2. Continue azithromycin. 3. Continue Levaquin. 4. Obtain sputum culture if coughs she up any sputum. 5. Follow mycoplasma and chlamydia serology. 6. Monitor white cell count.
--- NOTE | 2018-03-20 13:09 | P.PNCA ---
Subjective Interval history: feels better still on O2 Medications and Allergies Active Medications: Active Medications Acetaminophen (Tylenol) 650 mg PO Q6H PRN PRN Reason: Fever >100f Hydrocodone Bitart/Acetaminophen (Mulberry 5/325) 1 tab PO Q4H PRN PRN Reason: PAIN SCALE 1 TO 5 Al Hydroxide/Mg Hydroxide (Milk Of Bud Liq) 30 ml PO Q12H PRN PRN Reason: Mild Constipation Albuterol (Albuterol Neb (Prn)) 2.5 mg NEB Q2HR NEB PRN PRN Reason: SHORTNESS OF BREATH/WHEEZING Albuterol (Duoneb Neb (Bill)) 1 ampul NEB Q4HR NEB [facility] Last Admin: 03/20/18 11:00 Dose: 1 ampul Aspirin (Aspirin Chew) 81 mg PO DAILY [facility] Last Admin: 03/20/18 08:22 Dose: 81 mg Atorvastatin Calcium (Lipitor) 40 mg PO HS [facility] Last Admin: 03/19/18 20:53 Dose: 40 mg Bisacodyl (Dulcolax Supp) 10 mg RECTAL DAILY PRN PRN Reason: SEVERE CONSITIPATION Chlorhexidine Gluconate (Chlorhexidine 2% Cloth) 3 pack TOPICAL DAILY@0400 [facility] Stop: 03/24/18 03:59 Last Admin: 03/20/18 06:38 Dose: 3 pack Chlorhexidine Gluconate (Chlorhexidine 2% Cloth) 3 pack TOPICAL DAILY@0400 PRN PRN Reason: Extra cloth needed Stop: 03/24/18 03:59 Dextrose (D50w Vial) 50 ml IV.PUSH UNSCH PRN PRN Reason: PER HYPOGLYCEMIA PROTOCOL Glucagon (Glucagon Inj) 1 mg OTHER PRN PRN PRN Reason: for Hypoglycemia Protocol Heparin Sodium (Porcine) (Heparin Inj) 5,000 units SQ Q8H [facility] Last Admin: 03/20/18 10:54 Dose: 5,000 units Azithromycin 500 mg/ Sodium (Chloride) 250 mls @ 250 mls/hr IV.SIG Q24H [facility] Last Admin: 03/19/18 17:18 Dose: 250 mls/hr Magnesium Sulfate 4 gm/ Sodium (Chloride) 100 mls @ 50 mls/hr IV.SIG UNSCH PRN PRN Reason: For Magnesium 0.9 - 1.1 mg/dL Magnesium Sulfate 2 gm/ Sodium (Chloride) 100 mls @ 50 mls/hr IV.SIG UNSCH PRN PRN Reason: For Magnesium 1.2 - 1.6 mg/dL Potassium Chloride (Kcl 40 Meq Premix Inj) 40 meq in 100 mls @ 25 mls/hr IV.SIG Q2H PRN PRN Reason: For Potassium 2.8 - 3.2 mEq/L Potassium Chloride (Kcl 20 Meq Premix Inj) 20 meq in 100 mls @ 50 mls/hr IV.SIG Q2H PRN PRN Reason: For Potassium 3.3 - 3.5 mEq/L Potassium Chloride (Kcl 20 Meq Premix Inj) 20 meq in 100 mls @ 50 mls/hr IV.SIG Q2H PRN PRN Reason: For Potassium 2.8 - 3.2 mEq/L Potassium Phosphate 30 mmol/ (Sodium Chloride) 260 mls @ 42 mls/hr IV.SIG UNSCH PRN PRN Reason: SEE LABEL COMMENTS Sodium Phosphate 30 mmol/ (Sodium Chloride) 260 mls @ 42 mls/hr IV.SIG UNSCH PRN PRN Reason: For Phosphorus < 2.5 mg/dL Potassium Chloride (Kcl 40 Meq Premix Inj) 40 meq in 100 mls @ 25 mls/hr IV.SIG UNSCH PRN PRN Reason: For Potassium 3.3 - 3.5 mEq/L Vancomycin HCl 1,250 mg/ (Sodium Chloride) 262.5 mls @ 250 mls/hr IV.SIG Q18H BILL Last Infusion: 03/20/18 03:55 Dose: Infused Levofloxacin/Dextrose (Levaquin 750 Mg Premix Inj) 150 mls @ 100 mls/hr IV.SIG Q24H BILL Last Admin: 03/20/18 11:51 Dose: 100 mls/hr Insulin Aspart (Novolog Insulin Correctional Sugar Inj) 0 unit SQ ACHS BILL; Protocol Last Admin: 03/20/18 08:21 Dose: Not Given Lactulose (Lactulose Liq) 30 ml PO DAILY PRN PRN Reason: SEVERE CONSITIPATION Magnesium Oxide (Mag-Ox) 800 mg PO UNSCH PRN PRN Reason: For Magnesium 1.2 - 1.6 mg/dL Methylprednisolone Sodium Succinate (Solumedrol Inj) 40 mg IV.PUSH Q6H BILL Last Admin: 03/20/18 08:21 Dose: 40 mg Metoprolol Tartrate (Lopressor Inj) 5 mg IV.PUSH Q6H BILL Last Admin: 03/20/18 11:52 Dose: 5 mg Miscellaneous Information ([facility] Ordered Lab Info) 0 each OTHER ONCE ONE Stop: 03/20/18 19:46 Morphine Sulfate (Morphine Inj) 2 mg IV.PUSH Q2H PRN PRN Reason: PAIN SCALE 6 TO 10 Ondansetron HCl (Zofran Inj) 4 mg IV.PUSH Q6H PRN PRN Reason: NAUSEA OR VOMITING Pantoprazole Sodium (Protonix Inj) 40 mg IV.PUSH DAILY [facility] Last Admin: 03/20/18 08:21 Dose: 40 mg Pharmacy Profile Note (Vancomycin Consult Pharmacy) 1 each OTHER UNSCH PRN PRN Reason: Pharmacy to dose Potassium Bicarb/Potassium Chloride (K-Lyte Cl Eff) 50 meq PO UNSCH PRN PRN Reason: For Potassium 3.3 - 3.5 mEq/L Potassium Phosphate (K-Phos Original) 2,000 mg PO Q4H PRN PRN Reason: Phosphorus Less Than 2.5 mg/dL Potassium Phosphate (K-Phos Original) 2,000 mg PO UNSCH PRN PRN Reason: SEE LABEL COMMENTS Senna/Docusate Sodium (Sofi-Colace) 1 tab PO BID [facility] Last Admin: 03/20/18 08:22 Dose: 1 tab Sennosides (Senokot) 17.2 mg PO Q12H PRN PRN Reason: Moderate Constipation Sodium Chloride (Ns Flush) 2 ml IV.FLUSH BID [facility] Last Admin: 03/20/18 08:22 Dose: 2 ml Sodium Chloride (Ns Flush) 2 ml IV.FLUSH PRN PRN PRN Reason: FLUSH AFTER USING IV ACCESS Spironolactone (Aldactone) 25 mg PO BID@0900,1800 [facility] Last Admin: 03/20/18 08:35 Dose: 25 mg Allergies Allergy/AdvReac Type Severity Reaction Status Date / Time Penicillins Allergy Intermediate Hives Verified 03/19/18 21:08 Sulfa (Sulfonamide Allergy Intermediate Anxiety Verified 03/18/18 14:16 Antibiotics) Physical Exam Vital signs: Vital Signs 03/19/18 14:00 03/19/18 14:01 03/19/18 15:00 Temperature Pulse Rate 82 82 86 Respiratory Rate 32 H 28 H 36 H Blood Pressure 108/57 L 108/57 L 112/62 Pulse Oximetry 93 L 96 98 03/19/18 16:00 03/19/18 17:00 03/19/18 18:00 Temperature 98.1 F Pulse Rate 82 87 82 Respiratory Rate 28 H 30 H 35 H Blood Pressure 114/63 106/60 112/64 Pulse Oximetry 74 L 97 98 03/19/18 19:00 03/19/18 20:00 03/19/18 20:16 Temperature 99.2 F Pulse Rate 87 86 90 Respiratory Rate 25 H 41 H 23 Blood Pressure 112/68 110/63 Pulse Oximetry 88 L 97 03/19/18 21:00 03/19/18 22:00 03/19/18 23:00 Temperature Pulse Rate 107 H 100 H 106 H Respiratory Rate 38 H 64 H 106 H Blood Pressure 117/55 L 123/63 132/65 Pulse Oximetry 86 L 95 95 03/19/18 23:29 03/20/18 00:00 03/20/18 01:00 Temperature 98.9 F Pulse Rate 92 H 106 H 89 Respiratory Rate 24 39 H 31 H Blood Pressure 136/78 124/62 Pulse Oximetry 91 L 99 03/20/18 02:00 03/20/18 03:00 03/20/18 03:58 Temperature Pulse Rate 87 86 78 Respiratory Rate 36 H 37 H 22 Blood Pressure 119/65 119/67 Pulse Oximetry 100 98 03/20/18 04:00 03/20/18 05:00 03/20/18 06:00 Temperature 98.8 F Pulse Rate 81 84 77 Respiratory Rate 28 H 29 H 18 Blood Pressure 113/65 122/65 119/67 Pulse Oximetry 100 98 99 03/20/18 07:00 03/20/18 07:21 03/20/18 08:00 Temperature 97.5 F L Pulse Rate 68 68 74 Respiratory Rate 25 H 18 59 H Blood Pressure 110/59 L 116/66 Pulse Oximetry 100 100 100 03/20/18 09:00 03/20/18 10:00 03/20/18 10:01 Temperature Pulse Rate 71 77 78 Respiratory Rate 28 H 35 H 49 H Blood Pressure 112/56 L 111/55 L 111/55 L Pulse Oximetry 96 89 L 90 L 03/20/18 11:02 03/20/18 11:03 Temperature Pulse Rate 83 Respiratory Rate 20 Blood Pressure Pulse Oximetry 98 Intake & Output 03/19/18 03/20/18 03/20/18 18:59 06:59 18:59 Intake Total 1712.5 / 1712.5 742.5 / 742.5 Output Total 1750 / 1750 475 / 475 Balance -37.5 / -37.5 267.5 / 267.5 Weight 86.1 kg Intake: IV 512.5 / 512.5 262.5 / 262.5 Maxipime Inj 2,000 MG In NS Inj 100 / 100 100 ML @ 200 mls/hr IV.SIG Q8H BILL Rx#:[id number] Levaquin 750 mg Premix Inj 150 150 / 150 ML @ 100 mls/hr IV.SIG Q24H BILL Rx#:[id number] Vancomycin Inj 1,250 MG In NS 262.5 / 262.5 262.5 / 262.5 Inj 250 ML @ 250 mls/hr IV.SIG Q18H BILL Rx#:[id number] Oral 1200 / 1200 480 / 480 Output: Urine 1750 / 1750 475 / 475 Other: # Voids 8 Date of Last Bowel Movement 03/19/18 03/19/18 03/19/18 # Bowel Movements 3 0 Results 03/20/18 03:27 03/20/18 03:27 Cardiac Enzymes 03/18/18 03/18/18 03/18/18 Range/Units 14:55 14:55 18:06 AST 52 H (15-37) U/L CK-MB (CK-2) 1.8 (0.5-3.6) ng/mL Troponin I 0.55 H 0.47 H (0.02-0.05) ng/mL B-Natriuretic Peptide 397 H (0-100) pg/mL 03/19/18 03/19/18 03/20/18 Range/Units 03:46 03:46 03:27 AST 46 H (15-37) U/L CK-MB (CK-2) (0.5-3.6) ng/mL Troponin I 0.10 H D (0.02-0.05) ng/mL B-Natriuretic Peptide 389 H 196 H (0-100) pg/mL Coagulation 03/18/18 03/18/18 03/19/18 Range/Units 14:55 14:55 03:46 PT 10.3 (9.8-11.6) sec APTT (24.3-30.1) sec B-Natriuretic Peptide 397 H 389 H (0-100) pg/mL 03/19/18 03/20/18 Range/Units 03:46 03:27 PT 10.5 (9.8-11.6) sec APTT 29.2 (24.3-30.1) sec B-Natriuretic Peptide 196 H (0-100) pg/mL Lipids 03/19/18 Range/Units 03:46 Triglycerides 100 (42-150) mg/dL Cholesterol 186 (120-200) mg/dL HDL Cholesterol 28.8 L (40.0-60.0) mg/dL Cholesterol/HDL Ratio 6.45 Ratio CBC 03/18/18 03/19/18 03/20/18 Range/Units 14:55 03:46 03:27 WBC 10.9 9.8 12.8 H (4.0-11.0) th/mm3 RBC 3.60 L 3.39 L 3.11 L (4.00-5.30) mil/mm3 Hgb 11.2 L 10.5 L 9.5 L (11.6-15.3) gm/dL Hct 33.3 L 32.0 L 29.1 L (35.0-46.0) % Plt Count 441 396 421 (150-450) th/mm3 Neut # (Auto) 8.4 H 7.4 11.1 H (1.8-7.7) th/mm3 Lymph # (Auto) 1.4 2.0 1.1 (1.0-4.8) th/mm3 [place] # (Auto) 1.0 H 0.3 0.6 (0.0-0.9) th/mm3 Eos # (Auto) 0.0 0.0 0.0 (0.0-0.4) th/mm3 Baso # (Auto) 0.0 0.0 0.0 (0.0-0.2) th/mm3 Comprehensive Metabolic Panel 03/18/18 03/18/18 03/19/18 Range/Units 14:55 18:06 03:46 Sodium 137 142 (136-145) meq/L Potassium 4.2 3.9 (3.5-5.1) meq/L Chloride 102 108 H (98-107) meq/L Carbon Dioxide 23.8 22.2 (21.0-32.0) meq/L BUN 12 13 (7-18) mg/dL Creatinine 0.75 0.66 (0.50-1.00) mg/dL Calcium 8.3 L 8.0 L (8.5-10.1) mg/dL Direct Bilirubin 0.2 (0.0-0.2) mg/dL Indirect Bilirubin 0.4 (0.0-0.8) mg/dL AST 52 H 46 H (15-37) U/L ALT 35 34 (10-53) U/L Alkaline Phosphatase 81 79 (45-117) U/L Total Protein 7.5 7.6 (6.4-8.2) g/dL Albumin 2.4 L 2.3 L (3.4-5.0) g/dL 03/20/18 Range/Units 03:27 Sodium 142 (136-145) meq/L Potassium 4.2 (3.5-5.1) meq/L Chloride 107 (98-107) meq/L Carbon Dioxide 24.7 (21.0-32.0) meq/L BUN 15 (7-18) mg/dL Creatinine 0.59 (0.50-1.00) mg/dL Calcium 7.6 L (8.5-10.1) mg/dL Direct Bilirubin (0.0-0.2) mg/dL Indirect Bilirubin (0.0-0.8) mg/dL AST (15-37) U/L ALT (10-53) U/L Alkaline Phosphatase (45-117) U/L Total Protein (6.4-8.2) g/dL Albumin (3.4-5.0) g/dL Intake and Output 03/19/18 03/20/18 03/20/18 22:59 06:59 14:59 Intake Total 1200 / 1200 742.5 / 742.5 Output Total 1750 / 1750 475 / 475 Balance -550 / -550 267.5 / 267.5 Intake: IV 262.5 / 262.5 Vancomycin Inj 1,250 MG In NS 262.5 / 262.5 Inj 250 ML @ 250 mls/hr IV.SIG Q18H BILL Rx#:[id number] Oral 1200 / 1200 480 / 480 Output: Urine 1750 / 1750 475 / 475 Other: # Voids 8 Date of Last Bowel Movement 03/19/18 03/19/18 03/19/18 # Bowel Movements 3 0 Weight 86.1 kg - Imaging and Cardiology Imaging: Impressions Abdomen X-Ray 03/18/18 00:00 CONCLUSION: Negative examination. Venous Doppler Study 03/18/18 00:00 CONCLUSION: 1. The study is negative for bilateral lower extremity deep venous thrombosis. Chest X-Ray 03/18/18 14:35 CONCLUSION: Bilateral pulmonary infiltrates. Chest CTA 03/18/18 16:02 CONCLUSION: 1. There is no evidence of PE for technique. 2. Extensive airspace process most likely inflammatory and pneumonia, possibility of pulmonary edema is not excluded. 3. Tiny bilateral pleural effusions with nonspecific most likely benign lymph nodes within the mediastinum. Chest X-Ray 03/19/18 06:00 CONCLUSION: No significant interval change in bilateral diffuse pulmonary opacity. Chest X-Ray 03/20/18 06:00 CONCLUSION: No significant interval change of bilateral diffuse pulmonary parenchymal opacity. Assessment and Plan - Assessment (1) NSTEMI (non-ST elevated myocardial infarction) Code(s): I21.4 - Non-ST elevation (NSTEMI) myocardial infarction Status: Acute (2) CHF (congestive heart failure) Code(s): I50.9 - Heart failure, unspecified Status: Acute (3) Hypoxia Code(s): R09.02 - Hypoxemia Status: Acute (4) Dyspnea Code(s): R06.00 - Dyspnea, unspecified Status: Acute - Plan 1.) NSTEMI - rhc/lhc scheduled for 03/21/18 if more requiring less oxygen, continue aldactone, f/u bnp, continue aspirin; hypoxia disproportionate to degree of chf, ef=50%, bnp<200, suggesting primary pulmonary etilogy to hypoxia
[2018-03-20] MEDS: Azithromycin Inj 500 MG in Sodium Chlor 0.9% Inj 250 ML IV.SIG SCH (18:05)
[2018-03-20] MEDS ORDERED: Pharmacy Ordered Lab Info OTHER ONE (19:45)
[2018-03-21] MEDS: MethylPREDNISolone Sod Succinate Inj 40 MG/ML Vial IV.PUSH SCH ×4 (03:00→20:51)
[2018-03-21] MEDS: Chlorhexidine Gluconate 2% 1 Pack (2 Cloths) TOPICAL SCH (03:00)
[2018-03-21] MEDS: Heparin - SQ 10,000 UNITS/ML Vial SQ SCH ×3 (03:00→18:07)
[2018-03-21] MEDS: Metoprolol Inj 5 MG/5 ML Vial IV.PUSH SCH ×4 (04:54→22:35)
[2018-03-21] MEDS: Senna/Docusate Sodium 8.6/50 MG Tablet PO SCH ×2 (08:35→20:53)
[2018-03-21] MEDS: Pantoprazole Inj 40 MG Vial IV.PUSH SCH (08:37)
[2018-03-21] MEDS: Spironolactone 25 MG Tablet PO SCH ×2 (08:45→18:07)
--- NOTE | 2018-03-21 10:09 | P.PNCC ---
Subjective Subjective Remarks/Hospital Course: This is a 58-year-old female. Date of admission 03/18/2018. Past medical history includes gastroesophageal reflux disease, seasonal asthma, elevated BMI, hyperlipidemia untreated and chronic kidney disease. Today, she presents to [place] ED for evaluation of 1 week history of SOB. She is originally from [facility]. Her chief complaint consists of shortness of breath, chest tightness without radiation to the neck, down left arm or back, persistent nausea without emesis, abdominal pain or diarrhea. Her original temperature was 102 Fahrenheit according to patient, patient was evaluated in [place]. At that time, she states the chest x-ray was "clear. " At that time the provider suspected that she was having asthma symptoms. She was prescribed albuterol nebulizers and sent home. She is normally on an albuterol inhaler at home along with ranitidine and intermittently intermixing with PPI for gastroesophageal reflux disease. She states that her respiratory and nausea symptoms became acutely worse 2 days ago after flying to [facility] from [place]. She states that she is unable to walk "even a few feet" without GALINDO. Lying flat also makes symptoms worse. Chest x-ray revealed diffuse pulmonary fluffy infiltrates bilaterally.. EKG revealed sinus tachycardia with normal [place], QRS and QT intervals. Troponin was 0.55. She was seen in consultation by cardiology who recommended possible heart catheterization in the a.m. Will trend troponins. She is currently undergoing a CT angiogram of the chest. She received piperacillin/tazobactam and vancomycin in the ED. Her white blood cell count is normal. Her lactate was normal. Her d-dimer was slightly elevated. She complains of some slightly increased swelling in her bilateral lower extremities. She was placed on 100% nonrebreather with saturations currently 99-100%. At the present time she is able to speak complete sentences. Denies cough. SUBJECTIVE: 03/19: T-max 102.8. Currently afebrile. Currently on partial nonrebreather 10 L satting 92-99%. Pro-calcitonin 0.12. Does not appear volume overloaded on examination. Patient has a dry nonproductive cough. Denies chest pain.. Will give 40 mg furosemide IV 1 now 03/20: No fever reported today sitting at the side of the bed. Remains on partial nonrebreather to keep oxygen saturation more than 90%. Bilateral crackles on exam. Chest x-ray shows extensive bilateral infiltrates 03/21: Continues to require partial nonrebreather to keep the saturation above 90 %. Clinical exam remains same with bilateral crackles. BNP trending down, I will start scheduled IV Lasix to improve hypoxia. Cardiac catheterization is currently placed on hold, due to persistent hypoxia Objective Vital Signs / I&O: Vital Signs 03/20/18 11:00 03/20/18 11:02 03/20/18 11:03 Temperature 98.1 F Pulse Rate 80 83 Respiratory Rate 50 H 20 Blood Pressure 123/78 Pulse Oximetry 99 98 03/20/18 12:00 03/20/18 12:07 03/20/18 13:00 Temperature Pulse Rate 96 H 88 91 H Respiratory Rate 73 H 41 H 20 Blood Pressure 130/64 130/64 133/64 Pulse Oximetry 87 L 97 86 L 03/20/18 13:02 03/20/18 13:05 03/20/18 14:00 Temperature Pulse Rate 97 H 93 H 85 Respiratory Rate 20 32 H Blood Pressure 153/132 H 133/64 132/72 Pulse Oximetry 84 L 87 L 100 03/20/18 15:00 03/20/18 15:13 03/20/18 15:32 Temperature Pulse Rate 97 H 85 85 Respiratory Rate 51 H 91 H 20 Blood Pressure 192/88 H Pulse Oximetry 86 L 90 L 03/20/18 15:34 03/20/18 16:00 03/20/18 17:00 Temperature 98.6 F Pulse Rate 84 102 H 96 H Respiratory Rate 161 H 147 H 30 H Blood Pressure 129/59 L 134/71 127/60 Pulse Oximetry 96 97 95 03/20/18 18:00 03/20/18 19:00 03/20/18 20:00 Temperature 98.5 F Pulse Rate 95 H 89 87 Respiratory Rate 45 H 28 H 26 H Blood Pressure 141/95 H 130/66 127/71 Pulse Oximetry 83 L 94 L 99 03/20/18 20:53 03/20/18 20:54 03/20/18 21:00 Temperature Pulse Rate 96 H 102 H Respiratory Rate 24 29 H Blood Pressure 137/64 Pulse Oximetry 97 93 L 03/20/18 21:05 03/20/18 21:40 03/20/18 22:00 Temperature Pulse Rate 100 H Respiratory Rate 25 H Blood Pressure 136/62 Pulse Oximetry 95 94 L 96 03/20/18 23:00 03/20/18 23:47 03/21/18 00:00 Temperature 98.7 F Pulse Rate 102 H 81 93 H Respiratory Rate 26 H 22 29 H Blood Pressure 121/58 L 122/60 Pulse Oximetry 95 98 03/21/18 01:00 03/21/18 02:00 03/21/18 03:00 Temperature Pulse Rate 94 H 84 83 Respiratory Rate 28 H 28 H 22 Blood Pressure 123/60 113/55 L 107/57 L Pulse Oximetry 93 L 94 L 97 03/21/18 03:39 03/21/18 04:00 03/21/18 05:00 Temperature 98.6 F Pulse Rate 83 99 H 85 Respiratory Rate 24 27 H 31 H Blood Pressure 111/55 L 105/55 L Pulse Oximetry 94 L 95 03/21/18 06:00 03/21/18 07:22 03/21/18 09:39 Temperature Pulse Rate 88 89 Respiratory Rate 25 H 28 H Blood Pressure 101/57 L Pulse Oximetry 98 96 94 L Intake & Output 03/20/18 03/21/18 03/21/18 18:59 06:59 18:59 Intake Total 1300 / 1300 730 / 730 Output Total 1600 / 1600 875 / 875 Balance -300 / -300 -145 / -145 Weight 87 kg Intake: IV 150 / 150 250 / 250 Azithromycin Inj 500 MG In NS 250 / 250 Inj 250 ML @ 250 mls/hr IV.SIG Q24H [facility] Rx#:[id number] Levaquin 750 mg Premix Inj 150 150 / 150 ML @ 100 mls/hr IV.SIG Q24H [facility] Rx#:[id number] Oral 1150 / 1150 480 / 480 Output: Urine 1600 / 1600 875 / 875 Other: # Voids 7 Date of Last Bowel Movement 03/20/18 03/20/18 # Bowel Movements 1 0 Result Diagrams: 03/20/18 03:27 03/20/18 03:27 Objective Remarks: GENERAL: 58-year-old female currently resting in bed on partial nonrebreather, intermittent shortness of breath SKIN: Warm and dry. HEAD: Atraumatic. Normocephalic. EYES: Pupils equal and round. No scleral icterus. No injection or drainage. ENT: No nasal bleeding or discharge. Mucous membranes pink and moist. NECK: Trachea midline. No JVD. CARDIOVASCULAR: Regular rate and rhythm. S1, S2. No S4. Without murmur RESPIRATORY: Fine crackles are appreciated bilaterally. Diminished breath sounds bilaterally. No wheezing GASTROINTESTINAL: Abdomen soft, non-tender, nondistended. Hepatic and splenic margins not palpable. MUSCULOSKELETAL: Extremities with trace nonpitting bilateral lower extremity edema. No obvious deformities. NEUROLOGICAL: Awake and alert. No obvious cranial nerve deficits. Motor grossly within normal limits. Five out of 5 muscle strength in the arms and legs. Normal speech. Assessment and Plan - Assessment and Plan Plan: Neuro/Psych: Acetaminophen 650 mg p.o. every 6 hours as needed fever Hydrocodone/acetaminophen 5/325 1 tablet every 4 hours as needed 1 through 5 Morphine sulfate 2 g IV every 2 hours as needed pain 6-10 CV: Non-STEMI likely type II demand ischemia History of hyperlipidemia Sinus tachycardia Elevated BNP Received 2 L normal saline in the ED. Continue metoprolol tartrate 5 mg IV every 6 hours Aspirin 81 milligrams in a.m. Hold DEJA inhibitor in light of acute kidney injury by history Continue atorvastatin 40 mg at night for elevated LDL Serial troponin every 8 hours x2. Trending downward peaked at 0.55. Currently at 0.10 2D echocardiogram ordered. Low Normal ejection fraction Dr. Calixto/cardiology to evaluate. Possible heart catheterization after hypoxia improves Continue Aldactone per Dr. Calixto Add IV Lasix 40 mg every q 12 Resp: Acute hypoxic hypercapnic respiratory failure Pneumonia/ALI History of mild intermittent asthma Tobaccoism Chest x-ray revealed diffuse bilateral pulmonary infiltrates with air bronchograms and lower lobes. CT angiogram revealed no central pulmonary. Diffuse infiltrates bilaterally inflammatory/infiltrative. Currently on 10 L partial nonrebreather saturations are 90-97%. Wean as tolerated Albuterol/ipratropium aerosols every 4 hours with albuterol aerosols every 2 as needed for dyspnea Methylprednisolone succinate 40 mg IV twice daily Incentive spirometry while awake Follow-up chest x-ray in a.m. 03/20 Pulmonary following GI: Gastroesophageal reflux disease History of constipation Cardiac diet At home on ranitidine 150 mg daily with esomeprazole as needed Continue pantoprazole 40 mg IV daily Docusate sodium/senna 1 tablet twice daily for bowel regimen Amylase and lipase and LFTs within normal limits Endo: Sliding scale insulin Accu-Cheks to maintain euglycemia/AC at bedtime low regimen TSH 0.998 Renal: History of chronic kidney disease stage II Creatinine currently within normal limits Monitor urine output Accurate I's and O's Avoid nephrotoxic medications IV Lasix as above Heme: Normocytic anemia Monitor CBC daily. Follow trends. No indication for transfusion of blood products at this time ID: Community acquired pneumonia Received piperacillin/tazobactam and vancomycin ED. Continue vancomycin, cefepime and azithromycin Infectious disease following UA negative Influenza a and B-. Respiratory panel ordered for confirmation Blood cultures x2 03/18 negative today Urinary pneumococcal and Legionella antigens neg, mycoplasma and chlamydia pending No history of immunosuppression FEN: Replace electrolytes as clinically indicated per ICU electrolyte protocol MSK: Elevated BMI Weight loss encouraged PT evaluate and treat Access -Utilize peripheral IV. Central line if indicated Prophylaxis -GI-pantoprazole -DVT SCD/heparin subcu Follow-up 35 minutes critical care time
--- NOTE | 2018-03-21 10:34 | XR ---
EXAM DATE: 03/21/2018 9:43 AM EDT AGE/SEX: 58 years / Female INDICATIONS: Respiratory Disease CLINICAL DATA: This is the patient's subsequent encounter. Patient reports that signs and symptoms h ave been present for 4 - 6 days and indicates a pain score of 0/10. MEDICAL/SURGICAL HISTORY: . Renal insufficiency, chronic. Gastroesophageal reflux disease. Asth ma. Hyperlipidemia. None. [place] [facility] [place]. . FINDINGS: Improving patchy bilateral airspace disease particularly in the right upper lung zone. Cardiomediasti nal contours are within normal limits. Remainder of the exam is unchanged. CONCLUSION: 1. Improving patchy bilateral diffuse airspace disease. Electronically signed by: Demetrius Ronquillo MD 03/21/2018 10:32 AM EDT
[2018-03-21] MEDS: Insulin NovoLOG Aspart Correctional Sugar Inj SQ SCH ×4 (11:07→20:52)
--- NOTE | 2018-03-21 11:20 | P.PNID ---
Subjective Remarks: Patient states that she feels a little better. She is currently on oxygen via nasal canula. Periodic O2 desaturation. Still has dry cough. Afebrile. Chest x-ray showing some improvement. Cultures are negative. Mycoplasma IgG positive. Past Medical History: PAST MEDICAL HISTORY: Bronchitis, gastroesophageal reflux disease, chronic kidney disease stage II, hyperlipidemia, bunionectomy. Allergies/Adverse Reactions: Allergies Penicillins Allergy (Intermediate, Verified 03/19/18 21:08) Hives Sulfa (Sulfonamide Antibiotics) Allergy (Intermediate, Verified 03/18/18 14:16) Anxiety Objective Vital Signs 03/20/18 12:00 03/20/18 12:07 03/20/18 13:00 Temperature Pulse Rate 96 H 88 91 H Respiratory Rate 73 H 41 H 20 Blood Pressure 130/64 130/64 133/64 Pulse Oximetry 87 L 97 86 L 03/20/18 13:02 03/20/18 13:05 03/20/18 14:00 Temperature Pulse Rate 97 H 93 H 85 Respiratory Rate 20 32 H Blood Pressure 153/132 H 133/64 132/72 Pulse Oximetry 84 L 87 L 100 03/20/18 15:00 03/20/18 15:13 03/20/18 15:32 Temperature Pulse Rate 97 H 85 85 Respiratory Rate 51 H 91 H 20 Blood Pressure 192/88 H Pulse Oximetry 86 L 90 L 03/20/18 15:34 03/20/18 16:00 03/20/18 17:00 Temperature 98.6 F Pulse Rate 84 102 H 96 H Respiratory Rate 161 H 147 H 30 H Blood Pressure 129/59 L 134/71 127/60 Pulse Oximetry 96 97 95 03/20/18 18:00 03/20/18 19:00 03/20/18 20:00 Temperature 98.5 F Pulse Rate 95 H 89 87 Respiratory Rate 45 H 40 H 31 H Blood Pressure 141/95 H 130/66 127/71 Pulse Oximetry 83 L 91 L 99 03/20/18 20:53 03/20/18 20:54 03/20/18 21:00 Temperature Pulse Rate 96 H 102 H Respiratory Rate 24 31 H Blood Pressure 137/64 Pulse Oximetry 97 92 L 03/20/18 21:05 03/20/18 21:40 03/20/18 22:00 Temperature Pulse Rate 100 H Respiratory Rate 33 H Blood Pressure 136/62 Pulse Oximetry 95 94 L 96 03/20/18 23:00 03/20/18 23:18 03/20/18 23:47 Temperature Pulse Rate 102 H 93 H 81 Respiratory Rate 45 H 32 H 22 Blood Pressure 121/58 L 121/58 L Pulse Oximetry 92 L 93 L 03/21/18 00:00 03/21/18 01:00 03/21/18 02:00 Temperature 98.7 F Pulse Rate 93 H 94 H 84 Respiratory Rate 34 H 37 H 35 H Blood Pressure 122/60 123/60 113/55 L Pulse Oximetry 98 93 L 96 03/21/18 03:00 03/21/18 03:39 03/21/18 04:00 Temperature 98.6 F Pulse Rate 83 83 99 H Respiratory Rate 22 24 131 H Blood Pressure 107/57 L 111/55 L Pulse Oximetry 97 91 L 03/21/18 05:00 03/21/18 06:00 03/21/18 07:00 Temperature Pulse Rate 85 88 82 Respiratory Rate 31 H 25 H 24 Blood Pressure 105/55 L 101/57 L Pulse Oximetry 94 L 98 98 03/21/18 07:01 03/21/18 07:22 03/21/18 08:00 Temperature Pulse Rate 81 89 101 H Respiratory Rate 19 28 H 25 H Blood Pressure 121/65 112/56 L Pulse Oximetry 98 96 90 L 03/21/18 09:00 03/21/18 09:39 03/21/18 09:57 Temperature Pulse Rate 87 Respiratory Rate 102 H Blood Pressure 129/69 Pulse Oximetry 90 L 94 L 97 03/21/18 10:00 03/21/18 11:00 Temperature Pulse Rate 85 93 H Respiratory Rate 10 L 28 H Blood Pressure Pulse Oximetry 97 91 L Intake & Output 03/20/18 03/21/18 03/21/18 18:59 06:59 18:59 Intake Total 1300 / 1300 730 / 730 Output Total 1600 / 1600 875 / 875 Balance -300 / -300 -145 / -145 Weight 87 kg Intake: IV 150 / 150 250 / 250 Azithromycin Inj 500 MG In NS 250 / 250 Inj 250 ML @ 250 mls/hr IV.SIG Q24H [facility] Rx#:[id number] Levaquin 750 mg Premix Inj 150 150 / 150 ML @ 100 mls/hr IV.SIG Q24H [facility] Rx#:[id number] Oral 1150 / 1150 480 / 480 Output: Urine 1600 / 1600 875 / 875 Other: # Voids 7 Date of Last Bowel Movement 03/20/18 03/20/18 # Bowel Movements 1 0 03/18/18 14:55 Blood - Peripheral Aerobic Blood Culture - Preliminary No growth in 3 days 03/18/18 14:55 Blood - Peripheral Anaerobic Blood Culture - Preliminary No growth in 3 days 03/18/18 14:50 Blood - Peripheral Aerobic Blood Culture - Preliminary No growth in 3 days 03/18/18 14:50 Blood - Peripheral Anaerobic Blood Culture - Preliminary No growth in 3 days 03/19/18 13:00 Clean Catch Urine Urine Culture - Final No growth in 48 hours 03/19/18 13:00 Urine - Clean Catch Urine Legionella Antigen - Final Presumptive negative for Legionella pneumophila serogroup 1 antigen in urine, suggesting no recent or recurrent infection. Infection due to Legionella cannot be ruled out since other serogroups and species may cause disease, antigen may not be present in urine in early infection, and the level of antigen present in the urine may be below the detection limit of the test. 03/19/18 13:00 Urine - Clean Catch Urine Streptococcus pneumoniae Antigen ( M - Final Presumptive negative for streptococcus pneumoniae antigen, suggesting no current or recent infection. Infection due to Streptococcus pneumoniae cannot be ruled out since the antigen present in the sample may be below the detection limit of the test. 03/18/18 16:01 Nasal Wash Influenza Types A,B Antigen - Final Negative for FLU A and B antigen Infection due to influenza A or B cannot be ruled out since the antigen present in the sample may be below the detection limit of the test. Lab - Hematology Results 03/20/18 03:27 WBC 12.8 H RBC 3.11 L Hgb 9.5 L Hct 29.1 L MCV 93.3 MCH 30.5 MCHC 32.7 RDW 14.5 Plt Count 421 MPV 7.8 Neut % (Auto) 87.2 H Lymph % (Auto) 8.3 L [place] % (Auto) 4.4 Eos % (Auto) 0.0 Baso % (Auto) 0.1 Neut # (Auto) 11.1 H Lymph # (Auto) 1.1 [place] # (Auto) 0.6 Eos # (Auto) 0.0 Baso # (Auto) 0.0 WBC Differential . Differential Comment Auto diff final Lab - Chemistry Results 03/19/18 03/19/18 03/19/18 12:18 17:28 20:43 Sodium Potassium Chloride Carbon Dioxide Anion Gap BUN Creatinine Estimated GFR POC Glucose 134 H 126 H 92 Random Glucose Calcium Phosphorus Magnesium B-Natriuretic Peptide 03/20/18 03/20/18 03/20/18 03:27 03:27 07:37 Sodium 142 Potassium 4.2 Chloride 107 Carbon Dioxide 24.7 Anion Gap 10 BUN 15 Creatinine 0.59 Estimated GFR Greater than 89 POC Glucose 149 H Random Glucose 139 H Calcium 7.6 L Phosphorus 3.3 Magnesium 2.2 B-Natriuretic Peptide 196 H 03/20/18 03/20/18 03/20/18 11:49 17:03 21:14 Sodium Potassium Chloride Carbon Dioxide Anion Gap BUN Creatinine Estimated GFR POC Glucose 184 H 141 H 132 H Random Glucose Calcium Phosphorus Magnesium B-Natriuretic Peptide 03/21/18 08:40 Sodium Potassium Chloride Carbon Dioxide Anion Gap BUN Creatinine Estimated GFR POC Glucose 151 H Random Glucose Calcium Phosphorus Magnesium B-Natriuretic Peptide Imaging: ITS Impressions Abdomen X-Ray 03/18/18 00:00 CONCLUSION: Negative examination. Venous Doppler Study 03/18/18 00:00 CONCLUSION: 1. The study is negative for bilateral lower extremity deep venous thrombosis. Chest CTA 03/18/18 16:02 CONCLUSION: 1. There is no evidence of PE for technique. 2. Extensive airspace process most likely inflammatory and pneumonia, possibility of pulmonary edema is not excluded. 3. Tiny bilateral pleural effusions with nonspecific most likely benign lymph nodes within the mediastinum. Chest X-Ray 03/21/18 09:43 CONCLUSION: 1. Improving patchy bilateral diffuse airspace disease. Physical Exam: PHYSICAL EXAMINATION: GENERAL: No acute distress. Awake and alert and oriented. HEENT: Head is atraumatic. Extraocular movements are grossly intact. Pupils reactive to light. No icterus. Oropharynx, moist mucosa. No visible lesions. NECK: Supple without adenopathy. LUNGS: Decreased breath sounds throughout. No rhonchi. HEART: Regular rate and rhythm without murmurs, rubs or gallops. ABDOMEN: Bowel sounds present. Soft, obese, nontender. EXTREMITIES: No clubbing, cyanosis or edema. SKIN: No rash. NEUROLOGIC: No gross focal findings. PSYCH: Calm and cooperative. Assessment and Plan - Plan IMPRESSION: Bilateral pulmonary infiltrates. Questionable etiology. The patient presented with fever, nausea, and dyspnea on exertion. Has some component of cough, but little and the patient is not producing sputum. Possible atypical versus viral pneumonia. Also, potentially this could be congestive heart failure or other inflammatory condition. RECOMMENDATIONS: 1. Continue vancomycin. 2. Continue azithromycin. 3. Continue Levaquin. 4. Obtain sputum culture if coughs she up any sputum. 5. Follow chlamydia serology. 6. Monitor white cell count.
--- NOTE | 2018-03-21 13:01 | P.PNCA ---
Subjective Interval history: feeling worse today, on 60% fio2 via nc Medications and Allergies Active Medications: Active Medications Acetaminophen (Tylenol) 650 mg PO Q6H PRN PRN Reason: Fever >100f Hydrocodone Bitart/Acetaminophen ([place] 5/325) 1 tab PO Q4H PRN PRN Reason: PAIN SCALE 1 TO 5 Al Hydroxide/Mg Hydroxide (Milk Of [place]raymond Liq) 30 ml PO Q12H PRN PRN Reason: Mild Constipation Albuterol (Albuterol Neb (Prn)) 2.5 mg NEB Q2HR NEB PRN PRN Reason: SHORTNESS OF BREATH/WHEEZING Albuterol (Duoneb Neb ([place])) 1 ampul NEB Q4HR NEB [facility] Last Admin: 03/21/18 11:46 Dose: 1 ampul Aspirin (Aspirin Chew) 81 mg PO DAILY [facility] Last Admin: 03/21/18 08:35 Dose: 81 mg Atorvastatin Calcium (Lipitor) 40 mg PO HS [facility] Last Admin: 03/20/18 21:18 Dose: 40 mg Bisacodyl (Dulcolax Supp) 10 mg RECTAL DAILY PRN PRN Reason: SEVERE CONSITIPATION Chlorhexidine Gluconate (Chlorhexidine 2% Cloth) 3 pack TOPICAL DAILY@0400 [facility] Stop: 03/24/18 03:59 Last Admin: 03/21/18 03:00 Dose: 3 pack Chlorhexidine Gluconate (Chlorhexidine 2% Cloth) 3 pack TOPICAL DAILY@0400 PRN PRN Reason: Extra cloth needed Stop: 03/24/18 03:59 Dextrose (D50w Vial) 50 ml IV.PUSH UNSCH PRN PRN Reason: PER HYPOGLYCEMIA PROTOCOL Furosemide (Lasix Inj) 40 mg IV.PUSH BID@0900,1800 [facility] Glucagon (Glucagon Inj) 1 mg OTHER PRN PRN PRN Reason: for Hypoglycemia Protocol Heparin Sodium (Porcine) (Heparin Inj) 5,000 units SQ Q8H [facility] Last Admin: 03/21/18 11:07 Dose: Not Given Azithromycin 500 mg/ Sodium (Chloride) 250 mls @ 250 mls/hr IV.SIG Q24H [facility] Last Infusion: 03/20/18 19:05 Dose: Infused Magnesium Sulfate 4 gm/ Sodium (Chloride) 100 mls @ 50 mls/hr IV.SIG UNSCH PRN PRN Reason: For Magnesium 0.9 - 1.1 mg/dL Magnesium Sulfate 2 gm/ Sodium (Chloride) 100 mls @ 50 mls/hr IV.SIG UNSCH PRN PRN Reason: For Magnesium 1.2 - 1.6 mg/dL Potassium Chloride (Kcl 40 Meq Premix Inj) 40 meq in 100 mls @ 25 mls/hr IV.SIG Q2H PRN PRN Reason: For Potassium 2.8 - 3.2 mEq/L Potassium Chloride (Kcl 20 Meq Premix Inj) 20 meq in 100 mls @ 50 mls/hr IV.SIG Q2H PRN PRN Reason: For Potassium 3.3 - 3.5 mEq/L Potassium Chloride (Kcl 20 Meq Premix Inj) 20 meq in 100 mls @ 50 mls/hr IV.SIG Q2H PRN PRN Reason: For Potassium 2.8 - 3.2 mEq/L Potassium Phosphate 30 mmol/ (Sodium Chloride) 260 mls @ 42 mls/hr IV.SIG UNSCH PRN PRN Reason: SEE LABEL COMMENTS Sodium Phosphate 30 mmol/ (Sodium Chloride) 260 mls @ 42 mls/hr IV.SIG UNSCH PRN PRN Reason: For Phosphorus < 2.5 mg/dL Potassium Chloride (Kcl 40 Meq Premix Inj) 40 meq in 100 mls @ 25 mls/hr IV.SIG UNSCH PRN PRN Reason: For Potassium 3.3 - 3.5 mEq/L Levofloxacin/Dextrose (Levaquin 750 Mg Premix Inj) 150 mls @ 100 mls/hr IV.SIG Q24H [facility] Last Infusion: 03/20/18 13:30 Dose: Infused Vancomycin HCl 1,000 mg/ (Sodium Chloride) 250 mls @ 250 mls/hr IV.SIG Q12H [facility] Insulin Aspart (Novolog Insulin Correctional Sugar Inj) 0 unit SQ ACHS [facility]; Protocol Last Admin: 03/21/18 11:07 Dose: Not Given Lactulose (Lactulose Liq) 30 ml PO DAILY PRN PRN Reason: SEVERE CONSITIPATION Magnesium Oxide (Mag-Ox) 800 mg PO UNSCH PRN PRN Reason: For Magnesium 1.2 - 1.6 mg/dL Methylprednisolone Sodium Succinate (Solumedrol Inj) 40 mg IV.PUSH Q6H [facility] Last Admin: 03/21/18 08:37 Dose: 40 mg Metoprolol Tartrate (Lopressor Inj) 5 mg IV.PUSH Q6H [facility] Last Admin: 03/21/18 04:54 Dose: 5 mg Miscellaneous Information ([facility] Ordered Lab Info) 0 each OTHER ONCE ONE Stop: 03/22/18 09:46 Morphine Sulfate (Morphine Inj) 2 mg IV.PUSH Q2H PRN PRN Reason: PAIN SCALE 6 TO 10 Ondansetron HCl (Zofran Inj) 4 mg IV.PUSH Q6H PRN PRN Reason: NAUSEA OR VOMITING Pantoprazole Sodium (Protonix Inj) 40 mg IV.PUSH DAILY [facility] Last Admin: 03/21/18 08:37 Dose: 40 mg Pharmacy Profile Note (Vancomycin Consult Pharmacy) 1 each OTHER UNSCH PRN PRN Reason: Pharmacy to dose Potassium Bicarb/Potassium Chloride (K-Lyte Cl Eff) 50 meq PO UNSCH PRN PRN Reason: For Potassium 3.3 - 3.5 mEq/L Potassium Phosphate (K-Phos Original) 2,000 mg PO Q4H PRN PRN Reason: Phosphorus Less Than 2.5 mg/dL Potassium Phosphate (K-Phos Original) 2,000 mg PO UNSCH PRN PRN Reason: SEE LABEL COMMENTS Senna/Docusate Sodium (Sofi-Colace) 1 tab PO BID [facility] Last Admin: 03/21/18 08:35 Dose: 1 tab Sennosides (Senokot) 17.2 mg PO Q12H PRN PRN Reason: Moderate Constipation Sodium Chloride (Ns Flush) 2 ml IV.FLUSH BID [facility] Last Admin: 03/21/18 11:07 Dose: 2 ml Sodium Chloride (Ns Flush) 2 ml IV.FLUSH PRN PRN PRN Reason: FLUSH AFTER USING IV ACCESS Spironolactone (Aldactone) 25 mg PO BID@0900,1800 [facility] Last Admin: 03/21/18 08:45 Dose: 25 mg Allergies Allergy/AdvReac Type Severity Reaction Status Date / Time Penicillins Allergy Intermediate Hives Verified 03/19/18 21:08 Sulfa (Sulfonamide Allergy Intermediate Anxiety Verified 03/18/18 14:16 Antibiotics) Physical Exam Vital signs: Vital Signs 03/20/18 13:02 03/20/18 13:05 03/20/18 14:00 Temperature Pulse Rate 97 H 93 H 85 Respiratory Rate 20 32 H Blood Pressure 153/132 H 133/64 132/72 Pulse Oximetry 84 L 87 L 100 03/20/18 15:00 03/20/18 15:13 03/20/18 15:32 Temperature Pulse Rate 97 H 85 85 Respiratory Rate 51 H 91 H 20 Blood Pressure 192/88 H Pulse Oximetry 86 L 90 L 03/20/18 15:34 03/20/18 16:00 03/20/18 17:00 Temperature 98.6 F Pulse Rate 84 102 H 96 H Respiratory Rate 161 H 147 H 30 H Blood Pressure 129/59 L 134/71 127/60 Pulse Oximetry 96 97 95 03/20/18 18:00 03/20/18 19:00 03/20/18 20:00 Temperature 98.5 F Pulse Rate 95 H 89 87 Respiratory Rate 45 H 40 H 31 H Blood Pressure 141/95 H 130/66 127/71 Pulse Oximetry 83 L 91 L 99 03/20/18 20:53 03/20/18 20:54 03/20/18 21:00 Temperature Pulse Rate 96 H 102 H Respiratory Rate 24 31 H Blood Pressure 137/64 Pulse Oximetry 97 92 L 03/20/18 21:05 03/20/18 21:40 03/20/18 22:00 Temperature Pulse Rate 100 H Respiratory Rate 33 H Blood Pressure 136/62 Pulse Oximetry 95 94 L 96 03/20/18 23:00 03/20/18 23:18 03/20/18 23:47 Temperature Pulse Rate 102 H 93 H 81 Respiratory Rate 45 H 32 H 22 Blood Pressure 121/58 L 121/58 L Pulse Oximetry 92 L 93 L 03/21/18 00:00 03/21/18 01:00 03/21/18 02:00 Temperature 98.7 F Pulse Rate 93 H 94 H 84 Respiratory Rate 34 H 37 H 35 H Blood Pressure 122/60 123/60 113/55 L Pulse Oximetry 98 93 L 96 03/21/18 03:00 03/21/18 03:39 03/21/18 04:00 Temperature 98.6 F Pulse Rate 83 83 99 H Respiratory Rate 22 24 131 H Blood Pressure 107/57 L 111/55 L Pulse Oximetry 97 91 L 03/21/18 05:00 03/21/18 06:00 03/21/18 07:00 Temperature Pulse Rate 85 88 82 Respiratory Rate 31 H 25 H 24 Blood Pressure 105/55 L 101/57 L Pulse Oximetry 94 L 98 98 03/21/18 07:01 03/21/18 07:22 03/21/18 08:00 Temperature Pulse Rate 81 89 101 H Respiratory Rate 19 28 H 25 H Blood Pressure 121/65 112/56 L Pulse Oximetry 98 96 96 03/21/18 09:00 03/21/18 09:39 03/21/18 09:57 Temperature Pulse Rate 87 Respiratory Rate 102 H Blood Pressure 129/69 Pulse Oximetry 90 L 94 L 97 03/21/18 10:00 03/21/18 11:00 03/21/18 11:46 Temperature Pulse Rate 85 93 H 91 H Respiratory Rate 10 L 28 H 24 Blood Pressure Pulse Oximetry 97 91 L Intake & Output 03/20/18 03/21/18 03/21/18 18:59 06:59 18:59 Intake Total 1300 / 1300 730 / 730 Output Total 1600 / 1600 875 / 875 Balance -300 / -300 -145 / -145 Weight 87 kg Intake: IV 150 / 150 250 / 250 Azithromycin Inj 500 MG In NS 250 / 250 Inj 250 ML @ 250 mls/hr IV.SIG Q24H [facility] Rx#:[id number] Levaquin 750 mg Premix Inj 150 150 / 150 ML @ 100 mls/hr IV.SIG Q24H [facility] Rx#:[id number] Oral 1150 / 1150 480 / 480 Output: Urine 1600 / 1600 875 / 875 Other: # Voids 7 Date of Last Bowel Movement 03/20/18 03/20/18 03/20/18 # Bowel Movements 1 0 Results 03/20/18 03:27 03/20/18 03:27 Cardiac Enzymes 03/20/18 Range/Units 03:27 B-Natriuretic Peptide 196 H (0-100) pg/mL Coagulation 03/20/18 Range/Units 03:27 B-Natriuretic Peptide 196 H (0-100) pg/mL CBC 03/20/18 Range/Units 03:27 WBC 12.8 H (4.0-11.0) th/mm3 RBC 3.11 L (4.00-5.30) mil/mm3 Hgb 9.5 L (11.6-15.3) gm/dL Hct 29.1 L (35.0-46.0) % Plt Count 421 (150-450) th/mm3 Neut # (Auto) 11.1 H (1.8-7.7) th/mm3 Lymph # (Auto) 1.1 (1.0-4.8) th/mm3 [place] # (Auto) 0.6 (0.0-0.9) th/mm3 Eos # (Auto) 0.0 (0.0-0.4) th/mm3 Baso # (Auto) 0.0 (0.0-0.2) th/mm3 Comprehensive Metabolic Panel 03/20/18 Range/Units 03:27 Sodium 142 (136-145) meq/L Potassium 4.2 (3.5-5.1) meq/L Chloride 107 (98-107) meq/L Carbon Dioxide 24.7 (21.0-32.0) meq/L BUN 15 (7-18) mg/dL Creatinine 0.59 (0.50-1.00) mg/dL Calcium 7.6 L (8.5-10.1) mg/dL Intake and Output 03/20/18 03/21/18 03/21/18 22:59 06:59 14:59 Intake Total 1400 / 1400 480 / 480 Output Total 1600 / 1600 875 / 875 Balance -200 / -200 -395 / -395 Intake: IV 250 / 250 Azithromycin Inj 500 MG In NS 250 / 250 Inj 250 ML @ 250 mls/hr IV.SIG Q24H [facility] Rx#:[id number] Oral 1150 / 1150 480 / 480 Output: Urine 1600 / 1600 875 / 875 Other: # Voids 7 Date of Last Bowel Movement 03/20/18 03/20/18 03/20/18 # Bowel Movements 1 0 Weight 87 kg - Imaging and Cardiology Imaging: Impressions Chest X-Ray 03/20/18 06:00 CONCLUSION: No significant interval change of bilateral diffuse pulmonary parenchymal opacity. Chest X-Ray 03/21/18 09:43 CONCLUSION: 1. Improving patchy bilateral diffuse airspace disease. Assessment and Plan - Assessment (1) NSTEMI (non-ST elevated myocardial infarction) Code(s): I21.4 - Non-ST elevation (NSTEMI) myocardial infarction Status: Acute (2) CHF (congestive heart failure) Code(s): I50.9 - Heart failure, unspecified Status: Acute (3) Hypoxia Code(s): R09.02 - Hypoxemia Status: Acute (4) Dyspnea Code(s): R06.00 - Dyspnea, unspecified Status: Acute - Plan 1.) NSTEMI - rhc/lhc scheduled for 03/22/18 if requiring less oxygen, continue aldactone, f/u bnp, continue aspirin; hypoxia disproportionate to degree of chf , ef=50%, bnp<200, suggesting primary pulmonary etiology to hypoxia
[2018-03-21] MEDS: Vancomycin Inj 1,000 MG in Sodium Chlor 0.9% Inj 250 ML IV.SIG SCH ×2 (13:12→21:01)
[2018-03-21 13:57] LABS: Anti-Nuclear Antibody Screen Pos (Neg)
--- NOTE | 2018-03-21 17:22 | P.PNPL ---
Subjective Interval history: 58 YOWF with br asthma, bilat diffuse infilt, hypoxic RF On High flow 02, Fi02 60% Desaturates on taking mask no fever Cough, not able to expactorate Cough irritating Uses Acapella and IS Physical Exam Vital signs: Vital Signs 03/20/18 18:00 03/20/18 19:00 03/20/18 20:00 Temperature 98.5 F Pulse Rate 95 H 89 87 Respiratory Rate 45 H 40 H 31 H Blood Pressure 141/95 H 130/66 127/71 Pulse Oximetry 83 L 91 L 99 03/20/18 20:53 03/20/18 20:54 03/20/18 21:00 Temperature Pulse Rate 96 H 102 H Respiratory Rate 24 31 H Blood Pressure 137/64 Pulse Oximetry 97 92 L 03/20/18 21:05 03/20/18 21:40 03/20/18 22:00 Temperature Pulse Rate 100 H Respiratory Rate 33 H Blood Pressure 136/62 Pulse Oximetry 95 94 L 96 03/20/18 23:00 03/20/18 23:18 03/20/18 23:47 Temperature Pulse Rate 102 H 93 H 81 Respiratory Rate 45 H 32 H 22 Blood Pressure 121/58 L 121/58 L Pulse Oximetry 92 L 93 L 03/21/18 00:00 03/21/18 01:00 03/21/18 02:00 Temperature 98.7 F Pulse Rate 93 H 94 H 84 Respiratory Rate 34 H 37 H 35 H Blood Pressure 122/60 123/60 113/55 L Pulse Oximetry 98 93 L 96 03/21/18 03:00 03/21/18 03:39 03/21/18 04:00 Temperature 98.6 F Pulse Rate 83 83 99 H Respiratory Rate 22 24 131 H Blood Pressure 107/57 L 111/55 L Pulse Oximetry 97 91 L 03/21/18 05:00 03/21/18 06:00 03/21/18 07:00 Temperature Pulse Rate 85 88 82 Respiratory Rate 31 H 25 H 24 Blood Pressure 105/55 L 101/57 L Pulse Oximetry 94 L 98 98 03/21/18 07:01 03/21/18 07:22 03/21/18 08:00 Temperature Pulse Rate 81 89 101 H Respiratory Rate 19 28 H 25 H Blood Pressure 121/65 112/56 L Pulse Oximetry 98 96 96 03/21/18 09:00 03/21/18 09:39 03/21/18 09:57 Temperature Pulse Rate 87 Respiratory Rate 102 H Blood Pressure 129/69 Pulse Oximetry 90 L 94 L 97 03/21/18 10:00 03/21/18 11:00 03/21/18 11:46 Temperature Pulse Rate 85 93 H 91 H Respiratory Rate 10 L 28 H 24 Blood Pressure Pulse Oximetry 97 91 L 03/21/18 12:00 03/21/18 13:00 03/21/18 14:00 Temperature Pulse Rate 94 H 87 92 H Respiratory Rate 33 H 33 H 57 H Blood Pressure Pulse Oximetry 88 L 91 L 03/21/18 15:00 03/21/18 16:00 03/21/18 16:13 Temperature Pulse Rate 92 H 101 H 94 H Respiratory Rate 24 38 H 36 H Blood Pressure 124/59 L Pulse Oximetry 94 L 88 L 89 L Intake & Output 03/20/18 03/21/18 03/21/18 18:59 06:59 18:59 Intake Total 1300 / 1300 730 / 730 Output Total 1600 / 1600 875 / 875 Balance -300 / -300 -145 / -145 Weight 87 kg Intake: IV 150 / 150 250 / 250 Azithromycin Inj 500 MG In NS 250 / 250 Inj 250 ML @ 250 mls/hr IV.SIG Q24H [facility] Rx#:[id number] Levaquin 750 mg Premix Inj 150 150 / 150 ML @ 100 mls/hr IV.SIG Q24H [facility] Rx#:[id number] Oral 1150 / 1150 480 / 480 Output: Urine 1600 / 1600 875 / 875 Other: # Voids 7 Date of Last Bowel Movement 03/20/18 03/20/18 03/20/18 # Bowel Movements 1 0 GENERAL: MBMN WF, mild sob SKIN: Warm and dry. HEAD: Normocephalic. EYES: No scleral icterus. No injection or drainage. NECK: Supple, trachea midline. No JVD or lymphadenopathy. CARDIOVASCULAR: Regular rate and rhythm without murmurs, gallops, or rubs. RESPIRATORY: Breath sounds equal bilaterally. No accessory muscle use. Bilat rales GASTROINTESTINAL: Abdomen soft, non-tender, nondistended. MUSCULOSKELETAL: No cyanosis, or edema. BACK: Nontender without obvious deformity. No CVA tenderness. Assessment and Plan - Plan IMPRESSION: 1. Hypoxic respiratory failure. 2. Bilateral diffuse lung infiltrates, possibly viral pneumonia, atypical pneumonia or inflammatory process. 3. Non-ST elevation myocardial infarction. 4. History of bronchial asthma. PLAN: IV Solumedrol Cont Abx, ID following Supplement 02 with high flow 02 Titerate 02 to keep sat >90% Use Acapella and IS Tessalon 200 mg tid.
[2018-03-21] MEDS: Azithromycin Inj 500 MG in Sodium Chlor 0.9% Inj 250 ML IV.SIG SCH (18:07)
[2018-03-21] MEDS: Benzonatate 100 MG Capsule PO SCH (20:52)
[2018-03-22] MEDS: MethylPREDNISolone Sod Succinate Inj 40 MG/ML Vial IV.PUSH SCH ×4 (02:28→21:19)
[2018-03-22] MEDS: Heparin - SQ 10,000 UNITS/ML Vial SQ SCH ×3 (02:29→17:46)
[2018-03-22] MEDS: Chlorhexidine Gluconate 2% 1 Pack (2 Cloths) TOPICAL SCH (03:25)
[2018-03-22 04:56] LABS: Hemoglobin 9.9 gm/dL (11.6-15.3); Mean Corpuscular Hemoglobin 31.4 pg (27.0-34.0); Mean Corpuscular Volume 92.3 fL (80.0-100.0); Mean Platelet Volume 7.9 fL (7.0-11.0); Platelet Count 454 th/mm3 (150-450); Red Blood Count 3.14 mil/mm3 (4.00-5.30); Red Cell Distribution Width 14.3 % (11.6-17.2); White Blood Count 9.1 th/mm3 (4.0-11.0)
[2018-03-22 05:15] LABS: Albumin 2.1 g/dL (3.4-5.0); Anion Gap 9 meq/L (5-15); Aspartate Aminotransferase 70 U/L (15-37); Blood Urea Nitrogen 18 mg/dL (7-18); Calcium 7.6 mg/dL (8.5-10.1); Chloride 104 meq/L (98-107); Glomerular Filtration Rate Greater Than 89 mL/min (>89); Glucose,Random 119 mg/dL (74-106); Potassium 3.7 meq/L (3.5-5.1); Sodium 140 meq/L (136-145)
[2018-03-22 05:43] LABS: Alanine Aminotransferase 108 U/L (10-53); Alkaline Phosphatase 79 U/L (45-117); Total Protein 6.3 g/dL (6.4-8.2); Troponin I 0.02 ng/mL (0.02-0.05)
[2018-03-22] MEDS: Metoprolol Inj 5 MG/5 ML Vial IV.PUSH SCH ×3 (05:58→17:46)
[2018-03-22] MEDS: Benzonatate 100 MG Capsule PO SCH ×3 (05:58→21:19)
--- NOTE | 2018-03-22 06:59 | XR ---
EXAM DATE: 03/22/2018 12:00 AM EDT AGE/SEX: 58 years / Female INDICATIONS: Shortness of breath, possible pulmonary disease. CLINICAL DATA: This is the patient's subsequent encounter. Patient reports that signs and symptoms h ave been present for 1 week and indicates a pain score of 0/10. MEDICAL/SURGICAL HISTORY: Renal insufficiency. Gastroesophageal reflux disease. Asthma. None. COMPARISON: [facility] [place], CHEST 1V SINGLE AP, 03/21/2018. . FINDINGS: Persistent diffuse patchy airspace disease bilaterally. Cardiomediastinal contours are within normal limits. Bony thorax is intact. CONCLUSION: 1. No significant interval change. 2. Persistent patchy diffuse bilateral airspace disease. Electronically signed by: Demetrius Ronquillo MD 03/22/2018 6:57 AM EDT
[2018-03-22] MEDS: Senna/Docusate Sodium 8.6/50 MG Tablet PO SCH ×2 (09:04→21:19)
[2018-03-22] MEDS: Vancomycin Inj 1,000 MG in Sodium Chlor 0.9% Inj 250 ML IV.SIG SCH ×2 (09:04→22:27)
[2018-03-22] MEDS: Pantoprazole Inj 40 MG Vial IV.PUSH SCH (09:04)
[2018-03-22] MEDS: Insulin NovoLOG Aspart Correctional Sugar Inj SQ SCH ×4 (09:21→21:20)
[2018-03-22] MEDS: Spironolactone 25 MG Tablet PO SCH ×2 (09:26→17:58)
[2018-03-22] MEDS: guaiFENesin 600 MG ER Tablet PO SCH ×2 (09:26→21:20)
[2018-03-22] MEDS ORDERED: Pharmacy Ordered Lab Info OTHER ONE ×2 (09:45→21:45)
--- NOTE | 2018-03-22 10:04 | P.PNIM ---
Subjective Interval history: This is a 58-year-old female. Date of admission 03/18/2018. Past medical history includes gastroesophageal reflux disease, seasonal asthma, elevated BMI, hyperlipidemia untreated and chronic kidney disease. Today, she presents to [place] ED for evaluation of 1 week history of SOB. She is originally from [facility]. Her chief complaint consists of shortness of breath, chest tightness without radiation to the neck, down left arm or back, persistent nausea without emesis, abdominal pain or diarrhea. Her original temperature was 102 Fahrenheit according to patient, patient was evaluated in [place]. At that time, she states the chest x-ray was "clear. " At that time the provider suspected that she was having asthma symptoms. She was prescribed albuterol nebulizers and sent home. She is normally on an albuterol inhaler at home along with ranitidine and intermittently intermixing with PPI for gastroesophageal reflux disease. She states that her respiratory and nausea symptoms became acutely worse 2 days ago after flying to [facility] from [place]. She states that she is unable to walk "even a few feet" without GALINDO. Lying flat also makes symptoms worse. Chest x-ray revealed diffuse pulmonary fluffy infiltrates bilaterally.. EKG revealed sinus tachycardia with normal CA, QRS and QT intervals. Troponin was 0.55. She was seen in consultation by cardiology who recommended possible heart catheterization in the a.m. Will trend troponins. She is currently undergoing a CT angiogram of the chest. She received piperacillin/tazobactam and vancomycin in the ED. Her white blood cell count is normal. Her lactate was normal. Her d-dimer was slightly elevated. She complains of some slightly increased swelling in her bilateral lower extremities. She was placed on 100% nonrebreather with saturations currently 99-100%. At the present time she is able to speak complete sentences. Denies cough. SUBJECTIVE: 03/19: T-max 102.8. Currently afebrile. Currently on partial nonrebreather 10 L satting 92-99%. Pro-calcitonin 0.12. Does not appear volume overloaded on examination. Patient has a dry nonproductive cough. Denies chest pain.. Will give 40 mg furosemide IV 1 now 03/20: No fever reported today sitting at the side of the bed. Remains on partial nonrebreather to keep oxygen saturation more than 90%. Bilateral crackles on exam. Chest x-ray shows extensive bilateral infiltrates 03/21: Continues to require partial nonrebreather to keep the saturation above 90 %. Clinical exam remains same with bilateral crackles. BNP trending down, I will start scheduled IV Lasix to improve hypoxia. Cardiac catheterization is currently placed on hold, due to persistent hypoxia 03-22 ON HIGH FLOW OXYGEN TO CARDIAC CATH LATER TODAY LESS SOB, NO CHEST PAIN AM LABS Physical Exam Vital signs: Vital Signs 03/21/18 10:00 03/21/18 11:00 03/21/18 11:46 Temperature Pulse Rate 85 93 H 91 H Respiratory Rate 10 L 28 H 24 Blood Pressure Pulse Oximetry 97 91 L 03/21/18 12:00 03/21/18 13:00 03/21/18 14:00 Temperature Pulse Rate 94 H 87 92 H Respiratory Rate 33 H 33 H 57 H Blood Pressure Pulse Oximetry 88 L 91 L 03/21/18 15:00 03/21/18 16:00 03/21/18 16:13 Temperature Pulse Rate 92 H 101 H 94 H Respiratory Rate 24 38 H 36 H Blood Pressure 124/59 L Pulse Oximetry 94 L 88 L 89 L 03/21/18 17:00 03/21/18 18:00 03/21/18 18:03 Temperature Pulse Rate 91 H 91 H 94 H Respiratory Rate 23 38 H 38 H Blood Pressure 120/60 112/55 L Pulse Oximetry 87 L 90 L 89 L 03/21/18 19:00 03/21/18 19:35 03/21/18 19:37 Temperature Pulse Rate 90 72 Respiratory Rate 28 H 21 Blood Pressure 119/54 L Pulse Oximetry 93 L 95 03/21/18 20:00 03/21/18 21:00 03/21/18 22:00 Temperature 98.6 F Pulse Rate 90 93 H 80 Respiratory Rate 31 H 32 H 21 Blood Pressure 114/62 120/58 L 124/66 Pulse Oximetry 92 L 95 99 03/21/18 23:00 03/21/18 23:12 03/22/18 00:00 Temperature 98.5 F Pulse Rate 75 80 86 Respiratory Rate 27 H 21 17 Blood Pressure 142/78 H 141/64 H Pulse Oximetry 96 96 96 03/22/18 01:00 03/22/18 02:00 03/22/18 03:00 Temperature Pulse Rate 79 74 82 Respiratory Rate 24 18 22 Blood Pressure 143/68 H 136/66 120/63 Pulse Oximetry 99 97 95 03/22/18 03:27 03/22/18 03:28 03/22/18 04:00 Temperature 98.8 F Pulse Rate 76 79 Respiratory Rate 19 20 Blood Pressure 116/56 L Pulse Oximetry 95 93 L 03/22/18 05:00 03/22/18 06:00 03/22/18 07:14 Temperature Pulse Rate 76 75 72 Respiratory Rate 18 20 16 Blood Pressure 120/60 121/64 Pulse Oximetry 93 L 94 L 97 Intake & Output 03/21/18 03/22/18 03/22/18 18:59 06:59 18:59 Intake Total 400 / 400 980 / 980 Output Total 1850 / 1850 Balance 400 / 400 -870 / -870 Weight 86 kg Intake: IV 400 / 400 500 / 500 Azithromycin Inj 500 MG In NS 250 / 250 Inj 250 ML @ 250 mls/hr IV.SIG Q24H [facility] Rx#:[id number] Levaquin 750 mg Premix Inj 150 150 / 150 ML @ 100 mls/hr IV.SIG Q24H JENA Rx#:[id number] Vancomycin Inj 1,000 MG In NS 250 / 250 250 / 250 Inj 250 ML @ 250 mls/hr IV.SIG Q12H JENA Rx#:[id number] Oral 480 / 480 Output: Urine 1850 / 1850 Other: # Voids 4 Date of Last Bowel Movement 03/20/18 03/21/18 # Bowel Movements 1 0 Narrative: GENERAL: 58-year-old female currently resting in bed on partial nonrebreather, intermittent shortness of breath SKIN: Warm and dry. HEAD: Atraumatic. Normocephalic. EYES: Pupils equal and round. No scleral icterus. No injection or drainage. EOMI ENT: No nasal bleeding or discharge. Mucous membranes pink and moist. NECK: Trachea midline. No JVD. CARDIOVASCULAR: Regular rate and rhythm. S1, S2. No S4. Without murmur S1, S2 NO S3 OR S4 RESPIRATORY: Fine crackles are appreciated bilaterally. Diminished breath sounds bilaterally. No wheezing COARSE BREATH SOUNDS BL GASTROINTESTINAL: Abdomen soft, non-tender, nondistended. Hepatic and splenic margins not palpable. MUSCULOSKELETAL: Extremities with trace nonpitting bilateral lower extremity edema. No obvious deformities. NEUROLOGICAL: Awake and alert. No obvious cranial nerve deficits. Motor grossly within normal limits. Five out of 5 muscle strength in the arms and legs. Normal speech. INSIGHT AND JUDGEMENT ARE GOOD MOOD AND BEHAVIOR IS APPROPRIATE Results - Labs CBC & Chem 7: 03/22/18 02:39 03/22/18 02:39 Laboratory Results - last 24 hr 03/19/18 03/19/18 03/21/18 11:45 11:45 02:39 WBC RBC Hgb Hct MCV MCH MCHC RDW Plt Count MPV Sodium Potassium Chloride Carbon Dioxide Anion Gap BUN Creatinine Estimated GFR POC Glucose Random Glucose Calcium Total Bilirubin AST ALT Alkaline Phosphatase Troponin I B-Natriuretic Peptide Total Protein Albumin ELIN Screen Pos H Anti-Proteinase 3 Less than 1.0 Anti-Myeloperoxidase Less than 1.0 [place] Type B(1) Ab Cancelled [place] Type B(2) Ab Cancelled [place] Type B(3) Ab Cancelled [place] Type B(4) Ab Cancelled [place] Type B(5) Ab Cancelled [place] Type B(6) Ab Cancelled 03/21/18 03/21/18 03/22/18 18:16 19:54 02:39 WBC 9.1 RBC 3.14 L Hgb 9.9 L Hct 29.0 L MCV 92.3 MCH 31.4 MCHC 34.0 RDW 14.3 Plt Count 454 H MPV 7.9 Sodium Potassium Chloride Carbon Dioxide Anion Gap BUN Creatinine Estimated GFR POC Glucose 141 H 92 Random Glucose Calcium Total Bilirubin AST ALT Alkaline Phosphatase Troponin I B-Natriuretic Peptide Total Protein Albumin ELIN Screen Anti-Proteinase 3 Anti-Myeloperoxidase [place] Type B(1) Ab [place] Type B(2) Ab [place] Type B(3) Ab [place] Type B(4) Ab [place] Type B(5) Ab [place] Type B(6) Ab 03/22/18 03/22/18 03/22/18 02:39 02:39 08:03 WBC RBC Hgb Hct MCV MCH MCHC RDW Plt Count MPV Sodium 140 Potassium 3.7 Chloride 104 Carbon Dioxide 27.0 Anion Gap 9 BUN 18 Creatinine 0.65 Estimated GFR Greater than 89 POC Glucose 126 H Random Glucose 119 H Calcium 7.6 L Total Bilirubin 0.2 AST 70 H ALT 108 H Alkaline Phosphatase 79 Troponin I 0.02 B-Natriuretic Peptide 197 H Total Protein 6.3 L D Albumin 2.1 L ELIN Screen Anti-Proteinase 3 Anti-Myeloperoxidase [place] Type B(1) Ab [place] Type B(2) Ab [place] Type B(3) Ab [place] Type B(4) Ab [place] Type B(5) Ab [place] Type B(6) Ab Microbiology 03/18/18 14:55 Blood - Peripheral Aerobic Blood Culture - Preliminary No growth in 3 days 03/18/18 14:55 Blood - Peripheral Anaerobic Blood Culture - Preliminary No growth in 3 days 03/18/18 14:50 Blood - Peripheral Aerobic Blood Culture - Preliminary No growth in 3 days 03/18/18 14:50 Blood - Peripheral Anaerobic Blood Culture - Preliminary No growth in 3 days 03/19/18 13:00 Clean Catch Urine Urine Culture - Final No growth in 48 hours - Imaging Impressions Chest X-Ray 03/21/18 09:43 CONCLUSION: 1. Improving patchy bilateral diffuse airspace disease. Chest X-Ray 03/22/18 00:00 CONCLUSION: 1. No significant interval change. 2. Persistent patchy diffuse bilateral airspace disease. - Procedures NO Assessment and Plan - Plan Neuro/Psych: Acetaminophen 650 mg p.o. every 6 hours as needed fever Hydrocodone/acetaminophen 5/325 1 tablet every 4 hours as needed 1 through 5 Morphine sulfate 2 g IV every 2 hours as needed pain 6-10 CV: Non-STEMI likely type II demand ischemia History of hyperlipidemia Sinus tachycardia Elevated BNP Received 2 L normal saline in the ED. Continue metoprolol tartrate 5 mg IV every 6 hours Aspirin 81 milligrams in a.m. Hold DEJA inhibitor in light of acute kidney injury by history Continue atorvastatin 40 mg at night for elevated LDL Serial troponin every 8 hours x2. Trending downward peaked at 0.55. Currently at 0.10 2D echocardiogram ordered. Low Normal ejection fraction Dr. Calixto/cardiology to evaluate. Possible heart catheterization after hypoxia improves Continue Aldactone per Dr. Calixto Add IV Lasix 40 mg every q 12 TO HAVE CARDIAC CATH LATER TODAY Resp: Acute hypoxic hypercapnic respiratory failure Pneumonia/ALI History of mild intermittent asthma Tobaccoism Chest x-ray revealed diffuse bilateral pulmonary infiltrates with air bronchograms and lower lobes. CT angiogram revealed no central pulmonary. Diffuse infiltrates bilaterally inflammatory/infiltrative. Currently on 10 L partial nonrebreather saturations are 90-97%. Wean as tolerated Albuterol/ipratropium aerosols every 4 hours with albuterol aerosols every 2 as needed for dyspnea Methylprednisolone succinate 40 mg IV twice daily Incentive spirometry while awake Follow-up chest x-ray in a.m. 03/20 Pulmonary following ADD MUCINEX, AND SYMBICORT GI: Gastroesophageal reflux disease History of constipation Cardiac diet At home on ranitidine 150 mg daily with esomeprazole as needed Continue pantoprazole 40 mg IV daily Docusate sodium/senna 1 tablet twice daily for bowel regimen Amylase and lipase and LFTs within normal limits Endo: Sliding scale insulin Accu-Cheks to maintain euglycemia/AC at bedtime low regimen TSH 0.998 Renal: History of chronic kidney disease stage II Creatinine currently within normal limits Monitor urine output Accurate I's and O's Avoid nephrotoxic medications IV Lasix as above Heme: Normocytic anemia Monitor CBC daily. Follow trends. No indication for transfusion of blood products at this time ID: Community acquired pneumonia Received piperacillin/tazobactam and vancomycin ED. Continue vancomycin, cefepime and azithromycin Infectious disease following UA negative Influenza a and B-. Respiratory panel ordered for confirmation Blood cultures x2 03/18 negative today Urinary pneumococcal and Legionella antigens neg, mycoplasma and chlamydia pending No history of immunosuppression FEN: Replace electrolytes as clinically indicated per ICU electrolyte protocol MSK: Elevated BMI Weight loss encouraged PT evaluate and treat Access -Utilize peripheral IV. Central line if indicated Prophylaxis -GI-pantoprazole -DVT SCD/heparin subcu PT AND OT Code Status: FULL CODE Discussed Condition With: RN AND PT AND CM Discharge Planning: NEEDS PT AND OT NEEDS TO BE OFF HIGH FLOW OXYGEN
[2018-03-22] MEDS: Budesonide-Formoterol 160/4.5 MCG 6 GM Inhaler INH SCH ×2 (11:18→21:19)
--- NOTE | 2018-03-22 11:46 | P.PNCA ---
Subjective Interval history: alert in nad, feels maybe slightly better, nonproductive cough Medications and Allergies Active Medications: Active Medications Acetaminophen (Tylenol) 650 mg PO Q6H PRN PRN Reason: Fever >100f Hydrocodone Bitart/Acetaminophen ([place] 5/325) 1 tab PO Q4H PRN PRN Reason: PAIN SCALE 1 TO 5 Last Admin: 03/21/18 23:57 Dose: 1 tab Al Hydroxide/Mg Hydroxide (Milk Of Magnesia Liq) 30 ml PO Q12H PRN PRN Reason: Mild Constipation Albuterol (Albuterol Neb (Prn)) 2.5 mg NEB Q2HR NEB PRN PRN Reason: SHORTNESS OF BREATH/WHEEZING Albuterol (Duoneb Neb (Bill)) 1 ampul NEB Q4HR NEB [facility] Last Admin: 03/22/18 11:00 Dose: 1 ampul Aspirin (Aspirin Chew) 81 mg PO DAILY [facility] Last Admin: 03/22/18 10:55 Dose: Not Given Atorvastatin Calcium (Lipitor) 40 mg PO HS [facility] Last Admin: 03/21/18 20:52 Dose: 40 mg Benzonatate (Tessalon Perles) 200 mg PO Q8HR [facility] Last Admin: 03/22/18 05:58 Dose: 200 mg Bisacodyl (Dulcolax Supp) 10 mg RECTAL DAILY PRN PRN Reason: SEVERE CONSITIPATION Budesonide/Formoterol Fumarate (Symbicort 160/4.5 Mcg Inh) 2 puff INH BID [facility] Last Admin: 03/22/18 11:18 Dose: 2 puff Chlorhexidine Gluconate (Chlorhexidine 2% Cloth) 3 pack TOPICAL DAILY@0400 [facility] Stop: 03/24/18 03:59 Last Admin: 03/22/18 03:25 Dose: 3 pack Chlorhexidine Gluconate (Chlorhexidine 2% Cloth) 3 pack TOPICAL DAILY@0400 PRN PRN Reason: Extra cloth needed Stop: 03/24/18 03:59 Dextrose (D50w Vial) 50 ml IV.PUSH UNSCH PRN PRN Reason: PER HYPOGLYCEMIA PROTOCOL Furosemide (Lasix Inj) 40 mg IV.PUSH BID@0900,1800 [facility] Last Admin: 03/22/18 09:16 Dose: 40 mg Glucagon (Glucagon Inj) 1 mg OTHER PRN PRN PRN Reason: for Hypoglycemia Protocol Guaifenesin (Mucinex Er) 600 mg PO BID [facility] Last Admin: 03/22/18 09:26 Dose: 600 mg Heparin Sodium (Porcine) (Heparin Inj) 5,000 units SQ Q8H [facility] Last Admin: 03/22/18 10:56 Dose: Not Given Azithromycin 500 mg/ Sodium (Chloride) 250 mls @ 250 mls/hr IV.SIG Q24H [facility] Last Infusion: 03/21/18 19:07 Dose: Infused Magnesium Sulfate 4 gm/ Sodium (Chloride) 100 mls @ 50 mls/hr IV.SIG UNSCH PRN PRN Reason: For Magnesium 0.9 - 1.1 mg/dL Magnesium Sulfate 2 gm/ Sodium (Chloride) 100 mls @ 50 mls/hr IV.SIG UNSCH PRN PRN Reason: For Magnesium 1.2 - 1.6 mg/dL Potassium Chloride (Kcl 40 Meq Premix Inj) 40 meq in 100 mls @ 25 mls/hr IV.SIG Q2H PRN PRN Reason: For Potassium 2.8 - 3.2 mEq/L Potassium Chloride (Kcl 20 Meq Premix Inj) 20 meq in 100 mls @ 50 mls/hr IV.SIG Q2H PRN PRN Reason: For Potassium 3.3 - 3.5 mEq/L Potassium Chloride (Kcl 20 Meq Premix Inj) 20 meq in 100 mls @ 50 mls/hr IV.SIG Q2H PRN PRN Reason: For Potassium 2.8 - 3.2 mEq/L Potassium Phosphate 30 mmol/ (Sodium Chloride) 260 mls @ 42 mls/hr IV.SIG UNSCH PRN PRN Reason: SEE LABEL COMMENTS Sodium Phosphate 30 mmol/ (Sodium Chloride) 260 mls @ 42 mls/hr IV.SIG UNSCH PRN PRN Reason: For Phosphorus < 2.5 mg/dL Potassium Chloride (Kcl 40 Meq Premix Inj) 40 meq in 100 mls @ 25 mls/hr IV.SIG UNSCH PRN PRN Reason: For Potassium 3.3 - 3.5 mEq/L Levofloxacin/Dextrose (Levaquin 750 Mg Premix Inj) 150 mls @ 100 mls/hr IV.SIG Q24H [facility] Last Infusion: 03/21/18 17:15 Dose: Infused Vancomycin HCl 1,000 mg/ (Sodium Chloride) 250 mls @ 250 mls/hr IV.SIG Q12H [facility] Last Admin: 03/22/18 09:04 Dose: 250 mls/hr Insulin Aspart (Novolog Insulin Correctional Sugar Inj) 0 unit SQ ACHS [facility]; Protocol Last Admin: 03/22/18 09:21 Dose: Not Given Lactulose (Lactulose Liq) 30 ml PO DAILY PRN PRN Reason: SEVERE CONSITIPATION Magnesium Oxide (Mag-Ox) 800 mg PO UNSCH PRN PRN Reason: For Magnesium 1.2 - 1.6 mg/dL Methylprednisolone Sodium Succinate (Solumedrol Inj) 40 mg IV.PUSH Q6H [facility] Last Admin: 03/22/18 09:04 Dose: 40 mg Metoprolol Tartrate (Lopressor Inj) 5 mg IV.PUSH Q6H [facility] Last Admin: 03/22/18 11:19 Dose: Not Given Morphine Sulfate (Morphine Inj) 2 mg IV.PUSH Q2H PRN PRN Reason: PAIN SCALE 6 TO 10 Ondansetron HCl (Zofran Inj) 4 mg IV.PUSH Q6H PRN PRN Reason: NAUSEA OR VOMITING Pantoprazole Sodium (Protonix Inj) 40 mg IV.PUSH DAILY [facility] Last Admin: 03/22/18 09:04 Dose: 40 mg Pharmacy Profile Note (Vancomycin Consult Pharmacy) 1 each OTHER UNSCH PRN PRN Reason: Pharmacy to dose Potassium Bicarb/Potassium Chloride (K-Lyte Cl Eff) 50 meq PO UNSCH PRN PRN Reason: For Potassium 3.3 - 3.5 mEq/L Potassium Phosphate (K-Phos Original) 2,000 mg PO Q4H PRN PRN Reason: Phosphorus Less Than 2.5 mg/dL Potassium Phosphate (K-Phos Original) 2,000 mg PO UNSCH PRN PRN Reason: SEE LABEL COMMENTS Senna/Docusate Sodium (Sofi-Colace) 1 tab PO BID [facility] Last Admin: 03/22/18 09:04 Dose: 1 tab Sennosides (Senokot) 17.2 mg PO Q12H PRN PRN Reason: Moderate Constipation Sodium Chloride (Ns Flush) 2 ml IV.FLUSH BID [facility] Last Admin: 03/22/18 10:56 Dose: 2 ml Sodium Chloride (Ns Flush) 2 ml IV.FLUSH PRN PRN PRN Reason: FLUSH AFTER USING IV ACCESS Spironolactone (Aldactone) 25 mg PO BID@0900,1800 [facility] Last Admin: 03/22/18 09:26 Dose: 25 mg Allergies Allergy/AdvReac Type Severity Reaction Status Date / Time Penicillins Allergy Intermediate Hives Verified 03/19/18 21:08 Sulfa (Sulfonamide Allergy Intermediate Anxiety Verified 03/18/18 14:16 Antibiotics) Physical Exam Vital signs: Vital Signs 03/21/18 11:46 03/21/18 12:00 03/21/18 13:00 Temperature Pulse Rate 91 H 94 H 87 Respiratory Rate 24 33 H 33 H Blood Pressure Pulse Oximetry 88 L 03/21/18 14:00 03/21/18 15:00 03/21/18 16:00 Temperature Pulse Rate 92 H 92 H 101 H Respiratory Rate 57 H 24 38 H Blood Pressure Pulse Oximetry 91 L 94 L 88 L 03/21/18 16:13 03/21/18 17:00 03/21/18 18:00 Temperature Pulse Rate 94 H 91 H 91 H Respiratory Rate 36 H 23 38 H Blood Pressure 124/59 L 120/60 Pulse Oximetry 89 L 87 L 90 L 03/21/18 18:03 03/21/18 19:00 03/21/18 19:04 Temperature Pulse Rate 94 H 90 96 H Respiratory Rate 38 H 28 H Blood Pressure 112/55 L 119/54 L Pulse Oximetry 89 L 93 L 03/21/18 19:35 03/21/18 19:37 03/21/18 20:00 Temperature 98.6 F Pulse Rate 72 90 Respiratory Rate 21 31 H Blood Pressure 114/62 Pulse Oximetry 95 91 L 03/21/18 21:00 03/21/18 21:33 03/21/18 22:00 Temperature Pulse Rate 93 H 87 80 Respiratory Rate 38 H 23 21 Blood Pressure 120/58 L 120/58 L 124/66 Pulse Oximetry 95 97 99 03/21/18 22:30 03/21/18 23:00 03/21/18 23:12 Temperature Pulse Rate 82 75 80 Respiratory Rate 24 27 H 21 Blood Pressure 133/62 142/78 H Pulse Oximetry 97 96 96 03/21/18 23:30 03/22/18 00:00 03/22/18 00:01 Temperature 98.5 F Pulse Rate 83 86 90 Respiratory Rate 22 17 23 Blood Pressure 134/62 141/64 H 141/64 H Pulse Oximetry 96 85 L 85 L 03/22/18 01:00 03/22/18 02:00 03/22/18 03:00 Temperature Pulse Rate 79 74 82 Respiratory Rate 24 18 22 Blood Pressure 143/68 H 136/66 120/63 Pulse Oximetry 99 97 95 03/22/18 03:27 03/22/18 03:28 03/22/18 04:00 Temperature 98.8 F Pulse Rate 76 79 Respiratory Rate 19 20 Blood Pressure 116/56 L Pulse Oximetry 95 93 L 03/22/18 05:00 03/22/18 06:00 03/22/18 07:00 Temperature 98.4 F Pulse Rate 76 75 74 Respiratory Rate 18 20 17 Blood Pressure 120/60 121/64 121/66 Pulse Oximetry 93 L 94 L 95 03/22/18 07:14 03/22/18 08:00 03/22/18 09:00 Temperature Pulse Rate 72 83 85 Respiratory Rate 16 27 H 32 H Blood Pressure 154/80 H Pulse Oximetry 97 91 L 97 03/22/18 09:03 03/22/18 10:00 03/22/18 11:00 Temperature Pulse Rate 84 84 89 Respiratory Rate 32 H 58 H 28 H Blood Pressure 138/74 138/74 Pulse Oximetry 97 94 L 92 L 03/22/18 11:01 Temperature Pulse Rate 76 Respiratory Rate 25 H Blood Pressure Pulse Oximetry Intake & Output 03/21/18 03/22/18 03/22/18 18:59 06:59 18:59 Intake Total 400 / 400 980 / 980 Output Total 1850 / 1850 Balance 400 / 400 -870 / -870 Weight 86 kg Intake: IV 400 / 400 500 / 500 Azithromycin Inj 500 MG In NS 250 / 250 Inj 250 ML @ 250 mls/hr IV.SIG Q24H BILL Rx#:[id number] Levaquin 750 mg Premix Inj 150 150 / 150 ML @ 100 mls/hr IV.SIG Q24H BILL Rx#:[id number] Vancomycin Inj 1,000 MG In NS 250 / 250 250 / 250 Inj 250 ML @ 250 mls/hr IV.SIG Q12H BILL Rx#:[id number] Oral 480 / 480 Output: Urine 1850 / 1850 Other: # Voids 4 Date of Last Bowel Movement 03/20/18 03/21/18 03/21/18 # Bowel Movements 1 0 Results 03/22/18 02:39 03/22/18 02:39 Cardiac Enzymes 03/22/18 03/22/18 Range/Units 02:39 02:39 AST 70 H (15-37) U/L Troponin I 0.02 (0.02-0.05) ng/mL B-Natriuretic Peptide 197 H (0-100) pg/mL Coagulation 03/22/18 Range/Units 02:39 B-Natriuretic Peptide 197 H (0-100) pg/mL CBC 03/22/18 Range/Units 02:39 WBC 9.1 (4.0-11.0) th/mm3 RBC 3.14 L (4.00-5.30) mil/mm3 Hgb 9.9 L (11.6-15.3) gm/dL Hct 29.0 L (35.0-46.0) % Plt Count 454 H (150-450) th/mm3 Comprehensive Metabolic Panel 03/22/18 Range/Units 02:39 Sodium 140 (136-145) meq/L Potassium 3.7 (3.5-5.1) meq/L Chloride 104 (98-107) meq/L Carbon Dioxide 27.0 (21.0-32.0) meq/L BUN 18 (7-18) mg/dL Creatinine 0.65 (0.50-1.00) mg/dL Calcium 7.6 L (8.5-10.1) mg/dL AST 70 H (15-37) U/L ALT 108 H (10-53) U/L Alkaline Phosphatase 79 (45-117) U/L Total Protein 6.3 L D (6.4-8.2) g/dL Albumin 2.1 L (3.4-5.0) g/dL Intake and Output 03/21/18 03/22/18 03/22/18 22:59 06:59 14:59 Intake Total 650 / 650 480 / 480 Output Total 1850 / 1850 Balance 650 / 650 -1370 / -1370 Intake: IV 650 / 650 Azithromycin Inj 500 MG In NS 250 / 250 Inj 250 ML @ 250 mls/hr IV.SIG Q24H BILL Rx#:[id number] Levaquin 750 mg Premix Inj 150 150 / 150 ML @ 100 mls/hr IV.SIG Q24H BILL Rx#:[id number] Vancomycin Inj 1,000 MG In NS 250 / 250 Inj 250 ML @ 250 mls/hr IV.SIG Q12H BILL Rx#:[id number] Oral 480 / 480 Output: Urine 1850 / 1850 Other: # Voids 4 Date of Last Bowel Movement 03/21/18 03/21/18 03/21/18 # Bowel Movements 1 0 Weight 86 kg - Imaging and Cardiology Imaging: Impressions Chest X-Ray 03/21/18 09:43 CONCLUSION: 1. Improving patchy bilateral diffuse airspace disease. Chest X-Ray 03/22/18 00:00 CONCLUSION: 1. No significant interval change. 2. Persistent patchy diffuse bilateral airspace disease. Assessment and Plan - Assessment (1) NSTEMI (non-ST elevated myocardial infarction) Code(s): I21.4 - Non-ST elevation (NSTEMI) myocardial infarction Status: Acute (2) CHF (congestive heart failure) Code(s): I50.9 - Heart failure, unspecified Status: Acute (3) Hypoxia Code(s): R09.02 - Hypoxemia Status: Acute (4) Dyspnea Code(s): R06.00 - Dyspnea, unspecified Status: Acute - Plan 1.) NSTEMI - rhc/lhc scheduled for 03/22/18 if requiring less oxygen, continue aldactone, f/u bnp, continue aspirin; hypoxia disproportionate to degree of chf , ef=50%, bnp<200, suggesting primary pulmonary etiology to hypoxia, still requiring 55% O2, cath when less hypoxic, d/w patient and nurse
--- NOTE | 2018-03-22 12:04 | P.PNID ---
Subjective Remarks: Patient states that she feels a little better. Coughing profusely. Still has dry cough. Periodic O2 desaturation. On o2 via nasal canula. Afebrile. Cultures are negative. WBC normal. Mycoplasma IgG positive. 58-year-old white female who presented to the emergency department with respiratory distress. Past Medical History: PAST MEDICAL HISTORY: Bronchitis, gastroesophageal reflux disease, chronic kidney disease stage II, hyperlipidemia, bunionectomy. Allergies/Adverse Reactions: Allergies Penicillins Allergy (Intermediate, Verified 03/19/18 21:08) Hives Sulfa (Sulfonamide Antibiotics) Allergy (Intermediate, Verified 03/18/18 14:16) Anxiety Objective Vital Signs 03/21/18 12:00 03/21/18 13:00 03/21/18 14:00 Temperature Pulse Rate 94 H 87 92 H Respiratory Rate 33 H 33 H 57 H Blood Pressure Pulse Oximetry 88 L 91 L 03/21/18 15:00 03/21/18 16:00 03/21/18 16:13 Temperature Pulse Rate 92 H 101 H 94 H Respiratory Rate 24 38 H 36 H Blood Pressure 124/59 L Pulse Oximetry 94 L 88 L 89 L 03/21/18 17:00 03/21/18 18:00 03/21/18 18:03 Temperature Pulse Rate 91 H 91 H 94 H Respiratory Rate 23 38 H 38 H Blood Pressure 120/60 112/55 L Pulse Oximetry 87 L 90 L 89 L 03/21/18 19:00 03/21/18 19:04 03/21/18 19:35 Temperature Pulse Rate 90 96 H 72 Respiratory Rate 28 H 21 Blood Pressure 119/54 L Pulse Oximetry 93 L 03/21/18 19:37 03/21/18 20:00 03/21/18 21:00 Temperature 98.6 F Pulse Rate 90 93 H Respiratory Rate 31 H 38 H Blood Pressure 114/62 120/58 L Pulse Oximetry 95 91 L 95 03/21/18 21:33 03/21/18 22:00 03/21/18 22:30 Temperature Pulse Rate 87 80 82 Respiratory Rate 23 21 24 Blood Pressure 120/58 L 124/66 133/62 Pulse Oximetry 97 99 97 03/21/18 23:00 03/21/18 23:12 03/21/18 23:30 Temperature Pulse Rate 75 80 83 Respiratory Rate 27 H 21 22 Blood Pressure 142/78 H 134/62 Pulse Oximetry 96 96 96 03/22/18 00:00 03/22/18 00:01 03/22/18 01:00 Temperature 98.5 F Pulse Rate 86 90 79 Respiratory Rate 17 23 24 Blood Pressure 141/64 H 141/64 H 143/68 H Pulse Oximetry 85 L 85 L 99 03/22/18 02:00 03/22/18 03:00 03/22/18 03:27 Temperature Pulse Rate 74 82 76 Respiratory Rate 18 22 19 Blood Pressure 136/66 120/63 Pulse Oximetry 97 95 03/22/18 03:28 03/22/18 04:00 03/22/18 05:00 Temperature 98.8 F Pulse Rate 79 76 Respiratory Rate 20 18 Blood Pressure 116/56 L 120/60 Pulse Oximetry 95 93 L 93 L 03/22/18 06:00 03/22/18 07:00 03/22/18 07:14 Temperature 98.4 F Pulse Rate 75 74 72 Respiratory Rate 20 17 16 Blood Pressure 121/64 121/66 Pulse Oximetry 94 L 95 97 03/22/18 08:00 03/22/18 09:00 03/22/18 09:03 Temperature Pulse Rate 83 85 84 Respiratory Rate 27 H 32 H 32 H Blood Pressure 154/80 H 138/74 Pulse Oximetry 91 L 97 97 03/22/18 10:00 03/22/18 11:00 03/22/18 11:01 Temperature Pulse Rate 84 89 76 Respiratory Rate 58 H 28 H 25 H Blood Pressure 138/74 Pulse Oximetry 94 L 92 L Intake & Output 03/21/18 03/22/18 03/22/18 18:59 06:59 18:59 Intake Total 400 / 400 980 / 980 Output Total 1850 / 1850 Balance 400 / 400 -870 / -870 Weight 86 kg Intake: IV 400 / 400 500 / 500 Azithromycin Inj 500 MG In NS 250 / 250 Inj 250 ML @ 250 mls/hr IV.SIG Q24H [facility] Rx#:[id number] Levaquin 750 mg Premix Inj 150 150 / 150 ML @ 100 mls/hr IV.SIG Q24H [facility]ENA Rx#:[id number] Vancomycin Inj 1,000 MG In NS 250 / 250 250 / 250 Inj 250 ML @ 250 mls/hr IV.SIG Q12H [facility]ENA Rx#:[id number] Oral 480 / 480 Output: Urine 1850 / 1850 Other: # Voids 4 Date of Last Bowel Movement 03/20/18 03/21/18 03/21/18 # Bowel Movements 1 0 03/18/18 14:55 Blood - Peripheral Aerobic Blood Culture - Preliminary No growth in 4 days 03/18/18 14:55 Blood - Peripheral Anaerobic Blood Culture - Preliminary No growth in 4 days 03/18/18 14:50 Blood - Peripheral Aerobic Blood Culture - Preliminary No growth in 4 days 03/18/18 14:50 Blood - Peripheral Anaerobic Blood Culture - Preliminary No growth in 4 days 03/19/18 13:00 Clean Catch Urine Urine Culture - Final No growth in 48 hours 03/19/18 13:00 Urine - Clean Catch Urine Legionella Antigen - Final Presumptive negative for Legionella pneumophila serogroup 1 antigen in urine, suggesting no recent or recurrent infection. Infection due to Legionella cannot be ruled out since other serogroups and species may cause disease, antigen may not be present in urine in early infection, and the level of antigen present in the urine may be below the detection limit of the test. 03/19/18 13:00 Urine - Clean Catch Urine Streptococcus pneumoniae Antigen ( M - Final Presumptive negative for streptococcus pneumoniae antigen, suggesting no current or recent infection. Infection due to Streptococcus pneumoniae cannot be ruled out since the antigen present in the sample may be below the detection limit of the test. Lab - Hematology Results 03/22/18 02:39 WBC 9.1 RBC 3.14 L Hgb 9.9 L Hct 29.0 L MCV 92.3 MCH 31.4 MCHC 34.0 RDW 14.3 Plt Count 454 H MPV 7.9 Lab - Chemistry Results 03/20/18 03/20/18 03/21/18 17:03 21:14 08:40 Sodium Potassium Chloride Carbon Dioxide Anion Gap BUN Creatinine Estimated GFR POC Glucose 141 H 132 H 151 H Random Glucose Calcium Total Bilirubin AST ALT Alkaline Phosphatase Troponin I B-Natriuretic Peptide Total Protein Albumin TSH Free T4 03/21/18 03/21/18 03/22/18 18:16 19:54 02:39 Sodium Potassium Chloride Carbon Dioxide Anion Gap BUN Creatinine Estimated GFR POC Glucose 141 H 92 Random Glucose Calcium Total Bilirubin AST ALT Alkaline Phosphatase Troponin I B-Natriuretic Peptide 197 H Total Protein Albumin TSH Free T4 09/27/18 09/27/18 09/27/18 02:39 08:03 10:42 Sodium 140 Potassium 3.7 Chloride 104 Carbon Dioxide 27.0 Anion Gap 9 BUN 18 Creatinine 0.65 Estimated GFR Greater than 89 POC Glucose 126 H Random Glucose 119 H Calcium 7.6 L Total Bilirubin 0.2 AST 70 H ALT 108 H Alkaline Phosphatase 79 Troponin I 0.02 B-Natriuretic Peptide Total Protein 6.3 L D Albumin 2.1 L TSH Free T4 1.08 03/22/18 10:42 Sodium Potassium Chloride Carbon Dioxide Anion Gap BUN Creatinine Estimated GFR POC Glucose Random Glucose Calcium Total Bilirubin AST ALT Alkaline Phosphatase Troponin I B-Natriuretic Peptide Total Protein Albumin TSH 0.788 Free T4 Imaging: ITS Impressions Abdomen X-Ray 03/18/18 00:00 CONCLUSION: Negative examination. Venous Doppler Study 03/18/18 00:00 CONCLUSION: 1. The study is negative for bilateral lower extremity deep venous thrombosis. Chest CTA 03/18/18 16:02 CONCLUSION: 1. There is no evidence of PE for technique. 2. Extensive airspace process most likely inflammatory and pneumonia, possibility of pulmonary edema is not excluded. 3. Tiny bilateral pleural effusions with nonspecific most likely benign lymph nodes within the mediastinum. Chest X-Ray 03/22/18 00:00 CONCLUSION: 1. No significant interval change. 2. Persistent patchy diffuse bilateral airspace disease. Physical Exam: PHYSICAL EXAMINATION: GENERAL: Distressed by cough. Awake and alert and oriented. HEENT: Head is atraumatic. Extraocular movements are grossly intact. Pupils reactive to light. No icterus. Oropharynx, moist mucosa. No visible lesions. NECK: Supple without adenopathy. LUNGS: Decreased breath sounds throughout. No rhonchi. HEART: Regular rate and rhythm without murmurs, rubs or gallops. ABDOMEN: Bowel sounds present. Soft, obese, nontender. EXTREMITIES: No clubbing, cyanosis or edema. SKIN: No rash. NEUROLOGIC: No gross focal findings. PSYCH: Calm and cooperative. Assessment and Plan - Plan IMPRESSION: Bilateral pulmonary infiltrates. Questionable etiology. The patient presented with fever, nausea, and dyspnea on exertion. Possible atypical versus viral pneumonia. Also, potentially this could be congestive heart failure or other inflammatory condition. RECOMMENDATIONS: 1. Continue vancomycin. 2. Continue azithromycin. 3. Continue Levaquin. 4. Obtain sputum culture if coughs she up any sputum. 5. Follow chlamydia serology. 6. Monitor white cell count.
[2018-03-22 16:27] LABS: Hemoglobin A1c 5.9 % (4.3-6.0)
[2018-03-22] MEDS: Azithromycin Inj 500 MG in Sodium Chlor 0.9% Inj 250 ML IV.SIG SCH (17:44)
--- NOTE | 2018-03-22 18:36 | P.PNPL ---
Subjective Interval history: 58 YOWF with br asthma, bilat diffuse infilt, hypoxic RF On High flow 02, Fi02 55% Alternates with PRB Desaturates on taking mask no fever Cough, not able to expactorate Cough irritating Uses Acapella and IS Feels little better Physical Exam Vital signs: Vital Signs 03/21/18 19:00 03/21/18 19:04 03/21/18 19:35 Temperature Pulse Rate 90 96 H 72 Respiratory Rate 28 H 21 Blood Pressure 119/54 L Pulse Oximetry 93 L 03/21/18 19:37 03/21/18 20:00 03/21/18 21:00 Temperature 98.6 F Pulse Rate 90 93 H Respiratory Rate 31 H 38 H Blood Pressure 114/62 120/58 L Pulse Oximetry 95 91 L 95 03/21/18 21:33 03/21/18 22:00 03/21/18 22:30 Temperature Pulse Rate 87 80 82 Respiratory Rate 23 21 24 Blood Pressure 120/58 L 124/66 133/62 Pulse Oximetry 97 99 97 03/21/18 23:00 03/21/18 23:12 03/21/18 23:30 Temperature Pulse Rate 75 80 83 Respiratory Rate 27 H 21 22 Blood Pressure 142/78 H 134/62 Pulse Oximetry 96 96 96 03/22/18 00:00 03/22/18 00:01 03/22/18 01:00 Temperature 98.5 F Pulse Rate 86 90 79 Respiratory Rate 17 23 24 Blood Pressure 141/64 H 141/64 H 143/68 H Pulse Oximetry 85 L 85 L 99 03/22/18 02:00 03/22/18 03:00 03/22/18 03:27 Temperature Pulse Rate 74 82 76 Respiratory Rate 18 22 19 Blood Pressure 136/66 120/63 Pulse Oximetry 97 95 03/22/18 03:28 03/22/18 04:00 03/22/18 05:00 Temperature 98.8 F Pulse Rate 79 76 Respiratory Rate 20 18 Blood Pressure 116/56 L 120/60 Pulse Oximetry 95 93 L 93 L 03/22/18 06:00 03/22/18 07:00 03/22/18 07:14 Temperature 98.4 F Pulse Rate 75 74 72 Respiratory Rate 20 17 16 Blood Pressure 121/64 121/66 Pulse Oximetry 94 L 95 97 03/22/18 08:00 03/22/18 09:00 03/22/18 09:03 Temperature Pulse Rate 83 85 84 Respiratory Rate 27 H 32 H 32 H Blood Pressure 154/80 H 138/74 Pulse Oximetry 91 L 97 97 03/22/18 10:00 03/22/18 11:00 03/22/18 11:01 Temperature Pulse Rate 84 89 76 Respiratory Rate 58 H 28 H 25 H Blood Pressure 138/74 Pulse Oximetry 94 L 92 L 03/22/18 12:00 03/22/18 14:00 03/22/18 15:07 Temperature 98.4 F Pulse Rate 90 86 92 H Respiratory Rate 35 H 24 Blood Pressure 131/83 Pulse Oximetry 95 03/22/18 16:00 Temperature 98.1 F Pulse Rate 93 H Respiratory Rate 27 H Blood Pressure 117/58 L Pulse Oximetry 95 Intake & Output 03/21/18 03/22/18 03/22/18 18:59 06:59 18:59 Intake Total 400 / 400 980 / 980 Output Total 1850 / 1850 Balance 400 / 400 -870 / -870 Weight 86 kg Intake: IV 400 / 400 500 / 500 Azithromycin Inj 500 MG In NS 250 / 250 Inj 250 ML @ 250 mls/hr IV.SIG Q24H [facility] Rx#:[id number] Levaquin 750 mg Premix Inj 150 150 / 150 ML @ 100 mls/hr IV.SIG Q24H [facility] Rx#:[id number] Vancomycin Inj 1,000 MG In NS 250 / 250 250 / 250 Inj 250 ML @ 250 mls/hr IV.SIG Q12H [facility] Rx#:[id number] Oral 480 / 480 Output: Urine 1850 / 1850 Other: # Voids 4 Date of Last Bowel Movement 03/20/18 03/21/18 03/21/18 # Bowel Movements 1 0 GENERAL: MBMN WF, mild sob SKIN: Warm and dry. HEAD: Normocephalic. EYES: No scleral icterus. No injection or drainage. NECK: Supple, trachea midline. No JVD or lymphadenopathy. CARDIOVASCULAR: Regular rate and rhythm without murmurs, gallops, or rubs. RESPIRATORY: Breath sounds equal bilaterally. No accessory muscle use. GASTROINTESTINAL: Abdomen soft, non-tender, nondistended. MUSCULOSKELETAL: No cyanosis, or edema. BACK: Nontender without obvious deformity. No CVA tenderness. Assessment and Plan - Plan IMPRESSION: 1. Hypoxic respiratory failure. 2. Bilateral diffuse lung infiltrates, possibly viral pneumonia, atypical pneumonia or inflammatory process. 3. Non-ST elevation myocardial infarction. 4. History of bronchial asthma. PLAN: IV Solumedrol Cont Abx, ID following Supplement 02 with high flow 02/ PRB Titerate 02 to keep sat >90% Use Acapella and IS Tessalon 200 mg tid.
[2018-03-23] MEDS: Heparin - SQ 10,000 UNITS/ML Vial SQ SCH ×3 (02:12→17:58)
[2018-03-23] MEDS: Metoprolol Inj 5 MG/5 ML Vial IV.PUSH SCH ×5 (02:12→22:48)
[2018-03-23] MEDS: MethylPREDNISolone Sod Succinate Inj 40 MG/ML Vial IV.PUSH SCH ×4 (02:12→20:31)
[2018-03-23 04:18] LABS: Baso % (Auto) 0.2 % (0.0-2.0); Hematocrit 32.4 % (35.0-46.0); Hemoglobin 10.9 gm/dL (11.6-15.3); Lymph # (Auto) 1.7 th/mm3 (1.0-4.8); Lymph % (Auto) 15.5 % (9.0-44.0); Mean Corpuscular HGB Conc 33.6 % (32.0-36.0); Mean Corpuscular Hemoglobin 30.9 pg (27.0-34.0); Mean Corpuscular Volume 91.9 fL (80.0-100.0); Mean Platelet Volume 7.6 fL (7.0-11.0); Mono # (Auto) 0.6 th/mm3 (0.0-0.9); Mono % (Auto) 5.3 % (0.0-8.0); Neut # (Auto) 8.4 th/mm3 (1.8-7.7); Platelet Count 525 th/mm3 (150-450); Red Blood Count 3.53 mil/mm3 (4.00-5.30); Red Cell Distribution Width 14.5 % (11.6-17.2); White Blood Count 10.7 th/mm3 (4.0-11.0)
[2018-03-23 04:24] LABS: INR 1.1 Ratio; Prothrombin Time 10.7 sec (9.8-11.6)
[2018-03-23 04:47] LABS: Albumin 2.3 g/dL (3.4-5.0); Anion Gap 8 meq/L (5-15); Aspartate Aminotransferase 56 U/L (15-37); Blood Urea Nitrogen 19 mg/dL (7-18); Calcium 7.6 mg/dL (8.5-10.1); Carbon Dioxide 28.7 meq/L (21.0-32.0); Chloride 102 meq/L (98-107); Glomerular Filtration Rate 81 mL/min (>89); Glucose,Random 131 mg/dL (74-106); Magnesium 2.1 mg/dL (1.5-2.5); Potassium 3.4 meq/L (3.5-5.1); Sodium 139 meq/L (136-145)
[2018-03-23 04:52] LABS: Alanine Aminotransferase 107 U/L (10-53); Alkaline Phosphatase 78 U/L (45-117); Phosphorus 3.3 mg/dL (2.5-4.9); Total Protein 6.6 g/dL (6.4-8.2)
[2018-03-23] MEDS: Benzonatate 100 MG Capsule PO SCH ×3 (05:43→22:46)
[2018-03-23] MEDS: Chlorhexidine Gluconate 2% 1 Pack (2 Cloths) TOPICAL SCH (05:44)
--- NOTE | 2018-03-23 08:22 | XR ---
EXAM DATE: 03/23/2018 8:00 AM EDT AGE/SEX: 58 years / Female INDICATIONS: Shortness of breath. CLINICAL DATA: This is the patient's subsequent encounter. Patient reports that signs and symptoms h ave been present for 1 week and indicates a pain score of 0/10. MEDICAL/SURGICAL HISTORY: None. None. [place] [facility] [place]. . FINDINGS: Persistent diffuse interstitial prominence and patchy bilateral airspace disease. Cardiomediastinal c ontours are stable. Remainder of the exam is unchanged. CONCLUSION: 1. No significant interval change. 2. Persistent diffuse patchy bilateral airspace disease. Electronically signed by: Demetrius Ronquillo MD 03/23/2018 8:21 AM EDT
[2018-03-23] MEDS ORDERED: Potassium Phosphate 500 MG Soluble Tablet PO PRN ×2 (08:47)
[2018-03-23] MEDS ORDERED: Potassium Chloride 25 MEQ Effervescent Tablet PO PRN (08:47)
[2018-03-23] MEDS ORDERED: Magnesium Oxide 400 MG Tablet PO PRN (08:47)
[2018-03-23] MEDS ORDERED: Magnesium Sulfate Inj 2 GM in Sodium Chlor 0.9% Inj 96 ML IV.SIG PRN (08:47)
[2018-03-23] MEDS ORDERED: Magnesium Sulfate Inj 4 GM in Sodium Chlor 0.9% Inj 92 ML IV.SIG PRN (08:47)
[2018-03-23] MEDS ORDERED: Potassium Chlor 20 mEq Premix 20 MEQ/100 ML PIGGYBACK IV.SIG PRN ×2 (08:47)
[2018-03-23] MEDS ORDERED: Sodium Phosphate Inj 30 MMOL in Sodium Chlor 0.9% Inj 250 ML IV.SIG PRN (08:47)
[2018-03-23] MEDS ORDERED: Potassium Chlor 40 mEq Premix 40 MEQ/100 ML PIGGYBACK IV.SIG PRN ×2 (08:47)
[2018-03-23] MEDS ORDERED: Potassium Phosphate Inj 30 MMOL in Sodium Chlor 0.9% Inj 250 ML IV.SIG PRN (08:47)
--- NOTE | 2018-03-23 09:42 | P.PNIM ---
Subjective Interval history: This is a 58-year-old female. Date of admission 03/18/2018. Past medical history includes gastroesophageal reflux disease, seasonal asthma, elevated BMI, hyperlipidemia untreated and chronic kidney disease. Today, she presents to [facility] ED for evaluation of 1 week history of SOB. She is originally from [facility]. Her chief complaint consists of shortness of breath, chest tightness without radiation to the neck, down left arm or back, persistent nausea without emesis, abdominal pain or diarrhea. Her original temperature was 102 Fahrenheit according to patient, patient was evaluated in [place]. At that time, she states the chest x-ray was "clear. " At that time the provider suspected that she was having asthma symptoms. She was prescribed albuterol nebulizers and sent home. She is normally on an albuterol inhaler at home along with ranitidine and intermittently intermixing with PPI for gastroesophageal reflux disease. She states that her respiratory and nausea symptoms became acutely worse 2 days ago after flying to [facility] from [place]. She states that she is unable to walk "even a few feet" without GALINDO. Lying flat also makes symptoms worse. Chest x-ray revealed diffuse pulmonary fluffy infiltrates bilaterally.. EKG revealed sinus tachycardia with normal CA, QRS and QT intervals. Troponin was 0.55. She was seen in consultation by cardiology who recommended possible heart catheterization in the a.m. Will trend troponins. She is currently undergoing a CT angiogram of the chest. She received piperacillin/tazobactam and vancomycin in the ED. Her white blood cell count is normal. Her lactate was normal. Her d-dimer was slightly elevated. She complains of some slightly increased swelling in her bilateral lower extremities. She was placed on 100% nonrebreather with saturations currently 99-100%. At the present time she is able to speak complete sentences. Denies cough. SUBJECTIVE: 03/19: T-max 102.8. Currently afebrile. Currently on partial nonrebreather 10 L satting 92-99%. Pro-calcitonin 0.12. Does not appear volume overloaded on examination. Patient has a dry nonproductive cough. Denies chest pain.. Will give 40 mg furosemide IV 1 now 03/20: No fever reported today sitting at the side of the bed. Remains on partial nonrebreather to keep oxygen saturation more than 90%. Bilateral crackles on exam. Chest x-ray shows extensive bilateral infiltrates 03/21: Continues to require partial nonrebreather to keep the saturation above 90 %. Clinical exam remains same with bilateral crackles. BNP trending down, I will start scheduled IV Lasix to improve hypoxia. Cardiac catheterization is currently placed on hold, due to persistent hypoxia 03-22 ON HIGH FLOW OXYGEN TO CARDIAC CATH LATER TODAY LESS SOB, NO CHEST PAIN AM LABS 03-23 DID NOT HAVE CATH YET STILL ON HIGH FLOW OXYGEN LESS SOB, NO CHEST PAIN DW RN AND PT CONTINUE ANTIBIOTICS PER ID INCREASE ACTIVITY Physical Exam Vital signs: Vital Signs 03/22/18 10:00 03/22/18 11:00 03/22/18 11:01 Temperature Pulse Rate 84 89 76 Respiratory Rate 58 H 28 H 25 H Blood Pressure 138/74 Pulse Oximetry 94 L 92 L 03/22/18 11:29 03/22/18 12:00 03/22/18 13:00 Temperature 98.4 F Pulse Rate 90 90 93 H Respiratory Rate 37 H 35 H 28 H Blood Pressure 127/63 131/83 116/66 Pulse Oximetry 96 95 86 L 03/22/18 14:00 03/22/18 15:00 03/22/18 15:07 Temperature Pulse Rate 86 86 92 H Respiratory Rate 28 H 8 L 24 Blood Pressure 114/65 121/66 Pulse Oximetry 98 97 03/22/18 16:00 03/22/18 17:00 03/22/18 18:00 Temperature 98.1 F Pulse Rate 93 H 91 H 94 H Respiratory Rate 27 H 31 H 24 Blood Pressure 117/58 L 116/61 121/61 Pulse Oximetry 98 95 88 L 03/22/18 19:00 03/22/18 20:00 03/22/18 20:23 Temperature 98.6 F Pulse Rate 89 82 85 Respiratory Rate 24 23 33 H Blood Pressure 120/65 116/59 L 113/60 Pulse Oximetry 91 L 97 89 L 03/22/18 20:44 03/22/18 20:45 03/22/18 21:00 Temperature Pulse Rate 83 82 Respiratory Rate 21 23 Blood Pressure 103/57 L Pulse Oximetry 95 93 L 03/22/18 22:00 03/22/18 23:00 03/23/18 00:00 Temperature Pulse Rate 86 76 76 Respiratory Rate 32 H 23 22 Blood Pressure 116/59 L 124/67 122/65 Pulse Oximetry 87 L 95 90 L 03/23/18 01:00 03/23/18 02:00 03/23/18 02:03 Temperature Pulse Rate 76 76 Respiratory Rate 23 21 Blood Pressure 134/75 152/83 H Pulse Oximetry 91 L 95 94 L 03/23/18 03:44 03/23/18 04:00 03/23/18 04:03 Temperature Pulse Rate 73 74 Respiratory Rate 160 H 160 H Blood Pressure 123/68 Pulse Oximetry 96 94 L 92 L 03/23/18 06:00 03/23/18 08:25 Temperature Pulse Rate 71 Respiratory Rate Blood Pressure Pulse Oximetry 95 Intake & Output 03/22/18 03/23/18 03/23/18 18:59 06:59 18:59 Intake Total 1150 / 1150 0 / 0 Output Total 1650 / 1650 1300 / 1300 Balance -500 / -500 -1300 / -1300 Weight 82 kg Intake: IV 250 / 250 Vancomycin Inj 1,000 MG In NS 250 / 250 Inj 250 ML @ 250 mls/hr IV.SIG Q12H [facility] Rx#:[id number] Oral 900 / 900 0 / 0 Output: Urine 1650 / 1650 1300 / 1300 Other: # Voids 3 Date of Last Bowel Movement 03/22/18 03/23/18 # Bowel Movements 1 7 # Incontinent Bowel Movements 7 Weight On Admission 70 kg Narrative: GENERAL: 58-year-old female currently resting in bed on partial nonrebreather, intermittent shortness of breath SKIN: Warm and dry. HEAD: Atraumatic. Normocephalic. EYES: Pupils equal and round. No scleral icterus. No injection or drainage. EOMI ENT: No nasal bleeding or discharge. Mucous membranes pink and moist. NECK: Trachea midline. No JVD. CARDIOVASCULAR: Regular rate and rhythm. S1, S2. No S4. Without murmur S1, S2 NO S3 OR S4 RESPIRATORY: Fine crackles are appreciated bilaterally. Diminished breath sounds bilaterally. No wheezing COARSE BREATH SOUNDS BL GASTROINTESTINAL: Abdomen soft, non-tender, nondistended. Hepatic and splenic margins not palpable. MUSCULOSKELETAL: Extremities with trace nonpitting bilateral lower extremity edema. No obvious deformities. NEUROLOGICAL: Awake and alert. No obvious cranial nerve deficits. Motor grossly within normal limits. Five out of 5 muscle strength in the arms and legs. Normal speech. INSIGHT AND JUDGEMENT ARE GOOD MOOD AND BEHAVIOR IS APPROPRIATE Results - Labs CBC & Chem 7: 03/23/18 03:26 03/23/18 03:26 Laboratory Results - last 24 hr 03/18/18 03/22/18 03/22/18 18:06 10:42 10:42 WBC RBC Hgb Hct MCV MCH MCHC RDW Plt Count MPV Neut % (Auto) Lymph % (Auto) [place] % (Auto) Eos % (Auto) Baso % (Auto) Neut # (Auto) Lymph # (Auto) [place] # (Auto) Eos # (Auto) Baso # (Auto) WBC Differential Differential Comment PT INR Sodium Potassium Chloride Carbon Dioxide Anion Gap BUN Creatinine Estimated GFR POC Glucose Random Glucose Hemoglobin A1c 5.9 Calcium Phosphorus Magnesium Total Bilirubin AST ALT Alkaline Phosphatase Total Protein Albumin TSH Free T4 1.08 Vancomycin Trough C. pneumoniae IgG Titer <1:64 C. pneumoniae IgA Titer <1:16 C. pneumoniae IgM Titer <1:10 C. pneumoniae Ab Inter 03/22/18 03/22/18 03/22/18 10:42 12:48 17:59 WBC RBC Hgb Hct MCV MCH MCHC RDW Plt Count MPV Neut % (Auto) Lymph % (Auto) [place] % (Auto) Eos % (Auto) Baso % (Auto) Neut # (Auto) Lymph # (Auto) [place] # (Auto) Eos # (Auto) Baso # (Auto) WBC Differential Differential Comment PT INR Sodium Potassium Chloride Carbon Dioxide Anion Gap BUN Creatinine Estimated GFR POC Glucose 129 H 132 H Random Glucose Hemoglobin A1c Calcium Phosphorus Magnesium Total Bilirubin AST ALT Alkaline Phosphatase Total Protein Albumin TSH 0.788 Free T4 Vancomycin Trough C. pneumoniae IgG Titer C. pneumoniae IgA Titer C. pneumoniae IgM Titer C. pneumoniae Ab Inter 03/22/18 03/22/18 03/23/18 21:17 21:50 00:50 WBC RBC Hgb Hct MCV MCH MCHC RDW Plt Count MPV Neut % (Auto) Lymph % (Auto) [place] % (Auto) Eos % (Auto) Baso % (Auto) Neut # (Auto) Lymph # (Auto) [place] # (Auto) Eos # (Auto) Baso # (Auto) WBC Differential Differential Comment PT INR Sodium Potassium Chloride Carbon Dioxide Anion Gap BUN Creatinine Estimated GFR POC Glucose 145 H Random Glucose Hemoglobin A1c Calcium Phosphorus Magnesium Total Bilirubin AST ALT Alkaline Phosphatase Total Protein Albumin TSH Free T4 Vancomycin Trough 9.3 C. pneumoniae IgG Titer C. pneumoniae IgA Titer C. pneumoniae IgM Titer C. pneumoniae Ab Inter 03/23/18 03/23/18 03/23/18 03:26 03:26 03:26 WBC 10.7 RBC 3.53 L Hgb 10.9 L Hct 32.4 L MCV 91.9 MCH 30.9 MCHC 33.6 RDW 14.5 Plt Count 525 H MPV 7.6 Neut % (Auto) 79.0 H Lymph % (Auto) 15.5 [place] % (Auto) 5.3 Eos % (Auto) 0.0 Baso % (Auto) 0.2 Neut # (Auto) 8.4 H Lymph # (Auto) 1.7 [place] # (Auto) 0.6 Eos # (Auto) 0.0 Baso # (Auto) 0.0 WBC Differential . Differential Comment Auto diff final PT 10.7 INR 1.1 Sodium 139 Potassium 3.4 L Chloride 102 Carbon Dioxide 28.7 Anion Gap 8 BUN 19 H Creatinine 0.74 Estimated GFR 81 L POC Glucose Random Glucose 131 H Hemoglobin A1c Calcium 7.6 L Phosphorus 3.3 Magnesium 2.1 Total Bilirubin 0.3 AST 56 H ALT 107 H Alkaline Phosphatase 78 Total Protein 6.6 Albumin 2.3 L TSH Free T4 Vancomycin Trough C. pneumoniae IgG Titer C. pneumoniae IgA Titer C. pneumoniae IgM Titer C. pneumoniae Ab Inter 03/23/18 08:06 WBC RBC Hgb Hct MCV MCH MCHC RDW Plt Count MPV Neut % (Auto) Lymph % (Auto) [place] % (Auto) Eos % (Auto) Baso % (Auto) Neut # (Auto) Lymph # (Auto) [place] # (Auto) Eos # (Auto) Baso # (Auto) WBC Differential Differential Comment PT INR Sodium Potassium Chloride Carbon Dioxide Anion Gap BUN Creatinine Estimated GFR POC Glucose 112 H Random Glucose Hemoglobin A1c Calcium Phosphorus Magnesium Total Bilirubin AST ALT Alkaline Phosphatase Total Protein Albumin TSH Free T4 Vancomycin Trough C. pneumoniae IgG Titer C. pneumoniae IgA Titer C. pneumoniae IgM Titer C. pneumoniae Ab Inter Microbiology 03/18/18 14:55 Blood - Peripheral Aerobic Blood Culture - Preliminary No growth in 4 days 03/18/18 14:55 Blood - Peripheral Anaerobic Blood Culture - Preliminary No growth in 4 days 03/18/18 14:50 Blood - Peripheral Aerobic Blood Culture - Preliminary No growth in 4 days 03/18/18 14:50 Blood - Peripheral Anaerobic Blood Culture - Preliminary No growth in 4 days - Imaging Impressions Chest X-Ray 03/23/18 08:00 CONCLUSION: 1. No significant interval change. 2. Persistent diffuse patchy bilateral airspace disease. - Procedures NO Assessment and Plan - Plan Neuro/Psych: Acetaminophen 650 mg p.o. every 6 hours as needed fever Hydrocodone/acetaminophen 5/325 1 tablet every 4 hours as needed 1 through 5 Morphine sulfate 2 g IV every 2 hours as needed pain 6-10 CV: Non-STEMI likely type II demand ischemia History of hyperlipidemia Sinus tachycardia Elevated BNP Received 2 L normal saline in the ED. Continue metoprolol tartrate 5 mg IV every 6 hours Aspirin 81 milligrams in a.m. Hold DEJA inhibitor in light of acute kidney injury by history Continue atorvastatin 40 mg at night for elevated LDL Serial troponin every 8 hours x2. Trending downward peaked at 0.55. Currently at 0.10 2D echocardiogram ordered. Low Normal ejection fraction Dr. Calixto/cardiology to evaluate. Possible heart catheterization after hypoxia improves Continue Aldactone per Dr. Calixto Add IV Lasix 40 mg every q 12 Resp: Acute hypoxic hypercapnic respiratory failure Pneumonia/ALI History of mild intermittent asthma Tobaccoism Chest x-ray revealed diffuse bilateral pulmonary infiltrates with air bronchograms and lower lobes. CT angiogram revealed no central pulmonary. Diffuse infiltrates bilaterally inflammatory/infiltrative. Currently on 10 L partial nonrebreather saturations are 90-97%. Wean as tolerated Albuterol/ipratropium aerosols every 4 hours with albuterol aerosols every 2 as needed for dyspnea Methylprednisolone succinate 40 mg IV twice daily Incentive spirometry while awake Follow-up chest x-ray in a.m. 03/20 Pulmonary following ADD MUCINEX, AND SYMBICORT ON VANCO, ZITHROMAX AND LEVAQUIN GI: Gastroesophageal reflux disease History of constipation Cardiac diet At home on ranitidine 150 mg daily with esomeprazole as needed Continue pantoprazole 40 mg IV daily Docusate sodium/senna 1 tablet twice daily for bowel regimen Amylase and lipase and LFTs within normal limits Endo: Sliding scale insulin Accu-Cheks to maintain euglycemia/AC at bedtime low regimen TSH 0.998 Renal: History of chronic kidney disease stage II Creatinine currently within normal limits Monitor urine output Accurate I's and O's Avoid nephrotoxic medications IV Lasix as above Heme: Normocytic anemia Monitor CBC daily. Follow trends. No indication for transfusion of blood products at this time ID: Community acquired pneumonia Received piperacillin/tazobactam and vancomycin ED. Continue vancomycin, cefepime and azithromycin Infectious disease following UA negative Influenza a and B-. Respiratory panel ordered for confirmation Blood cultures x2 03/18 negative today Urinary pneumococcal and Legionella antigens neg, mycoplasma and chlamydia pending No history of immunosuppression VANCO ZITHROMAX AND LEVAQUIN FEN: Replace electrolytes as clinically indicated per ICU electrolyte protocol MSK: Elevated BMI Weight loss encouraged PT evaluate and treat Access -Utilize peripheral IV. Central line if indicated Prophylaxis -GI-pantoprazole -DVT SCD/heparin subcu PT AND OT Code Status: FULL CODE Discussed Condition With: RN AND PT Discharge Planning: NEEDS PT AND OT NEEDS TO BE OFF HIGH FLOW OXYGEN
[2018-03-23] MEDS ORDERED: Vancomycin Inj 1,250 MG in Sodium Chlor 0.9% Inj 250 ML IV.SIG SCH (10:00)
[2018-03-23] MEDS: Insulin NovoLOG Aspart Correctional Sugar Inj SQ SCH ×4 (10:09→20:44)
[2018-03-23] MEDS: guaiFENesin 600 MG ER Tablet PO SCH ×2 (10:10→20:31)
[2018-03-23] MEDS: Senna/Docusate Sodium 8.6/50 MG Tablet PO SCH ×2 (10:10→20:31)
--- NOTE | 2018-03-23 10:50 | P.PNCA ---
Subjective Interval history: alert in nad Medications and Allergies Active Medications: Active Medications Acetaminophen (Tylenol) 650 mg PO Q6H PRN PRN Reason: Fever >100f Hydrocodone Bitart/Acetaminophen (Carter 5/325) 1 tab PO Q4H PRN PRN Reason: PAIN SCALE 1 TO 5 Last Admin: 03/21/18 23:57 Dose: 1 tab Al Hydroxide/Mg Hydroxide (Milk Of Bud Liq) 30 ml PO Q12H PRN PRN Reason: Mild Constipation Albuterol (Albuterol Neb (Prn)) 2.5 mg NEB Q2HR NEB PRN PRN Reason: SHORTNESS OF BREATH/WHEEZING Aspirin (Aspirin Chew) 81 mg PO DAILY [facility] Last Admin: 03/22/18 10:55 Dose: Not Given Atorvastatin Calcium (Lipitor) 40 mg PO HS [facility] Last Admin: 03/22/18 21:19 Dose: 40 mg Benzonatate (Tessalon Perles) 200 mg PO Q8HR [facility] Last Admin: 03/23/18 05:43 Dose: 200 mg Bisacodyl (Dulcolax Supp) 10 mg RECTAL DAILY PRN PRN Reason: SEVERE CONSITIPATION Budesonide/Formoterol Fumarate (Symbicort 160/4.5 Mcg Inh) 2 puff INH BID [facility] Last Admin: 03/22/18 21:19 Dose: 2 puff Chlorhexidine Gluconate (Chlorhexidine 2% Cloth) 3 pack TOPICAL DAILY@0400 [facility] Stop: 03/24/18 03:59 Last Admin: 03/23/18 05:44 Dose: 3 pack Chlorhexidine Gluconate (Chlorhexidine 2% Cloth) 3 pack TOPICAL DAILY@0400 PRN PRN Reason: Extra cloth needed Stop: 03/24/18 03:59 Dextrose (D50w Vial) 50 ml IV.PUSH UNSCH PRN PRN Reason: PER HYPOGLYCEMIA PROTOCOL Furosemide (Lasix Inj) 40 mg IV.PUSH BID@0900,1800 [facility] Last Admin: 03/22/18 17:58 Dose: 40 mg Glucagon (Glucagon Inj) 1 mg OTHER PRN PRN PRN Reason: for Hypoglycemia Protocol Guaifenesin (Mucinex Er) 600 mg PO BID [facility] Last Admin: 03/23/18 10:10 Dose: Not Given Heparin Sodium (Porcine) (Heparin Inj) 5,000 units SQ Q8H [facility] Last Admin: 03/23/18 02:12 Dose: 5,000 units Azithromycin 500 mg/ Sodium (Chloride) 250 mls @ 250 mls/hr IV.SIG Q24H [facility] Last Admin: 03/22/18 17:44 Dose: 150 mls/hr Magnesium Sulfate 2 gm/ Sodium (Chloride) 100 mls @ 50 mls/hr IV.SIG UNSCH PRN PRN Reason: For Magnesium 1.2 - 1.6 mg/dL Levofloxacin/Dextrose (Levaquin 750 Mg Premix Inj) 150 mls @ 100 mls/hr IV.SIG Q24H [facility] Last Admin: 03/22/18 12:46 Dose: 100 mls/hr Vancomycin HCl 1,250 mg/ (Sodium Chloride) 262.5 mls @ 262.5 mls/hr IV.SIG Q12H [facility] Magnesium Sulfate 4 gm/ Sodium (Chloride) 100 mls @ 50 mls/hr IV.SIG UNSCH PRN PRN Reason: For Magnesium 0.9 - 1.1 mg/dL Magnesium Sulfate 2 gm/ Sodium (Chloride) 100 mls @ 50 mls/hr IV.SIG UNSCH PRN PRN Reason: For Magnesium 1.2 - 1.6 mg/dL Potassium Chloride (Kcl 40 Meq Premix Inj) 40 meq in 100 mls @ 25 mls/hr IV.SIG Q2H PRN PRN Reason: For Potassium 2.8 - 3.2 mEq/L Potassium Chloride (Kcl 20 Meq Premix Inj) 20 meq in 100 mls @ 50 mls/hr IV.SIG Q2H PRN PRN Reason: For Potassium 3.3 - 3.5 mEq/L Potassium Chloride (Kcl 40 Meq Premix Inj) 40 meq in 100 mls @ 25 mls/hr IV.SIG UNSCH PRN PRN Reason: For Potassium 3.3 - 3.5 mEq/L Potassium Chloride (Kcl 20 Meq Premix Inj) 20 meq in 100 mls @ 50 mls/hr IV.SIG Q2H PRN PRN Reason: For Potassium 2.8 - 3.2 mEq/L Potassium Phosphate 30 mmol/ (Sodium Chloride) 260 mls @ 42 mls/hr IV.SIG UNSCH PRN PRN Reason: SEE LABEL COMMENTS Sodium Phosphate 30 mmol/ (Sodium Chloride) 260 mls @ 42 mls/hr IV.SIG UNSCH PRN PRN Reason: For Phosphorus < 2.5 mg/dL Insulin Aspart (Novolog Insulin Correctional Sugar Inj) 0 unit SQ ACHS [facility]; Protocol Last Admin: 03/23/18 10:09 Dose: Not Given Lactulose (Lactulose Liq) 30 ml PO DAILY PRN PRN Reason: SEVERE CONSITIPATION Magnesium Oxide (Mag-Ox) 800 mg PO UNSCH PRN PRN Reason: For Magnesium 1.2 - 1.6 mg/dL Methylprednisolone Sodium Succinate (Solumedrol Inj) 40 mg IV.PUSH Q6H [facility] Last Admin: 03/23/18 02:12 Dose: 40 mg Metoprolol Tartrate (Lopressor Inj) 5 mg IV.PUSH Q6H [facility] Last Admin: 03/23/18 05:43 Dose: 5 mg Miscellaneous Information ([facility] Ordered Lab Info) 0 each OTHER ONCE ONE Stop: 03/24/18 09:46 Morphine Sulfate (Morphine Inj) 2 mg IV.PUSH Q2H PRN PRN Reason: PAIN SCALE 6 TO 10 Ondansetron HCl (Zofran Inj) 4 mg IV.PUSH Q6H PRN PRN Reason: NAUSEA OR VOMITING Pantoprazole Sodium (Protonix Inj) 40 mg IV.PUSH DAILY [facility] Last Admin: 03/22/18 09:04 Dose: 40 mg Pharmacy Profile Note (Vancomycin Consult Pharmacy) 1 each OTHER UNSCH PRN PRN Reason: Pharmacy to dose Potassium Bicarb/Potassium Chloride (K-Lyte Cl Eff) 50 meq PO UNSCH PRN PRN Reason: For Potassium 3.3 - 3.5 mEq/L Potassium Phosphate (K-Phos Original) 2,000 mg PO UNSCH PRN PRN Reason: SEE LABEL COMMENTS Potassium Phosphate (K-Phos Original) 2,000 mg PO Q4H PRN PRN Reason: Phosphorus Less Than 2.5 mg/dL Senna/Docusate Sodium (Sofi-Colace) 1 tab PO BID [facility] Last Admin: 03/23/18 10:10 Dose: 1 tab Sennosides (Senokot) 17.2 mg PO Q12H PRN PRN Reason: Moderate Constipation Sodium Chloride (Ns Flush) 2 ml IV.FLUSH BID [facility] Last Admin: 03/23/18 10:10 Dose: 2 ml Sodium Chloride (Ns Flush) 2 ml IV.FLUSH PRN PRN PRN Reason: FLUSH AFTER USING IV ACCESS Spironolactone (Aldactone) 25 mg PO BID@0900,1800 [facility] Last Admin: 03/22/18 17:58 Dose: 25 mg Allergies Allergy/AdvReac Type Severity Reaction Status Date / Time Penicillins Allergy Intermediate Hives Verified 03/19/18 21:08 Sulfa (Sulfonamide Allergy Intermediate Anxiety Verified 03/18/18 14:16 Antibiotics) Physical Exam Vital signs: Vital Signs 03/22/18 11:00 03/22/18 11:01 03/22/18 11:29 Temperature Pulse Rate 89 76 90 Respiratory Rate 28 H 25 H 37 H Blood Pressure 138/74 127/63 Pulse Oximetry 92 L 96 03/22/18 12:00 03/22/18 13:00 03/22/18 14:00 Temperature 98.4 F Pulse Rate 90 93 H 86 Respiratory Rate 35 H 28 H 28 H Blood Pressure 131/83 116/66 114/65 Pulse Oximetry 95 86 L 98 03/22/18 15:00 03/22/18 15:07 03/22/18 16:00 Temperature 98.1 F Pulse Rate 86 92 H 93 H Respiratory Rate 8 L 24 27 H Blood Pressure 121/66 117/58 L Pulse Oximetry 97 98 03/22/18 17:00 03/22/18 18:00 03/22/18 19:00 Temperature Pulse Rate 91 H 94 H 89 Respiratory Rate 31 H 24 24 Blood Pressure 116/61 121/61 120/65 Pulse Oximetry 95 88 L 91 L 03/22/18 20:00 03/22/18 20:23 03/22/18 20:44 Temperature 98.6 F Pulse Rate 82 85 83 Respiratory Rate 23 33 H 21 Blood Pressure 116/59 L 113/60 Pulse Oximetry 97 89 L 03/22/18 20:45 03/22/18 21:00 03/22/18 22:00 Temperature Pulse Rate 82 86 Respiratory Rate 23 32 H Blood Pressure 103/57 L 116/59 L Pulse Oximetry 95 93 L 87 L 03/22/18 23:00 03/23/18 00:00 03/23/18 01:00 Temperature Pulse Rate 76 76 76 Respiratory Rate 23 22 23 Blood Pressure 124/67 122/65 134/75 Pulse Oximetry 95 90 L 91 L 03/23/18 02:00 03/23/18 02:03 03/23/18 03:44 Temperature Pulse Rate 76 Respiratory Rate 21 Blood Pressure 152/83 H Pulse Oximetry 95 94 L 96 03/23/18 04:00 03/23/18 04:03 03/23/18 06:00 Temperature Pulse Rate 73 74 71 Respiratory Rate 160 H 160 H Blood Pressure 123/68 Pulse Oximetry 94 L 92 L 03/23/18 08:25 Temperature Pulse Rate Respiratory Rate Blood Pressure Pulse Oximetry 95 Intake & Output 03/22/18 03/23/18 03/23/18 18:59 06:59 18:59 Intake Total 1150 / 1150 0 / 0 Output Total 1650 / 1650 1300 / 1300 Balance -500 / -500 -1300 / -1300 Weight 82 kg Intake: IV 250 / 250 Vancomycin Inj 1,000 MG In NS 250 / 250 Inj 250 ML @ 250 mls/hr IV.SIG Q12H [facility] Rx#:[id number] Oral 900 / 900 0 / 0 Output: Urine 1650 / 1650 1300 / 1300 Other: # Voids 3 Date of Last Bowel Movement 03/22/18 03/23/18 # Bowel Movements 1 7 # Incontinent Bowel Movements 7 Weight On Admission 70 kg Results 03/23/18 03:26 03/23/18 03:26 Cardiac Enzymes 03/22/18 03/22/18 03/23/18 Range/Units 02:39 02:39 03:26 AST 70 H 56 H (15-37) U/L Troponin I 0.02 (0.02-0.05) ng/mL B-Natriuretic Peptide 197 H (0-100) pg/mL Coagulation 03/22/18 03/23/18 03/23/18 Range/Units 02:39 00:50 03:26 PT 10.7 (9.8-11.6) sec B-Natriuretic Peptide 197 H (0-100) pg/mL CBC 03/22/18 03/23/18 Range/Units 02:39 03:26 WBC 9.1 10.7 (4.0-11.0) th/mm3 RBC 3.14 L 3.53 L (4.00-5.30) mil/mm3 Hgb 9.9 L 10.9 L (11.6-15.3) gm/dL Hct 29.0 L 32.4 L (35.0-46.0) % Plt Count 454 H 525 H (150-450) th/mm3 Neut # (Auto) 8.4 H (1.8-7.7) th/mm3 Lymph # (Auto) 1.7 (1.0-4.8) th/mm3 [place] # (Auto) 0.6 (0.0-0.9) th/mm3 Eos # (Auto) 0.0 (0.0-0.4) th/mm3 Baso # (Auto) 0.0 (0.0-0.2) th/mm3 Comprehensive Metabolic Panel 03/22/18 03/23/18 Range/Units 02:39 03:26 Sodium 140 139 (136-145) meq/L Potassium 3.7 3.4 L (3.5-5.1) meq/L Chloride 104 102 (98-107) meq/L Carbon Dioxide 27.0 28.7 (21.0-32.0) meq/L BUN 18 19 H (7-18) mg/dL Creatinine 0.65 0.74 (0.50-1.00) mg/dL Calcium 7.6 L 7.6 L (8.5-10.1) mg/dL AST 70 H 56 H (15-37) U/L ALT 108 H 107 H (10-53) U/L Alkaline Phosphatase 79 78 (45-117) U/L Total Protein 6.3 L D 6.6 (6.4-8.2) g/dL Albumin 2.1 L 2.3 L (3.4-5.0) g/dL Intake and Output 03/22/18 03/23/18 03/23/18 22:59 06:59 14:59 Intake Total 900 / 900 0 / 0 Output Total 1650 / 1650 1300 / 1300 Balance -750 / -750 -1300 / -1300 Intake: Oral 900 / 900 0 / 0 Output: Urine 1650 / 1650 1300 / 1300 Other: # Voids 3 Date of Last Bowel Movement 03/22/18 03/23/18 # Bowel Movements 1 7 # Incontinent Bowel Movements 7 Weight 82 kg Weight On Admission 70 kg - Imaging and Cardiology Imaging: Impressions Chest X-Ray 03/22/18 00:00 CONCLUSION: 1. No significant interval change. 2. Persistent patchy diffuse bilateral airspace disease. Chest X-Ray 03/23/18 08:00 CONCLUSION: 1. No significant interval change. 2. Persistent diffuse patchy bilateral airspace disease. Assessment and Plan - Assessment (1) NSTEMI (non-ST elevated myocardial infarction) Code(s): I21.4 - Non-ST elevation (NSTEMI) myocardial infarction Status: Acute (2) CHF (congestive heart failure) Code(s): I50.9 - Heart failure, unspecified Status: Acute (3) Hypoxia Code(s): R09.02 - Hypoxemia Status: Acute (4) Dyspnea Code(s): R06.00 - Dyspnea, unspecified Status: Acute - Plan 1.) NSTEMI - rhc/lhc scheduled for 03/22/18 if requiring less oxygen, continue aldactone, f/u bnp, continue aspirin; hypoxia disproportionate to degree of chf , ef=50%, bnp<200, suggesting primary pulmonary etiology to hypoxia, still requiring 55% O2, cath when less hypoxic, d/w patient and Dr Park
[2018-03-23] MEDS: Budesonide-Formoterol 160/4.5 MCG 6 GM Inhaler INH SCH ×2 (11:13→20:33)
[2018-03-23] MEDS: Spironolactone 25 MG Tablet PO SCH ×2 (11:13→17:58)
[2018-03-23] MEDS: Pantoprazole Inj 40 MG Vial IV.PUSH SCH (11:13)
--- NOTE | 2018-03-23 11:25 | P.PNPL ---
Subjective Interval history: 58 YOWF with br asthma, bilat diffuse infilt, hypoxic RF On High flow 02, [id number] Desaturates on taking mask no fever Cough, not able to expactorate Up in chair Physical Exam Vital signs: Vital Signs 03/22/18 11:29 03/22/18 12:00 03/22/18 13:00 Temperature 98.4 F Pulse Rate 90 90 93 H Respiratory Rate 37 H 35 H 28 H Blood Pressure 127/63 131/83 116/66 Pulse Oximetry 96 95 86 L 03/22/18 14:00 03/22/18 15:00 03/22/18 15:07 Temperature Pulse Rate 86 86 92 H Respiratory Rate 28 H 8 L 24 Blood Pressure 114/65 121/66 Pulse Oximetry 98 97 03/22/18 16:00 03/22/18 17:00 03/22/18 18:00 Temperature 98.1 F Pulse Rate 93 H 91 H 94 H Respiratory Rate 27 H 31 H 24 Blood Pressure 117/58 L 116/61 121/61 Pulse Oximetry 98 95 88 L 03/22/18 19:00 03/22/18 20:00 03/22/18 20:23 Temperature 98.6 F Pulse Rate 89 82 85 Respiratory Rate 24 23 33 H Blood Pressure 120/65 116/59 L 113/60 Pulse Oximetry 91 L 97 89 L 03/22/18 20:44 03/22/18 20:45 03/22/18 21:00 Temperature Pulse Rate 83 82 Respiratory Rate 21 23 Blood Pressure 103/57 L Pulse Oximetry 95 93 L 03/22/18 22:00 03/22/18 23:00 03/23/18 00:00 Temperature Pulse Rate 86 76 76 Respiratory Rate 32 H 23 22 Blood Pressure 116/59 L 124/67 122/65 Pulse Oximetry 87 L 95 90 L 03/23/18 01:00 03/23/18 02:00 03/23/18 02:03 Temperature Pulse Rate 76 76 Respiratory Rate 23 21 Blood Pressure 134/75 152/83 H Pulse Oximetry 91 L 95 94 L 03/23/18 03:44 03/23/18 04:00 03/23/18 04:03 Temperature Pulse Rate 73 74 Respiratory Rate 160 H 160 H Blood Pressure 123/68 Pulse Oximetry 96 94 L 92 L 03/23/18 06:00 03/23/18 08:25 Temperature Pulse Rate 71 Respiratory Rate Blood Pressure Pulse Oximetry 95 Intake & Output 03/22/18 03/23/18 03/23/18 18:59 06:59 18:59 Intake Total 1150 / 1150 0 / 0 Output Total 1650 / 1650 1300 / 1300 Balance -500 / -500 -1300 / -1300 Weight 82 kg Intake: IV 250 / 250 Vancomycin Inj 1,000 MG In NS 250 / 250 Inj 250 ML @ 250 mls/hr IV.SIG Q12H J[facility] Rx#:[id number] Oral 900 / 900 0 / 0 Output: Urine 1650 / 1650 1300 / 1300 Other: # Voids 3 Date of Last Bowel Movement 03/22/18 03/23/18 # Bowel Movements 1 7 # Incontinent Bowel Movements 7 Weight On Admission 70 kg GENERAL: MBMN, mild sob SKIN: Warm and dry. HEAD: Normocephalic. EYES: No scleral icterus. No injection or drainage. NECK: Supple, trachea midline. No JVD or lymphadenopathy. CARDIOVASCULAR: Regular rate and rhythm without murmurs, gallops, or rubs. RESPIRATORY: Breath sounds equal bilaterally. No accessory muscle use. GASTROINTESTINAL: Abdomen soft, non-tender, nondistended. MUSCULOSKELETAL: No cyanosis, or edema. BACK: Nontender without obvious deformity. No CVA tenderness. Assessment and Plan - Plan IMPRESSION: 1. Hypoxic respiratory failure. 2. Bilateral diffuse lung infiltrates, possibly viral pneumonia, atypical pneumonia or inflammatory process. 3. Non-ST elevation myocardial infarction. 4. History of bronchial asthma. PLAN: IV Solumedrol Cont Abx, ID following Supplement 02 with high flow 02 Titerate 02 to keep sat >90% Use Acapella and IS Tessalon 200 mg tid. Cardiac cath on hold
--- NOTE | 2018-03-23 11:48 | P.PNID ---
Subjective Remarks: Patient states that she feels a little better. Still has dry cough. Notes discomfort in her abdomen. Periodic O2 desaturation. On O2 via nasal canula. Afebrile. No chills. Cultures are negative. WBC normal. Mycoplasma IgG positive. 58-year-old white female who presented to the emergency department with respiratory distress. Past Medical History: PAST MEDICAL HISTORY: Bronchitis, gastroesophageal reflux disease, chronic kidney disease stage II, hyperlipidemia, bunionectomy. Allergies/Adverse Reactions: Allergies Penicillins Allergy (Intermediate, Verified 03/19/18 21:08) Hives Sulfa (Sulfonamide Antibiotics) Allergy (Intermediate, Verified 03/18/18 14:16) Anxiety Objective Vital Signs 03/22/18 12:00 03/22/18 13:00 03/22/18 14:00 Temperature 98.4 F Pulse Rate 90 93 H 86 Respiratory Rate 35 H 28 H 28 H Blood Pressure 131/83 116/66 114/65 Pulse Oximetry 95 86 L 98 03/22/18 15:00 03/22/18 15:07 03/22/18 16:00 Temperature 98.1 F Pulse Rate 86 92 H 93 H Respiratory Rate 8 L 24 27 H Blood Pressure 121/66 117/58 L Pulse Oximetry 97 98 03/22/18 17:00 03/22/18 18:00 03/22/18 19:00 Temperature Pulse Rate 91 H 94 H 89 Respiratory Rate 31 H 24 24 Blood Pressure 116/61 121/61 120/65 Pulse Oximetry 95 88 L 91 L 03/22/18 20:00 03/22/18 20:23 03/22/18 20:44 Temperature 98.6 F Pulse Rate 82 85 83 Respiratory Rate 23 33 H 21 Blood Pressure 116/59 L 113/60 Pulse Oximetry 97 89 L 03/22/18 20:45 03/22/18 21:00 03/22/18 22:00 Temperature Pulse Rate 82 86 Respiratory Rate 23 32 H Blood Pressure 103/57 L 116/59 L Pulse Oximetry 95 93 L 87 L 03/22/18 23:00 03/23/18 00:00 03/23/18 01:00 Temperature Pulse Rate 76 76 76 Respiratory Rate 23 22 23 Blood Pressure 124/67 122/65 134/75 Pulse Oximetry 95 90 L 91 L 03/23/18 02:00 03/23/18 02:03 03/23/18 03:44 Temperature Pulse Rate 76 Respiratory Rate 21 Blood Pressure 152/83 H Pulse Oximetry 95 94 L 96 03/23/18 04:00 03/23/18 04:03 03/23/18 06:00 Temperature Pulse Rate 73 74 71 Respiratory Rate 160 H 160 H Blood Pressure 123/68 Pulse Oximetry 94 L 92 L 03/23/18 08:25 Temperature Pulse Rate Respiratory Rate Blood Pressure Pulse Oximetry 95 Intake & Output 03/22/18 03/23/18 03/23/18 18:59 06:59 18:59 Intake Total 1150 / 1150 0 / 0 Output Total 1650 / 1650 1300 / 1300 Balance -500 / -500 -1300 / -1300 Weight 82 kg Intake: IV 250 / 250 Vancomycin Inj 1,000 MG In NS 250 / 250 Inj 250 ML @ 250 mls/hr IV.SIG Q12H [facility]ENA Rx#:[id number] Oral 900 / 900 0 / 0 Output: Urine 1650 / 1650 1300 / 1300 Other: # Voids 3 Date of Last Bowel Movement 03/22/18 03/23/18 # Bowel Movements 1 7 # Incontinent Bowel Movements 7 Weight On Admission 70 kg 03/18/18 14:55 Blood - Peripheral Aerobic Blood Culture - Final No growth in 5 days 03/18/18 14:55 Blood - Peripheral Anaerobic Blood Culture - Final No growth in 5 days 03/18/18 14:50 Blood - Peripheral Aerobic Blood Culture - Final No growth in 5 days 03/18/18 14:50 Blood - Peripheral Anaerobic Blood Culture - Final No growth in 5 days 03/19/18 13:00 Clean Catch Urine Urine Culture - Final No growth in 48 hours 03/19/18 13:00 Urine - Clean Catch Urine Legionella Antigen - Final Presumptive negative for Legionella pneumophila serogroup 1 antigen in urine, suggesting no recent or recurrent infection. Infection due to Legionella cannot be ruled out since other serogroups and species may cause disease, antigen may not be present in urine in early infection, and the level of antigen present in the urine may be below the detection limit of the test. Lab - Hematology Results 03/22/18 03/23/18 02:39 03:26 WBC 9.1 10.7 RBC 3.14 L 3.53 L Hgb 9.9 L 10.9 L Hct 29.0 L 32.4 L MCV 92.3 91.9 MCH 31.4 30.9 MCHC 34.0 33.6 RDW 14.3 14.5 Plt Count 454 H 525 H MPV 7.9 7.6 Neut % (Auto) 79.0 H Lymph % (Auto) 15.5 [place]k % (Auto) 5.3 Eos % (Auto) 0.0 Baso % (Auto) 0.2 Neut # (Auto) 8.4 H Lymph # (Auto) 1.7 [place] # (Auto) 0.6 Eos # (Auto) 0.0 Baso # (Auto) 0.0 WBC Differential . Differential Comment Auto diff final Lab - Chemistry Results 03/21/18 03/21/18 03/22/18 18:16 19:54 02:39 Sodium Potassium Chloride Carbon Dioxide Anion Gap BUN Creatinine Estimated GFR POC Glucose 141 H 92 Random Glucose Hemoglobin A1c Calcium Phosphorus Magnesium Total Bilirubin AST ALT Alkaline Phosphatase Troponin I B-Natriuretic Peptide 197 H Total Protein Albumin TSH Free T4 03/22/18 03/22/18 03/22/18 02:39 08:03 10:42 Sodium 140 Potassium 3.7 Chloride 104 Carbon Dioxide 27.0 Anion Gap 9 BUN 18 Creatinine 0.65 Estimated GFR Greater than 89 POC Glucose 126 H Random Glucose 119 H Hemoglobin A1c 5.9 Calcium 7.6 L Phosphorus Magnesium Total Bilirubin 0.2 AST 70 H ALT 108 H Alkaline Phosphatase 79 Troponin I 0.02 B-Natriuretic Peptide Total Protein 6.3 L D Albumin 2.1 L TSH Free T4 03/22/18 03/22/18 03/22/18 10:42 10:42 12:48 Sodium Potassium Chloride Carbon Dioxide Anion Gap BUN Creatinine Estimated GFR POC Glucose 129 H Random Glucose Hemoglobin A1c Calcium Phosphorus Magnesium Total Bilirubin AST ALT Alkaline Phosphatase Troponin I B-Natriuretic Peptide Total Protein Albumin TSH 0.788 Free T4 1.08 03/22/18 03/22/18 03/23/18 17:59 21:17 03:26 Sodium 139 Potassium 3.4 L Chloride 102 Carbon Dioxide 28.7 Anion Gap 8 BUN 19 H Creatinine 0.74 Estimated GFR 81 L POC Glucose 132 H 145 H Random Glucose 131 H Hemoglobin A1c Calcium 7.6 L Phosphorus 3.3 Magnesium 2.1 Total Bilirubin 0.3 AST 56 H ALT 107 H Alkaline Phosphatase 78 Troponin I B-Natriuretic Peptide Total Protein 6.6 Albumin 2.3 L TSH Free T4 09/28/18 08:06 Sodium Potassium Chloride Carbon Dioxide Anion Gap BUN Creatinine Estimated GFR POC Glucose 112 H Random Glucose Hemoglobin A1c Calcium Phosphorus Magnesium Total Bilirubin AST ALT Alkaline Phosphatase Troponin I B-Natriuretic Peptide Total Protein Albumin TSH Free T4 Imaging: ITS Impressions Abdomen X-Ray 03/18/18 00:00 CONCLUSION: Negative examination. Venous Doppler Study 03/18/18 00:00 CONCLUSION: 1. The study is negative for bilateral lower extremity deep venous thrombosis. Chest CTA 03/18/18 16:02 CONCLUSION: 1. There is no evidence of PE for technique. 2. Extensive airspace process most likely inflammatory and pneumonia, possibility of pulmonary edema is not excluded. 3. Tiny bilateral pleural effusions with nonspecific most likely benign lymph nodes within the mediastinum. Chest X-Ray 03/23/18 08:00 CONCLUSION: 1. No significant interval change. 2. Persistent diffuse patchy bilateral airspace disease. Physical Exam: PHYSICAL EXAMINATION: GENERAL: Distressed by cough. Awake and alert and oriented. HEENT: Head is atraumatic. Extraocular movements are grossly intact. Pupils reactive to light. No icterus. Oropharynx, moist mucosa. No visible lesions. NECK: Supple without adenopathy. LUNGS: Decreased breath sounds throughout. No rhonchi. HEART: Regular rate and rhythm without murmurs, rubs or gallops. ABDOMEN: Bowel sounds present. Soft, obese, nontender. EXTREMITIES: No clubbing, cyanosis or edema. SKIN: No rash. NEUROLOGIC: No gross focal findings. PSYCH: Calm and cooperative. Assessment and Plan - Plan IMPRESSION: Bilateral pulmonary infiltrates. Questionable etiology. The patient presented with fever, nausea, and dyspnea on exertion. Possible atypical versus viral pneumonia. Also, potentially this could be congestive heart failure or other inflammatory condition. RECOMMENDATIONS: 1. Continue vancomycin. 2. Continue azithromycin. 3. Continue Levaquin. 4. Obtain sputum culture if coughs she up any sputum. 5. Monitor clinical status.
[2018-03-23 15:26] LABS: Anti-Nuclear Antibody Pattern Speckled
[2018-03-23] MEDS: Azithromycin Inj 500 MG in Sodium Chlor 0.9% Inj 250 ML IV.SIG SCH (16:40)
[2018-03-23] MEDS: Vancomycin Inj 1,500 MG in Sodium Chlor 0.9% Inj 500 ML IV.SIG SCH (22:47)
[2018-03-24] MEDS: Heparin - SQ 10,000 UNITS/ML Vial SQ SCH ×3 (02:24→19:14)
[2018-03-24] MEDS: MethylPREDNISolone Sod Succinate Inj 40 MG/ML Vial IV.PUSH SCH ×4 (02:25→21:13)
[2018-03-24 04:57] LABS: Baso % (Auto) 0.2 % (0.0-2.0); Eos % (Auto) 0.1 % (0.0-4.0); Hematocrit 32.2 % (35.0-46.0); Hemoglobin 10.9 gm/dL (11.6-15.3); Lymph # (Auto) 1.2 th/mm3 (1.0-4.8); Mean Corpuscular HGB Conc 33.7 % (32.0-36.0); Mean Corpuscular Hemoglobin 31.3 pg (27.0-34.0); Mean Corpuscular Volume 92.9 fL (80.0-100.0); Mean Platelet Volume 7.6 fL (7.0-11.0); Mono # (Auto) 0.6 th/mm3 (0.0-0.9); Mono % (Auto) 6.2 % (0.0-8.0); Neut # (Auto) 7.5 th/mm3 (1.8-7.7); Neut % (Auto) 80.5 % (16.0-70.0); Platelet Count 498 th/mm3 (150-450); Red Blood Count 3.47 mil/mm3 (4.00-5.30); Red Cell Distribution Width 14.3 % (11.6-17.2); White Blood Count 9.3 th/mm3 (4.0-11.0)
[2018-03-24 05:26] LABS: Anion Gap 10 meq/L (5-15)
[2018-03-24 05:27] LABS: Alanine Aminotransferase 100 U/L (10-53); Albumin 2.2 g/dL (3.4-5.0); Alkaline Phosphatase 76 U/L (45-117); Aspartate Aminotransferase 54 U/L (15-37); Blood Urea Nitrogen 25 mg/dL (7-18); Calcium 7.3 mg/dL (8.5-10.1); Carbon Dioxide 26.8 meq/L (21.0-32.0); Chloride 103 meq/L (98-107); Glomerular Filtration Rate Greater Than 89 mL/min (>89); Glucose,Random 128 mg/dL (74-106); Magnesium 2.2 mg/dL (1.5-2.5); Phosphorus 3.6 mg/dL (2.5-4.9); Potassium 3.9 meq/L (3.5-5.1); Sodium 140 meq/L (136-145); Total Protein 6.1 g/dL (6.4-8.2)
[2018-03-24] MEDS: Benzonatate 100 MG Capsule PO SCH ×4 (05:34→22:00)
[2018-03-24] MEDS: Metoprolol Inj 5 MG/5 ML Vial IV.PUSH SCH ×3 (05:34→18:04)
[2018-03-24 07:21] LABS: Lymphocytes 14 % (9-44); Metamyelocytes 1 % (0-1); Monocytes 5 % (0-8); Myelocytes 1 % (0-0)
[2018-03-24 07:22] LABS: Platelet Morphology Normal (Normal); RBC Morphology Normal (Normal)
--- NOTE | 2018-03-24 07:23 | P.PNCA ---
Subjective Interval history: alert in nad on high flow oxygen Medications and Allergies Active Medications: Active Medications Acetaminophen (Tylenol) 650 mg PO Q6H PRN PRN Reason: Fever >100f Hydrocodone Bitart/Acetaminophen ([place] 5/325) 1 tab PO Q4H PRN PRN Reason: PAIN SCALE 1 TO 5 Last Admin: 03/21/18 23:57 Dose: 1 tab Al Hydroxide/Mg Hydroxide (Milk Of [place]ray[place] Liq) 30 ml PO Q12H PRN PRN Reason: Mild Constipation Albuterol (Albuterol Neb (Prn)) 2.5 mg NEB Q2HR NEB PRN PRN Reason: SHORTNESS OF BREATH/WHEEZING Aspirin (Aspirin Chew) 81 mg PO DAILY [facility] Last Admin: 03/23/18 11:33 Dose: 81 mg Atorvastatin Calcium (Lipitor) 40 mg PO HS [facility] Last Admin: 03/23/18 20:31 Dose: 40 mg Benzonatate (Tessalon Perles) 200 mg PO Q8HR [facility] Last Admin: 03/24/18 05:34 Dose: 200 mg Bisacodyl (Dulcolax Supp) 10 mg RECTAL DAILY PRN PRN Reason: SEVERE CONSITIPATION Budesonide/Formoterol Fumarate (Symbicort 160/4.5 Mcg Inh) 2 puff INH BID [facility] Last Admin: 03/23/18 20:33 Dose: 2 puff Dextrose (D50w Vial) 50 ml IV.PUSH UNSCH PRN PRN Reason: PER HYPOGLYCEMIA PROTOCOL Furosemide (Lasix Inj) 40 mg IV.PUSH BID@0900,1800 [facility] Last Admin: 03/23/18 17:58 Dose: 40 mg Glucagon (Glucagon Inj) 1 mg OTHER PRN PRN PRN Reason: for Hypoglycemia Protocol Guaifenesin (Mucinex Er) 600 mg PO BID [facility] Last Admin: 03/23/18 20:31 Dose: 600 mg Heparin Sodium (Porcine) (Heparin Inj) 5,000 units SQ Q8H [facility] Last Admin: 03/24/18 02:24 Dose: 5,000 units Azithromycin 500 mg/ Sodium (Chloride) 250 mls @ 250 mls/hr IV.SIG Q24H [facility] Last Admin: 03/23/18 16:40 Dose: 150 mls/hr Magnesium Sulfate 2 gm/ Sodium (Chloride) 100 mls @ 50 mls/hr IV.SIG UNSCH PRN PRN Reason: For Magnesium 1.2 - 1.6 mg/dL Levofloxacin/Dextrose (Levaquin 750 Mg Premix Inj) 150 mls @ 100 mls/hr IV.SIG Q24H [facility] Last Admin: 03/23/18 13:33 Dose: 100 mls/hr Magnesium Sulfate 4 gm/ Sodium (Chloride) 100 mls @ 50 mls/hr IV.SIG UNSCH PRN PRN Reason: For Magnesium 0.9 - 1.1 mg/dL Magnesium Sulfate 2 gm/ Sodium (Chloride) 100 mls @ 50 mls/hr IV.SIG UNSCH PRN PRN Reason: For Magnesium 1.2 - 1.6 mg/dL Potassium Chloride (Kcl 40 Meq Premix Inj) 40 meq in 100 mls @ 25 mls/hr IV.SIG Q2H PRN PRN Reason: For Potassium 2.8 - 3.2 mEq/L Potassium Chloride (Kcl 20 Meq Premix Inj) 20 meq in 100 mls @ 50 mls/hr IV.SIG Q2H PRN PRN Reason: For Potassium 3.3 - 3.5 mEq/L Potassium Chloride (Kcl 40 Meq Premix Inj) 40 meq in 100 mls @ 25 mls/hr IV.SIG UNSCH PRN PRN Reason: For Potassium 3.3 - 3.5 mEq/L Potassium Chloride (Kcl 20 Meq Premix Inj) 20 meq in 100 mls @ 50 mls/hr IV.SIG Q2H PRN PRN Reason: For Potassium 2.8 - 3.2 mEq/L Potassium Phosphate 30 mmol/ (Sodium Chloride) 260 mls @ 42 mls/hr IV.SIG UNSCH PRN PRN Reason: SEE LABEL COMMENTS Sodium Phosphate 30 mmol/ (Sodium Chloride) 260 mls @ 42 mls/hr IV.SIG UNSCH PRN PRN Reason: For Phosphorus < 2.5 mg/dL Vancomycin HCl 1,500 mg/ (Sodium Chloride) 515 mls @ 250 mls/hr IV.SIG Q12H [facility] Last Infusion: 03/24/18 02:37 Dose: Infused Insulin Aspart (Novolog Insulin Correctional Sugar Inj) 0 unit SQ ACHS [facility]; Protocol Last Admin: 03/23/18 20:44 Dose: Not Given Lactulose (Lactulose Liq) 30 ml PO DAILY PRN PRN Reason: SEVERE CONSITIPATION Magnesium Oxide (Mag-Ox) 800 mg PO UNSCH PRN PRN Reason: For Magnesium 1.2 - 1.6 mg/dL Methylprednisolone Sodium Succinate (Solumedrol Inj) 40 mg IV.PUSH Q6H [facility] Last Admin: 03/24/18 02:25 Dose: 40 mg Metoprolol Tartrate (Lopressor Inj) 5 mg IV.PUSH Q6H [facility] Last Admin: 03/24/18 05:34 Dose: 5 mg Miscellaneous Information ([facility] Ordered Lab Info) 0 each OTHER ONCE ONE Stop: 03/25/18 09:46 Morphine Sulfate (Morphine Inj) 2 mg IV.PUSH Q2H PRN PRN Reason: PAIN SCALE 6 TO 10 Ondansetron HCl (Zofran Inj) 4 mg IV.PUSH Q6H PRN PRN Reason: NAUSEA OR VOMITING Pantoprazole Sodium (Protonix Inj) 40 mg IV.PUSH DAILY [facility] Last Admin: 03/23/18 11:13 Dose: 40 mg Pharmacy Profile Note (Vancomycin Consult Pharmacy) 1 each OTHER UNSCH PRN PRN Reason: Pharmacy to dose Potassium Bicarb/Potassium Chloride (K-Lyte Cl Eff) 50 meq PO UNSCH PRN PRN Reason: For Potassium 3.3 - 3.5 mEq/L Last Admin: 03/23/18 18:18 Dose: 50 meq Potassium Phosphate (K-Phos Original) 2,000 mg PO UNSCH PRN PRN Reason: SEE LABEL COMMENTS Potassium Phosphate (K-Phos Original) 2,000 mg PO Q4H PRN PRN Reason: Phosphorus Less Than 2.5 mg/dL Senna/Docusate Sodium (Sofi-Colace) 1 tab PO BID [facility] Last Admin: 03/23/18 20:31 Dose: 1 tab Sennosides (Senokot) 17.2 mg PO Q12H PRN PRN Reason: Moderate Constipation Sodium Chloride (Ns Flush) 2 ml IV.FLUSH BID [facility] Last Admin: 03/23/18 20:32 Dose: 2 ml Sodium Chloride (Ns Flush) 2 ml IV.FLUSH PRN PRN PRN Reason: FLUSH AFTER USING IV ACCESS Spironolactone (Aldactone) 25 mg PO BID@0900,1800 [facility] Last Admin: 03/23/18 17:58 Dose: 25 mg Allergies Allergy/AdvReac Type Severity Reaction Status Date / Time Penicillins Allergy Intermediate Hives Verified 03/19/18 21:08 Sulfa (Sulfonamide Allergy Intermediate Anxiety Verified 03/18/18 14:16 Antibiotics) Physical Exam Vital signs: Vital Signs 03/23/18 08:00 03/23/18 08:25 03/23/18 09:03 Temperature 98.6 F Pulse Rate 74 78 Respiratory Rate 27 H 36 H Blood Pressure 116/67 137/86 Pulse Oximetry 93 L 95 90 L 03/23/18 10:00 03/23/18 12:00 03/23/18 13:24 Temperature 98.6 F Pulse Rate 70 75 83 Respiratory Rate 20 17 33 H Blood Pressure 105/68 Pulse Oximetry 93 L 94 L 95 03/23/18 14:00 03/23/18 15:00 03/23/18 16:00 Temperature 97.6 F Pulse Rate 82 83 75 Respiratory Rate 31 H 21 26 H Blood Pressure 114/61 117/67 118/62 Pulse Oximetry 93 L 97 98 03/23/18 17:00 03/23/18 18:00 03/23/18 19:00 Temperature Pulse Rate 77 84 82 Respiratory Rate 22 24 23 Blood Pressure 113/67 116/68 119/63 Pulse Oximetry 98 92 L 90 L 03/23/18 19:55 03/23/18 20:00 03/23/18 20:33 Temperature 98.7 F Pulse Rate 77 80 Respiratory Rate 9 L 27 H Blood Pressure 124/66 Pulse Oximetry 96 95 97 03/23/18 21:00 03/23/18 22:00 03/23/18 22:48 Temperature Pulse Rate 75 80 80 Respiratory Rate 25 H 19 19 Blood Pressure 123/66 119/73 129/72 Pulse Oximetry 95 94 L 93 L 03/23/18 23:02 03/24/18 00:00 03/24/18 01:00 Temperature 98.7 F Pulse Rate 78 77 72 Respiratory Rate 36 H 28 H 25 H Blood Pressure 124/60 115/62 115/59 L Pulse Oximetry 91 L 93 L 95 03/24/18 02:00 03/24/18 03:00 03/24/18 04:00 Temperature 98.9 F Pulse Rate 69 70 67 Respiratory Rate 20 21 18 Blood Pressure 125/66 118/62 122/67 Pulse Oximetry 95 92 L 96 03/24/18 05:00 03/24/18 06:00 Temperature Pulse Rate 67 67 Respiratory Rate 148 H Blood Pressure 131/63 Pulse Oximetry 90 L Intake & Output 03/23/18 03/24/18 03/24/18 18:59 06:59 18:59 Intake Total 0 / 0 995 / 995 Output Total 1800 / 1800 1000 / 1000 Balance -1800 / -1800 -5 / -5 Weight 80 kg Intake: IV 515 / 515 Vancomycin Inj 1,500 MG In NS 515 / 515 Inj 500 ML @ 250 mls/hr IV.SIG Q12H [facility] Rx#:[id number] Oral 0 / 0 480 / 480 Output: Urine 1800 / 1800 1000 / 1000 Other: # Voids 6 4 Date of Last Bowel Movement 03/23/18 03/24/18 # Bowel Movements 5 1 # Incontinent Bowel Movements 0 Results 03/24/18 03:34 03/24/18 03:34 Cardiac Enzymes 03/23/18 03/24/18 03/24/18 Range/Units 03:26 03:34 03:34 AST 56 H 54 H (15-37) U/L Troponin I Less than 0.02 L (0.02-0.05) ng/mL B-Natriuretic Peptide 68 (0-100) pg/mL Coagulation 03/23/18 03/23/18 03/24/18 Range/Units 00:50 03:26 03:34 PT 10.7 (9.8-11.6) sec B-Natriuretic Peptide 68 (0-100) pg/mL CBC 03/23/18 03/24/18 Range/Units 03:26 03:34 WBC 10.7 9.3 (4.0-11.0) th/mm3 RBC 3.53 L 3.47 L (4.00-5.30) mil/mm3 Hgb 10.9 L 10.9 L (11.6-15.3) gm/dL Hct 32.4 L 32.2 L (35.0-46.0) % Plt Count 525 H 498 H (150-450) th/mm3 Neut # (Auto) 8.4 H 7.5 (1.8-7.7) th/mm3 Lymph # (Auto) 1.7 1.2 (1.0-4.8) th/mm3 Harmon # (Auto) 0.6 0.6 (0.0-0.9) th/mm3 Eos # (Auto) 0.0 0.0 (0.0-0.4) th/mm3 Baso # (Auto) 0.0 0.0 (0.0-0.2) th/mm3 Comprehensive Metabolic Panel 03/23/18 03/24/18 Range/Units 03:26 03:34 Sodium 139 140 (136-145) meq/L Potassium 3.4 L 3.9 (3.5-5.1) meq/L Chloride 102 103 (98-107) meq/L Carbon Dioxide 28.7 26.8 (21.0-32.0) meq/L BUN 19 H 25 H (7-18) mg/dL Creatinine 0.74 0.64 (0.50-1.00) mg/dL Calcium 7.6 L 7.3 L* (8.5-10.1) mg/dL AST 56 H 54 H (15-37) U/L ALT 107 H 100 H (10-53) U/L Alkaline Phosphatase 78 76 (45-117) U/L Total Protein 6.6 6.1 L (6.4-8.2) g/dL Albumin 2.3 L 2.2 L (3.4-5.0) g/dL Intake and Output 03/23/18 03/24/18 03/24/18 22:59 06:59 14:59 Intake Total 0 / 0 995 / 995 Output Total 1800 / 1800 1000 / 1000 Balance -1800 / -1800 -5 / -5 Intake: IV 515 / 515 Vancomycin Inj 1,500 MG In NS 515 / 515 Inj 500 ML @ 250 mls/hr IV.SIG Q12H [facility] Rx#:[id number] Oral 0 / 0 480 / 480 Output: Urine 1800 / 1800 1000 / 1000 Other: # Voids 6 4 Date of Last Bowel Movement 03/23/18 03/24/18 # Bowel Movements 5 1 # Incontinent Bowel Movements 0 Weight 80 kg - Imaging and Cardiology Imaging: Impressions Chest X-Ray 03/23/18 08:00 CONCLUSION: 1. No significant interval change. 2. Persistent diffuse patchy bilateral airspace disease. Assessment and Plan - Assessment (1) NSTEMI (non-ST elevated myocardial infarction) Code(s): I21.4 - Non-ST elevation (NSTEMI) myocardial infarction Status: Acute (2) CHF (congestive heart failure) Code(s): I50.9 - Heart failure, unspecified Status: Acute (3) Hypoxia Code(s): R09.02 - Hypoxemia Status: Acute (4) Dyspnea Code(s): R06.00 - Dyspnea, unspecified Status: Acute - Plan 1.) NSTEMI - rhc/c scheduled for 03/22/18 if requiring less oxygen, continue aldactone, f/u bnp, continue aspirin; hypoxia disproportionate to degree of chf , ef=50%, bnp<200, suggesting primary pulmonary etiology to hypoxia, still requiring 55% O2, cath when less hypoxic, repeat troponin and bnp wnl 03/24/18
--- NOTE | 2018-03-24 08:31 | P.PN ---
Subjective Interval history: optimization specialist notes: This is a 58-year-old female. Date of admission 03/18/2018. Past medical history includes gastroesophageal reflux disease, seasonal asthma, elevated BMI, hyperlipidemia untreated and chronic kidney disease. Today, she presents to [place] ED for evaluation of 1 week history of SOB. She is originally from [facility]. Her chief complaint consists of shortness of breath, chest tightness without radiation to the neck, down left arm or back, persistent nausea without emesis, abdominal pain or diarrhea. Her original temperature was 102 Fahrenheit according to patient, patient was evaluated in [place]. At that time, she states the chest x-ray was "clear. " At that time the provider suspected that she was having asthma symptoms. She was prescribed albuterol nebulizers and sent home. She is normally on an albuterol inhaler at home along with ranitidine and intermittently intermixing with PPI for gastroesophageal reflux disease. She states that her respiratory and nausea symptoms became acutely worse 2 days ago after flying to [facility] from [place]. She states that she is unable to walk "even a few feet" without GALINDO. Lying flat also makes symptoms worse. Chest x-ray revealed diffuse pulmonary fluffy infiltrates bilaterally.. EKG revealed sinus tachycardia with normal MD, QRS and QT intervals. Troponin was 0.55. She was seen in consultation by cardiology who recommended possible heart catheterization in the a.m. Will trend troponins. She is currently undergoing a CT angiogram of the chest. She received piperacillin/tazobactam and vancomycin in the ED. Her white blood cell count is normal. Her lactate was normal. Her d-dimer was slightly elevated. She complains of some slightly increased swelling in her bilateral lower extremities. She was placed on 100% nonrebreather with saturations currently 99-100%. At the present time she is able to speak complete sentences. Denies cough. 03/19: T-max 102.8. Currently afebrile. Currently on partial nonrebreather 10 L satting 92-99%. Pro-calcitonin 0.12. Does not appear volume overloaded on examination. Patient has a dry nonproductive cough. Denies chest pain.. Will give 40 mg furosemide IV 1 now 03/20: No fever reported today sitting at the side of the bed. Remains on partial nonrebreather to keep oxygen saturation more than 90%. Bilateral crackles on exam. Chest x-ray shows extensive bilateral infiltrates 03/21: Continues to require partial nonrebreather to keep the saturation above 90 %. Clinical exam remains same with bilateral crackles. BNP trending down, I will start scheduled IV Lasix to improve hypoxia. Cardiac catheterization is currently placed on hold, due to persistent hypoxia Hospitalist Notes: 03-22 ON HIGH FLOW OXYGEN TO CARDIAC CATH LATER TODAY LESS SOB, NO CHEST PAIN 03-23 DID NOT HAVE CATH YET STILL ON HIGH FLOW OXYGEN LESS SOB, NO CHEST PAIN CONTINUE ANTIBIOTICS PER ID 03/24: Seen in her bedroom in the presence of nurse Miss Leal, no nausea, vomit or diarrhea, still requiring high Oxygen demand between 15 and 20 L/min. probable will have Cardiac cath next week. states started with vaginal cream Clotrimazole and follow. Physical Exam Vital signs: Vital Signs 03/23/18 08:25 03/23/18 09:03 03/23/18 10:00 Temperature Pulse Rate 78 70 Respiratory Rate 36 H 20 Blood Pressure 137/86 Pulse Oximetry 95 90 L 93 L 03/23/18 12:00 03/23/18 13:24 03/23/18 14:00 Temperature 98.6 F Pulse Rate 75 83 82 Respiratory Rate 17 33 H 31 H Blood Pressure 105/68 114/61 Pulse Oximetry 94 L 95 93 L 03/23/18 15:00 03/23/18 16:00 03/23/18 17:00 Temperature 97.6 F Pulse Rate 83 75 77 Respiratory Rate 21 26 H 22 Blood Pressure 117/67 118/62 113/67 Pulse Oximetry 97 98 98 03/23/18 18:00 03/23/18 19:00 03/23/18 19:55 Temperature Pulse Rate 84 82 Respiratory Rate 24 23 Blood Pressure 116/68 119/63 Pulse Oximetry 92 L 90 L 96 03/23/18 20:00 03/23/18 20:33 03/23/18 21:00 Temperature 98.7 F Pulse Rate 77 80 75 Respiratory Rate 9 L 27 H 25 H Blood Pressure 124/66 123/66 Pulse Oximetry 95 97 95 03/23/18 22:00 03/23/18 22:48 03/23/18 23:02 Temperature Pulse Rate 80 80 78 Respiratory Rate 19 19 36 H Blood Pressure 119/73 129/72 124/60 Pulse Oximetry 94 L 93 L 91 L 03/24/18 00:00 03/24/18 01:00 03/24/18 02:00 Temperature 98.7 F Pulse Rate 77 72 69 Respiratory Rate 28 H 25 H 20 Blood Pressure 115/62 115/59 L 125/66 Pulse Oximetry 93 L 95 95 03/24/18 03:00 03/24/18 04:00 03/24/18 05:00 Temperature 98.9 F Pulse Rate 70 67 67 Respiratory Rate 21 18 148 H Blood Pressure 118/62 122/67 131/63 Pulse Oximetry 92 L 96 90 L 03/24/18 06:00 Temperature Pulse Rate 67 Respiratory Rate Blood Pressure Pulse Oximetry Intake & Output 03/23/18 03/24/18 03/24/18 18:59 06:59 18:59 Intake Total 0 / 0 995 / 995 Output Total 1800 / 1800 1000 / 1000 Balance -1800 / -1800 -5 / -5 Weight 80 kg Intake: IV 515 / 515 Vancomycin Inj 1,500 MG In NS 515 / 515 Inj 500 ML @ 250 mls/hr IV.SIG Q12H JENA Rx#:[id number] Oral 0 / 0 480 / 480 Output: Urine 1800 / 1800 1000 / 1000 Other: # Voids 6 4 Date of Last Bowel Movement 03/23/18 03/24/18 # Bowel Movements 5 1 # Incontinent Bowel Movements 0 Narrative: GENERAL: This is a well-nourished, well-developed patient, moderate respiratory distress. CARDIOVASCULAR: Regular rate and rhythm without murmurs, gallops, or rubs. RESPIRATORY: Decreased breath sounds bilateral, no expiratory wheezing. GASTROINTESTINAL: Abdomen soft, non-tender, nondistended. Normal active bowel sounds MUSCULOSKELETAL: Extremities without clubbing, cyanosis, or edema. NEURO: Alert & Oriented x4 to person, place, time, situation. Moves all ext x4 Results - Labs CBC & Chem 7: 03/24/18 03:34 03/24/18 03:34 Laboratory Results - last 24 hr 03/19/18 03/23/18 03/23/18 11:45 12:31 15:41 WBC RBC Hgb Hct MCV MCH MCHC RDW Plt Count MPV Prelim Diff (Auto) Neut % (Auto) Lymph % (Auto) Larue % (Auto) Eos % (Auto) Baso % (Auto) Neut # (Auto) Lymph # (Auto) Larue # (Auto) Eos # (Auto) Baso # (Auto) WBC Differential Seg Neuts % (Manual) Band Neuts % (Manual) Lymphocytes % (Manual) Monocytes % (Manual) Metamyelocytes % (Man) Myelocytes % (Man) Abs Neuts (Manual) Differential Comment Platelet Estimate Platelet Morphology RBC Morphology Sodium Potassium Chloride Carbon Dioxide Anion Gap BUN Creatinine Estimated GFR POC Glucose 118 H 128 H Random Glucose Calcium Prot Corrected Calcium Phosphorus Magnesium Total Bilirubin AST ALT Alkaline Phosphatase Troponin I B-Natriuretic Peptide Total Protein Albumin ELIN Titer >1:1280 H ELIN Pattern Speckled H ELIN Interpretation 03/23/18 03/24/18 03/24/18 20:42 03:34 03:34 WBC 9.3 RBC 3.47 L Hgb 10.9 L Hct 32.2 L MCV 92.9 MCH 31.3 MCHC 33.7 RDW 14.3 Plt Count 498 H MPV 7.6 Prelim Diff (Auto) Slide review pending Neut % (Auto) 80.5 H Lymph % (Auto) 13.0 Larue % (Auto) 6.2 Eos % (Auto) 0.1 Baso % (Auto) 0.2 Neut # (Auto) 7.5 Lymph # (Auto) 1.2 Larue # (Auto) 0.6 Eos # (Auto) 0.0 Baso # (Auto) 0.0 WBC Differential Manual diff final Seg Neuts % (Manual) 77 H Band Neuts % (Manual) 2 Lymphocytes % (Manual) 14 Monocytes % (Manual) 5 Metamyelocytes % (Man) 1 Myelocytes % (Man) 1 H Abs Neuts (Manual) 7.5 Differential Comment . Platelet Estimate High H Platelet Morphology Normal RBC Morphology Normal Sodium 140 Potassium 3.9 Chloride 103 Carbon Dioxide 26.8 Anion Gap 10 BUN 25 H Creatinine 0.64 Estimated GFR Greater than 89 POC Glucose 125 H Random Glucose 128 H Calcium 7.3 L* Prot Corrected Calcium 7.8 L Phosphorus 3.6 Magnesium 2.2 Total Bilirubin 0.3 AST 54 H ALT 100 H Alkaline Phosphatase 76 Troponin I Less than 0.02 L B-Natriuretic Peptide Total Protein 6.1 L Albumin 2.2 L ELIN Titer ELIN Pattern ELIN Interpretation 03/24/18 03:34 WBC RBC Hgb Hct MCV MCH MCHC RDW Plt Count MPV Prelim Diff (Auto) Neut % (Auto) Lymph % (Auto) Larue % (Auto) Eos % (Auto) Baso % (Auto) Neut # (Auto) Lymph # (Auto) Larue # (Auto) Eos # (Auto) Baso # (Auto) WBC Differential Seg Neuts % (Manual) Band Neuts % (Manual) Lymphocytes % (Manual) Monocytes % (Manual) Metamyelocytes % (Man) Myelocytes % (Man) Abs Neuts (Manual) Differential Comment Platelet Estimate Platelet Morphology RBC Morphology Sodium Potassium Chloride Carbon Dioxide Anion Gap BUN Creatinine Estimated GFR POC Glucose Random Glucose Calcium Prot Corrected Calcium Phosphorus Magnesium Total Bilirubin AST ALT Alkaline Phosphatase Troponin I B-Natriuretic Peptide 68 Total Protein Albumin ELIN Titer ELIN Pattern ELIN Interpretation Microbiology 03/18/18 14:55 Blood - Peripheral Aerobic Blood Culture - Final No growth in 5 days 03/18/18 14:55 Blood - Peripheral Anaerobic Blood Culture - Final No growth in 5 days 03/18/18 14:50 Blood - Peripheral Aerobic Blood Culture - Final No growth in 5 days 03/18/18 14:50 Blood - Peripheral Anaerobic Blood Culture - Final No growth in 5 days - Imaging Impressions Chest X-Ray 03/23/18 08:00 CONCLUSION: 1. No significant interval change. 2. Persistent diffuse patchy bilateral airspace disease. - Procedures None Assessment and Plan - Plan 1. NSTEMI/Hyperlipidemia, Sinus tachycardia/elevated BNP Received 2L normal saline in ER, Continue metoprolol tartrate 5 mg IV every 6 hours, ASA 81 mg. Statin, elevated Troponin level now improved, probable Cardiac cath after hypoxia improves. Continue Aldactone and Lasix. 2. Acute Hypoxic hypercapnic respiratory failure/Pneumonia/ALI/Tobacco dependence Chest x-ray revealed diffuse bilateral pulmonary infiltrates with air bronchograms and lower lobes. CT angiogram revealed no central pulmonary. Diffuse infiltrates bilaterally inflammatory/infiltrative. Bronchodilator, Oxygen as needed to keep oxygen saturation over 92%, Solu- Medrol, Incentive spirometry windows server specialist following, antibiotics Vancomycin, azithromycin and Levaquin, still requiring high oxygen demand 15 to 20 L/min 3. GERD/Constipation by history on gastric protection, Ranitidine and PPIs. 4. JUAN RAMON improved. 5. Normocytic anemia continue monitoring 6. CAP received Zosyn and Vancomycin in ER, ID specialist following recommended for Vancomycin azithromycin and Levaquin 7. Obesity strongly recommended diet and exercise as outpatient. 8. Vaginal pruritic sensation as per patient starting Vaginal Candidiasis started on local Clotrimazole Cream. Prophylaxis -GI-pantoprazole -DVT SCD/heparin subcu Code Status: Full Code. Discussed Condition With: Patient and nurse Miss Leal. Discharge Planning: Once cleared by specialists.
[2018-03-24] MEDS: Insulin NovoLOG Aspart Correctional Sugar Inj SQ SCH ×4 (10:33→21:00)
[2018-03-24] MEDS: Spironolactone 25 MG Tablet PO SCH ×2 (10:34→18:14)
[2018-03-24] MEDS: guaiFENesin 600 MG ER Tablet PO SCH ×2 (10:35→20:59)
[2018-03-24] MEDS: Pantoprazole Inj 40 MG Vial IV.PUSH SCH (10:36)
[2018-03-24] MEDS: Budesonide-Formoterol 160/4.5 MCG 6 GM Inhaler INH SCH ×2 (10:36→21:00)
[2018-03-24] MEDS: Senna/Docusate Sodium 8.6/50 MG Tablet PO SCH ×2 (10:36→20:59)
--- NOTE | 2018-03-24 12:10 | P.PNID ---
Subjective Remarks: Patient continues to receive oxygen high flow. Still has dry cough. Afebrile. No chills. Cultures are negative. WBC normal. Mycoplasma IgG positive. Rheumatoid factor positive. 58-year-old white female who presented to the emergency department with respiratory distress. Past Medical History: PAST MEDICAL HISTORY: Bronchitis, gastroesophageal reflux disease, chronic kidney disease stage II, hyperlipidemia, bunionectomy. Allergies/Adverse Reactions: Allergies Penicillins Allergy (Intermediate, Verified 03/19/18 21:08) Hives Sulfa (Sulfonamide Antibiotics) Allergy (Intermediate, Verified 03/18/18 14:16) Anxiety Objective Vital Signs 03/23/18 13:24 03/23/18 14:00 03/23/18 15:00 Temperature Pulse Rate 83 82 83 Respiratory Rate 33 H 31 H 21 Blood Pressure 105/68 114/61 117/67 Pulse Oximetry 95 93 L 97 03/23/18 16:00 03/23/18 17:00 03/23/18 18:00 Temperature 97.6 F Pulse Rate 75 77 84 Respiratory Rate 26 H 22 24 Blood Pressure 118/62 113/67 116/68 Pulse Oximetry 98 98 92 L 03/23/18 19:00 03/23/18 19:55 03/23/18 20:00 Temperature 98.7 F Pulse Rate 82 77 Respiratory Rate 23 9 L Blood Pressure 119/63 Pulse Oximetry 90 L 96 95 03/23/18 20:33 03/23/18 21:00 03/23/18 22:00 Temperature Pulse Rate 80 75 80 Respiratory Rate 27 H 25 H 19 Blood Pressure 124/66 123/66 119/73 Pulse Oximetry 97 95 94 L 03/23/18 22:48 03/23/18 23:02 03/24/18 00:00 Temperature 98.7 F Pulse Rate 80 78 77 Respiratory Rate 19 36 H 28 H Blood Pressure 129/72 124/60 115/62 Pulse Oximetry 93 L 91 L 93 L 03/24/18 01:00 03/24/18 02:00 03/24/18 03:00 Temperature Pulse Rate 72 69 70 Respiratory Rate 25 H 20 21 Blood Pressure 115/59 L 125/66 118/62 Pulse Oximetry 95 95 92 L 03/24/18 04:00 03/24/18 05:00 03/24/18 06:00 Temperature 98.9 F Pulse Rate 67 67 67 Respiratory Rate 18 148 H Blood Pressure 122/67 131/63 Pulse Oximetry 96 90 L Intake & Output 03/23/18 03/24/18 03/24/18 18:59 06:59 18:59 Intake Total 0 / 0 995 / 995 Output Total 1800 / 1800 1000 / 1000 Balance -1800 / -1800 -5 / -5 Weight 80 kg Intake: IV 515 / 515 Vancomycin Inj 1,500 MG In NS 515 / 515 Inj 500 ML @ 250 mls/hr IV.SIG Q12H JENA Rx#:[id number] Oral 0 / 0 480 / 480 Output: Urine 1800 / 1800 1000 / 1000 Other: # Voids 6 4 Date of Last Bowel Movement 03/23/18 03/24/18 # Bowel Movements 5 1 # Incontinent Bowel Movements 0 03/18/18 14:55 Blood - Peripheral Aerobic Blood Culture - Final No growth in 5 days 03/18/18 14:55 Blood - Peripheral Anaerobic Blood Culture - Final No growth in 5 days 03/18/18 14:50 Blood - Peripheral Aerobic Blood Culture - Final No growth in 5 days 03/18/18 14:50 Blood - Peripheral Anaerobic Blood Culture - Final No growth in 5 days Lab - Hematology Results 03/23/18 03/24/18 03:26 03:34 WBC 10.7 9.3 RBC 3.53 L 3.47 L Hgb 10.9 L 10.9 L Hct 32.4 L 32.2 L MCV 91.9 92.9 MCH 30.9 31.3 MCHC 33.6 33.7 RDW 14.5 14.3 Plt Count 525 H 498 H MPV 7.6 7.6 Prelim Diff (Auto) Slide review pending Neut % (Auto) 79.0 H 80.5 H Lymph % (Auto) 15.5 13.0 Henderson % (Auto) 5.3 6.2 Eos % (Auto) 0.0 0.1 Baso % (Auto) 0.2 0.2 Neut # (Auto) 8.4 H 7.5 Lymph # (Auto) 1.7 1.2 Henderson # (Auto) 0.6 0.6 Eos # (Auto) 0.0 0.0 Baso # (Auto) 0.0 0.0 WBC Differential . Manual diff final Seg Neuts % (Manual) 77 H Band Neuts % (Manual) 2 Lymphocytes % (Manual) 14 Monocytes % (Manual) 5 Metamyelocytes % (Man) 1 Myelocytes % (Man) 1 H Abs Neuts (Manual) 7.5 Differential Comment Auto diff final . Platelet Estimate High H Platelet Morphology Normal RBC Morphology Normal Lab - Chemistry Results 03/22/18 03/22/18 03/22/18 10:42 12:48 17:59 Sodium Potassium Chloride Carbon Dioxide Anion Gap BUN Creatinine Estimated GFR POC Glucose 129 H 132 H Random Glucose Hemoglobin A1c 5.9 Calcium Prot Corrected Calcium Phosphorus Magnesium Total Bilirubin AST ALT Alkaline Phosphatase Troponin I B-Natriuretic Peptide Total Protein Albumin 03/22/18 03/23/18 03/23/18 21:17 03:26 08:06 Sodium 139 Potassium 3.4 L Chloride 102 Carbon Dioxide 28.7 Anion Gap 8 BUN 19 H Creatinine 0.74 Estimated GFR 81 L POC Glucose 145 H 112 H Random Glucose 131 H Hemoglobin A1c Calcium 7.6 L Prot Corrected Calcium Phosphorus 3.3 Magnesium 2.1 Total Bilirubin 0.3 AST 56 H ALT 107 H Alkaline Phosphatase 78 Troponin I B-Natriuretic Peptide Total Protein 6.6 Albumin 2.3 L 03/23/18 03/23/18 03/23/18 12:31 15:41 20:42 Sodium Potassium Chloride Carbon Dioxide Anion Gap BUN Creatinine Estimated GFR POC Glucose 118 H 128 H 125 H Random Glucose Hemoglobin A1c Calcium Prot Corrected Calcium Phosphorus Magnesium Total Bilirubin AST ALT Alkaline Phosphatase Troponin I B-Natriuretic Peptide Total Protein Albumin 03/24/18 03/24/18 03/24/18 03:34 03:34 09:51 Sodium 140 Potassium 3.9 Chloride 103 Carbon Dioxide 26.8 Anion Gap 10 BUN 25 H Creatinine 0.64 Estimated GFR Greater than 89 POC Glucose 109 Random Glucose 128 H Hemoglobin A1c Calcium 7.3 L* Prot Corrected Calcium 7.8 L Phosphorus 3.6 Magnesium 2.2 Total Bilirubin 0.3 AST 54 H ALT 100 H Alkaline Phosphatase 76 Troponin I Less than 0.02 L B-Natriuretic Peptide 68 Total Protein 6.1 L Albumin 2.2 L Imaging: ITS Impressions Abdomen X-Ray 03/18/18 00:00 CONCLUSION: Negative examination. Venous Doppler Study 03/18/18 00:00 CONCLUSION: 1. The study is negative for bilateral lower extremity deep venous thrombosis. Chest CTA 03/18/18 16:02 CONCLUSION: 1. There is no evidence of PE for technique. 2. Extensive airspace process most likely inflammatory and pneumonia, possibility of pulmonary edema is not excluded. 3. Tiny bilateral pleural effusions with nonspecific most likely benign lymph nodes within the mediastinum. Chest X-Ray 03/23/18 08:00 CONCLUSION: 1. No significant interval change. 2. Persistent diffuse patchy bilateral airspace disease. Physical Exam: PHYSICAL EXAMINATION: GENERAL: Distressed by cough. Awake and alert and oriented. HEENT: Head is atraumatic. Extraocular movements are grossly intact. Pupils reactive to light. No icterus. Oropharynx, moist mucosa. No visible lesions. NECK: Supple without adenopathy. LUNGS: Decreased breath sounds throughout. No rhonchi. Air movement improved. HEART: Regular rate and rhythm without murmurs, rubs or gallops. ABDOMEN: Bowel sounds present. Soft, obese, nontender. EXTREMITIES: No clubbing, cyanosis or edema. SKIN: No rash. NEUROLOGIC: Nonfocal. PSYCH: Calm and cooperative. Assessment and Plan - Plan IMPRESSION: Bilateral pulmonary infiltrates. Questionable etiology. The patient presented with fever, nausea, and dyspnea on exertion. Possible atypical versus viral pneumonia. Also, potentially this could be congestive heart failure or other inflammatory or autoimmune condition. RECOMMENDATIONS: 1. Stop vancomycin. No gram-positive bacteria isolated.. 2. Continue azithromycin. 3. Continue Levaquin. 4. Obtain sputum culture if coughs she up any sputum. 5. Monitor clinical status.
--- NOTE | 2018-03-24 14:17 | P.PNPL ---
Subjective Interval history: 58 YOWF with br asthma, bilat diffuse infilt, hypoxic RF On High flow 02, [id number] Desaturates on taking mask no fever Cough, not able to expactorate Did't sleep well. brother at Physical Exam Vital signs: Vital Signs 03/23/18 15:00 03/23/18 16:00 03/23/18 17:00 Temperature 97.6 F Pulse Rate 83 75 77 Respiratory Rate 21 26 H 22 Blood Pressure 117/67 118/62 113/67 Pulse Oximetry 97 98 98 03/23/18 18:00 03/23/18 19:00 03/23/18 19:55 Temperature Pulse Rate 84 82 Respiratory Rate 24 23 Blood Pressure 116/68 119/63 Pulse Oximetry 92 L 90 L 96 03/23/18 20:00 03/23/18 20:33 03/23/18 21:00 Temperature 98.7 F Pulse Rate 77 80 75 Respiratory Rate 9 L 27 H 25 H Blood Pressure 124/66 123/66 Pulse Oximetry 95 97 95 03/23/18 22:00 03/23/18 22:48 03/23/18 23:02 Temperature Pulse Rate 80 80 78 Respiratory Rate 19 19 36 H Blood Pressure 119/73 129/72 124/60 Pulse Oximetry 94 L 93 L 91 L 03/24/18 00:00 03/24/18 01:00 03/24/18 02:00 Temperature 98.7 F Pulse Rate 77 72 69 Respiratory Rate 28 H 25 H 20 Blood Pressure 115/62 115/59 L 125/66 Pulse Oximetry 93 L 95 95 03/24/18 03:00 03/24/18 04:00 03/24/18 05:00 Temperature 98.9 F Pulse Rate 70 67 67 Respiratory Rate 21 18 148 H Blood Pressure 118/62 122/67 131/63 Pulse Oximetry 92 L 96 90 L 03/24/18 06:00 03/24/18 08:00 03/24/18 10:00 Temperature Pulse Rate 67 64 65 Respiratory Rate 25 H Blood Pressure Pulse Oximetry 91 L 03/24/18 12:00 Temperature Pulse Rate 76 Respiratory Rate Blood Pressure Pulse Oximetry Intake & Output 03/23/18 03/24/18 03/24/18 18:59 06:59 18:59 Intake Total 0 / 0 995 / 995 Output Total 1800 / 1800 1000 / 1000 Balance -1800 / -1800 -5 / -5 Weight 80 kg Intake: IV 515 / 515 Vancomycin Inj 1,500 MG In NS 515 / 515 Inj 500 ML @ 250 mls/hr IV.SIG Q12H JENA Rx#:[id number] Oral 0 / 0 480 / 480 Output: Urine 1800 / 1800 1000 / 1000 Other: # Voids 6 4 Date of Last Bowel Movement 03/23/18 03/24/18 03/24/18 # Bowel Movements 5 1 # Incontinent Bowel Movements 0 GENERAL: Eldrly WF Mild sob SKIN: Warm and dry. HEAD: Normocephalic. EYES: No scleral icterus. No injection or drainage. NECK: Supple, trachea midline. No JVD or lymphadenopathy. CARDIOVASCULAR: Regular rate and rhythm without murmurs, gallops, or rubs. RESPIRATORY: Breath sounds equal bilaterally. No accessory muscle use. GASTROINTESTINAL: Abdomen soft, non-tender, nondistended. MUSCULOSKELETAL: No cyanosis, or edema. BACK: Nontender without obvious deformity. No CVA tenderness. Assessment and Plan - Plan IMPRESSION: 1. Hypoxic respiratory failure. 2. Bilateral diffuse lung infiltrates, possibly viral pneumonia, atypical pneumonia or inflammatory process. 3. Non-ST elevation myocardial infarction. 4. History of bronchial asthma. PLAN: IV Solumedrol Cont Abx, ID following Supplement 02 with high flow 02 Titerate 02 to keep sat >90% Use Acapella and IS Tessalon 200 mg tid. [place] Pt and her brother at BS
[2018-03-24] MEDS: Azithromycin Inj 500 MG in Sodium Chlor 0.9% Inj 250 ML IV.SIG SCH (16:35)
[2018-03-24] MEDS: Vancomycin Inj 1,500 MG in Sodium Chlor 0.9% Inj 500 ML IV.SIG SCH (20:15)
[2018-03-25] MEDS: Metoprolol Inj 5 MG/5 ML Vial IV.PUSH SCH ×5 (06:17→23:55)
[2018-03-25] MEDS: Benzonatate 100 MG Capsule PO SCH ×4 (06:18→21:07)
[2018-03-25] MEDS: MethylPREDNISolone Sod Succinate Inj 40 MG/ML Vial IV.PUSH SCH ×4 (06:18→21:07)
[2018-03-25] MEDS: Heparin - SQ 10,000 UNITS/ML Vial SQ SCH ×3 (06:18→17:37)
[2018-03-25] MEDS: Budesonide-Formoterol 160/4.5 MCG 6 GM Inhaler INH SCH ×2 (09:13→21:08)
[2018-03-25] MEDS: Insulin NovoLOG Aspart Correctional Sugar Inj SQ SCH ×4 (09:38→21:07)
[2018-03-25] MEDS: Spironolactone 25 MG Tablet PO SCH ×2 (09:39→17:37)
[2018-03-25] MEDS: Senna/Docusate Sodium 8.6/50 MG Tablet PO SCH ×2 (09:43→21:07)
[2018-03-25] MEDS: Pantoprazole Inj 40 MG Vial IV.PUSH SCH (09:43)
[2018-03-25] MEDS: guaiFENesin 600 MG ER Tablet PO SCH ×2 (09:43→21:08)
[2018-03-25] MEDS ORDERED: Pharmacy Ordered Lab Info OTHER ONE (09:45)
--- NOTE | 2018-03-25 10:22 | P.PN ---
Subjective Interval history: system configuration specialist notes: This is a 58-year-old female. Date of admission 03/18/2018. Past medical history includes gastroesophageal reflux disease, seasonal asthma, elevated BMI, hyperlipidemia untreated and chronic kidney disease. Today, she presents to [place] ED for evaluation of 1 week history of SOB. She is originally from [facility]. Her chief complaint consists of shortness of breath, chest tightness without radiation to the neck, down left arm or back, persistent nausea without emesis, abdominal pain or diarrhea. Her original temperature was 102 Fahrenheit according to patient, patient was evaluated in [place]. At that time, she states the chest x-ray was "clear. " At that time the provider suspected that she was having asthma symptoms. She was prescribed albuterol nebulizers and sent home. She is normally on an albuterol inhaler at home along with ranitidine and intermittently intermixing with PPI for gastroesophageal reflux disease. She states that her respiratory and nausea symptoms became acutely worse 2 days ago after flying to [facility] from [place]. She states that she is unable to walk "even a few feet" without GALINDO. Lying flat also makes symptoms worse. Chest x-ray revealed diffuse pulmonary fluffy infiltrates bilaterally.. EKG revealed sinus tachycardia with normal RI, QRS and QT intervals. Troponin was 0.55. She was seen in consultation by cardiology who recommended possible heart catheterization in the a.m. Will trend troponins. She is currently undergoing a CT angiogram of the chest. She received piperacillin/tazobactam and vancomycin in the ED. Her white blood cell count is normal. Her lactate was normal. Her d-dimer was slightly elevated. She complains of some slightly increased swelling in her bilateral lower extremities. She was placed on 100% nonrebreather with saturations currently 99-100%. At the present time she is able to speak complete sentences. Denies cough. 03/19: T-max 102.8. Currently afebrile. Currently on partial nonrebreather 10 L satting 92-99%. Pro-calcitonin 0.12. Does not appear volume overloaded on examination. Patient has a dry nonproductive cough. Denies chest pain.. Will give 40 mg furosemide IV 1 now 03/20: No fever reported today sitting at the side of the bed. Remains on partial nonrebreather to keep oxygen saturation more than 90%. Bilateral crackles on exam. Chest x-ray shows extensive bilateral infiltrates 03/21: Continues to require partial nonrebreather to keep the saturation above 90 %. Clinical exam remains same with bilateral crackles. BNP trending down, I will start scheduled IV Lasix to improve hypoxia. Cardiac catheterization is currently placed on hold, due to persistent hypoxia Hospitalist Notes: 03-22 ON HIGH FLOW OXYGEN TO CARDIAC CATH LATER TODAY LESS SOB, NO CHEST PAIN 03-23 DID NOT HAVE CATH YET STILL ON HIGH FLOW OXYGEN LESS SOB, NO CHEST PAIN CONTINUE ANTIBIOTICS PER ID 03/24: Seen in her bedroom in the presence of nurse Miss Carmena, no nausea, vomit or diarrhea, still requiring high Oxygen demand between 15 and 20 L/min. probable will have Cardiac cath next week. states started with vaginal cream Clotrimazole and follow. 03/25: Stable in her bedroom, discussed with nurse Miss Leal no new issues, no nausea, vomit or diarrhea continue using high oxygen demand. Physical Exam Vital signs: Vital Signs 03/24/18 12:00 03/24/18 16:00 03/24/18 18:00 Temperature 98.1 F 98.7 F Pulse Rate 64 76 72 Respiratory Rate 21 21 Blood Pressure 106/71 104/65 Pulse Oximetry 91 L 93 L 03/24/18 20:00 03/24/18 21:15 03/24/18 22:00 Temperature 98.5 F Pulse Rate 84 72 Respiratory Rate 21 Blood Pressure 110/56 L Pulse Oximetry 91 L 94 L 03/25/18 00:00 03/25/18 02:00 03/25/18 04:00 Temperature 98.6 F 97.8 F Pulse Rate 70 64 68 Respiratory Rate 26 H 21 Blood Pressure 122/64 112/59 L Pulse Oximetry 87 L 91 L 03/25/18 06:00 03/25/18 07:27 03/25/18 07:31 Temperature Pulse Rate 83 69 Respiratory Rate 16 Blood Pressure Pulse Oximetry 96 Intake & Output 03/24/18 03/25/18 03/25/18 18:59 06:59 18:59 Intake Total 450 / 450 Balance 450 / 450 Weight 80 kg Intake: IV 150 / 150 Levaquin 750 mg Premix Inj 150 150 / 150 ML @ 100 mls/hr IV.SIG Q24H [facility] Rx#:[id number] Oral 300 / 300 Other: # Voids 5 Date of Last Bowel Movement 03/24/18 03/24/18 # Bowel Movements 4 1 Narrative: GENERAL: This is a well-nourished, well-developed patient, moderate respiratory distress. CARDIOVASCULAR: Regular rate and rhythm without murmurs, gallops, or rubs. RESPIRATORY: Decreased breath sounds bilateral, no expiratory wheezing. GASTROINTESTINAL: Abdomen soft, non-tender, nondistended. Normal active bowel sounds MUSCULOSKELETAL: Extremities without clubbing, cyanosis, or edema. NEURO: Alert & Oriented x4 to person, place, time, situation. Moves all ext x4 Results - Labs CBC & Chem 7: 03/24/18 03:34 03/24/18 03:34 Laboratory Results - last 24 hr 03/24/18 20:57 POC Glucose 120 H - Procedures None Assessment and Plan - Plan 1. NSTEMI/Hyperlipidemia, Sinus tachycardia/elevated BNP Received 2L normal saline in ER, Continue metoprolol tartrate 5 mg IV every 6 hours, ASA 81 mg. Statin, elevated Troponin level now improved, probable Cardiac cath after hypoxia improves. Continue Aldactone and Lasix. 2. Acute Hypoxic hypercapnic respiratory failure/Pneumonia/ALI/Tobacco dependence Chest x-ray revealed diffuse bilateral pulmonary infiltrates with air bronchograms and lower lobes. CT angiogram revealed no central pulmonary. Diffuse infiltrates bilaterally inflammatory/infiltrative. Bronchodilator, Oxygen as needed to keep oxygen saturation over 92%, Solu- Medrol, Incentive spirometry weight reduction specialist following, antibiotics Vancomycin, azithromycin and Levaquin, still requiring high oxygen demand, Seen by ID specialist stopped Vancomycin, no gram positive bacteria continue Azithromycin, and Levaquin. 3. GERD/Constipation by history on gastric protection, Ranitidine and PPIs. 4. JUAN RAMON improved. 5. Normocytic anemia continue monitoring 6. CAP received Zosyn and Vancomycin in ER, ID specialist following recommended for Vancomycin azithromycin and Levaquin 7. Obesity strongly recommended diet and exercise as outpatient. 8. Vaginal pruritic sensation as per patient starting Vaginal Candidiasis started on local Clotrimazole Cream. Prophylaxis -GI-pantoprazole -DVT SCD/heparin subcu Code Status: Full Code. Discussed Condition With: Patient and Nurse Miss Leal. Discharge Planning: Once cleared by specialists.
--- NOTE | 2018-03-25 16:07 | P.PNCA ---
Subjective Interval history: alert in nad Medications and Allergies Active Medications: Active Medications Acetaminophen (Tylenol) 650 mg PO Q6H PRN PRN Reason: Fever >100f Hydrocodone Bitart/Acetaminophen ([place] 5/325) 1 tab PO Q4H PRN PRN Reason: PAIN SCALE 1 TO 5 Last Admin: 03/21/18 23:57 Dose: 1 tab Al Hydroxide/Mg Hydroxide (Milk Of [place]ray[place] Liq) 30 ml PO Q12H PRN PRN Reason: Mild Constipation Albuterol (Albuterol Neb (Prn)) 2.5 mg NEB Q2HR NEB PRN PRN Reason: SHORTNESS OF BREATH/WHEEZING Last Admin: 03/25/18 07:27 Dose: 2.5 mg Aspirin (Aspirin Chew) 81 mg PO DAILY [facility] Last Admin: 03/25/18 09:39 Dose: 81 mg Atorvastatin Calcium (Lipitor) 40 mg PO HS [facility] Last Admin: 03/24/18 20:59 Dose: 40 mg Benzonatate (Tessalon Perles) 200 mg PO Q8HR [facility] Last Admin: 03/25/18 06:34 Dose: 200 mg Bisacodyl (Dulcolax Supp) 10 mg RECTAL DAILY PRN PRN Reason: SEVERE CONSITIPATION Budesonide/Formoterol Fumarate (Symbicort 160/4.5 Mcg Inh) 2 puff INH BID [facility] Last Admin: 03/24/18 21:00 Dose: 2 puff Clotrimazole (Gyne Lotrimin 7 1% Vag Cream) 1 appful VAGINAL DAILY [facility] Stop: 03/31/18 21:00 Last Admin: 03/25/18 09:39 Dose: 1 appful Dextrose (D50w Vial) 50 ml IV.PUSH UNSCH PRN PRN Reason: PER HYPOGLYCEMIA PROTOCOL Furosemide (Lasix Inj) 40 mg IV.PUSH BID@0900,1800 [facility] Last Admin: 03/25/18 09:39 Dose: 40 mg Glucagon (Glucagon Inj) 1 mg OTHER PRN PRN PRN Reason: for Hypoglycemia Protocol Guaifenesin (Mucinex Er) 600 mg PO BID [facility] Last Admin: 03/25/18 09:43 Dose: 600 mg Heparin Sodium (Porcine) (Heparin Inj) 5,000 units SQ Q8H [facility] Last Admin: 03/25/18 09:43 Dose: 5,000 units Azithromycin 500 mg/ Sodium (Chloride) 250 mls @ 250 mls/hr IV.SIG Q24H [facility] Last Admin: 03/24/18 16:35 Dose: 150 mls/hr Magnesium Sulfate 2 gm/ Sodium (Chloride) 100 mls @ 50 mls/hr IV.SIG UNSCH PRN PRN Reason: For Magnesium 1.2 - 1.6 mg/dL Levofloxacin/Dextrose (Levaquin 750 Mg Premix Inj) 150 mls @ 100 mls/hr IV.SIG Q24H [facility] Last Infusion: 03/25/18 06:19 Dose: Infused Magnesium Sulfate 4 gm/ Sodium (Chloride) 100 mls @ 50 mls/hr IV.SIG UNSCH PRN PRN Reason: For Magnesium 0.9 - 1.1 mg/dL Magnesium Sulfate 2 gm/ Sodium (Chloride) 100 mls @ 50 mls/hr IV.SIG UNSCH PRN PRN Reason: For Magnesium 1.2 - 1.6 mg/dL Potassium Chloride (Kcl 40 Meq Premix Inj) 40 meq in 100 mls @ 25 mls/hr IV.SIG Q2H PRN PRN Reason: For Potassium 2.8 - 3.2 mEq/L Potassium Chloride (Kcl 20 Meq Premix Inj) 20 meq in 100 mls @ 50 mls/hr IV.SIG Q2H PRN PRN Reason: For Potassium 3.3 - 3.5 mEq/L Potassium Chloride (Kcl 40 Meq Premix Inj) 40 meq in 100 mls @ 25 mls/hr IV.SIG UNSCH PRN PRN Reason: For Potassium 3.3 - 3.5 mEq/L Potassium Chloride (Kcl 20 Meq Premix Inj) 20 meq in 100 mls @ 50 mls/hr IV.SIG Q2H PRN PRN Reason: For Potassium 2.8 - 3.2 mEq/L Potassium Phosphate 30 mmol/ (Sodium Chloride) 260 mls @ 42 mls/hr IV.SIG UNSCH PRN PRN Reason: SEE LABEL COMMENTS Sodium Phosphate 30 mmol/ (Sodium Chloride) 260 mls @ 42 mls/hr IV.SIG UNSCH PRN PRN Reason: For Phosphorus < 2.5 mg/dL Insulin Aspart (Novolog Insulin Correctional Sugar Inj) 0 unit SQ ACHS [facility]; Protocol Last Admin: 03/25/18 09:38 Dose: Not Given Lactulose (Lactulose Liq) 30 ml PO DAILY PRN PRN Reason: SEVERE CONSITIPATION Magnesium Oxide (Mag-Ox) 800 mg PO UNSCH PRN PRN Reason: For Magnesium 1.2 - 1.6 mg/dL Methylprednisolone Sodium Succinate (Solumedrol Inj) 40 mg IV.PUSH Q6H [facility] Last Admin: 03/25/18 09:39 Dose: 40 mg Metoprolol Tartrate (Lopressor Inj) 5 mg IV.PUSH Q6H [facility] Last Admin: 03/25/18 06:20 Dose: Not Given Morphine Sulfate (Morphine Inj) 2 mg IV.PUSH Q2H PRN PRN Reason: PAIN SCALE 6 TO 10 Ondansetron HCl (Zofran Inj) 4 mg IV.PUSH Q6H PRN PRN Reason: NAUSEA OR VOMITING Pantoprazole Sodium (Protonix Inj) 40 mg IV.PUSH DAILY [facility] Last Admin: 03/25/18 09:43 Dose: 40 mg Potassium Bicarb/Potassium Chloride (K-Lyte Cl Eff) 50 meq PO UNSCH PRN PRN Reason: For Potassium 3.3 - 3.5 mEq/L Last Admin: 03/23/18 18:18 Dose: 50 meq Potassium Phosphate (K-Phos Original) 2,000 mg PO UNSCH PRN PRN Reason: SEE LABEL COMMENTS Potassium Phosphate (K-Phos Original) 2,000 mg PO Q4H PRN PRN Reason: Phosphorus Less Than 2.5 mg/dL Senna/Docusate Sodium (Sofi-Colace) 1 tab PO BID [facility] Last Admin: 03/25/18 09:43 Dose: 1 tab Sennosides (Senokot) 17.2 mg PO Q12H PRN PRN Reason: Moderate Constipation Sodium Chloride (Ns Flush) 2 ml IV.FLUSH BID [facility] Last Admin: 03/25/18 09:43 Dose: 2 ml Sodium Chloride (Ns Flush) 2 ml IV.FLUSH PRN PRN PRN Reason: FLUSH AFTER USING IV ACCESS Spironolactone (Aldactone) 25 mg PO BID@0900,1800 [facility] Last Admin: 03/25/18 09:39 Dose: 25 mg Allergies Allergy/AdvReac Type Severity Reaction Status Date / Time Penicillins Allergy Intermediate Hives Verified 03/19/18 21:08 Sulfa (Sulfonamide Allergy Intermediate Anxiety Verified 03/18/18 14:16 Antibiotics) Physical Exam Vital signs: Vital Signs 03/24/18 18:00 03/24/18 20:00 03/24/18 21:15 Temperature 98.5 F Pulse Rate 72 84 Respiratory Rate 21 Blood Pressure 110/56 L Pulse Oximetry 91 L 94 L 03/24/18 22:00 03/25/18 00:00 03/25/18 02:00 Temperature 98.6 F Pulse Rate 72 70 64 Respiratory Rate 26 H Blood Pressure 122/64 Pulse Oximetry 87 L 03/25/18 04:00 03/25/18 06:00 03/25/18 07:27 Temperature 97.8 F Pulse Rate 68 83 69 Respiratory Rate 21 16 Blood Pressure 112/59 L Pulse Oximetry 91 L 03/25/18 07:31 03/25/18 12:00 Temperature Pulse Rate Respiratory Rate Blood Pressure Pulse Oximetry 96 93 L Intake & Output 03/24/18 03/25/18 03/25/18 18:59 06:59 18:59 Intake Total 450 / 450 Balance 450 / 450 Weight 80 kg Intake: IV 150 / 150 Levaquin 750 mg Premix Inj 150 150 / 150 ML @ 100 mls/hr IV.SIG Q24H [facility] Rx#:[id number] Oral 300 / 300 Other: # Voids 5 Date of Last Bowel Movement 03/24/18 03/24/18 # Bowel Movements 4 1 Results 03/24/18 03:34 03/24/18 03:34 Cardiac Enzymes 03/24/18 03/24/18 Range/Units 03:34 03:34 AST 54 H (15-37) U/L Troponin I Less than 0.02 L (0.02-0.05) ng/mL B-Natriuretic Peptide 68 (0-100) pg/mL Coagulation 03/24/18 Range/Units 03:34 B-Natriuretic Peptide 68 (0-100) pg/mL CBC 03/24/18 Range/Units 03:34 WBC 9.3 (4.0-11.0) th/mm3 RBC 3.47 L (4.00-5.30) mil/mm3 Hgb 10.9 L (11.6-15.3) gm/dL Hct 32.2 L (35.0-46.0) % Plt Count 498 H (150-450) th/mm3 Neut # (Auto) 7.5 (1.8-7.7) th/mm3 Lymph # (Auto) 1.2 (1.0-4.8) th/mm3 [place] # (Auto) 0.6 (0.0-0.9) th/mm3 Eos # (Auto) 0.0 (0.0-0.4) th/mm3 Baso # (Auto) 0.0 (0.0-0.2) th/mm3 Comprehensive Metabolic Panel 03/24/18 Range/Units 03:34 Sodium 140 (136-145) meq/L Potassium 3.9 (3.5-5.1) meq/L Chloride 103 (98-107) meq/L Carbon Dioxide 26.8 (21.0-32.0) meq/L BUN 25 H (7-18) mg/dL Creatinine 0.64 (0.50-1.00) mg/dL Calcium 7.3 L* (8.5-10.1) mg/dL AST 54 H (15-37) U/L ALT 100 H (10-53) U/L Alkaline Phosphatase 76 (45-117) U/L Total Protein 6.1 L (6.4-8.2) g/dL Albumin 2.2 L (3.4-5.0) g/dL Intake and Output 03/25/18 03/25/18 03/25/18 06:59 14:59 22:59 Intake Total 450 / 450 Balance 450 / 450 Intake: IV 150 / 150 Levaquin 750 mg Premix Inj 150 150 / 150 ML @ 100 mls/hr IV.SIG Q24H [facility] Rx#:[id number] Oral 300 / 300 Other: # Voids 5 Date of Last Bowel Movement 03/24/18 # Bowel Movements 1 Weight 80 kg Assessment and Plan - Assessment (1) NSTEMI (non-ST elevated myocardial infarction) Code(s): I21.4 - Non-ST elevation (NSTEMI) myocardial infarction Status: Acute (2) CHF (congestive heart failure) Code(s): I50.9 - Heart failure, unspecified Status: Acute (3) Hypoxia Code(s): R09.02 - Hypoxemia Status: Acute (4) Dyspnea Code(s): R06.00 - Dyspnea, unspecified Status: Acute - Plan 1.) NSTEMI - rhc/lhc scheduled for 03/22/18 if requiring less oxygen, continue aldactone, f/u bnp, continue aspirin; hypoxia disproportionate to degree of chf , ef=50%, bnp<200, suggesting primary pulmonary etiology to hypoxia, less hypoxic, cath 03/26/18 schedule permitting, repeat troponin and bnp wnl 03/24/18
--- NOTE | 2018-03-25 16:10 | P.PNPL ---
Subjective Interval history: 58 YOWF with br asthma, bilat diffuse infilt, hypoxic RF Desaturates on taking mask no fever Cough, not able to expactorate Weaned to 6LNC Intermittentally requires NRB Physical Exam Vital signs: Vital Signs 03/24/18 18:00 03/24/18 20:00 03/24/18 21:15 Temperature 98.5 F Pulse Rate 72 84 Respiratory Rate 21 Blood Pressure 110/56 L Pulse Oximetry 91 L 94 L 03/24/18 22:00 03/25/18 00:00 03/25/18 02:00 Temperature 98.6 F Pulse Rate 72 70 64 Respiratory Rate 26 H Blood Pressure 122/64 Pulse Oximetry 87 L 03/25/18 04:00 03/25/18 06:00 03/25/18 07:27 Temperature 97.8 F Pulse Rate 68 83 69 Respiratory Rate 21 16 Blood Pressure 112/59 L Pulse Oximetry 91 L 03/25/18 07:31 03/25/18 12:00 Temperature Pulse Rate Respiratory Rate Blood Pressure Pulse Oximetry 96 93 L Intake & Output 03/24/18 03/25/18 03/25/18 18:59 06:59 18:59 Intake Total 450 / 450 Balance 450 / 450 Weight 80 kg Intake: IV 150 / 150 Levaquin 750 mg Premix Inj 150 150 / 150 ML @ 100 mls/hr IV.SIG Q24H [facility] Rx#:[id number] Oral 300 / 300 Other: # Voids 5 Date of Last Bowel Movement 03/24/18 03/24/18 # Bowel Movements 4 1 GENERAL: MBMN NAD SKIN: Warm and dry. HEAD: Normocephalic. EYES: No scleral icterus. No injection or drainage. NECK: Supple, trachea midline. No JVD or lymphadenopathy. CARDIOVASCULAR: Regular rate and rhythm without murmurs, gallops, or rubs. RESPIRATORY: Breath sounds equal bilaterally. No accessory muscle use. GASTROINTESTINAL: Abdomen soft, non-tender, nondistended. MUSCULOSKELETAL: No cyanosis, or edema. BACK: Nontender without obvious deformity. No CVA tenderness. Assessment and Plan - Plan IMPRESSION: 1. Hypoxic respiratory failure. 2. Bilateral diffuse lung infiltrates, possibly viral pneumonia, atypical pneumonia or inflammatory process. 3. Non-ST elevation myocardial infarction. 4. History of bronchial asthma. PLAN: IV Solumedrol Cont Abx, ID following Supplement 02 with 6LNC Titerate 02 to keep sat >90% Use Acapella and IS Tessalon 200 mg tid.
[2018-03-25] MEDS: Azithromycin Inj 500 MG in Sodium Chlor 0.9% Inj 250 ML IV.SIG SCH (16:12)
[2018-03-26] MEDS: MethylPREDNISolone Sod Succinate Inj 40 MG/ML Vial IV.PUSH SCH ×4 (02:00→20:54)
[2018-03-26] MEDS: Heparin - SQ 10,000 UNITS/ML Vial SQ SCH ×3 (02:00→21:03)
[2018-03-26] MEDS: Metoprolol Inj 5 MG/5 ML Vial IV.PUSH SCH ×3 (05:08→17:23)
[2018-03-26] MEDS: Benzonatate 100 MG Capsule PO SCH ×3 (07:29→20:55)
[2018-03-26] MEDS: Senna/Docusate Sodium 8.6/50 MG Tablet PO SCH ×2 (08:59→20:55)
[2018-03-26] MEDS: guaiFENesin 600 MG ER Tablet PO SCH ×2 (08:59→20:55)
[2018-03-26] MEDS: Insulin NovoLOG Aspart Correctional Sugar Inj SQ SCH ×4 (09:00→21:04)
[2018-03-26] MEDS: Pantoprazole Inj 40 MG Vial IV.PUSH SCH (09:00)
[2018-03-26] MEDS: Spironolactone 25 MG Tablet PO SCH ×2 (09:01→17:27)
[2018-03-26] MEDS: Budesonide-Formoterol 160/4.5 MCG 6 GM Inhaler INH SCH ×2 (09:02→20:56)
--- NOTE | 2018-03-26 10:02 | XR ---
EXAM DATE: 03/26/2018 9:20 AM EDT AGE/SEX: 58 years / Female INDICATIONS: Shortness of breath. CLINICAL DATA: This is the patient's subsequent encounter. Patient reports that signs and symptoms h ave been present for 1 week and indicates a pain score of 0/10. MEDICAL/SURGICAL HISTORY: None. None. COMPARISON: . FINDINGS: Patchy airspace disease in both lungs worse in the bases with minimal improvement. The heart is enlar ged. There is no pleural effusion or pneumothorax. The portion of the bony skeleton visualized is unremarkable. CONCLUSION: Patchy airspace disease persisting with minimal improvement. Electronically signed by: Konstantin Terry MD 03/26/2018 10:01 AM EDT
--- NOTE | 2018-03-26 11:57 | P.PNID ---
Subjective Remarks: Patient still having problems with hypoxia and desaturation. Question over this morning he feels a little stronger. Still has dry cough. Afebrile. Denies fever or chills. Cultures are negative. WBC normal. Mycoplasma IgG positive. Rheumatoid factor positive. ELIN titer high. Chest x-ray showing minimal improvement. Plans for cardiac catheterization today. 58-year-old white female who presented to the emergency department with respiratory distress. Past Medical History: PAST MEDICAL HISTORY: Bronchitis, gastroesophageal reflux disease, chronic kidney disease stage II, hyperlipidemia, bunionectomy. Allergies/Adverse Reactions: Allergies Penicillins Allergy (Intermediate, Verified 03/19/18 21:08) Hives Sulfa (Sulfonamide Antibiotics) Allergy (Intermediate, Verified 03/18/18 14:16) Anxiety Objective Vital Signs 03/25/18 12:00 03/25/18 14:00 03/25/18 16:00 Temperature 98.5 F 98.8 F Pulse Rate 74 80 76 Respiratory Rate 21 21 Blood Pressure 101/52 L 100/54 L Pulse Oximetry 96 100 03/25/18 20:00 03/25/18 21:02 03/25/18 22:00 Temperature 98.6 F Pulse Rate 85 77 87 Respiratory Rate 30 H 20 Blood Pressure 115/63 Pulse Oximetry 100 98 03/26/18 00:00 03/26/18 02:00 03/26/18 04:00 Temperature 98.7 F 98 F Pulse Rate 77 77 69 Respiratory Rate 21 28 H Blood Pressure 119/58 L 106/51 L Pulse Oximetry 94 L 99 03/26/18 06:00 03/26/18 08:00 03/26/18 10:00 Temperature 98.7 F Pulse Rate 71 64 84 Respiratory Rate 30 H Blood Pressure 96/52 L Pulse Oximetry 95 03/26/18 10:59 Temperature Pulse Rate Respiratory Rate Blood Pressure Pulse Oximetry 95 Intake & Output 03/25/18 03/26/18 03/26/18 18:59 06:59 18:59 Intake Total 300 / 300 150 / 150 Balance 300 / 300 150 / 150 Intake: IV 150 / 150 Levaquin 750 mg Premix Inj 150 150 / 150 ML @ 100 mls/hr IV.SIG Q24H [facility] Rx#:[id number] Oral 300 / 300 Other: # Voids 6 Date of Last Bowel Movement 03/25/18 03/25/18 03/25/18 09/23/18 14:55 Blood - Peripheral Aerobic Blood Culture - Final No growth in 5 days 03/18/18 14:55 Blood - Peripheral Anaerobic Blood Culture - Final No growth in 5 days 03/18/18 14:50 Blood - Peripheral Aerobic Blood Culture - Final No growth in 5 days 03/18/18 14:50 Blood - Peripheral Anaerobic Blood Culture - Final No growth in 5 days Lab - Chemistry Results 03/24/18 03/25/18 03/25/18 20:57 16:53 21:02 POC Glucose 120 H 136 H 196 H 03/26/18 08:56 POC Glucose 92 Imaging: ITS Impressions Abdomen X-Ray 03/18/18 00:00 CONCLUSION: Negative examination. Venous Doppler Study 03/18/18 00:00 CONCLUSION: 1. The study is negative for bilateral lower extremity deep venous thrombosis. Chest CTA 03/18/18 16:02 CONCLUSION: 1. There is no evidence of PE for technique. 2. Extensive airspace process most likely inflammatory and pneumonia, possibility of pulmonary edema is not excluded. 3. Tiny bilateral pleural effusions with nonspecific most likely benign lymph nodes within the mediastinum. Chest X-Ray 03/26/18 09:20 CONCLUSION: Patchy airspace disease persisting with minimal improvement. Physical Exam: PHYSICAL EXAMINATION: GENERAL: Awake and alert and oriented. HEENT: Head is atraumatic. Extraocular movements are grossly intact. Pupils reactive to light. No icterus. Oropharynx, moist mucosa. No visible lesions. NECK: Supple. no adenopathy or swelling.. LUNGS: Decreased breath sounds throughout. No rhonchi. HEART: Regular rate and rhythm without murmurs, rubs or gallops. ABDOMEN: Bowel sounds present. Soft, obese, nontender. EXTREMITIES: No clubbing, cyanosis or edema. SKIN: No rash. NEUROLOGIC: Nonfocal. PSYCH: Calm and cooperative. Assessment and Plan - Plan IMPRESSION: Bilateral pulmonary infiltrates showing little improvement. Questionable etiology. Nonproductive cough. The patient presented with fever, nausea, and dyspnea on exertion. Possible atypical versus viral pneumonia. Also, potentially this could be congestive heart failure or other inflammatory or autoimmune condition. Elevated ELIN titer. Consider further workup. Will defer to attending. Very little improvement in respiratory status if any. RECOMMENDATIONS: 1. Continue azithromycin 2. Continue Levaquin. 3. Obtain sputum culture if coughs she up any sputum. 4. Check sedimentation rate, pro-calcitonin, HIV and LDH. 5. Monitor clinical status. I will be off 03/27 through 04/03. Other ID MD covering in my absence. Please call the call center for covering ID MD.
[2018-03-26] MEDS ORDERED: Iohexol 350 MG/ML 50 ML Vial (for Cath Lab) IVCONTRAST ONE (12:19)
[2018-03-26] MEDS ORDERED: Heparin/NS PF Inj 1,000 ML ONE (12:25)
[2018-03-26] MEDS ORDERED: fentaNYL Citrate Inj 100 MCG/2 ML Ampul ONE (12:42)
--- NOTE | 2018-03-26 13:31 | CATHPROC ---
[facility] HIS Report Study Information Study Number Admission Scheduled Start Study Start [id number] Mar 18 2018 3:58PM 03/26/2018 Mar 26 2018 12:03PM [place] [facility] Cardiac Catheterization Admit Source Facility Department Other [facility] [place] - Work Station Support Specialist Physician and Clinical Staff Initial Duarte Martinez Diesel Service Apprentice Alfie Conti,JERRY Recorder Janette Mcgraw,RT(R) Scrub Noel Moran RCIS(BS) Procedures Performed Procedure Location (Site) Vessel Name Coronary Angiograms LCA Left Coronary Coronary Angiograms RCA Right Coronary LV Gram-hand inj. LV LV Ventricle Equipment Time Anesthesia Assistant Description Size Mfg Part Number Used/Scraped CATHETER, FR5 SWAN KATHERINE 12:14 [employer] FR 5 [id number] *[id number] Used MONITOR TRANSDUCER, TRUWAVE [id number] 12:14 H[place]S SHORE * Used W/STOCKCOCK *[id number] 538-420 *[id number] [id number] *[id number] 12:14 Aquiris BLANKET,WARM AIR CCL * Used *[id number] 12:14 [employer]iris PACK, CCL CUSTOM * Used *[id number] 12:14 First Wave PACER PEN, SKIN DUAL W/ RULER * Used *[id number] 12:14 [employer] MEDICAL SHEATH, FR5.5 PRELUDE 11CM FR 5.5 Used 038ACT# [id number] 12:33 MERIT MEDICAL WIRE, 3MMJ .035 180CM 180CM Used *[id number] 12:14 MERIT MEDICAL WIRE, 3MMJ .035 180CM 180CM Used *[id number] 12:14 NAMIC MANIFOLD, 4 PORT * Used *[id number] 12:14 NYCOMED OMNIPAQUE, 350 MG, 150ML 150ML [id number] Used [id number] 12:14 TERUMO MEDICAL SHEATH, FR4 TERUMO (10CM) FR 4 Used *[id number] History: Allergies Allergy Reaction Sulfa (Sulfonamide Antibiotics) Anxiety Penicillins Hives History: Risk Factors Family History of Hypertension Dyslipidemia Previous OK Previous Heart Failure Premature CAD Yes Yes No No No Prior Valve Prior PCI Prior CABG Surgery No No No Cerebrovascular Peripheral Artery Chronic Lung On Dialysis Diabetes Disease Disease Disease No No No No No History: Symptoms/Diagnosis Selection Items SOB History: Stress Tests Stress or Imaging Studies Performed No Labs Hgb (g/dl) Hct (%) WBC (l/cumm) Platelets (thousands) 11.60-17.00 35.00-51.00 4.00-11.00 150.00-450.00 10.9 32.2 0.3 498 Glucose (mg/dl) BUN (mg/dl) Creatinine (mg/dl) BUN:Creatinine (1:x) 74.00-106.00 7.00-18.00 0.50-1.30 10.00-20.00 128 25 0.6 41.7 Na (meq/l) K (meq/l) 136.00-145.00 3.50-5.10 140 3.9 INR (PTT:PT) 0.90-1.10 1.1 CPK-MB (ng/ML) 0.50-3.60 Not Drawn Medication Medication Total Dose (Bolus/Oral) Medication Total Dosage/Unit 1% XYLOCAINE 20 mL FENTANYL 25 mcg VERSED 1 mg Medications (Bolus/Oral) Medication Time Given Dosage/Unit Administered By Reason VERSED 03/26/2018 12:57:06 PM 1 mg Alfie Conti 1 mg VERSED given in lab by Alfie Conti RN in Right Antecubital via Peripheral IV. Ordered by Duarte Peña. FENTANYL 03/26/2018 12:57:18 PM 25 mcg Alfie Conti 25 mcg FENTANYL given in lab by Alfie Conti RN via Peripheral IV. Ordered by Duarte Calixto. 1% XYLOCAINE 03/26/2018 12:59:41 PM 20 mL Duarte Calixto 20 mL 1% XYLOCAINE given in lab by Duarte Calixto via Subcutaneous. Ordered by Duarte Calixto. Medication (Drip) Medication Time Given Dosage/Unit Concentration/Unit Diluent (ml) Solutio n IV Solutions 03/26/2018 12:26:14 PM 0 mL (IV) 500 NaCl .9 Patient arrived on IV Solutions in Left Antecubital via Peripheral IV. Pump/Drip Flow = 20 ml/hr usin g NaCl .9. Initial Case Assessment Cardiovascular HR Rhythm NIBP Chest Pain 82 reg 125/73 0 Edema Present Skin color Skin None Normal Warm Circulatory - Right Pulses Dorsalis Pedis Femoral 1 2 Scale (0,1,2,3,4,d) Circulatory - Left Pulses Dorsalis Pedis Femoral 1 1 Scale (0,1,2,3,4,d) Circulatory - Lower Extremities Color Lower Right Color Lower Left Normal Normal Neurological State Oriented to time-place- Alert Moves all extremities person Respiration - General Respiration Rate SpO2 (%) O2 (lpm) (B/min) 20 95 2 Final Case Assessment Cardiovascular HR Rhythm NIBP Chest Pain 85 reg 128/70 0 Edema Present Skin color Skin None Normal Warm Circulatory - Right Pulses Dorsalis Pedis Femoral 1 2 Scale (0,1,2,3,4,d) Circulatory - Left Pulses Dorsalis Pedis Femoral 1 1 Scale (0,1,2,3,4,d) Circulatory - Lower Extremities Color Lower Right Color Lower Left Normal Normal Neurological State Oriented to time-place- Alert Moves all extremities person Respiration - General Respiration Rate SpO2 (%) O2 (lpm) (B/min) 20 95 2 Chronological Log Time Study Chronological Log 12:18:31 Patient arrived via Bed. 12:18:31 Patient Name, D.O.B, / Armband Verified By R.N. 12:18:32 Consent signed by the physician and the patient and verified by the Work Station Support Specialist staff. 12:18:33 Pre-op and post- op instructions given; patient acknowledges understanding of instructions. 12:18:33 Verbal Stimulation=2 Physical Stimulation=2 Airway=2 Respiration=2 TOTAL=8. (0=absent, 1=li mited, 2=present) 12:18:35 Patient has been NPO for Less than 6Hrs. 12:18:36 Skin Breakdown-no 12:18:38 Patient Warmer Placed on the Table. Vitals capture started with the following parameters, Patient=Adult, Interval=5 min, Initial Pr xrbzwy=251 mmHg, 12:24:49 Deflation Rate=5 mmHg, Cuff placed on Left Arm 12:25:25 HR=82 bpm, MOPU=003/73 mmhg, SpO2=93.0 %, Resp=18 B/min, Pain=0, Pilo=10, Perry=2 12:26:07 A # 20 IV was noted in the Antecubital (left). Grade = 0 12:26:14 Patient arrived on IV Solutions in Left Antecubital via Peripheral IV. Pump/Drip Flow = 20 ml/hr using NaCl .9. 12:28:02 History and physical on the chart or being dictated. Assessment: Initial Case, HR=82 BPM, Rhythm=reg, JSHD=590/73 mmhg, Chest Pain=0, Edema=None, Co mikie=Normal, Skin = Warm Right Pulses: Maximiliano Ped=1, Femoral=2 Left Pulses: Maximiliano Ped=1, Femoral=1 12:28:06 Lower Right Extremities: Color=Normal Lower Left Extremities: Color=Normal Neurological: State=Alert, Ox3, ROBLERO Respiration: Resp=20 B/min, SpO2=95 %, O2=2 lpm 12:30:10 Bilateral groins prepped with 2% chlorhexidine, and draped after a 3 minute waiting time. 12:30:15 paged 12:30:28 HR=92 bpm, PVWJ=132/72 mmhg, SpO2=95.0 %, Resp=26 B/min, Pain=0, Pilo=10, Perry=2 12:32:16 Reference ECG taken 12:35:29 HR=83 bpm, SZWE=075/69 mmhg, SpO2=95.0 %, Resp=24 B/min 12:35:59 MD paged 12:36:34 MD responded 12:40:28 HR=80 bpm, HBDC=430/66 mmhg, SpO2=96.0 %, Resp=24 B/min 12:40:37 Pressure channel 1 zeroed. 12:45:27 HR=77 bpm, XAZA=590/65 mmhg, SpO2=97.0 %, Resp=25 B/min 12:50:26 HR=81 bpm, FAXU=489/68 mmhg, SpO2=95 %, Resp=27 B/min 12:55:01 MD arrived. 12:55:27 HR=84 bpm, LSUF=617/69 mmhg, SpO2=97.0 %, Resp=29 B/min 12:57:06 1 mg VERSED given in lab by Alfie Conti, JERRY in Right Antecubital via Peripheral IV. Orde red by Duarte Calixto. 12:57:18 25 mcg FENTANYL given in lab by Alfie Conti, JERRY via Peripheral IV. Ordered by Duarte Calixto. Time Out. Correct patient, correct procedure, correct physician, labs, allergies, and equipment verified with medical lab technician 12:58:55 team present. Fire risk assesment completed (see hard stop sheet for coding). Time Out Conc urred by MD and individual staff in procedure. 12:59:30 Case Start 12:59:41 20 mL 1% XYLOCAINE given in lab by Duarte Calixto via Subcutaneous. Ordered by Duarte Calixto. 13:00:28 HR=82 bpm, FRRY=399/63 mmhg, SpO2=94.0 %, Resp=26 B/min 13:00:46 Access site was Right Femoral Artery. 13:01:21 Access site was Right Femoral Vein. 13:01:30 A SHEATH, FR4 TERUMO (10CM) FR 4 was advanced into the Fem Art (right) using the Percutaneo us technique. 13:01:42 A SHEATH, FR5.5 PRELUDE 11CM FR 5.5 was advanced into the Fem Vein (right) using the Percut aneous technique. 13:01:51 Saturation: Site=FA (Femoral Artery) , O2=91.7 %, Hgb=10.9 gm/dl, Condition=Condition 1. Us ed in calculation. A CATHETER, FR5 SWAN KATHERINE MONITOR FR 5 was advanced over a wire. OMNIPAQUE, 350 MG, 150ML 150ML was 13:03:23 used for injections. Recorded Pressure: PCW, PCW, HR=86, Condition=Condition 1 13:03:47 (Pulmonary Capillary Wedge) PCW 0/0/0, (Pulmonary Capillary Wedge) PCW 14/13/11 Recorded Pressure: MPA, HR=89, Condition=Condition 1 13:04:16 (Main Pulmonary Artery) MPA 13:04:21 Saturation: Site=PA (Pulmonary Artery) , O2=70.6 %, Hgb=10.9 gm/dl, Condition=Condition 1. Used in calculation. Recorded Pressure: RV, HR=84, Condition=Condition 1 13:05:05 (Right Ventricle) RV 34/1/3 Recorded Pressure: RA, HR=80, Condition=Condition 1 13:05:23 (Right Atrium) RA 7/3/2 13:05:27 HR=81 bpm, LENJ=191/66 mmhg, SpO2=95.0 %, Resp=23 B/min 13:05:42 Saturation: Site=RA (Right Atrium) , O2=66.7 %, Hgb=10.9 gm/dl, Condition=Condition 1. Used in calculation. 13:06:51 Scroggins Katherine Catheter Removed A JR 4.0 INFINITI CATHETER FR 4 was advanced over a wire. OMNIPAQUE, 350 MG, 150ML 150ML was us ed for 13:06:52 injections. Recorded Pressure: LV, HR=83, Condition=Condition 1 13:07:07 (Left Ventricle) LV 111/2/8 Recorded Pressure: LV, Ao, HR=81, Condition=Condition 1 13:07:16 (Left Ventricle) LV 91/86/91, (Aorta) Ao 112/46/82 13:07:28 The LV was manually injected with 10 cc's and visualized. OMNIPAQUE, 350 MG, 150ML 150ML us ed. 13:08:03 The RCA was injected and visualized at various angles. OMNIPAQUE, 350 MG, 150ML 150ML used . Recorded Pressure: Ao, HR=85, Condition=Condition 1 13:08:44 (Aorta) Ao 117/67/88 After removing the current catheter a JL 4.0 INFINITI CATHETER FR 4 was advanced over a WIRE, 3 MMJ .035 180CM 13:09:05 180CM. 13:09:23 The LCA was injected and visualized at various angles. OMNIPAQUE, 350 MG, 150ML 150ML used . 13:11:05 HR=85 bpm, UUDW=217/70 mmhg, SpO2=96.0 %, Resp=25 B/min 13:11:11 Case End (Physician broke scrub) 13:11:22 Wire removed 13:11:29 Catheter was removed Assessment: Final Case, HR=85 BPM, Rhythm=reg, YXVP=098/70 mmhg, Chest Pain=0, Edema=None, Sidman r=Normal, Skin = Warm Right Pulses: Maximiliano Ped=1, Femoral=2 Left Pulses: Maximiliano Ped=1, Femoral=1 13:12:25 Lower Right Extremities: Color=Normal Lower Left Extremities: Color=Normal Neurological: State=Alert, Ox3, ROBLERO Respiration: Resp=20 B/min, SpO2=95 %, O2=2 lpm 13:12:46 Catheter(s) removed without difficulty 13:12:50 Sheath removed; pressure applied to access site. 13:13:00 Sterile dressing applied to site 13:13:01 No case complications noted. 13:13:03 Cine recording checked. 13:13:05 Bedside Report will be given. 13:13:22 A Left and Right Heart Cath was performed. 13:15:31 HR=81 bpm, HOEP=424/73 mmhg, SpO2=97.0 %, Resp=24 B/min 13:20:32 HR=79 bpm, WQTS=376/68 mmhg, SpO2=96.0 %, Resp=23 B/min 13:21:55 Sheath removed venous; pressure applied to access site. 13:25:31 HR=78 bpm, YBTU=568/73 mmhg, SpO2=95 %, Resp=24 B/min 13:27:36 Vitals capture stopped. 13:29:50 Patient moved to [facility] End Study - Contrast Media Used In Study Contrast Total Opened (mL) Total Used (mL) Total Wasted (mL) Omnipaque 50 50 0 End Study - Maximum Contrast Load Max Contrast Load (mL) 715.9 End Study - Radiation Exposure Fluoro Time (minutes) 1.8 End Study - Sheaths Sheaths Pulled By Sheath Hold Time (min) Noel Moran End Study - Patient Disposition Complications Transferred To Critical Care Bed
--- NOTE | 2018-03-26 15:09 | MR ---
cc: Duarte Calixto MD DATE: 03/26/2018 PROCEDURES: 1. Right and left heart catheterization. 2. Left ventriculography. 3. Coronary angiography. INDICATIONS: Non-STEMI, decompensated congestive heart failure, hypoxia, coronary artery disease. PROCEDURE: The patient was brought to the cardiac catheterization laboratory, prepped and draped in the usual sterile fashion; 10 mL of 1% lidocaine was used to locally anesthetize the right common femoral artery. A 4-Martiniquais sheath was placed in right common femoral artery. A 5.5-Martiniquais sheath placed in the right common femoral vein. Right heart catheterization was performed first with the following findings. Right heart catheterization was performed on 5 liters nasal cannula due to the patient's precipitous decline in oxygen saturation off of oxygen. Pulmonary capillary wedge pressure was 14/15-11. PA pressure was 32/15-21, RV pressure 34/1-3, RA pressure 7/3-2. The FA sat 91.7%. PA sat 70.6%, RA sat 66.7%. Cardiac output by Pepe 6.5 liters per minute. Cardiac index by Pepe 4.0 liters per m2 per minute. SVR 1062 Dynes. Left heart catheterization was then performed with a 4-Martiniquais JR4 catheter with the following findings: LV pressure is 110/3-5, ejection fraction 60%. The right coronary artery is nondominant with no significant disease angiographically. Left main coronary artery has no significant disease angiographically. The left circumflex vessel was a dominant vessel with a distal 20%-30% stenosis. First obtuse marginal vessel, a medium size vessel; reference vessel diameter 2.25 mm, proximal bifurcation with no significant disease angiographically. There is a distal posterolateral artery approaching the apex. Medium sized vessel 2.5 mm reference vessel diameter with no significant disease angiographically. Left PDA, relatively small vessel ____ mm vessel with no significant disease angiographically. The LAD was transapical; has mild diffuse disease in the proximal mid segment up to 20% angiographically. First, second, third and fourth diagonal arteries were small to medium size vessels ranging between about 1.5 mm to 2.25 mm in diameter with no significant obstructive disease. CONCLUSIONS: 1. Angiographically mild 2-vessel coronary artery disease in a left dominant system as detailed above. 2. Normal left ventricular systolic function with ejection fraction 60%. 3. Normal to low and normal right heart pressures as detailed above. 4. Left ventricular end diastolic pressure equal to 5 consistent with intravascular volume depletion. 5. No cardiac etiology to the patient's hypoxia is identified. 6. Recommend medical management of coronary artery disease, cardiac risk factor modification. We will continue aspirin 81 mg a day. Treat lipids according to ____ guidelines. MD RUBÉN Brooks/mary/ll , 01:27 PM , 01:35 PM
[2018-03-26] MEDS: Azithromycin Inj 500 MG in Sodium Chlor 0.9% Inj 250 ML IV.SIG SCH (17:23)
--- NOTE | 2018-03-26 18:10 | P.PNIM ---
Subjective Interval history: Patient currently does not have any complaints. She is having a dry cough. No shortness of breath. No chest pain. Physical Exam Vital signs: Vital Signs 03/25/18 20:00 03/25/18 21:02 03/25/18 22:00 Temperature 98.6 F Pulse Rate 85 77 87 Respiratory Rate 30 H 20 Blood Pressure 115/63 Pulse Oximetry 100 98 03/26/18 00:00 03/26/18 02:00 03/26/18 04:00 Temperature 98.7 F 98 F Pulse Rate 77 77 69 Respiratory Rate 21 28 H Blood Pressure 119/58 L 106/51 L Pulse Oximetry 94 L 99 03/26/18 06:00 03/26/18 08:00 03/26/18 10:00 Temperature 98.7 F Pulse Rate 71 64 84 Respiratory Rate 30 H Blood Pressure 96/52 L Pulse Oximetry 95 03/26/18 10:59 03/26/18 11:53 03/26/18 14:00 Temperature Pulse Rate 76 74 Respiratory Rate 21 Blood Pressure Pulse Oximetry 95 03/26/18 16:00 Temperature 98.8 F Pulse Rate 79 Respiratory Rate 20 Blood Pressure 114/70 Pulse Oximetry 96 Intake & Output 03/25/18 03/26/18 03/26/18 18:59 06:59 18:59 Intake Total 250 / 250 300 / 300 300 / 300 Balance 250 / 250 300 / 300 300 / 300 Intake: IV 250 / 250 300 / 300 Azithromycin Inj 500 MG In NS 250 / 250 Inj 250 ML @ 250 mls/hr IV.SIG Q24H JENA Rx#:[id number] Levaquin 750 mg Premix Inj 150 300 / 300 ML @ 100 mls/hr IV.SIG Q24H JENA Rx#:[id number] Oral 300 / 300 Other: # Voids 6 Date of Last Bowel Movement 03/25/18 03/25/18 03/25/18 Narrative: General patient in no acute distress, she is having a nonproductive cough. HEENT extraocular movements are intact, clear oropharyngeal mucosa, no JVD Cardiovascular S1-S2 audible Respiratory bilateral crackles in all lung ignacio. Abdomen soft, nontender, nondistended, normal bowel sounds Extremities no edema 2+ distal pulses in bilateral upper and lower extremities Neuro cranial nerves II through XII intact Results - Labs CBC & Chem 7: 03/24/18 03:34 03/24/18 03:34 Laboratory Results - last 24 hr 03/25/18 03/26/18 03/26/18 21:02 08:56 16:00 ESR POC Glucose 196 H 92 Lactate Dehydrogenase 376 H HIV 1&2 Ab/P24 Ag 4thGn 03/26/18 03/26/18 03/26/18 16:00 16:00 17:20 ESR 28 POC Glucose 141 H Lactate Dehydrogenase HIV 1&2 Ab/P24 Ag 4thGn Nonreactive - Imaging Impressions Chest X-Ray 03/26/18 09:20 CONCLUSION: Patchy airspace disease persisting with minimal improvement. - Procedures None Assessment and Plan - Plan This patient is a 58-year-old obese female who presented to our emergency department with complaints of shortness of breath as well as chest tightness. She was found to have an elevated troponin as well as bilateral diffuse infiltrates seen on chest x-ray. 1. NSTEMI/hyperlipidemia Initial troponin was elevated at 0.55 which then showed a down trend. EKG showed normal sinus rhythm without any specific ST segment or T wave changes. The patient underwent cardiac catheterization today which showed mild 2 vessel coronary artery disease. Recommendations from cardiology are to continue with medical management. She will be continued on aspirin, statin, and beta-he. She will be counseled on diet and weight loss. Continue supplemental oxygen. 2. Acute hypoxic hypercapnic restaurant failure likely secondary to community- acquired pneumonia The patient is currently on 6 L of supplemental oxygen. Chest x-ray shows bilateral infiltrates. Pulmonary team is following the patient. Continue IV antibiotics, continue steroids, continue current recommendations from the pulmonary team. Infectious disease is also following we will continue to follow the recommendations. 3. GERD Continue Protonix 4. Obesity strongly recommended diet and exercise as outpatient. 5. Vaginal pruritic sensation as per patient starting Vaginal Candidiasis started on local Clotrimazole Cream. Prophylaxis GI-pantoprazole DVT SCD/heparin subcu Code Status: Full Code.
--- NOTE | 2018-03-26 18:36 | P.PNPL ---
Subjective Interval history: 58 YOWF with br asthma, bilat diffuse infilt, hypoxic RF Desaturates on taking mask no fever Cough, not able to expactorate Weaned to 6LNC Had cardiac cath Physical Exam Vital signs: Vital Signs 03/25/18 20:00 03/25/18 21:02 03/25/18 22:00 Temperature 98.6 F Pulse Rate 85 77 87 Respiratory Rate 30 H 20 Blood Pressure 115/63 Pulse Oximetry 100 98 03/26/18 00:00 03/26/18 02:00 03/26/18 04:00 Temperature 98.7 F 98 F Pulse Rate 77 77 69 Respiratory Rate 21 28 H Blood Pressure 119/58 L 106/51 L Pulse Oximetry 94 L 99 03/26/18 06:00 03/26/18 08:00 03/26/18 10:00 Temperature 98.7 F Pulse Rate 71 64 84 Respiratory Rate 30 H Blood Pressure 96/52 L Pulse Oximetry 95 03/26/18 10:59 03/26/18 11:53 03/26/18 14:00 Temperature Pulse Rate 76 74 Respiratory Rate 21 Blood Pressure Pulse Oximetry 95 03/26/18 16:00 03/26/18 18:00 Temperature 98.8 F Pulse Rate 79 90 Respiratory Rate 20 Blood Pressure 114/70 Pulse Oximetry 96 Intake & Output 03/25/18 03/26/18 03/26/18 18:59 06:59 18:59 Intake Total 250 / 250 300 / 300 540 / 540 Balance 250 / 250 300 / 300 540 / 540 Intake: IV 250 / 250 300 / 300 Azithromycin Inj 500 MG In NS 250 / 250 Inj 250 ML @ 250 mls/hr IV.SIG Q24H JENA Rx#:[id number] Levaquin 750 mg Premix Inj 150 300 / 300 ML @ 100 mls/hr IV.SIG Q24H JENA Rx#:[id number] Oral 300 / 300 240 / 240 Other: # Voids 6 5 Date of Last Bowel Movement 03/25/18 03/25/18 03/26/18 # Bowel Movements 1 GENERAL: Elderly female NAD SKIN: Warm and dry. HEAD: Normocephalic. EYES: No scleral icterus. No injection or drainage. NECK: Supple, trachea midline. No JVD or lymphadenopathy. CARDIOVASCULAR: Regular rate and rhythm without murmurs, gallops, or rubs. RESPIRATORY: Breath sounds equal bilaterally. No accessory muscle use. GASTROINTESTINAL: Abdomen soft, non-tender, nondistended. MUSCULOSKELETAL: No cyanosis, or edema. BACK: Nontender without obvious deformity. No CVA tenderness. Assessment and Plan - Plan IMPRESSION: 1. Hypoxic respiratory failure. 2. Bilateral diffuse lung infiltrates, possibly viral pneumonia, atypical pneumonia or inflammatory process. 3. Non-ST elevation myocardial infarction. 4. History of bronchial asthma. PLAN: IV Solumedrol Cont Abx, ID following Supplement 02 with 6LNC Titerate 02 to keep sat >90% Use Acapella and IS Tessalon 200 mg tid.prn cough DW pt
[2018-03-26] MEDS: Metoprolol Tartrate 25 MG Tablet PO SCH (20:54)
[2018-03-27] MEDS: MethylPREDNISolone Sod Succinate Inj 40 MG/ML Vial IV.PUSH SCH ×4 (01:47→21:01)
[2018-03-27 06:46] LABS: Baso # (Auto) 0.1 th/mm3 (0.0-0.2); Baso % (Auto) 0.5 % (0.0-2.0); Eos % (Auto) 0.1 % (0.0-4.0); Hematocrit 36.2 % (35.0-46.0); Hemoglobin 11.7 gm/dL (11.6-15.3); Lymph % (Auto) 8.1 % (9.0-44.0); Mean Corpuscular HGB Conc 32.4 % (32.0-36.0); Mean Corpuscular Volume 92.8 fL (80.0-100.0); Mean Platelet Volume 7.8 fL (7.0-11.0); Mono # (Auto) 0.7 th/mm3 (0.0-0.9); Mono % (Auto) 5.7 % (0.0-8.0); Neut # (Auto) 10.5 th/mm3 (1.8-7.7); Neut % (Auto) 85.6 % (16.0-70.0); Platelet Count 440 th/mm3 (150-450); Red Cell Distribution Width 14.8 % (11.6-17.2); White Blood Count 12.3 th/mm3 (4.0-11.0)
[2018-03-27 07:33] LABS: Calcium 7.8 mg/dL (8.5-10.1); Carbon Dioxide 26.1 meq/L (21.0-32.0); Magnesium 2.5 mg/dL (1.5-2.5)
[2018-03-27 07:50] LABS: Potassium 4.6 meq/L (3.5-5.1)
[2018-03-27] MEDS: Insulin NovoLOG Aspart Correctional Sugar Inj SQ SCH ×4 (07:52→21:04)
[2018-03-27] MEDS: Heparin - SQ 10,000 UNITS/ML Vial SQ SCH ×3 (07:52→21:03)
[2018-03-27] MEDS: guaiFENesin 600 MG ER Tablet PO SCH ×2 (08:00→21:01)
[2018-03-27] MEDS: Spironolactone 25 MG Tablet PO SCH ×2 (08:01→17:38)
[2018-03-27] MEDS: Metoprolol Tartrate 25 MG Tablet PO SCH ×3 (08:01→21:16)
[2018-03-27] MEDS: Senna/Docusate Sodium 8.6/50 MG Tablet PO SCH ×2 (08:01→21:01)
[2018-03-27] MEDS: Budesonide-Formoterol 160/4.5 MCG 6 GM Inhaler INH SCH ×2 (08:02→21:05)
[2018-03-27] MEDS: Pantoprazole Inj 40 MG Vial IV.PUSH SCH (08:02)
[2018-03-27 08:14] LABS: Eosinophils 1 % (0-4); Lymphocytes 4 % (9-44); Metamyelocytes 2 % (0-1); Monocytes 3 % (0-8); Myelocytes 1 % (0-0); Platelet Morphology Normal (Normal); Promyelocyte 1 % (0-0)
--- NOTE | 2018-03-27 11:36 | P.PNPL ---
Subjective Interval history: 58 YOWF with br asthma, bilat diffuse infilt, hypoxic RF Desaturates on taking mask no fever Cough, not able to expactorate Weaned to 5LNC Did't sleep well ELIN and RF positive Physical Exam Vital signs: Vital Signs 03/26/18 11:53 03/26/18 14:00 03/26/18 16:00 Temperature 98.8 F Pulse Rate 76 74 79 Respiratory Rate 21 20 Blood Pressure 114/70 Pulse Oximetry 96 03/26/18 18:00 03/26/18 20:00 03/26/18 22:00 Temperature 98.6 F Pulse Rate 90 100 H 102 H Respiratory Rate 20 Blood Pressure 113/57 L Pulse Oximetry 96 03/26/18 22:05 03/26/18 23:51 03/27/18 00:00 Temperature 98.4 F Pulse Rate 75 82 Respiratory Rate 20 22 Blood Pressure 103/54 L Pulse Oximetry 100 92 L 03/27/18 04:00 03/27/18 06:00 03/27/18 08:00 Temperature 98.3 F 98.6 F Pulse Rate 71 68 72 Respiratory Rate 18 31 H Blood Pressure 99/52 L 103/56 L Pulse Oximetry 92 L 95 03/27/18 08:01 03/27/18 10:00 Temperature Pulse Rate 71 79 Respiratory Rate 23 Blood Pressure 103/56 L Pulse Oximetry 95 Intake & Output 03/26/18 03/27/18 03/27/18 18:59 06:59 18:59 Intake Total 540 / 540 730 / 730 Output Total 1000 / 1000 Balance 540 / 540 -270 / -270 Intake: IV 300 / 300 250 / 250 Azithromycin Inj 500 MG In NS 250 / 250 Inj 250 ML @ 250 mls/hr IV.SIG Q24H JENA Rx#:[id number] Levaquin 750 mg Premix Inj 150 300 / 300 ML @ 100 mls/hr IV.SIG Q24H JENA Rx#:[id number] Oral 240 / 240 480 / 480 Output: Urine 1000 / 1000 Other: # Voids 5 Date of Last Bowel Movement 03/26/18 03/26/18 03/27/18 # Bowel Movements 1 1 GENERAL: WBWn NAD SKIN: Warm and dry. HEAD: Normocephalic. EYES: No scleral icterus. No injection or drainage. NECK: Supple, trachea midline. No JVD or lymphadenopathy. CARDIOVASCULAR: Regular rate and rhythm without murmurs, gallops, or rubs. RESPIRATORY: Breath sounds equal bilaterally. No accessory muscle use. GASTROINTESTINAL: Abdomen soft, non-tender, nondistended. MUSCULOSKELETAL: No cyanosis, or edema. BACK: Nontender without obvious deformity. No CVA tenderness. Assessment and Plan - Plan IMPRESSION: 1. Hypoxic respiratory failure. 2. Bilateral diffuse lung infiltrates, possibly viral pneumonia, atypical pneumonia or inflammatory process. 3. Non-ST elevation myocardial infarction. 4. History of bronchial asthma. PLAN: IV Solumedrol Cont Abx, ID following Supplement 02 with 6LNC Titerate 02 to keep sat >90% Use Acapella and IS Tessalon 200 mg tid.prn cough DW pt Consult Rheumatology
[2018-03-27] MEDS: Benzonatate 100 MG Capsule PO SCH ×3 (13:52→21:05)
--- NOTE | 2018-03-27 14:01 | P.PNCA ---
Subjective Interval history: alert in nad Medications and Allergies Active Medications: Active Medications Acetaminophen (Tylenol) 650 mg PO Q6H PRN PRN Reason: Fever >100f Hydrocodone Bitart/Acetaminophen ([place] 5/325) 1 tab PO Q4H PRN PRN Reason: PAIN SCALE 1 TO 5 Last Admin: 03/21/18 23:57 Dose: 1 tab Al Hydroxide/Mg Hydroxide (Milk Of [place] Liq) 30 ml PO Q12H PRN PRN Reason: Mild Constipation Albuterol (Albuterol Neb (Prn)) 2.5 mg NEB Q2HR NEB PRN PRN Reason: SHORTNESS OF BREATH/WHEEZING Last Admin: 03/26/18 23:51 Dose: 2.5 mg Aspirin (Aspirin Chew) 81 mg PO DAILY [facility] Last Admin: 03/27/18 08:01 Dose: 81 mg Atorvastatin Calcium (Lipitor) 40 mg PO HS [facility] Last Admin: 03/26/18 20:54 Dose: 40 mg Benzonatate (Tessalon Perles) 200 mg PO Q8HR [facility] Last Admin: 03/27/18 13:52 Dose: Not Given Bisacodyl (Dulcolax Supp) 10 mg RECTAL DAILY PRN PRN Reason: SEVERE CONSITIPATION Budesonide/Formoterol Fumarate (Symbicort 160/4.5 Mcg Inh) 2 puff INH BID [facility] Last Admin: 03/27/18 08:02 Dose: Not Given Clotrimazole (Gyne Lotrimin 7 1% Vag Cream) 1 appful VAGINAL DAILY [facility] Stop: 03/31/18 21:00 Last Admin: 03/27/18 08:02 Dose: 1 appful Dextrose (D50w Vial) 50 ml IV.PUSH UNSCH PRN PRN Reason: PER HYPOGLYCEMIA PROTOCOL Furosemide (Lasix Inj) 40 mg IV.PUSH BID@0900,1800 [facility] Last Admin: 03/27/18 08:01 Dose: 40 mg Glucagon (Glucagon Inj) 1 mg OTHER PRN PRN PRN Reason: for Hypoglycemia Protocol Guaifenesin (Mucinex Er) 600 mg PO BID [facility] Last Admin: 03/27/18 08:00 Dose: Not Given Heparin Sodium (Porcine) (Heparin Inj) 5,000 units SQ Q8HR [facility] Last Admin: 03/27/18 07:52 Dose: Not Given Azithromycin 500 mg/ Sodium (Chloride) 250 mls @ 250 mls/hr IV.SIG Q24H [facility] Last Infusion: 03/26/18 19:30 Dose: Infused Magnesium Sulfate 2 gm/ Sodium (Chloride) 100 mls @ 50 mls/hr IV.SIG UNSCH PRN PRN Reason: For Magnesium 1.2 - 1.6 mg/dL Levofloxacin/Dextrose (Levaquin 750 Mg Premix Inj) 150 mls @ 100 mls/hr IV.SIG Q24H [facility] Last Admin: 03/27/18 12:03 Dose: 100 mls/hr Magnesium Sulfate 4 gm/ Sodium (Chloride) 100 mls @ 50 mls/hr IV.SIG UNSCH PRN PRN Reason: For Magnesium 0.9 - 1.1 mg/dL Magnesium Sulfate 2 gm/ Sodium (Chloride) 100 mls @ 50 mls/hr IV.SIG UNSCH PRN PRN Reason: For Magnesium 1.2 - 1.6 mg/dL Potassium Chloride (Kcl 40 Meq Premix Inj) 40 meq in 100 mls @ 25 mls/hr IV.SIG Q2H PRN PRN Reason: For Potassium 2.8 - 3.2 mEq/L Potassium Chloride (Kcl 20 Meq Premix Inj) 20 meq in 100 mls @ 50 mls/hr IV.SIG Q2H PRN PRN Reason: For Potassium 3.3 - 3.5 mEq/L Potassium Chloride (Kcl 40 Meq Premix Inj) 40 meq in 100 mls @ 25 mls/hr IV.SIG UNSCH PRN PRN Reason: For Potassium 3.3 - 3.5 mEq/L Potassium Chloride (Kcl 20 Meq Premix Inj) 20 meq in 100 mls @ 50 mls/hr IV.SIG Q2H PRN PRN Reason: For Potassium 2.8 - 3.2 mEq/L Potassium Phosphate 30 mmol/ (Sodium Chloride) 260 mls @ 42 mls/hr IV.SIG UNSCH PRN PRN Reason: SEE LABEL COMMENTS Sodium Phosphate 30 mmol/ (Sodium Chloride) 260 mls @ 42 mls/hr IV.SIG UNSCH PRN PRN Reason: For Phosphorus < 2.5 mg/dL Insulin Aspart (Novolog Insulin Correctional Sugar Inj) 0 unit SQ ACHS [facility]; Protocol Last Admin: 03/27/18 11:33 Dose: Not Given Lactulose (Lactulose Liq) 30 ml PO DAILY PRN PRN Reason: SEVERE CONSITIPATION Magnesium Oxide (Mag-Ox) 800 mg PO UNSCH PRN PRN Reason: For Magnesium 1.2 - 1.6 mg/dL Methylprednisolone Sodium Succinate (Solumedrol Inj) 40 mg IV.PUSH Q6H [facility] Last Admin: 03/27/18 08:03 Dose: 40 mg Metoprolol Tartrate (Lopressor) 12.5 mg PO BID [facility] Last Admin: 03/27/18 08:01 Dose: 12.5 mg Miscellaneous (Pill Splitter) 1 each OTHER [facility] Morphine Sulfate (Morphine Inj) 2 mg IV.PUSH Q2H PRN PRN Reason: PAIN SCALE 6 TO 10 Ondansetron HCl (Zofran Inj) 4 mg IV.PUSH Q6H PRN PRN Reason: NAUSEA OR VOMITING Pantoprazole Sodium (Protonix Inj) 40 mg IV.PUSH DAILY [facility] Last Admin: 03/27/18 08:02 Dose: 40 mg Potassium Bicarb/Potassium Chloride (K-Lyte Cl Eff) 50 meq PO UNSCH PRN PRN Reason: For Potassium 3.3 - 3.5 mEq/L Last Admin: 03/23/18 18:18 Dose: 50 meq Potassium Phosphate (K-Phos Original) 2,000 mg PO UNSCH PRN PRN Reason: SEE LABEL COMMENTS Potassium Phosphate (K-Phos Original) 2,000 mg PO Q4H PRN PRN Reason: Phosphorus Less Than 2.5 mg/dL Senna/Docusate Sodium (Sofi-Colace) 1 tab PO BID [facility] Last Admin: 03/27/18 08:01 Dose: 1 tab Sennosides (Senokot) 17.2 mg PO Q12H PRN PRN Reason: Moderate Constipation Sodium Chloride (Ns Flush) 2 ml IV.FLUSH BID [facility] Last Admin: 03/27/18 08:02 Dose: 2 ml Sodium Chloride (Ns Flush) 2 ml IV.FLUSH PRN PRN PRN Reason: FLUSH AFTER USING IV ACCESS Spironolactone (Aldactone) 25 mg PO BID@0900,1800 [facility] Last Admin: 03/27/18 08:01 Dose: 25 mg Allergies Allergy/AdvReac Type Severity Reaction Status Date / Time Penicillins Allergy Intermediate Hives Verified 03/19/18 21:08 Sulfa (Sulfonamide Allergy Intermediate Anxiety Verified 03/18/18 14:16 Antibiotics) Physical Exam Vital signs: Vital Signs 03/26/18 16:00 03/26/18 18:00 03/26/18 20:00 Temperature 98.8 F 98.6 F Pulse Rate 79 90 100 H Respiratory Rate 20 20 Blood Pressure 114/70 113/57 L Pulse Oximetry 96 96 03/26/18 22:00 03/26/18 22:05 03/26/18 23:51 Temperature Pulse Rate 102 H 75 Respiratory Rate 20 Blood Pressure Pulse Oximetry 100 03/27/18 00:00 03/27/18 04:00 03/27/18 06:00 Temperature 98.4 F 98.3 F Pulse Rate 82 71 68 Respiratory Rate 22 18 Blood Pressure 103/54 L 99/52 L Pulse Oximetry 92 L 92 L 03/27/18 08:00 03/27/18 08:01 03/27/18 10:00 Temperature 98.6 F Pulse Rate 72 71 79 Respiratory Rate 31 H 23 Blood Pressure 103/56 L 103/56 L Pulse Oximetry 95 95 03/27/18 12:00 03/27/18 12:01 03/27/18 12:04 Temperature 98.4 F Pulse Rate 74 74 76 Respiratory Rate 28 H 26 H Blood Pressure 101/55 L 101/55 L Pulse Oximetry 90 L 94 L Intake & Output 03/26/18 03/27/18 03/27/18 18:59 06:59 18:59 Intake Total 540 / 540 730 / 730 120 / 120 Output Total 1000 / 1000 1000 / 1000 Balance 540 / 540 -270 / -270 -880 / -880 Intake: IV 300 / 300 250 / 250 Azithromycin Inj 500 MG In NS 250 / 250 Inj 250 ML @ 250 mls/hr IV.SIG Q24H [facility] Rx#:[id number] Levaquin 750 mg Premix Inj 150 300 / 300 ML @ 100 mls/hr IV.SIG Q24H [facility] Rx#:[id number] Oral 240 / 240 480 / 480 120 / 120 Output: Urine 1000 / 1000 1000 / 1000 Other: # Voids 5 Date of Last Bowel Movement 03/26/18 03/26/18 03/27/18 # Bowel Movements 1 1 Results 03/27/18 05:54 03/27/18 05:54 Cardiac Enzymes 03/26/18 Range/Units 16:00 Lactate Dehydrogenase 376 H (84-246) U/L CBC 03/27/18 Range/Units 05:54 WBC 12.3 H (4.0-11.0) th/mm3 RBC 3.90 L (4.00-5.30) mil/mm3 Hgb 11.7 (11.6-15.3) gm/dL Hct 36.2 (35.0-46.0) % Plt Count 440 (150-450) th/mm3 Neut # (Auto) 10.5 H (1.8-7.7) th/mm3 Lymph # (Auto) 1.0 (1.0-4.8) th/mm3 [place] # (Auto) 0.7 (0.0-0.9) th/mm3 Eos # (Auto) 0.0 (0.0-0.4) th/mm3 Baso # (Auto) 0.1 (0.0-0.2) th/mm3 Comprehensive Metabolic Panel 03/27/18 Range/Units 05:54 Sodium 138 (136-145) meq/L Potassium 4.6 (3.5-5.1) meq/L Chloride 102 (98-107) meq/L Carbon Dioxide 26.1 (21.0-32.0) meq/L BUN 25 H (7-18) mg/dL Creatinine 0.72 (0.50-1.00) mg/dL Calcium 7.8 L (8.5-10.1) mg/dL Intake and Output 03/26/18 03/27/18 03/27/18 22:59 06:59 14:59 Intake Total 640 / 640 480 / 480 120 / 120 Output Total 1000 / 1000 1000 / 1000 Balance 640 / 640 -520 / -520 -880 / -880 Intake: IV 400 / 400 Azithromycin Inj 500 MG In NS 250 / 250 Inj 250 ML @ 250 mls/hr IV.SIG Q24H [facility] Rx#:[id number] Levaquin 750 mg Premix Inj 150 150 / 150 ML @ 100 mls/hr IV.SIG Q24H [facility] Rx#:[id number] Oral 240 / 240 480 / 480 120 / 120 Output: Urine 1000 / 1000 1000 / 1000 Other: # Voids 5 Date of Last Bowel Movement 03/25/18 03/26/18 03/27/18 # Bowel Movements 1 1 - Imaging and Cardiology Imaging: Impressions Chest X-Ray 03/26/18 09:20 CONCLUSION: Patchy airspace disease persisting with minimal improvement. Assessment and Plan - Assessment (1) NSTEMI (non-ST elevated myocardial infarction) Code(s): I21.4 - Non-ST elevation (NSTEMI) myocardial infarction Status: Acute (2) CHF (congestive heart failure) Code(s): I50.9 - Heart failure, unspecified Status: Acute (3) Hypoxia Code(s): R09.02 - Hypoxemia Status: Acute (4) Dyspnea Code(s): R06.00 - Dyspnea, unspecified Status: Acute - Plan 1.) CAD - mild, continue aspirin, lipitor 2.) Hypoxia - noncardiac in origin, rhc/lvedp wnl, results d/w patient
--- NOTE | 2018-03-27 15:16 | P.PNID ---
Subjective Remarks: ID Xcover for . 58-year-old white female who presented to the emergency department with respiratory distress. Remains in ICU. On oxygen, able to talk in complete sentences. No diarrhea No N/V Mycoplasma IgG positive. Rheumatoid factor positive. ELIN titer high. Chest x-ray showing improvement. Antibiotics: Levaquin IV Azithro IV Lines: Lines ok Past Medical History: PAST MEDICAL HISTORY: Bronchitis, gastroesophageal reflux disease, chronic kidney disease stage II, hyperlipidemia, bunionectomy. Allergies/Adverse Reactions: Allergies Penicillins Allergy (Intermediate, Verified 03/19/18 21:08) Hives Sulfa (Sulfonamide Antibiotics) Allergy (Intermediate, Verified 03/18/18 14:16) Anxiety Objective Vital Signs 03/26/18 16:00 03/26/18 18:00 03/26/18 20:00 Temperature 98.8 F 98.6 F Pulse Rate 79 90 100 H Respiratory Rate 20 20 Blood Pressure 114/70 113/57 L Pulse Oximetry 96 96 03/26/18 22:00 03/26/18 22:05 03/26/18 23:51 Temperature Pulse Rate 102 H 75 Respiratory Rate 20 Blood Pressure Pulse Oximetry 100 03/27/18 00:00 03/27/18 04:00 03/27/18 06:00 Temperature 98.4 F 98.3 F Pulse Rate 82 71 68 Respiratory Rate 22 18 Blood Pressure 103/54 L 99/52 L Pulse Oximetry 92 L 92 L 03/27/18 08:00 03/27/18 08:01 03/27/18 10:00 Temperature 98.6 F Pulse Rate 72 71 79 Respiratory Rate 31 H 23 Blood Pressure 103/56 L 103/56 L Pulse Oximetry 95 95 03/27/18 12:00 03/27/18 12:01 03/27/18 12:04 Temperature 98.4 F Pulse Rate 74 74 76 Respiratory Rate 28 H 26 H Blood Pressure 101/55 L 101/55 L Pulse Oximetry 90 L 94 L Intake & Output 03/26/18 03/27/18 03/27/18 18:59 06:59 18:59 Intake Total 540 / 540 730 / 730 270 / 270 Output Total 1000 / 1000 1000 / 1000 Balance 540 / 540 -270 / -270 -730 / -730 Intake: IV 300 / 300 250 / 250 150 / 150 Azithromycin Inj 500 MG In NS 250 / 250 Inj 250 ML @ 250 mls/hr IV.SIG Q24H [facility] Rx#:[id number] Levaquin 750 mg Premix Inj 150 300 / 300 150 / 150 ML @ 100 mls/hr IV.SIG Q24H [facility] Rx#:[id number] Oral 240 / 240 480 / 480 120 / 120 Output: Urine 1000 / 1000 1000 / 1000 Other: # Voids 5 Date of Last Bowel Movement 03/26/18 03/26/18 03/27/18 # Bowel Movements 1 1 Lab - Hematology Results 03/26/18 03/27/18 16:00 05:54 WBC 12.3 H RBC 3.90 L Hgb 11.7 Hct 36.2 MCV 92.8 MCH 30.0 MCHC 32.4 RDW 14.8 Plt Count 440 MPV 7.8 Prelim Diff (Auto) Slide review pending Neut % (Auto) 85.6 H Lymph % (Auto) 8.1 L [place] % (Auto) 5.7 Eos % (Auto) 0.1 Baso % (Auto) 0.5 Neut # (Auto) 10.5 H Lymph # (Auto) 1.0 [place] # (Auto) 0.7 Eos # (Auto) 0.0 Baso # (Auto) 0.1 WBC Differential Manual diff final Seg Neuts % (Manual) 87 H Band Neuts % (Manual) 1 Lymphocytes % (Manual) 4 L Monocytes % (Manual) 3 Eosinophils % (Manual) 1 Metamyelocytes % (Man) 2 H Myelocytes % (Man) 1 H Promyelocytes % (Man) 1 H Abs Neuts (Manual) 11.3 H Differential Comment . Platelet Estimate High H Platelet Morphology Normal ESR 28 Lab - Chemistry Results 03/25/18 03/25/18 03/26/18 16:53 21:02 08:56 Sodium Potassium Chloride Carbon Dioxide Anion Gap BUN Creatinine Estimated GFR POC Glucose 136 H 196 H 92 Random Glucose Calcium Magnesium Lactate Dehydrogenase Procalcitonin 03/26/18 03/26/18 03/26/18 16:00 16:00 17:20 Sodium Potassium Chloride Carbon Dioxide Anion Gap BUN Creatinine Estimated GFR POC Glucose 141 H Random Glucose Calcium Magnesium Lactate Dehydrogenase 376 H Procalcitonin 0.06 03/26/18 03/27/18 03/27/18 20:49 05:54 07:49 Sodium 138 Potassium 4.6 Chloride 102 Carbon Dioxide 26.1 Anion Gap 10 BUN 25 H Creatinine 0.72 Estimated GFR 83 L POC Glucose 129 H 114 H Random Glucose 120 H Calcium 7.8 L Magnesium 2.5 Lactate Dehydrogenase Procalcitonin 03/27/18 11:15 Sodium Potassium Chloride Carbon Dioxide Anion Gap BUN Creatinine Estimated GFR POC Glucose 127 H Random Glucose Calcium Magnesium Lactate Dehydrogenase Procalcitonin Imaging: ITS Impressions Abdomen X-Ray 03/18/18 00:00 CONCLUSION: Negative examination. Venous Doppler Study 03/18/18 00:00 CONCLUSION: 1. The study is negative for bilateral lower extremity deep venous thrombosis. Chest CTA 03/18/18 16:02 CONCLUSION: 1. There is no evidence of PE for technique. 2. Extensive airspace process most likely inflammatory and pneumonia, possibility of pulmonary edema is not excluded. 3. Tiny bilateral pleural effusions with nonspecific most likely benign lymph nodes within the mediastinum. Chest X-Ray 03/26/18 09:20 CONCLUSION: Patchy airspace disease persisting with minimal improvement. Physical Exam: PHYSICAL EXAMINATION: GENERAL: Awake and alert and oriented. HEENT: Head is atraumatic. Extraocular movements are grossly intact. Pupils reactive to light. No icterus. Oropharynx, moist mucosa. No visible lesions. NECK: Supple. no adenopathy or swelling.. LUNGS: Decreased breath sounds throughout. No rhonchi. HEART: Regular rate and rhythm without murmurs, rubs or gallops. ABDOMEN: Bowel sounds present. Soft, obese, nontender. EXTREMITIES: No clubbing, cyanosis or edema. SKIN: No rash. NEUROLOGIC: Nonfocal. PSYCH: Calm and cooperative. Assessment and Plan - Plan IMPRESSION: Bilateral pulmonary infiltrates showing little improvement. Questionable etiology. Nonproductive cough. The patient presented with fever, nausea, and dyspnea on exertion. Possible atypical versus viral pneumonia. Also, potentially this could be congestive heart failure or other inflammatory or autoimmune condition. Elevated ELIN titer. Consider further workup. Will defer to attending. Very little improvement in respiratory status if any. RECOMMENDATIONS: 1. DC azithromycin 2. Continue Levaquin. HIV negative, Procalcitonin normal.
--- NOTE | 2018-03-27 17:59 | P.PNIM ---
Subjective Interval history: Patient complaining of a nonproductive cough. Otherwise she does not have any other complaints. Physical Exam Vital signs: Vital Signs 03/26/18 18:00 03/26/18 20:00 03/26/18 22:00 Temperature 98.6 F Pulse Rate 90 100 H 102 H Respiratory Rate 20 Blood Pressure 113/57 L Pulse Oximetry 96 03/26/18 22:05 03/26/18 23:51 03/27/18 00:00 Temperature 98.4 F Pulse Rate 75 82 Respiratory Rate 20 22 Blood Pressure 103/54 L Pulse Oximetry 100 92 L 03/27/18 04:00 03/27/18 06:00 03/27/18 08:00 Temperature 98.3 F 98.6 F Pulse Rate 71 68 72 Respiratory Rate 18 31 H Blood Pressure 99/52 L 103/56 L Pulse Oximetry 92 L 95 03/27/18 08:01 03/27/18 10:00 03/27/18 12:00 Temperature Pulse Rate 71 79 74 Respiratory Rate 23 Blood Pressure 103/56 L Pulse Oximetry 95 03/27/18 12:01 03/27/18 12:04 03/27/18 14:00 Temperature 98.4 F Pulse Rate 74 76 85 Respiratory Rate 28 H 26 H 22 Blood Pressure 101/55 L 101/55 L Pulse Oximetry 90 L 94 L 92 L 03/27/18 14:15 03/27/18 16:00 Temperature Pulse Rate 71 Respiratory Rate 18 Blood Pressure Pulse Oximetry 93 L 96 Intake & Output 03/26/18 03/27/18 03/27/18 18:59 06:59 18:59 Intake Total 540 / 540 730 / 730 270 / 270 Output Total 1000 / 1000 1000 / 1000 Balance 540 / 540 -270 / -270 -730 / -730 Intake: IV 300 / 300 250 / 250 150 / 150 Azithromycin Inj 500 MG In NS 250 / 250 Inj 250 ML @ 250 mls/hr IV.SIG Q24H [facility] Rx#:[id number] Levaquin 750 mg Premix Inj 150 300 / 300 150 / 150 ML @ 100 mls/hr IV.SIG Q24H [facility] Rx#:[id number] Oral 240 / 240 480 / 480 120 / 120 Output: Urine 1000 / 1000 1000 / 1000 Other: # Voids 5 Date of Last Bowel Movement 03/26/18 03/26/18 03/27/18 # Bowel Movements 1 1 Narrative: General patient in no acute distress, she is having a nonproductive cough. HEENT extraocular movements are intact, clear oropharyngeal mucosa, no JVD nasal cannula in place. Cardiovascular S1-S2 audible Respiratory bilateral crackles in all lung ignacio. Abdomen soft, nontender, nondistended, normal bowel sounds Extremities no edema 2+ distal pulses in bilateral upper and lower extremities Neuro cranial nerves II through XII intact Results - Labs CBC & Chem 7: 03/27/18 05:54 03/27/18 05:54 Laboratory Results - last 24 hr 03/26/18 03/26/18 03/26/18 16:00 16:00 20:49 WBC RBC Hgb Hct MCV MCH MCHC RDW Plt Count MPV Prelim Diff (Auto) Neut % (Auto) Lymph % (Auto) [place] % (Auto) Eos % (Auto) Baso % (Auto) Neut # (Auto) Lymph # (Auto) [place] # (Auto) Eos # (Auto) Baso # (Auto) WBC Differential Seg Neuts % (Manual) Band Neuts % (Manual) Lymphocytes % (Manual) Monocytes % (Manual) Eosinophils % (Manual) Metamyelocytes % (Man) Myelocytes % (Man) Promyelocytes % (Man) Abs Neuts (Manual) Differential Comment Platelet Estimate Platelet Morphology Sodium Potassium Chloride Carbon Dioxide Anion Gap BUN Creatinine Estimated GFR POC Glucose 129 H Random Glucose Calcium Magnesium Procalcitonin 0.06 HIV 1&2 Ab/P24 Ag 4thGn Nonreactive 03/27/18 03/27/18 03/27/18 05:54 05:54 07:49 WBC 12.3 H RBC 3.90 L Hgb 11.7 Hct 36.2 MCV 92.8 MCH 30.0 MCHC 32.4 RDW 14.8 Plt Count 440 MPV 7.8 Prelim Diff (Auto) Slide review pending Neut % (Auto) 85.6 H Lymph % (Auto) 8.1 L [place] % (Auto) 5.7 Eos % (Auto) 0.1 Baso % (Auto) 0.5 Neut # (Auto) 10.5 H Lymph # (Auto) 1.0 [place] # (Auto) 0.7 Eos # (Auto) 0.0 Baso # (Auto) 0.1 WBC Differential Manual diff final Seg Neuts % (Manual) 87 H Band Neuts % (Manual) 1 Lymphocytes % (Manual) 4 L Monocytes % (Manual) 3 Eosinophils % (Manual) 1 Metamyelocytes % (Man) 2 H Myelocytes % (Man) 1 H Promyelocytes % (Man) 1 H Abs Neuts (Manual) 11.3 H Differential Comment . Platelet Estimate High H Platelet Morphology Normal Sodium 138 Potassium 4.6 Chloride 102 Carbon Dioxide 26.1 Anion Gap 10 BUN 25 H Creatinine 0.72 Estimated GFR 83 L POC Glucose 114 H Random Glucose 120 H Calcium 7.8 L Magnesium 2.5 Procalcitonin HIV 1&2 Ab/P24 Ag 4thGn 03/27/18 11:15 WBC RBC Hgb Hct MCV MCH MCHC RDW Plt Count MPV Prelim Diff (Auto) Neut % (Auto) Lymph % (Auto) [place] % (Auto) Eos % (Auto) Baso % (Auto) Neut # (Auto) Lymph # (Auto) [place] # (Auto) Eos # (Auto) Baso # (Auto) WBC Differential Seg Neuts % (Manual) Band Neuts % (Manual) Lymphocytes % (Manual) Monocytes % (Manual) Eosinophils % (Manual) Metamyelocytes % (Man) Myelocytes % (Man) Promyelocytes % (Man) Abs Neuts (Manual) Differential Comment Platelet Estimate Platelet Morphology Sodium Potassium Chloride Carbon Dioxide Anion Gap BUN Creatinine Estimated GFR POC Glucose 127 H Random Glucose Calcium Magnesium Procalcitonin HIV 1&2 Ab/P24 Ag 4thGn - Procedures None Assessment and Plan - Plan This patient is a 58-year-old obese female who presented to our emergency department with complaints of shortness of breath as well as chest tightness. She was found to have an elevated troponin as well as bilateral diffuse infiltrates seen on chest x-ray. 1. Acute hypoxic hypercapnic restaurant failure likely secondary to community- acquired pneumonia The patient is currently on 5L supplemental oxygen, down from 6 L of supplemental oxygen yesterday.. Chest x-ray shows bilateral infiltrates. Pulmonary team is following the patient. Patient was evaluated by infectious disease today. The recommendations were to stop the azithromycin. Given the patient's positive rheumatoid factor and ELIN there is a concern that this may be an autoimmune condition contributing to her lung findings. Rheumatology consulted. We would appreciate their recommendations on this case. Continue IV antibiotics, continue steroids, continue current recommendations from the pulmonary team. 2. NSTEMI/hyperlipidemia Initial troponin was elevated at 0.55 which then showed a down trend. EKG showed normal sinus rhythm without any specific ST segment or T wave changes. The patient underwent cardiac catheterization today which showed mild 2 vessel coronary artery disease. Recommendations from cardiology are to continue with medical management. She will be continued on aspirin, statin, and beta-he. She will be counseled on diet and weight loss. Continue supplemental oxygen. 3. GERD Continue Protonix 4. Obesity Patient was counseled on diet. 5. Vaginal pruritic sensation as per patient starting Vaginal Candidiasis started on local Clotrimazole Cream. Prophylaxis GI-pantoprazole DVT SCD/heparin subcu Code Status: Full Code.
--- NOTE | 2018-03-27 22:02 | ECG ---
Date Performed: 03/27/2018 Time Performed: 16:40:04 PTAGE: 58 years EKG: Sinus rhythm BORDERLINE LEFT AXIS DEVIATION BORDERLINE ECG PREVIOUS TRACING : 03/18/2018 14.20 Since the previous tracing, no significant change noted DOCTOR: Jacquie Cai Interpretating Date/Time 03/27/2018 22:00:09
[2018-03-28] MEDS: MethylPREDNISolone Sod Succinate Inj 40 MG/ML Vial IV.PUSH SCH ×3 (02:33→13:25)
[2018-03-28] MEDS: Heparin - SQ 10,000 UNITS/ML Vial SQ SCH ×3 (05:38→21:29)
[2018-03-28] MEDS: Benzonatate 100 MG Capsule PO SCH ×3 (05:39→21:28)
[2018-03-28] MEDS: Insulin NovoLOG Aspart Correctional Sugar Inj SQ SCH ×4 (08:00→22:26)
[2018-03-28] MEDS: Pantoprazole Inj 40 MG Vial IV.PUSH SCH (08:30)
[2018-03-28] MEDS: Spironolactone 25 MG Tablet PO SCH ×2 (08:30→17:17)
[2018-03-28] MEDS: Senna/Docusate Sodium 8.6/50 MG Tablet PO SCH ×2 (08:30→21:27)
[2018-03-28] MEDS: guaiFENesin 600 MG ER Tablet PO SCH ×2 (09:33→21:26)
[2018-03-28] MEDS: Metoprolol Tartrate 25 MG Tablet PO SCH ×2 (09:33→21:26)
[2018-03-28] MEDS: Budesonide-Formoterol 160/4.5 MCG 6 GM Inhaler INH SCH ×2 (09:34→21:30)
--- NOTE | 2018-03-28 10:31 | XR ---
EXAM DATE: 03/28/2018 10:00 AM EDT AGE/SEX: 58 years / Female INDICATIONS: Cough. CLINICAL DATA: This is the patient's subsequent encounter. Patient reports that signs and symptoms h ave been present for 1 week and indicates a pain score of 0/10. MEDICAL/SURGICAL HISTORY: . Renal insufficiency, chronic. Gastroesophageal reflux disease. Asth ma. Hyperlipidemia. None. COMPARISON: [facility] [place], CHEST 1V SINGLE AP, 03/26/2018. . FINDINGS: Coarse interstitial changes persist in both lungs worse in the bases. Heart remains minimally enlarge d. There is no pneumothorax. There is no significant pleural effusion. CONCLUSION: Stable chest with patchy airspace disease both lungs without significant improvement. Electronically signed by: Konstantin Terry MD 03/28/2018 10:29 AM EDT
--- NOTE | 2018-03-28 11:15 | P.PNID ---
Subjective Remarks: ID Xcover for . 58-year-old white female who presented to the emergency department with respiratory distress. Mycoplasma IgG positive. Rheumatoid factor positive. ELIN titer high. Chest x-ray showing improvement. history of exposure to passive smoking extensively in past. Overnight events reviewed. Remains in ICU. On oxygen, able to talk in complete sentences. No diarrhea No N/V Dry cough WBC improved. On steroids. No fever Antibiotics: Levaquin IV Lines: Lines ok Past Medical History: PAST MEDICAL HISTORY: Bronchitis, gastroesophageal reflux disease, chronic kidney disease stage II, hyperlipidemia, bunionectomy. Allergies/Adverse Reactions: Allergies Penicillins Allergy (Intermediate, Verified 03/19/18 21:08) Hives Sulfa (Sulfonamide Antibiotics) Allergy (Intermediate, Verified 03/18/18 14:16) Anxiety Objective Vital Signs 03/27/18 12:00 03/27/18 12:01 03/27/18 12:04 Temperature 98.4 F Pulse Rate 74 74 76 Respiratory Rate 28 H 26 H Blood Pressure 101/55 L 101/55 L Pulse Oximetry 90 L 94 L 03/27/18 14:00 03/27/18 14:15 03/27/18 16:00 Temperature Pulse Rate 85 71 Respiratory Rate 22 18 Blood Pressure Pulse Oximetry 92 L 93 L 96 03/27/18 18:00 03/27/18 20:00 03/27/18 20:42 Temperature 98.1 F Pulse Rate 89 77 Respiratory Rate 21 27 H Blood Pressure Pulse Oximetry 90 L 90 L 96 03/27/18 20:59 03/27/18 21:18 03/27/18 21:19 Temperature Pulse Rate 76 76 76 Respiratory Rate 24 27 H 27 H Blood Pressure 91/53 L 131/68 116/61 Pulse Oximetry 95 95 95 03/27/18 22:00 03/27/18 23:14 03/28/18 00:00 Temperature Pulse Rate 68 74 Respiratory Rate 18 23 Blood Pressure 106/51 L Pulse Oximetry 97 95 92 L 03/28/18 02:00 03/28/18 03:09 03/28/18 03:25 Temperature Pulse Rate 62 Respiratory Rate 17 Blood Pressure Pulse Oximetry 97 88 L 90 L 03/28/18 04:00 03/28/18 04:29 03/28/18 06:00 Temperature 98.4 F Pulse Rate 66 64 80 Respiratory Rate 18 19 33 H Blood Pressure 126/59 L Pulse Oximetry 95 93 L 03/28/18 07:26 03/28/18 07:42 03/28/18 08:00 Temperature 97.3 F L Pulse Rate 72 69 Respiratory Rate 33 H 142 H Blood Pressure 104/54 L 104/54 L Pulse Oximetry 96 97 95 03/28/18 10:00 Temperature Pulse Rate 96 H Respiratory Rate Blood Pressure Pulse Oximetry Intake & Output 03/27/18 03/28/18 03/28/18 18:59 06:59 18:59 Intake Total 370 / 370 120 / 120 Output Total 1500 / 1500 1600 / 1600 Balance -1130 / -1130 -1480 / -1480 Weight 80 kg Intake: IV 150 / 150 Levaquin 750 mg Premix Inj 150 150 / 150 ML @ 100 mls/hr IV.SIG Q24H [facility] Rx#:[id number] Oral 220 / 220 120 / 120 Output: Urine 1500 / 1500 1600 / 1600 Other: Date of Last Bowel Movement 03/27/18 03/27/18 03/27/18 # Bowel Movements 1 0 Lab - Hematology Results 03/26/18 03/27/18 16:00 05:54 WBC 12.3 H RBC 3.90 L Hgb 11.7 Hct 36.2 MCV 92.8 MCH 30.0 MCHC 32.4 RDW 14.8 Plt Count 440 MPV 7.8 Prelim Diff (Auto) Slide review pending Neut % (Auto) 85.6 H Lymph % (Auto) 8.1 L [place] % (Auto) 5.7 Eos % (Auto) 0.1 Baso % (Auto) 0.5 Neut # (Auto) 10.5 H Lymph # (Auto) 1.0 [place] # (Auto) 0.7 Eos # (Auto) 0.0 Baso # (Auto) 0.1 WBC Differential Manual diff final Seg Neuts % (Manual) 87 H Band Neuts % (Manual) 1 Lymphocytes % (Manual) 4 L Monocytes % (Manual) 3 Eosinophils % (Manual) 1 Metamyelocytes % (Man) 2 H Myelocytes % (Man) 1 H Promyelocytes % (Man) 1 H Abs Neuts (Manual) 11.3 H Differential Comment . Platelet Estimate High H Platelet Morphology Normal ESR 28 Lab - Chemistry Results 03/26/18 03/26/18 03/26/18 16:00 16:00 17:20 Sodium Potassium Chloride Carbon Dioxide Anion Gap BUN Creatinine Estimated GFR POC Glucose 141 H Random Glucose Calcium Magnesium Lactate Dehydrogenase 376 H Procalcitonin 0.06 03/26/18 03/27/18 03/27/18 20:49 05:54 07:49 Sodium 138 Potassium 4.6 Chloride 102 Carbon Dioxide 26.1 Anion Gap 10 BUN 25 H Creatinine 0.72 Estimated GFR 83 L POC Glucose 129 H 114 H Random Glucose 120 H Calcium 7.8 L Magnesium 2.5 Lactate Dehydrogenase Procalcitonin 03/27/18 11:15 Sodium Potassium Chloride Carbon Dioxide Anion Gap BUN Creatinine Estimated GFR POC Glucose 127 H Random Glucose Calcium Magnesium Lactate Dehydrogenase Procalcitonin Imaging: ITS Impressions Abdomen X-Ray 03/18/18 00:00 CONCLUSION: Negative examination. Venous Doppler Study 03/18/18 00:00 CONCLUSION: 1. The study is negative for bilateral lower extremity deep venous thrombosis. Chest CTA 03/18/18 16:02 CONCLUSION: 1. There is no evidence of PE for technique. 2. Extensive airspace process most likely inflammatory and pneumonia, possibility of pulmonary edema is not excluded. 3. Tiny bilateral pleural effusions with nonspecific most likely benign lymph nodes within the mediastinum. Chest X-Ray 03/28/18 10:00 CONCLUSION: Stable chest with patchy airspace disease both lungs without significant improvement. Physical Exam: PHYSICAL EXAMINATION: GENERAL: Awake and alert and oriented. HEENT: Head is atraumatic. Extraocular movements are grossly intact. Pupils reactive to light. No icterus. Oropharynx, moist mucosa. No visible lesions. NECK: Supple. no adenopathy or swelling.. LUNGS: Decreased breath sounds throughout. No rhonchi. HEART: Regular rate and rhythm without murmurs, rubs or gallops. ABDOMEN: Bowel sounds present. Soft, obese, nontender. EXTREMITIES: No clubbing, cyanosis or edema. SKIN: No rash. NEUROLOGIC: Nonfocal. PSYCH: Calm and cooperative. Assessment and Plan - Plan IMPRESSION: Bilateral pulmonary infiltrates showing little improvement. Questionable etiology. Nonproductive cough. The patient presented with fever, nausea, and dyspnea on exertion. Possible atypical versus viral pneumonia. Also, potentially this could be congestive heart failure or other inflammatory or autoimmune condition. Elevated ELIN titer. Consider further workup. Will defer to attending. Very little improvement in respiratory status if any. RECOMMENDATIONS: Continue Levaquin. HIV negative, Procalcitonin normal discussed with Patient all lab findings to date. Monitor QT interval on 12 lead EKG once a week and prn for symptoms. Will follow prn when ready for discharge please ID MD for discharge recommendations. dw patient needs rheumatology follow up as outpatient.
--- NOTE | 2018-03-28 14:42 | P.PNCA ---
Subjective Interval history: on 5L nc in nad Medications and Allergies Active Medications: Active Medications Acetaminophen (Tylenol) 650 mg PO Q6H PRN PRN Reason: Fever >100f Hydrocodone Bitart/Acetaminophen ([place] 5/325) 1 tab PO Q4H PRN PRN Reason: PAIN SCALE 1 TO 5 Last Admin: 03/21/18 23:57 Dose: 1 tab Al Hydroxide/Mg Hydroxide (Milk Of Magnesia Liq) 30 ml PO Q12H PRN PRN Reason: Mild Constipation Albuterol (Albuterol Neb (Prn)) 2.5 mg NEB Q2HR NEB PRN PRN Reason: SHORTNESS OF BREATH/WHEEZING Last Admin: 03/26/18 23:51 Dose: 2.5 mg Aspirin (Aspirin Chew) 81 mg PO DAILY [facility] Last Admin: 03/28/18 08:30 Dose: 81 mg Atorvastatin Calcium (Lipitor) 40 mg PO HS [facility] Last Admin: 03/27/18 21:03 Dose: 40 mg Benzonatate (Tessalon Perles) 200 mg PO Q8HR [facility] Last Admin: 03/28/18 13:26 Dose: Not Given Bisacodyl (Dulcolax Supp) 10 mg RECTAL DAILY PRN PRN Reason: SEVERE CONSITIPATION Budesonide/Formoterol Fumarate (Symbicort 160/4.5 Mcg Inh) 2 puff INH BID [facility] Last Admin: 03/28/18 09:34 Dose: Not Given Clotrimazole (Gyne Lotrimin 7 1% Vag Cream) 1 appful VAGINAL DAILY [facility] Stop: 03/31/18 21:00 Last Admin: 03/28/18 08:30 Dose: 1 appful Dextrose (D50w Vial) 50 ml IV.PUSH UNSCH PRN PRN Reason: PER HYPOGLYCEMIA PROTOCOL Furosemide (Lasix Inj) 40 mg IV.PUSH BID@0900,1800 [facility] Last Admin: 03/28/18 08:30 Dose: 40 mg Glucagon (Glucagon Inj) 1 mg OTHER PRN PRN PRN Reason: for Hypoglycemia Protocol Guaifenesin (Mucinex Er) 600 mg PO BID [facility] Last Admin: 03/28/18 09:33 Dose: Not Given Heparin Sodium (Porcine) (Heparin Inj) 5,000 units SQ Q8HR [facility] Last Admin: 03/28/18 13:26 Dose: 5,000 units Magnesium Sulfate 2 gm/ Sodium (Chloride) 100 mls @ 50 mls/hr IV.SIG UNSCH PRN PRN Reason: For Magnesium 1.2 - 1.6 mg/dL Levofloxacin/Dextrose (Levaquin 750 Mg Premix Inj) 150 mls @ 100 mls/hr IV.SIG Q24H [facility] Last Admin: 03/28/18 11:09 Dose: 100 mls/hr Magnesium Sulfate 4 gm/ Sodium (Chloride) 100 mls @ 50 mls/hr IV.SIG UNSCH PRN PRN Reason: For Magnesium 0.9 - 1.1 mg/dL Magnesium Sulfate 2 gm/ Sodium (Chloride) 100 mls @ 50 mls/hr IV.SIG UNSCH PRN PRN Reason: For Magnesium 1.2 - 1.6 mg/dL Potassium Chloride (Kcl 40 Meq Premix Inj) 40 meq in 100 mls @ 25 mls/hr IV.SIG Q2H PRN PRN Reason: For Potassium 2.8 - 3.2 mEq/L Potassium Chloride (Kcl 20 Meq Premix Inj) 20 meq in 100 mls @ 50 mls/hr IV.SIG Q2H PRN PRN Reason: For Potassium 3.3 - 3.5 mEq/L Potassium Chloride (Kcl 40 Meq Premix Inj) 40 meq in 100 mls @ 25 mls/hr IV.SIG UNSCH PRN PRN Reason: For Potassium 3.3 - 3.5 mEq/L Potassium Chloride (Kcl 20 Meq Premix Inj) 20 meq in 100 mls @ 50 mls/hr IV.SIG Q2H PRN PRN Reason: For Potassium 2.8 - 3.2 mEq/L Potassium Phosphate 30 mmol/ (Sodium Chloride) 260 mls @ 42 mls/hr IV.SIG UNSCH PRN PRN Reason: SEE LABEL COMMENTS Sodium Phosphate 30 mmol/ (Sodium Chloride) 260 mls @ 42 mls/hr IV.SIG UNSCH PRN PRN Reason: For Phosphorus < 2.5 mg/dL Insulin Aspart (Novolog Insulin Correctional Sugar Inj) 0 unit SQ ACHS [facility]; Protocol Last Admin: 03/28/18 11:23 Dose: Not Given Lactulose (Lactulose Liq) 30 ml PO DAILY PRN PRN Reason: SEVERE CONSITIPATION Magnesium Oxide (Mag-Ox) 800 mg PO UNSCH PRN PRN Reason: For Magnesium 1.2 - 1.6 mg/dL Methylprednisolone Sodium Succinate (Solumedrol Inj) 40 mg IV.PUSH Q6H [facility] Last Admin: 03/28/18 13:25 Dose: 40 mg Metoprolol Tartrate (Lopressor) 12.5 mg PO BID [facility] Last Admin: 03/28/18 09:33 Dose: Not Given Miscellaneous (Pill Splitter) 1 each OTHER UNSCH [facility] Morphine Sulfate (Morphine Inj) 2 mg IV.PUSH Q2H PRN PRN Reason: PAIN SCALE 6 TO 10 Ondansetron HCl (Zofran Inj) 4 mg IV.PUSH Q6H PRN PRN Reason: NAUSEA OR VOMITING Pantoprazole Sodium (Protonix Inj) 40 mg IV.PUSH DAILY [facility] Last Admin: 03/28/18 08:30 Dose: 40 mg Potassium Bicarb/Potassium Chloride (K-Lyte Cl Eff) 50 meq PO UNSCH PRN PRN Reason: For Potassium 3.3 - 3.5 mEq/L Last Admin: 03/23/18 18:18 Dose: 50 meq Potassium Phosphate (K-Phos Original) 2,000 mg PO UNSCH PRN PRN Reason: SEE LABEL COMMENTS Potassium Phosphate (K-Phos Original) 2,000 mg PO Q4H PRN PRN Reason: Phosphorus Less Than 2.5 mg/dL Senna/Docusate Sodium (Sofi-Colace) 1 tab PO BID [facility] Last Admin: 03/28/18 08:30 Dose: 1 tab Sennosides (Senokot) 17.2 mg PO Q12H PRN PRN Reason: Moderate Constipation Sodium Chloride (Ns Flush) 2 ml IV.FLUSH BID [facility] Last Admin: 03/28/18 08:30 Dose: 2 ml Sodium Chloride (Ns Flush) 2 ml IV.FLUSH PRN PRN PRN Reason: FLUSH AFTER USING IV ACCESS Spironolactone (Aldactone) 25 mg PO BID@0900,1800 [facility] Last Admin: 03/28/18 08:30 Dose: 25 mg Allergies Allergy/AdvReac Type Severity Reaction Status Date / Time Penicillins Allergy Intermediate Hives Verified 03/19/18 21:08 Sulfa (Sulfonamide Allergy Intermediate Anxiety Verified 03/18/18 14:16 Antibiotics) Physical Exam Vital signs: Vital Signs 03/27/18 16:00 03/27/18 18:00 03/27/18 20:00 Temperature 98.1 F Pulse Rate 71 89 77 Respiratory Rate 18 21 27 H Blood Pressure Pulse Oximetry 96 90 L 90 L 03/27/18 20:42 03/27/18 20:59 03/27/18 21:18 Temperature Pulse Rate 76 76 Respiratory Rate 24 27 H Blood Pressure 91/53 L 131/68 Pulse Oximetry 96 95 95 03/27/18 21:19 03/27/18 22:00 03/27/18 23:14 Temperature Pulse Rate 76 68 Respiratory Rate 27 H 18 Blood Pressure 116/61 Pulse Oximetry 95 97 95 03/28/18 00:00 03/28/18 02:00 03/28/18 03:09 Temperature Pulse Rate 74 62 Respiratory Rate 23 17 Blood Pressure 106/51 L Pulse Oximetry 92 L 97 88 L 03/28/18 03:25 03/28/18 04:00 03/28/18 04:29 Temperature 98.4 F Pulse Rate 66 64 Respiratory Rate 18 19 Blood Pressure 126/59 L Pulse Oximetry 90 L 95 93 L 03/28/18 06:00 03/28/18 07:26 03/28/18 07:42 Temperature Pulse Rate 80 72 Respiratory Rate 33 H 33 H Blood Pressure 104/54 L Pulse Oximetry 96 97 03/28/18 08:00 03/28/18 10:00 03/28/18 10:02 Temperature 97.3 F L Pulse Rate 69 96 H 97 H Respiratory Rate 142 H 37 H 26 H Blood Pressure 104/54 L 104/54 L Pulse Oximetry 95 83 L 88 L 03/28/18 12:00 Temperature 97.8 F Pulse Rate 107 H Respiratory Rate 22 Blood Pressure 104/54 L Pulse Oximetry 92 L Intake & Output 03/27/18 03/28/18 03/28/18 18:59 06:59 18:59 Intake Total 370 / 370 120 / 120 Output Total 1500 / 1500 1600 / 1600 Balance -1130 / -1130 -1480 / -1480 Weight 80 kg Intake: IV 150 / 150 Levaquin 750 mg Premix Inj 150 150 / 150 ML @ 100 mls/hr IV.SIG Q24H [facility] Rx#:[id number] Oral 220 / 220 120 / 120 Output: Urine 1500 / 1500 1600 / 1600 Other: Date of Last Bowel Movement 10/02/18 10/02/18 10/02/18 # Bowel Movements 1 0 Results 03/27/18 05:54 03/27/18 05:54 Cardiac Enzymes 03/26/18 Range/Units 16:00 Lactate Dehydrogenase 376 H (84-246) U/L CBC 03/27/18 Range/Units 05:54 WBC 12.3 H (4.0-11.0) th/mm3 RBC 3.90 L (4.00-5.30) mil/mm3 Hgb 11.7 (11.6-15.3) gm/dL Hct 36.2 (35.0-46.0) % Plt Count 440 (150-450) th/mm3 Neut # (Auto) 10.5 H (1.8-7.7) th/mm3 Lymph # (Auto) 1.0 (1.0-4.8) th/mm3 [place] # (Auto) 0.7 (0.0-0.9) th/mm3 Eos # (Auto) 0.0 (0.0-0.4) th/mm3 Baso # (Auto) 0.1 (0.0-0.2) th/mm3 Comprehensive Metabolic Panel 03/27/18 Range/Units 05:54 Sodium 138 (136-145) meq/L Potassium 4.6 (3.5-5.1) meq/L Chloride 102 (98-107) meq/L Carbon Dioxide 26.1 (21.0-32.0) meq/L BUN 25 H (7-18) mg/dL Creatinine 0.72 (0.50-1.00) mg/dL Calcium 7.8 L (8.5-10.1) mg/dL Intake and Output 03/27/18 03/28/18 03/28/18 22:59 06:59 14:59 Intake Total 100 / 100 120 / 120 Output Total 500 / 500 1600 / 1600 Balance -400 / -400 -1480 / -1480 Intake: Oral 100 / 100 120 / 120 Output: Urine 500 / 500 1600 / 1600 Other: Date of Last Bowel Movement 03/27/18 03/27/18 03/27/18 # Bowel Movements 1 0 Weight 80 kg - Imaging and Cardiology Imaging: Impressions Chest X-Ray 03/28/18 10:00 CONCLUSION: Stable chest with patchy airspace disease both lungs without significant improvement. Assessment and Plan - Assessment (1) NSTEMI (non-ST elevated myocardial infarction) Code(s): I21.4 - Non-ST elevation (NSTEMI) myocardial infarction Status: Acute (2) CHF (congestive heart failure) Code(s): I50.9 - Heart failure, unspecified Status: Acute (3) Hypoxia Code(s): R09.02 - Hypoxemia Status: Acute (4) Dyspnea Code(s): R06.00 - Dyspnea, unspecified Status: Acute - Plan 1.) CAD - mild, continue aspirin, lipitor 2.) Hypoxia - noncardiac in origin, rhc/lvedp wnl, results d/w patient
--- NOTE | 2018-03-28 16:45 | P.PNIM ---
Subjective Interval history: Patient complains of a dry cough. Her supplemental oxygen requirements are less than yesterday. She does not have any other complaints. Physical Exam Vital signs: Vital Signs 03/27/18 18:00 03/27/18 20:00 03/27/18 20:42 Temperature 98.1 F Pulse Rate 89 77 Respiratory Rate 21 27 H Blood Pressure Pulse Oximetry 90 L 90 L 96 03/27/18 20:59 03/27/18 21:18 03/27/18 21:19 Temperature Pulse Rate 76 76 76 Respiratory Rate 24 27 H 27 H Blood Pressure 91/53 L 131/68 116/61 Pulse Oximetry 95 95 95 03/27/18 22:00 03/27/18 23:14 03/28/18 00:00 Temperature Pulse Rate 68 74 Respiratory Rate 18 23 Blood Pressure 106/51 L Pulse Oximetry 97 95 92 L 03/28/18 02:00 03/28/18 03:09 03/28/18 03:25 Temperature Pulse Rate 62 Respiratory Rate 17 Blood Pressure Pulse Oximetry 97 88 L 90 L 03/28/18 04:00 03/28/18 04:29 03/28/18 06:00 Temperature 98.4 F Pulse Rate 66 64 80 Respiratory Rate 18 19 33 H Blood Pressure 126/59 L Pulse Oximetry 95 93 L 03/28/18 07:26 03/28/18 07:42 03/28/18 08:00 Temperature 97.3 F L Pulse Rate 72 69 Respiratory Rate 33 H 142 H Blood Pressure 104/54 L 104/54 L Pulse Oximetry 96 97 95 03/28/18 10:00 03/28/18 10:02 03/28/18 12:00 Temperature 97.8 F Pulse Rate 96 H 97 H 107 H Respiratory Rate 37 H 26 H 22 Blood Pressure 104/54 L 104/54 L Pulse Oximetry 83 L 88 L 92 L 03/28/18 12:37 03/28/18 14:00 03/28/18 16:00 Temperature 98.3 F Pulse Rate 92 H 89 87 Respiratory Rate 32 H 31 H 36 H Blood Pressure 106/59 L 119/57 L Pulse Oximetry 93 L 92 L 94 L Intake & Output 03/27/18 03/28/18 03/28/18 18:59 06:59 18:59 Intake Total 370 / 370 120 / 120 Output Total 1500 / 1500 1600 / 1600 Balance -1130 / -1130 -1480 / -1480 Weight 80 kg Intake: IV 150 / 150 Levaquin 750 mg Premix Inj 150 150 / 150 ML @ 100 mls/hr IV.SIG Q24H [facility] Rx#:[id number] Oral 220 / 220 120 / 120 Output: Urine 1500 / 1500 1600 / 1600 Other: Date of Last Bowel Movement 03/27/18 03/27/18 03/27/18 # Bowel Movements 1 0 Narrative: General patient in no acute distress, she is having a nonproductive cough. HEENT extraocular movements are intact, clear oropharyngeal mucosa, no JVD nasal cannula in place. Cardiovascular S1-S2 audible Respiratory bilateral crackles in all lung ignacio. Abdomen soft, nontender, nondistended, normal bowel sounds Extremities no edema 2+ distal pulses in bilateral upper and lower extremities Neuro cranial nerves II through XII intact Results - Labs CBC & Chem 7: 03/27/18 05:54 03/27/18 05:54 - Imaging Impressions Chest X-Ray 03/28/18 10:00 CONCLUSION: Stable chest with patchy airspace disease both lungs without significant improvement. - Procedures None Assessment and Plan - Plan This patient is a 58-year-old obese female who presented to our emergency department with complaints of shortness of breath as well as chest tightness. She was found to have an elevated troponin as well as bilateral diffuse infiltrates seen on chest x-ray. 1. Acute hypoxic hypercapnic restaurant failure likely secondary to community- acquired pneumonia The patient is currently on 4 L supplemental oxygen, down from 5 L L of supplemental oxygen yesterday.. Chest x-ray shows bilateral infiltrates with no significant change from previous chest x-rays. Pulmonary team is following the patient. Rheumatoid factor and ELIN positive Patient was evaluated by infectious disease today. Recommendations are to have the patient follow-up with rheumatology after she is discharged as we do not have a silo operator that works in house. Continue IV antibiotics, continue current recommendations from the pulmonary team. Cardiology following and does not believe the patient's hypoxic restaurant failure is cardiac in origin. 2. NSTEMI/hyperlipidemia Cardiology following Initial troponin was elevated at 0.55 which then showed a down trend. EKG showed normal sinus rhythm without any specific ST segment or T wave changes. The patient underwent cardiac catheterization today which showed mild 2 vessel coronary artery disease. Recommendations from cardiology are to continue with medical management. She will be continued on aspirin, statin, and beta-he. She will be counseled on diet and weight loss. Continue supplemental oxygen. 3. GERD Continue Protonix 4. Obesity Patient was counseled on diet. 5. Vaginal pruritic sensation as per patient starting Vaginal Candidiasis started on local Clotrimazole Cream. Prophylaxis GI-pantoprazole DVT SCD/heparin subcu Code Status: Full Code.
--- NOTE | 2018-03-28 17:57 | P.PNPL ---
Subjective Interval history: 58 YOWF with br asthma, bilat diffuse infilt, hypoxic RF Desaturates on taking mask no fever Cough, not able to expactorate Weaned to 3LNC Did't sleep well ELIN and RF positive HIV Negative Physical Exam Vital signs: Vital Signs 03/27/18 18:00 03/27/18 20:00 03/27/18 20:42 Temperature 98.1 F Pulse Rate 89 77 Respiratory Rate 21 27 H Blood Pressure Pulse Oximetry 90 L 90 L 96 03/27/18 20:59 03/27/18 21:18 03/27/18 21:19 Temperature Pulse Rate 76 76 76 Respiratory Rate 24 27 H 27 H Blood Pressure 91/53 L 131/68 116/61 Pulse Oximetry 95 95 95 03/27/18 22:00 03/27/18 23:14 03/28/18 00:00 Temperature Pulse Rate 68 74 Respiratory Rate 18 23 Blood Pressure 106/51 L Pulse Oximetry 97 95 92 L 03/28/18 02:00 03/28/18 03:09 03/28/18 03:25 Temperature Pulse Rate 62 Respiratory Rate 17 Blood Pressure Pulse Oximetry 97 88 L 90 L 03/28/18 04:00 03/28/18 04:29 03/28/18 06:00 Temperature 98.4 F Pulse Rate 66 64 80 Respiratory Rate 18 19 33 H Blood Pressure 126/59 L Pulse Oximetry 95 93 L 03/28/18 07:26 03/28/18 07:42 03/28/18 08:00 Temperature 97.3 F L Pulse Rate 72 69 Respiratory Rate 33 H 142 H Blood Pressure 104/54 L 104/54 L Pulse Oximetry 96 97 95 03/28/18 10:00 03/28/18 10:02 03/28/18 12:00 Temperature 97.8 F Pulse Rate 96 H 97 H 107 H Respiratory Rate 37 H 26 H 22 Blood Pressure 104/54 L 104/54 L Pulse Oximetry 83 L 88 L 92 L 03/28/18 12:37 03/28/18 14:00 03/28/18 16:00 Temperature 98.3 F Pulse Rate 92 H 89 87 Respiratory Rate 32 H 31 H 36 H Blood Pressure 106/59 L 119/57 L Pulse Oximetry 93 L 92 L 94 L Intake & Output 03/27/18 03/28/18 03/28/18 18:59 06:59 18:59 Intake Total 370 / 370 120 / 120 Output Total 1500 / 1500 1600 / 1600 Balance -1130 / -1130 -1480 / -1480 Weight 80 kg Intake: IV 150 / 150 Levaquin 750 mg Premix Inj 150 150 / 150 ML @ 100 mls/hr IV.SIG Q24H [facility] Rx#:[id number] Oral 220 / 220 120 / 120 Output: Urine 1500 / 1500 1600 / 1600 Other: Date of Last Bowel Movement 03/27/18 03/27/18 03/27/18 # Bowel Movements 1 0 GENERAL: MBMN NAD SKIN: Warm and dry. HEAD: Normocephalic. EYES: No scleral icterus. No injection or drainage. NECK: Supple, trachea midline. No JVD or lymphadenopathy. CARDIOVASCULAR: Regular rate and rhythm without murmurs, gallops, or rubs. RESPIRATORY: Breath sounds equal bilaterally. No accessory muscle use. GASTROINTESTINAL: Abdomen soft, non-tender, nondistended. MUSCULOSKELETAL: No cyanosis, or edema. BACK: Nontender without obvious deformity. No CVA tenderness. Assessment and Plan - Plan IMPRESSION: 1. Hypoxic respiratory failure. 2. Bilateral diffuse lung infiltrates, possibly viral pneumonia, atypical pneumonia or inflammatory process. 3. Non-ST elevation myocardial infarction. 4. History of bronchial asthma. PLAN: DC Solumedrol Pred 20 mg bid Cont Abx, ID following Supplement 02 with 3LNC Titerate 02 to keep sat >90% Use Acapella and IS Tessalon 200 mg tid.prn cough DW pt Rheumatology eval as out patient
[2018-03-28] MEDS: predniSONE 10 MG Tablet PO SCH (18:19)
[2018-03-29] MEDS: Heparin - SQ 10,000 UNITS/ML Vial SQ SCH ×3 (06:21→21:39)
[2018-03-29] MEDS: Benzonatate 100 MG Capsule PO SCH ×3 (06:42→21:39)
[2018-03-29] MEDS: predniSONE 10 MG Tablet PO SCH ×3 (08:46→17:56)
[2018-03-29] MEDS: Senna/Docusate Sodium 8.6/50 MG Tablet PO SCH ×2 (08:46→20:27)
[2018-03-29] MEDS: guaiFENesin 600 MG ER Tablet PO SCH ×2 (08:46→20:27)
[2018-03-29] MEDS: Furosemide 20 MG Tablet PO SCH ×2 (08:46→17:56)
[2018-03-29] MEDS: Pantoprazole Inj 40 MG Vial IV.PUSH SCH (08:48)
[2018-03-29] MEDS: Budesonide-Formoterol 160/4.5 MCG 6 GM Inhaler INH SCH ×2 (08:48→20:23)
[2018-03-29] MEDS: Spironolactone 25 MG Tablet PO SCH ×2 (08:53→17:56)
[2018-03-29] MEDS: Insulin NovoLOG Aspart Correctional Sugar Inj SQ SCH ×4 (08:54→20:29)
[2018-03-29] MEDS: Metoprolol Tartrate 25 MG Tablet PO SCH ×2 (08:55→20:27)
[2018-03-29 09:13] LABS: Calcium 8.2 mg/dL (8.5-10.1); Carbon Dioxide 28.4 meq/L (21.0-32.0); Magnesium 2.2 mg/dL (1.5-2.5); Potassium 3.7 meq/L (3.5-5.1)
--- NOTE | 2018-03-29 16:42 | P.PNPL ---
Subjective Interval history: 58 YOWF with br asthma, bilat diffuse infilt, hypoxic RF no fever Cough, not able to expactorate Weaned to 2LNC Did't sleep well ELIN and RF positive HIV Negative transferred to floor Physical Exam Vital signs: Vital Signs 03/28/18 18:00 03/28/18 20:00 03/28/18 22:00 Temperature Pulse Rate 83 74 91 H Respiratory Rate Blood Pressure Pulse Oximetry 03/29/18 00:00 03/29/18 04:00 03/29/18 08:00 Temperature 97.3 F L 97.4 F L 97.3 F L Pulse Rate 84 74 80 Respiratory Rate 22 18 20 Blood Pressure 116/55 L 102/54 L 112/57 L Pulse Oximetry 90 L 92 L 94 L 03/29/18 09:04 03/29/18 10:00 03/29/18 12:00 Temperature 98.1 F Pulse Rate 82 79 Respiratory Rate 20 Blood Pressure 110/55 L Pulse Oximetry 97 93 L Intake & Output 03/28/18 03/29/18 03/29/18 18:59 06:59 18:59 Intake Total 270 / 270 240 / 240 150 / 150 Output Total 2300 / 2300 Balance -2029 / -2029 240 / 240 150 / 150 Weight 85.1 kg Intake: IV 150 / 150 150 / 150 Levaquin 750 mg Premix Inj 150 150 / 150 150 / 150 ML @ 100 mls/hr IV.SIG Q24H [facility] Rx#:[id number] Oral 120 / 120 240 / 240 Output: Urine 2300 / 2300 Other: # Voids 5 1 Date of Last Bowel Movement 03/28/18 03/28/18 03/28/18 # Bowel Movements 1 # Incontinent Bowel Movements 0 GENERAL: MBMN NAD SKIN: Warm and dry. HEAD: Normocephalic. EYES: No scleral icterus. No injection or drainage. NECK: Supple, trachea midline. No JVD or lymphadenopathy. CARDIOVASCULAR: Regular rate and rhythm without murmurs, gallops, or rubs. RESPIRATORY: Breath sounds equal bilaterally. No accessory muscle use. GASTROINTESTINAL: Abdomen soft, non-tender, nondistended. MUSCULOSKELETAL: No cyanosis, or edema. BACK: Nontender without obvious deformity. No CVA tenderness. Assessment and Plan - Plan IMPRESSION: 1. Hypoxic respiratory failure. 2. Bilateral diffuse lung infiltrates, possibly viral pneumonia, atypical pneumonia or inflammatory process. 3. Non-ST elevation myocardial infarction. 4. History of bronchial asthma. PLAN: Prednisone 10 mg po tid Cont Abx, ID following Supplement 02 with 3LNC Titerate 02 to keep sat >90% Use Acapella and IS Tessalon 200 mg tid.prn cough DW pt Rheumatology eval as out patient DC Plans for home
--- NOTE | 2018-03-29 18:27 | P.PNCA ---
Subjective Interval history: alert in nad Medications and Allergies Active Medications: Active Medications Acetaminophen (Tylenol) 650 mg PO Q6H PRN PRN Reason: Fever >100f Hydrocodone Bitart/Acetaminophen ([place] 5/325) 1 tab PO Q4H PRN PRN Reason: PAIN SCALE 1 TO 5 Last Admin: 03/21/18 23:57 Dose: 1 tab Al Hydroxide/Mg Hydroxide (Milk Of [place] Liq) 30 ml PO Q12H PRN PRN Reason: Mild Constipation Albuterol (Albuterol Neb (Prn)) 2.5 mg NEB Q2HR NEB PRN PRN Reason: SHORTNESS OF BREATH/WHEEZING Last Admin: 03/26/18 23:51 Dose: 2.5 mg Aspirin (Aspirin Chew) 81 mg PO DAILY [facility] Last Admin: 03/29/18 08:46 Dose: 81 mg Atorvastatin Calcium (Lipitor) 40 mg PO HS [facility] Last Admin: 03/28/18 21:27 Dose: 40 mg Benzonatate (Tessalon Perles) 200 mg PO Q8HR [facility] Last Admin: 03/29/18 14:37 Dose: 200 mg Bisacodyl (Dulcolax Supp) 10 mg RECTAL DAILY PRN PRN Reason: SEVERE CONSITIPATION Budesonide/Formoterol Fumarate (Symbicort 160/4.5 Mcg Inh) 2 puff INH BID [facility] Last Admin: 03/29/18 08:48 Dose: 2 puff Clotrimazole (Gyne Lotrimin 7 1% Vag Cream) 1 appful VAGINAL DAILY [facility] Stop: 03/31/18 21:00 Last Admin: 03/29/18 08:54 Dose: 1 appful Dextrose (D50w Vial) 50 ml IV.PUSH UNSCH PRN PRN Reason: PER HYPOGLYCEMIA PROTOCOL Furosemide (Lasix) 20 mg PO BID@0900,1800 [facility] Last Admin: 03/29/18 17:56 Dose: 20 mg Glucagon (Glucagon Inj) 1 mg OTHER PRN PRN PRN Reason: for Hypoglycemia Protocol Guaifenesin (Mucinex Er) 600 mg PO BID [facility] Last Admin: 03/29/18 08:46 Dose: 600 mg Heparin Sodium (Porcine) (Heparin Inj) 5,000 units SQ Q8HR [facility] Last Admin: 03/29/18 14:36 Dose: 5,000 units Levofloxacin/Dextrose (Levaquin 750 Mg Premix Inj) 150 mls @ 100 mls/hr IV.SIG Q24H [facility] Last Infusion: 03/29/18 16:33 Dose: Infused Insulin Aspart (Novolog Insulin Correctional Sugar Inj) 0 unit SQ [facility]; Protocol Last Admin: 03/29/18 17:39 Dose: Not Given Lactulose (Lactulose Liq) 30 ml PO DAILY PRN PRN Reason: SEVERE CONSITIPATION Metoprolol Tartrate (Lopressor) 12.5 mg PO BID [facility] Last Admin: 03/29/18 08:55 Dose: 12.5 mg Miscellaneous (Pill Splitter) 1 each OTHER [facility] Morphine Sulfate (Morphine Inj) 2 mg IV.PUSH Q2H PRN PRN Reason: PAIN SCALE 6 TO 10 Ondansetron HCl (Zofran Inj) 4 mg IV.PUSH Q6H PRN PRN Reason: NAUSEA OR VOMITING Pantoprazole Sodium (Protonix Inj) 40 mg IV.PUSH DAILY [facility] Last Admin: 03/29/18 08:48 Dose: 40 mg Prednisone (Deltasone) 10 mg PO TID [facility] Last Admin: 03/29/18 17:56 Dose: 10 mg Senna/Docusate Sodium (Sofi-Colace) 1 tab PO BID [facility] Last Admin: 03/29/18 08:46 Dose: 1 tab Sennosides (Senokot) 17.2 mg PO Q12H PRN PRN Reason: Moderate Constipation Sodium Chloride (Ns Flush) 2 ml IV.FLUSH BID [facility] Last Admin: 03/29/18 08:48 Dose: 2 ml Sodium Chloride (Ns Flush) 2 ml IV.FLUSH PRN PRN PRN Reason: FLUSH AFTER USING IV ACCESS Spironolactone (Aldactone) 25 mg PO BID@0900,1800 [facility] Last Admin: 03/29/18 17:56 Dose: 25 mg Allergies Allergy/AdvReac Type Severity Reaction Status Date / Time Penicillins Allergy Intermediate Hives Verified 03/19/18 21:08 Sulfa (Sulfonamide Allergy Intermediate Anxiety Verified 03/18/18 14:16 Antibiotics) Physical Exam Vital signs: Vital Signs 03/28/18 20:00 03/28/18 22:00 03/29/18 00:00 Temperature 97.3 F L Pulse Rate 74 91 H 84 Respiratory Rate 22 Blood Pressure 116/55 L Pulse Oximetry 90 L Pulse Oximetry [Resting on Room Air] Pulse Oximetry [Resting with Oxygen] 03/29/18 04:00 03/29/18 08:00 03/29/18 09:04 Temperature 97.4 F L 97.3 F L Pulse Rate 74 80 Respiratory Rate 18 20 Blood Pressure 102/54 L 112/57 L Pulse Oximetry 92 L 94 L 97 Pulse Oximetry [Resting on Room Air] Pulse Oximetry [Resting with Oxygen] 03/29/18 10:00 03/29/18 12:00 03/29/18 16:00 Temperature 98.1 F 97.8 F Pulse Rate 82 79 80 Respiratory Rate 20 20 Blood Pressure 110/55 L 99/57 L Pulse Oximetry 93 L 92 L Pulse Oximetry [Resting on Room Air] Pulse Oximetry [Resting with Oxygen] 03/29/18 17:32 03/29/18 17:44 Temperature Pulse Rate Respiratory Rate Blood Pressure Pulse Oximetry 93 L Pulse Oximetry [Resting on Room Air] 76 L Pulse Oximetry [Resting with Oxygen] 93 L Intake & Output 03/28/18 03/29/18 03/29/18 18:59 06:59 18:59 Intake Total 270 / 270 240 / 240 150 / 150 Output Total 2300 / 2300 Balance -2029 / -2029 240 / 240 150 / 150 Weight 85.1 kg Intake: IV 150 / 150 150 / 150 Levaquin 750 mg Premix Inj 150 150 / 150 150 / 150 ML @ 100 mls/hr IV.SIG Q24H [facility] Rx#:[id number] Oral 120 / 120 240 / 240 Output: Urine 2300 / 2300 Other: # Voids 5 1 Date of Last Bowel Movement 03/28/18 03/28/18 03/28/18 # Bowel Movements 1 # Incontinent Bowel Movements 0 Results 03/27/18 05:54 03/29/18 08:00 Comprehensive Metabolic Panel 03/29/18 Range/Units 08:00 Sodium 135 L (136-145) meq/L Potassium 3.7 (3.5-5.1) meq/L Chloride 97 L (98-107) meq/L Carbon Dioxide 28.4 (21.0-32.0) meq/L BUN 27 H (7-18) mg/dL Creatinine 0.81 (0.50-1.00) mg/dL Calcium 8.2 L (8.5-10.1) mg/dL Intake and Output 03/29/18 03/29/18 03/29/18 06:59 14:59 22:59 Intake Total 240 / 240 150 / 150 Balance 240 / 240 150 / 150 Intake: IV 150 / 150 Levaquin 750 mg Premix Inj 150 150 / 150 ML @ 100 mls/hr IV.SIG Q24H [facility] Rx#:[id number] Oral 240 / 240 Other: # Voids 1 Date of Last Bowel Movement 03/28/18 03/28/18 Weight 85.1 kg - Imaging and Cardiology Imaging: Impressions Chest X-Ray 03/28/18 10:00 CONCLUSION: Stable chest with patchy airspace disease both lungs without significant improvement. Assessment and Plan - Assessment (1) NSTEMI (non-ST elevated myocardial infarction) Code(s): I21.4 - Non-ST elevation (NSTEMI) myocardial infarction Status: Acute (2) CHF (congestive heart failure) Code(s): I50.9 - Heart failure, unspecified Status: Acute (3) Hypoxia Code(s): R09.02 - Hypoxemia Status: Acute (4) Dyspnea Code(s): R06.00 - Dyspnea, unspecified Status: Acute - Plan 1.) CAD - mild, continue aspirin, lipitor 2.) Hypoxia - noncardiac in origin, rhc/lvedp wnl, results d/w patient
--- NOTE | 2018-03-29 18:59 | P.PNIM ---
Subjective Interval history: Patient says her breathing is improving. Denies any chest pain. Physical Exam Vital signs: Vital Signs 03/28/18 20:00 03/28/18 22:00 03/29/18 00:00 Temperature 97.3 F L Pulse Rate 74 91 H 84 Respiratory Rate 22 Blood Pressure 116/55 L Pulse Oximetry 90 L Pulse Oximetry [Resting on Room Air] Pulse Oximetry [Resting with Oxygen] 03/29/18 04:00 03/29/18 08:00 03/29/18 09:04 Temperature 97.4 F L 97.3 F L Pulse Rate 74 80 Respiratory Rate 18 20 Blood Pressure 102/54 L 112/57 L Pulse Oximetry 92 L 94 L 97 Pulse Oximetry [Resting on Room Air] Pulse Oximetry [Resting with Oxygen] 03/29/18 10:00 03/29/18 12:00 03/29/18 16:00 Temperature 98.1 F 97.8 F Pulse Rate 82 79 80 Respiratory Rate 20 20 Blood Pressure 110/55 L 99/57 L Pulse Oximetry 93 L 92 L Pulse Oximetry [Resting on Room Air] Pulse Oximetry [Resting with Oxygen] 03/29/18 17:32 03/29/18 17:44 Temperature Pulse Rate Respiratory Rate Blood Pressure Pulse Oximetry 93 L Pulse Oximetry [Resting on Room Air] 76 L Pulse Oximetry [Resting with Oxygen] 93 L Intake & Output 03/28/18 03/29/18 03/29/18 18:59 06:59 18:59 Intake Total 270 / 270 240 / 240 150 / 150 Output Total 2300 / 2300 Balance -2029 / -2029 240 / 240 150 / 150 Weight 85.1 kg Intake: IV 150 / 150 150 / 150 Levaquin 750 mg Premix Inj 150 150 / 150 150 / 150 ML @ 100 mls/hr IV.SIG Q24H [facility] Rx#:[id number] Oral 120 / 120 240 / 240 Output: Urine 2300 / 2300 Other: # Voids 5 1 5 Date of Last Bowel Movement 03/28/18 03/28/18 03/28/18 # Bowel Movements 1 1 # Incontinent Bowel Movements 0 Narrative: GENERAL: Patient sitting up in bed. Appears comfortable. On 2 L nasal cannula. SKIN: Warm and dry. HEAD: Normocephalic. EYES: No scleral icterus. No injection or drainage. NECK: Supple, trachea midline. No JVD. CARDIOVASCULAR: Regular rate and rhythm without murmurs, gallops, or rubs. RESPIRATORY: Breath sounds equal bilaterally. No accessory muscle use. GASTROINTESTINAL: Abdomen soft, non-tender, nondistended. MUSCULOSKELETAL: No cyanosis, or edema. BACK: Nontender without obvious deformity. No CVA tenderness. Results - Labs CBC & Chem 7: 03/27/18 05:54 03/29/18 08:00 Laboratory Results - last 24 hr 03/21/18 03/29/18 02:39 08:00 Sodium 135 L Potassium 3.7 Chloride 97 L Carbon Dioxide 28.4 Anion Gap 10 BUN 27 H Creatinine 0.81 Estimated GFR 73 L Random Glucose 84 Calcium 8.2 L Magnesium 2.2 Misc Test Result - Procedures None Assessment and Plan - Plan This patient is a 58-year-old obese female who presented to our emergency department with complaints of shortness of breath as well as chest tightness. She was found to have an elevated troponin as well as bilateral diffuse infiltrates seen on chest x-ray. 1. Acute hypoxic hypercapnic restaurant failure likely secondary to community- acquired pneumonia The patient is currently on 4 L supplemental oxygen, down from 5 L L of supplemental oxygen yesterday.. Chest x-ray shows bilateral infiltrates with no significant change from previous chest x-rays. Pulmonary team is following the patient. Rheumatoid factor and ELIN positive Patient was evaluated by infectious disease today. Recommendations are to have the patient follow-up with rheumatology after she is discharged as we do not have a route contractor that works in house. Continue IV antibiotics, continue current recommendations from the pulmonary team. Cardiology following and does not believe the patient's hypoxic restaurant failure is cardiac in origin. = 03/29. Discussed with pulmonology. Plan for discharge in the next few days. Have ordered home oxygen evaluation. 2. NSTEMI/hyperlipidemia Cardiology following Initial troponin was elevated at 0.55 which then showed a down trend. EKG showed normal sinus rhythm without any specific ST segment or T wave changes. The patient underwent cardiac catheterization today which showed mild 2 vessel coronary artery disease. Recommendations from cardiology are to continue with medical management. She will be continued on aspirin, statin, and beta-he. She will be counseled on diet and weight loss. Continue supplemental oxygen. 3. GERD Continue Protonix 4. Obesity Patient was counseled on diet. 5. Vaginal pruritic sensation as per patient starting Vaginal Candidiasis started on local Clotrimazole Cream. Prophylaxis GI-pantoprazole DVT SCD/heparin subcu Discussed Condition With: Patient, nurse, pulmonology Discharge Planning: Hopefully discharge home in the next 2-3 days. Pending home oxygen evaluation.
[2018-03-29] MEDS ORDERED: Influenza (Quadrivalent) Vaccine 0.5 ML Syringe IM ONE (21:00)
[2018-03-30] MEDS: Benzonatate 100 MG Capsule PO SCH ×3 (05:44→22:00)
[2018-03-30] MEDS: Heparin - SQ 10,000 UNITS/ML Vial SQ SCH ×3 (05:45→22:01)
[2018-03-30 07:30] LABS: Baso % (Auto) 0.2 % (0.0-2.0); Eos # (Auto) 0.1 th/mm3 (0.0-0.4); Eos % (Auto) 0.4 % (0.0-4.0); Hematocrit 37.3 % (35.0-46.0); Hemoglobin 12.4 gm/dL (11.6-15.3); Lymph # (Auto) 2.3 th/mm3 (1.0-4.8); Lymph % (Auto) 11.3 % (9.0-44.0); Mean Corpuscular HGB Conc 33.2 % (32.0-36.0); Mean Corpuscular Hemoglobin 30.7 pg (27.0-34.0); Mean Corpuscular Volume 92.6 fL (80.0-100.0); Mean Platelet Volume 8.5 fL (7.0-11.0); Mono # (Auto) 1.8 th/mm3 (0.0-0.9); Mono % (Auto) 8.7 % (0.0-8.0); Neut # (Auto) 16.4 th/mm3 (1.8-7.7); Neut % (Auto) 79.4 % (16.0-70.0); Platelet Count 364 th/mm3 (150-450); Red Blood Count 4.03 mil/mm3 (4.00-5.30); Red Cell Distribution Width 15.2 % (11.6-17.2); White Blood Count 20.7 th/mm3 (4.0-11.0)
[2018-03-30 07:49] LABS: Albumin 2.6 g/dL (3.4-5.0); Carbon Dioxide 26.8 meq/L (21.0-32.0); Potassium 3.7 meq/L (3.5-5.1)
[2018-03-30 07:50] LABS: Phosphorus 3.8 mg/dL (2.5-4.9)
[2018-03-30] MEDS: Insulin NovoLOG Aspart Correctional Sugar Inj SQ SCH ×4 (08:10→22:01)
[2018-03-30] MEDS: predniSONE 10 MG Tablet PO SCH ×3 (09:41→17:52)
[2018-03-30] MEDS: Pantoprazole Inj 40 MG Vial IV.PUSH SCH (09:41)
[2018-03-30] MEDS: Metoprolol Tartrate 25 MG Tablet PO SCH ×2 (09:41→22:00)
[2018-03-30] MEDS: guaiFENesin 600 MG ER Tablet PO SCH ×2 (09:41→22:00)
[2018-03-30] MEDS: Senna/Docusate Sodium 8.6/50 MG Tablet PO SCH ×2 (09:41→22:00)
[2018-03-30] MEDS: Budesonide-Formoterol 160/4.5 MCG 6 GM Inhaler INH SCH ×2 (09:43→21:59)
[2018-03-30] MEDS: Furosemide 20 MG Tablet PO SCH ×2 (09:49→17:49)
[2018-03-30] MEDS: Spironolactone 25 MG Tablet PO SCH ×2 (09:49→17:48)
--- NOTE | 2018-03-30 10:51 | P.PNCA ---
Subjective Interval history: says she feels better, but sats> 90% on 4 l nc Medications and Allergies Active Medications: Active Medications Acetaminophen (Tylenol) 650 mg PO Q6H PRN PRN Reason: Fever >100f Hydrocodone Bitart/Acetaminophen ([place] 5/325) 1 tab PO Q4H PRN PRN Reason: PAIN SCALE 1 TO 5 Last Admin: 03/21/18 23:57 Dose: 1 tab Al Hydroxide/Mg Hydroxide (Milk Of [place] Liq) 30 ml PO Q12H PRN PRN Reason: Mild Constipation Albuterol (Albuterol Neb (Prn)) 2.5 mg NEB Q2HR NEB PRN PRN Reason: SHORTNESS OF BREATH/WHEEZING Last Admin: 03/30/18 08:30 Dose: 2.5 mg Aspirin (Aspirin Chew) 81 mg PO DAILY [facility] Last Admin: 03/30/18 09:41 Dose: 81 mg Atorvastatin Calcium (Lipitor) 40 mg PO HS [facility] Last Admin: 03/29/18 20:27 Dose: 40 mg Benzonatate (Tessalon Perles) 200 mg PO Q8HR [facility] Last Admin: 03/30/18 05:44 Dose: 200 mg Bisacodyl (Dulcolax Supp) 10 mg RECTAL DAILY PRN PRN Reason: SEVERE CONSITIPATION Budesonide/Formoterol Fumarate (Symbicort 160/4.5 Mcg Inh) 2 puff INH BID [facility] Last Admin: 03/30/18 09:43 Dose: 2 puff Clotrimazole (Gyne Lotrimin 7 1% Vag Cream) 1 appful VAGINAL DAILY [facility] Stop: 03/31/18 21:00 Last Admin: 03/30/18 09:42 Dose: 1 appful Dextrose (D50w Vial) 50 ml IV.PUSH UNSCH PRN PRN Reason: PER HYPOGLYCEMIA PROTOCOL Furosemide (Lasix) 20 mg PO BID@0900,1800 [facility] Last Admin: 03/30/18 09:49 Dose: 20 mg Glucagon (Glucagon Inj) 1 mg OTHER PRN PRN PRN Reason: for Hypoglycemia Protocol Guaifenesin (Mucinex Er) 600 mg PO BID [facility] Last Admin: 03/30/18 09:41 Dose: 600 mg Heparin Sodium (Porcine) (Heparin Inj) 5,000 units SQ Q8HR [facility] Last Admin: 03/30/18 05:45 Dose: 5,000 units Levofloxacin/Dextrose (Levaquin 750 Mg Premix Inj) 150 mls @ 100 mls/hr IV.SIG Q24H [facility] Last Infusion: 03/29/18 16:33 Dose: Infused Insulin Aspart (Novolog Insulin Correctional Sugar Inj) 0 unit SQ [facility]; Protocol Last Admin: 03/30/18 08:10 Dose: Not Given Lactulose (Lactulose Liq) 30 ml PO DAILY PRN PRN Reason: SEVERE CONSITIPATION Metoprolol Tartrate (Lopressor) 12.5 mg PO BID [facility] Last Admin: 03/30/18 09:41 Dose: 12.5 mg Miscellaneous (Pill Splitter) 1 each OTHER UNSCH [facility] Morphine Sulfate (Morphine Inj) 2 mg IV.PUSH Q2H PRN PRN Reason: PAIN SCALE 6 TO 10 Ondansetron HCl (Zofran Inj) 4 mg IV.PUSH Q6H PRN PRN Reason: NAUSEA OR VOMITING Pantoprazole Sodium (Protonix Inj) 40 mg IV.PUSH DAILY [facility] Last Admin: 03/30/18 09:41 Dose: 40 mg Prednisone (Deltasone) 10 mg PO TID [facility] Last Admin: 03/30/18 09:41 Dose: 10 mg Senna/Docusate Sodium (Sofi-Colace) 1 tab PO BID [facility] Last Admin: 03/30/18 09:41 Dose: 1 tab Sennosides (Senokot) 17.2 mg PO Q12H PRN PRN Reason: Moderate Constipation Sodium Chloride (Ns Flush) 2 ml IV.FLUSH BID [facility] Last Admin: 03/30/18 09:42 Dose: 2 ml Sodium Chloride (Ns Flush) 2 ml IV.FLUSH PRN PRN PRN Reason: FLUSH AFTER USING IV ACCESS Spironolactone (Aldactone) 25 mg PO BID@0900,1800 [facility] Last Admin: 03/30/18 09:49 Dose: 25 mg Allergies Allergy/AdvReac Type Severity Reaction Status Date / Time Penicillins Allergy Intermediate Hives Verified 03/19/18 21:08 Sulfa (Sulfonamide Allergy Intermediate Anxiety Verified 03/18/18 14:16 Antibiotics) Physical Exam Vital signs: Vital Signs 03/29/18 12:00 03/29/18 16:00 03/29/18 17:32 Temperature 98.1 F 97.8 F Pulse Rate 79 80 Respiratory Rate 20 20 Blood Pressure 110/55 L 99/57 L Pulse Oximetry 93 L 92 L Pulse Oximetry [Resting on Room Air] 76 L Pulse Oximetry [Resting with Oxygen] 93 L 03/29/18 17:44 03/29/18 18:00 03/29/18 20:00 Temperature 97.6 F Pulse Rate 84 87 Respiratory Rate 20 Blood Pressure 107/59 L Pulse Oximetry 93 L 93 L Pulse Oximetry [Resting on Room Air] Pulse Oximetry [Resting with Oxygen] 03/29/18 20:58 03/30/18 00:00 03/30/18 00:07 Temperature 98 F Pulse Rate 82 110 H 83 Respiratory Rate 22 20 27 H Blood Pressure 101/62 Pulse Oximetry 92 L 90 L Pulse Oximetry [Resting on Room Air] Pulse Oximetry [Resting with Oxygen] 03/30/18 04:00 03/30/18 06:07 03/30/18 06:08 Temperature 98 F Pulse Rate 81 87 Respiratory Rate 20 27 H Blood Pressure 98/64 L Pulse Oximetry 90 L 92 L Pulse Oximetry [Resting on Room Air] Pulse Oximetry [Resting with Oxygen] 03/30/18 07:00 03/30/18 08:00 Temperature 98.1 F Pulse Rate 86 88 Respiratory Rate 18 17 Blood Pressure 115/58 L Pulse Oximetry 93 L Pulse Oximetry [Resting on Room Air] Pulse Oximetry [Resting with Oxygen] Intake & Output 03/29/18 03/30/18 03/30/18 18:59 06:59 18:59 Intake Total 150 / 150 210 / 210 Balance 150 / 150 210 / 210 Intake: IV 150 / 150 Levaquin 750 mg Premix Inj 150 150 / 150 ML @ 100 mls/hr IV.SIG Q24H [facility] Rx#:[id number] Oral 210 / 210 Other: # Voids 5 Date of Last Bowel Movement 03/28/18 03/28/18 # Bowel Movements 1 Results 03/30/18 05:35 03/30/18 05:35 CBC 03/30/18 Range/Units 05:35 WBC 20.7 H (4.0-11.0) th/mm3 RBC 4.03 (4.00-5.30) mil/mm3 Hgb 12.4 (11.6-15.3) gm/dL Hct 37.3 (35.0-46.0) % Plt Count 364 (150-450) th/mm3 Neut # (Auto) 16.4 H (1.8-7.7) th/mm3 Lymph # (Auto) 2.3 (1.0-4.8) th/mm3 [place] # (Auto) 1.8 H (0.0-0.9) th/mm3 Eos # (Auto) 0.1 (0.0-0.4) th/mm3 Baso # (Auto) 0.0 (0.0-0.2) th/mm3 Comprehensive Metabolic Panel 03/29/18 03/30/18 Range/Units 08:00 05:35 Sodium 135 L 135 L (136-145) meq/L Potassium 3.7 3.7 (3.5-5.1) meq/L Chloride 97 L 97 L (98-107) meq/L Carbon Dioxide 28.4 26.8 (21.0-32.0) meq/L BUN 27 H 23 H (7-18) mg/dL Creatinine 0.81 0.81 (0.50-1.00) mg/dL Calcium 8.2 L 8.0 L (8.5-10.1) mg/dL Albumin 2.6 L (3.4-5.0) g/dL Intake and Output 03/29/18 03/30/18 03/30/18 22:59 06:59 14:59 Intake Total 150 / 150 210 / 210 Balance 150 / 150 210 / 210 Intake: IV 150 / 150 Levaquin 750 mg Premix Inj 150 150 / 150 ML @ 100 mls/hr IV.SIG Q24H [facility] Rx#:[id number] Oral 210 / 210 Other: # Voids 5 Date of Last Bowel Movement 03/28/18 # Bowel Movements 1 Assessment and Plan - Assessment (1) NSTEMI (non-ST elevated myocardial infarction) Code(s): I21.4 - Non-ST elevation (NSTEMI) myocardial infarction Status: Acute (2) CHF (congestive heart failure) Code(s): I50.9 - Heart failure, unspecified Status: Acute (3) Hypoxia Code(s): R09.02 - Hypoxemia Status: Acute (4) Dyspnea Code(s): R06.00 - Dyspnea, unspecified Status: Acute - Plan 1.) CAD - mild, continue aspirin, lipitor 2.) Hypoxia - noncardiac in origin, rhc/lvedp wnl, she had a @ 5% increase in ra sat to pa sat possibly suggesting a small l to r shunt but doubt this is enough to account for degree of hypoxia or explain improving trends over time, could consider repeat tt echo to re eval or alin if/when patient off oxygen, to further assess, d/w patient
--- NOTE | 2018-03-30 10:58 | P.PNIM ---
Subjective Interval history: Patient says she is feeling well. Denies any chest pain. Reports shortness of breath slightly worsened today. sHe is eating breakfast. Denies any constipation. Increased O2 requirement of 4 L. Physical Exam Vital signs: Vital Signs 03/29/18 12:00 03/29/18 16:00 03/29/18 17:32 Temperature 98.1 F 97.8 F Pulse Rate 79 80 Respiratory Rate 20 20 Blood Pressure 110/55 L 99/57 L Pulse Oximetry 93 L 92 L Pulse Oximetry [Resting on Room Air] 76 L Pulse Oximetry [Resting with Oxygen] 93 L 03/29/18 17:44 03/29/18 18:00 03/29/18 20:00 Temperature 97.6 F Pulse Rate 84 87 Respiratory Rate 20 Blood Pressure 107/59 L Pulse Oximetry 93 L 93 L Pulse Oximetry [Resting on Room Air] Pulse Oximetry [Resting with Oxygen] 03/29/18 20:58 03/30/18 00:00 03/30/18 00:07 Temperature 98 F Pulse Rate 82 110 H 83 Respiratory Rate 22 20 27 H Blood Pressure 101/62 Pulse Oximetry 92 L 90 L Pulse Oximetry [Resting on Room Air] Pulse Oximetry [Resting with Oxygen] 03/30/18 04:00 03/30/18 06:07 03/30/18 06:08 Temperature 98 F Pulse Rate 81 87 Respiratory Rate 20 27 H Blood Pressure 98/64 L Pulse Oximetry 90 L 92 L Pulse Oximetry [Resting on Room Air] Pulse Oximetry [Resting with Oxygen] 03/30/18 07:00 03/30/18 08:00 Temperature 98.1 F Pulse Rate 86 88 Respiratory Rate 18 17 Blood Pressure 115/58 L Pulse Oximetry 93 L Pulse Oximetry [Resting on Room Air] Pulse Oximetry [Resting with Oxygen] Intake & Output 03/29/18 03/30/18 03/30/18 18:59 06:59 18:59 Intake Total 150 / 150 210 / 210 Balance 150 / 150 210 / 210 Intake: IV 150 / 150 Levaquin 750 mg Premix Inj 150 150 / 150 ML @ 100 mls/hr IV.SIG Q24H [facility] Rx#:[id number] Oral 210 / 210 Other: # Voids 5 Date of Last Bowel Movement 03/28/18 03/28/18 # Bowel Movements 1 Narrative: GENERAL: Patient sitting up in bed. Appears comfortable. On 4 L nasal cannula. SKIN: Warm and dry. HEAD: Normocephalic. EYES: No scleral icterus. No injection or drainage. NECK: Supple, trachea midline. No JVD. CARDIOVASCULAR: Regular rate and rhythm without murmurs, gallops, or rubs. RESPIRATORY: Breath sounds equal bilaterally. No accessory muscle use. GASTROINTESTINAL: Abdomen soft, non-tender, nondistended. MUSCULOSKELETAL: No cyanosis, or edema. BACK: Nontender without obvious deformity. No CVA tenderness. Results - Labs CBC & Chem 7: 03/30/18 05:35 03/30/18 05:35 Laboratory Results - last 24 hr 03/30/18 03/30/18 05:35 05:35 WBC 20.7 H RBC 4.03 Hgb 12.4 Hct 37.3 MCV 92.6 MCH 30.7 MCHC 33.2 RDW 15.2 Plt Count 364 MPV 8.5 Neut % (Auto) 79.4 H Lymph % (Auto) 11.3 [place] % (Auto) 8.7 H Eos % (Auto) 0.4 Baso % (Auto) 0.2 Neut # (Auto) 16.4 H Lymph # (Auto) 2.3 [place] # (Auto) 1.8 H Eos # (Auto) 0.1 Baso # (Auto) 0.0 WBC Differential . Differential Comment Auto diff final Sodium 135 L Potassium 3.7 Chloride 97 L Carbon Dioxide 26.8 Anion Gap 11 BUN 23 H Creatinine 0.81 Estimated GFR 73 L Random Glucose 93 Calcium 8.0 L Phosphorus 3.8 Magnesium 2.0 Albumin 2.6 L - Procedures None Assessment and Plan - Plan This patient is a 58-year-old obese female who presented to our emergency department with complaints of shortness of breath as well as chest tightness. She was found to have an elevated troponin as well as bilateral diffuse infiltrates seen on chest x-ray. 1. Acute hypoxic hypercapnic restaurant failure likely secondary to community- acquired pneumonia The patient is currently on 4 L supplemental oxygen, down from 5 L L of supplemental oxygen yesterday.. Chest x-ray shows bilateral infiltrates with no significant change from previous chest x-rays. Pulmonary team is following the patient. Rheumatoid factor and ELIN positive Patient was evaluated by infectious disease today. Recommendations are to have the patient follow-up with rheumatology after she is discharged as we do not have a history tutor that works in house. Continue IV antibiotics, continue current recommendations from the pulmonary team. Cardiology following and does not believe the patient's hypoxic restaurant failure is cardiac in origin. = 03/29. Discussed with pulmonology. Plan for discharge in the next few days. Have ordered home oxygen evaluation. = 03/30 increased O2 requirement we will repeat chest x-ray. Discussed with pulmonology. 2. NSTEMI/hyperlipidemia Cardiology following Initial troponin was elevated at 0.55 which then showed a down trend. EKG showed normal sinus rhythm without any specific ST segment or T wave changes. The patient underwent cardiac catheterization today which showed mild 2 vessel coronary artery disease. Recommendations from cardiology are to continue with medical management. She will be continued on aspirin, statin, and beta-he. She will be counseled on diet and weight loss. Continue supplemental oxygen. 3. GERD Continue Protonix 4. Obesity Patient was counseled on diet. 5. Vaginal pruritic sensation as per patient starting Vaginal Candidiasis started on local Clotrimazole Cream. Prophylaxis GI-pantoprazole DVT SCD/heparin subcu Discharge Planning: Hopefully discharge home in the next 2-3 days. Pending home oxygen evaluation.
--- NOTE | 2018-03-30 12:30 | XR ---
EXAM DATE: 03/30/2018 12:00 AM EDT AGE/SEX: 58 years / Female INDICATIONS: Short of breath and evaluate for pulmonary disease. CLINICAL DATA: This is the patient's subsequent encounter. Patient reports that signs and symptoms h ave been present for 2 weeks and indicates a pain score of 0/10. MEDICAL/SURGICAL HISTORY: . Renal insufficiency, chronic. Gastroesophageal reflux disease. Asth ma. Hyperlipidemia. None. COMPARISON: C, CHEST 1V SINGLE AP, 03/28/2018. . FINDINGS: There is interval worsening of diffuse bilateral pulmonary infiltrates consistent with worsening pulm onary edema versus pneumonia. Clinical correlation is recommended. The heart is stable. CONCLUSION: Worsening bilateral pulmonary infiltrates suggestive of worsening pulmonary edema versus pneumonia. C linical correlation is recommended. Electronically signed by: Albert Woods MD 03/30/2018 12:29 PM EDT
--- NOTE | 2018-03-30 18:12 | P.PNPL ---
Subjective Interval history: 58 YOWF with br asthma, bilat diffuse infilt, hypoxic RF no fever Cough, not able to expactorate Weaned to 2LNC Did't sleep well ELIN and RF positive HIV Negative Feels better, ambulates CXR worseing infillt, odema Physical Exam Vital signs: Vital Signs 03/29/18 20:00 03/29/18 20:58 03/30/18 00:00 Temperature 97.6 F 98 F Pulse Rate 87 82 110 H Respiratory Rate 20 22 20 Blood Pressure 107/59 L 101/62 Pulse Oximetry 93 L 92 L 03/30/18 00:07 03/30/18 04:00 03/30/18 06:07 Temperature 98 F Pulse Rate 83 81 87 Respiratory Rate 27 H 20 27 H Blood Pressure 98/64 L Pulse Oximetry 90 L 90 L 03/30/18 06:08 03/30/18 07:00 03/30/18 08:00 Temperature 98.1 F Pulse Rate 86 88 Respiratory Rate 18 17 Blood Pressure 115/58 L Pulse Oximetry 92 L 93 L 03/30/18 11:10 03/30/18 12:00 03/30/18 16:00 Temperature 98.4 F 97.3 F L Pulse Rate 82 87 95 H Respiratory Rate 18 17 17 Blood Pressure 95/46 L 97/56 L Pulse Oximetry 94 L 97 03/30/18 16:28 Temperature Pulse Rate 82 Respiratory Rate 18 Blood Pressure Pulse Oximetry Intake & Output 03/29/18 03/30/18 03/30/18 18:59 06:59 18:59 Intake Total 150 / 150 210 / 210 150 / 150 Balance 150 / 150 210 / 210 150 / 150 Intake: IV 150 / 150 150 / 150 Levaquin 750 mg Premix Inj 150 150 / 150 150 / 150 ML @ 100 mls/hr IV.SIG Q24H [facility] Rx#:[id number] Oral 210 / 210 Other: # Voids 5 Date of Last Bowel Movement 03/28/18 03/28/18 # Bowel Movements 1 GENERAL: WBWn NAD SKIN: Warm and dry. HEAD: Normocephalic. EYES: No scleral icterus. No injection or drainage. NECK: Supple, trachea midline. No JVD or lymphadenopathy. CARDIOVASCULAR: Regular rate and rhythm without murmurs, gallops, or rubs. RESPIRATORY: Breath sounds equal bilaterally. No accessory muscle use. GASTROINTESTINAL: Abdomen soft, non-tender, nondistended. MUSCULOSKELETAL: No cyanosis, or edema. BACK: Nontender without obvious deformity. No CVA tenderness. Assessment and Plan - Plan IMPRESSION: 1. Hypoxic respiratory failure. 2. Bilateral diffuse lung infiltrates, possibly viral pneumonia, atypical pneumonia or inflammatory process. 3. Non-ST elevation myocardial infarction. 4. History of bronchial asthma. PLAN: Prednisone 10 mg po tid Cont Abx, ID following Supplement 02 with 2LNC Titerate 02 to keep sat >90% Use Acapella and IS Rheumatology eval as out patient 02 walk wilbert Diurease with Lasix DC Plans underway Available prn over weekend.
[2018-03-31] MEDS: Benzonatate 100 MG Capsule PO SCH ×3 (05:20→21:43)
[2018-03-31] MEDS: Heparin - SQ 10,000 UNITS/ML Vial SQ SCH ×3 (05:20→21:43)
[2018-03-31 06:19] LABS: Baso % (Auto) 0.2 % (0.0-2.0); Eos # (Auto) 0.1 th/mm3 (0.0-0.4); Eos % (Auto) 0.6 % (0.0-4.0); Hematocrit 36.7 % (35.0-46.0); Hemoglobin 12.3 gm/dL (11.6-15.3); Lymph # (Auto) 2.4 th/mm3 (1.0-4.8); Lymph % (Auto) 12.3 % (9.0-44.0); Mean Corpuscular HGB Conc 33.6 % (32.0-36.0); Mean Corpuscular Hemoglobin 30.8 pg (27.0-34.0); Mean Corpuscular Volume 91.6 fL (80.0-100.0); Mono # (Auto) 1.7 th/mm3 (0.0-0.9); Mono % (Auto) 8.5 % (0.0-8.0); Neut # (Auto) 15.6 th/mm3 (1.8-7.7); Neut % (Auto) 78.4 % (16.0-70.0); Platelet Count 333 th/mm3 (150-450); Red Blood Count 4.01 mil/mm3 (4.00-5.30); Red Cell Distribution Width 15.7 % (11.6-17.2); White Blood Count 19.8 th/mm3 (4.0-11.0)
[2018-03-31 06:44] LABS: Albumin 2.6 g/dL (3.4-5.0); Calcium 8.3 mg/dL (8.5-10.1); Carbon Dioxide 25.4 meq/L (21.0-32.0); Phosphorus 3.4 mg/dL (2.5-4.9); Potassium 3.5 meq/L (3.5-5.1)
[2018-03-31] MEDS: Insulin NovoLOG Aspart Correctional Sugar Inj SQ SCH ×4 (08:03→20:53)
[2018-03-31] MEDS: guaiFENesin 600 MG ER Tablet PO SCH ×2 (08:34→21:42)
[2018-03-31] MEDS: predniSONE 10 MG Tablet PO SCH ×3 (08:34→17:50)
[2018-03-31] MEDS: Senna/Docusate Sodium 8.6/50 MG Tablet PO SCH ×2 (08:34→21:43)
[2018-03-31] MEDS: Pantoprazole Inj 40 MG Vial IV.PUSH SCH (08:34)
[2018-03-31] MEDS: Budesonide-Formoterol 160/4.5 MCG 6 GM Inhaler INH SCH ×2 (08:37→21:43)
[2018-03-31] MEDS: Metoprolol Tartrate 25 MG Tablet PO SCH (08:49)
[2018-03-31] MEDS: Spironolactone 25 MG Tablet PO SCH ×2 (08:49→17:51)
[2018-03-31] MEDS: Furosemide 20 MG Tablet PO SCH ×2 (08:49→17:50)
--- NOTE | 2018-03-31 11:02 | P.PNCA ---
Subjective Interval history: alert in nad Medications and Allergies Active Medications: Active Medications Acetaminophen (Tylenol) 650 mg PO Q6H PRN PRN Reason: Fever >100f Hydrocodone Bitart/Acetaminophen ([place] 5/325) 1 tab PO Q4H PRN PRN Reason: PAIN SCALE 1 TO 5 Last Admin: 03/21/18 23:57 Dose: 1 tab Al Hydroxide/Mg Hydroxide (Milk Of [place] Liq) 30 ml PO Q12H PRN PRN Reason: Mild Constipation Albuterol (Albuterol Neb (Prn)) 2.5 mg NEB Q2HR NEB PRN PRN Reason: SHORTNESS OF BREATH/WHEEZING Last Admin: 03/31/18 10:44 Dose: 2.5 mg Aspirin (Aspirin Chew) 81 mg PO DAILY [facility] Last Admin: 03/31/18 08:34 Dose: 81 mg Atorvastatin Calcium (Lipitor) 40 mg PO HS [facility] Last Admin: 03/30/18 21:59 Dose: 40 mg Benzonatate (Tessalon Perles) 200 mg PO Q8HR [facility] Last Admin: 03/31/18 05:20 Dose: 200 mg Bisacodyl (Dulcolax Supp) 10 mg RECTAL DAILY PRN PRN Reason: SEVERE CONSITIPATION Budesonide/Formoterol Fumarate (Symbicort 160/4.5 Mcg Inh) 2 puff INH BID [facility] Last Admin: 03/31/18 08:37 Dose: 2 puff Clotrimazole (Gyne Lotrimin 7 1% Vag Cream) 1 appful VAGINAL DAILY [facility] Stop: 03/31/18 21:00 Last Admin: 03/31/18 08:38 Dose: 1 appful Dextrose (D50w Vial) 50 ml IV.PUSH UNSCH PRN PRN Reason: PER HYPOGLYCEMIA PROTOCOL Furosemide (Lasix) 20 mg PO BID@0900,1800 [facility] Last Admin: 03/31/18 08:49 Dose: 20 mg Glucagon (Glucagon Inj) 1 mg OTHER PRN PRN PRN Reason: for Hypoglycemia Protocol Guaifenesin (Mucinex Er) 600 mg PO BID [facility] Last Admin: 03/31/18 08:34 Dose: 600 mg Heparin Sodium (Porcine) (Heparin Inj) 5,000 units SQ Q8HR [facility] Last Admin: 03/31/18 05:20 Dose: Not Given Levofloxacin/Dextrose (Levaquin 750 Mg Premix Inj) 150 mls @ 100 mls/hr IV.SIG Q24H [facility] Last Infusion: 03/30/18 14:37 Dose: Infused Insulin Aspart (Novolog Insulin Correctional Sugar Inj) 0 unit SQ [facility]; Protocol Last Admin: 03/31/18 08:03 Dose: Not Given Lactulose (Lactulose Liq) 30 ml PO DAILY PRN PRN Reason: SEVERE CONSITIPATION Metoprolol Tartrate (Lopressor) 12.5 mg PO BID [facility] Last Admin: 03/31/18 08:49 Dose: Not Given Miscellaneous (Pill Splitter) 1 each OTHER [facility] Morphine Sulfate (Morphine Inj) 2 mg IV.PUSH Q2H PRN PRN Reason: PAIN SCALE 6 TO 10 Ondansetron HCl (Zofran Inj) 4 mg IV.PUSH Q6H PRN PRN Reason: NAUSEA OR VOMITING Pantoprazole Sodium (Protonix Inj) 40 mg IV.PUSH DAILY [facility] Last Admin: 03/31/18 08:34 Dose: 40 mg Prednisone (Deltasone) 10 mg PO TID [facility] Last Admin: 03/31/18 08:34 Dose: 10 mg Senna/Docusate Sodium (Sofi-Colace) 1 tab PO BID [facility] Last Admin: 03/31/18 08:34 Dose: 1 tab Sennosides (Senokot) 17.2 mg PO Q12H PRN PRN Reason: Moderate Constipation Sodium Chloride (Ns Flush) 2 ml IV.FLUSH BID [facility] Last Admin: 03/31/18 08:35 Dose: 2 ml Sodium Chloride (Ns Flush) 2 ml IV.FLUSH PRN PRN PRN Reason: FLUSH AFTER USING IV ACCESS Spironolactone (Aldactone) 25 mg PO BID@0900,1800 [facility] Last Admin: 03/31/18 08:49 Dose: 25 mg Allergies Allergy/AdvReac Type Severity Reaction Status Date / Time Penicillins Allergy Intermediate Hives Verified 03/19/18 21:08 Sulfa (Sulfonamide Allergy Intermediate Anxiety Verified 03/18/18 14:16 Antibiotics) Physical Exam Vital signs: Vital Signs 03/30/18 11:10 03/30/18 12:00 03/30/18 16:00 Temperature 98.4 F 97.3 F L Pulse Rate 82 93 H 119 H Respiratory Rate 18 17 17 Blood Pressure 95/46 L 97/56 L Pulse Oximetry 94 L 97 03/30/18 16:28 03/30/18 20:00 03/31/18 00:00 Temperature 97.9 F 98 F Pulse Rate 82 103 H 85 Respiratory Rate 18 18 20 Blood Pressure 92/60 L 92/51 L Pulse Oximetry 94 L 91 L 03/31/18 01:22 03/31/18 04:00 03/31/18 06:02 Temperature 97.1 F L Pulse Rate 99 H 104 H 89 Respiratory Rate 16 20 20 Blood Pressure 112/64 Pulse Oximetry 94 L 91 L 03/31/18 08:00 03/31/18 10:44 Temperature 97.9 F Pulse Rate 85 100 H Respiratory Rate 20 16 Blood Pressure 112/51 L Pulse Oximetry 88 L 93 L Intake & Output 03/30/18 03/31/18 03/31/18 18:59 06:59 18:59 Intake Total 1110 / 1110 1000 / 1000 Balance 1110 / 1110 1000 / 1000 Intake: IV 150 / 150 Levaquin 750 mg Premix Inj 150 150 / 150 ML @ 100 mls/hr IV.SIG Q24H [facility] Rx#:[id number] Oral 960 / 960 1000 / 1000 Other: # Voids 4 5 Date of Last Bowel Movement 03/30/18 03/30/18 03/30/18 # Bowel Movements 0 - Constitutional no acute distress - Routine HEENT Exam Head: Present: normocephalic, atraumatic - Routine Neck Exam Present: supple, full ROM - Routine Respiratory Exam Present: CTA bilaterally - Routine Cardiovascular Exam Present: S1, S2 - Routine Abdominal Exam Present: soft - Detailed Extremities Exam: Vascular Comments: no [email or web address] Results 03/31/18 05:50 03/31/18 05:50 CBC 03/30/18 03/31/18 Range/Units 05:35 05:50 WBC 20.7 H 19.8 H (4.0-11.0) th/mm3 RBC 4.03 4.01 (4.00-5.30) mil/mm3 Hgb 12.4 12.3 (11.6-15.3) gm/dL Hct 37.3 36.7 (35.0-46.0) % Plt Count 364 333 (150-450) th/mm3 Neut # (Auto) 16.4 H 15.6 H (1.8-7.7) th/mm3 Lymph # (Auto) 2.3 2.4 (1.0-4.8) th/mm3 [place] # (Auto) 1.8 H 1.7 H (0.0-0.9) th/mm3 Eos # (Auto) 0.1 0.1 (0.0-0.4) th/mm3 Baso # (Auto) 0.0 0.0 (0.0-0.2) th/mm3 Comprehensive Metabolic Panel 03/30/18 03/31/18 Range/Units 05:35 05:50 Sodium 135 L 135 L (136-145) meq/L Potassium 3.7 3.5 (3.5-5.1) meq/L Chloride 97 L 96 L (98-107) meq/L Carbon Dioxide 26.8 25.4 (21.0-32.0) meq/L BUN 23 H 22 H (7-18) mg/dL Creatinine 0.81 0.97 (0.50-1.00) mg/dL Calcium 8.0 L 8.3 L (8.5-10.1) mg/dL Albumin 2.6 L 2.6 L (3.4-5.0) g/dL Intake and Output 03/30/18 03/31/18 03/31/18 22:59 06:59 14:59 Intake Total 960 / 960 1000 / 1000 Balance 960 / 960 1000 / 1000 Intake: Oral 960 / 960 1000 / 1000 Other: # Voids 4 5 Date of Last Bowel Movement 03/30/18 03/30/18 # Bowel Movements 0 - Imaging and Cardiology Imaging: Impressions Chest X-Ray 03/30/18 00:00 CONCLUSION: Worsening bilateral pulmonary infiltrates suggestive of worsening pulmonary edema versus pneumonia. Clinical correlation is recommended. Assessment and Plan - Assessment (1) NSTEMI (non-ST elevated myocardial infarction) Code(s): I21.4 - Non-ST elevation (NSTEMI) myocardial infarction Status: Acute (2) CHF (congestive heart failure) Code(s): I50.9 - Heart failure, unspecified Status: Acute (3) Hypoxia Code(s): R09.02 - Hypoxemia Status: Acute (4) Dyspnea Code(s): R06.00 - Dyspnea, unspecified Status: Acute - Plan 1.) CAD - mild, continue aspirin, lipitor 2.) Hypoxia - noncardiac in origin, rhc/lvedp wnl, she had a @ 5% increase in ra sat to pa sat possibly suggesting a small l to r shunt but doubt this is enough to account for degree of hypoxia or explain improving trends over time, could consider repeat tt echo to re eval or alin if/when patient off oxygen, to further assess, d/w patient 3.) Patient requests to dc beta he due to hypotension, i think that is reasonable, d/w nurse and advised patient to d/w ordering physician
--- NOTE | 2018-03-31 16:17 | P.PNIM ---
Subjective Interval history: Patient says his breathing is the same as yesterday. Denies any chest pain. Physical Exam Vital signs: Vital Signs 03/30/18 16:28 03/30/18 20:00 03/31/18 00:00 Temperature 97.9 F 98 F Pulse Rate 82 103 H 85 Respiratory Rate 18 18 20 Blood Pressure 92/60 L 92/51 L Pulse Oximetry 94 L 91 L 03/31/18 01:22 03/31/18 04:00 03/31/18 06:02 Temperature 97.1 F L Pulse Rate 99 H 104 H 89 Respiratory Rate 16 20 20 Blood Pressure 112/64 Pulse Oximetry 94 L 91 L 03/31/18 08:00 03/31/18 10:44 03/31/18 12:00 Temperature 97.9 F Pulse Rate 85 100 H 89 Respiratory Rate 20 16 Blood Pressure 112/51 L Pulse Oximetry 88 L 93 L Intake & Output 03/30/18 03/31/18 03/31/18 18:59 06:59 18:59 Intake Total 1110 / 1110 1000 / 1000 150 / 150 Balance 1110 / 1110 1000 / 1000 150 / 150 Intake: IV 150 / 150 150 / 150 Levaquin 750 mg Premix Inj 150 150 / 150 150 / 150 ML @ 100 mls/hr IV.SIG Q24H [facility] Rx#:[id number] Oral 960 / 960 1000 / 1000 Other: # Voids 4 5 Date of Last Bowel Movement 03/30/18 03/30/18 03/30/18 # Bowel Movements 0 Narrative: GENERAL: Patient sitting up in bed. Appears comfortable. On 4 L nasal cannula. SKIN: Warm and dry. HEAD: Normocephalic. EYES: No scleral icterus. No injection or drainage. NECK: Supple, trachea midline. No JVD. CARDIOVASCULAR: Regular rate and rhythm without murmurs, gallops, or rubs. RESPIRATORY: Breath sounds equal bilaterally. No accessory muscle use. GASTROINTESTINAL: Abdomen soft, non-tender, nondistended. MUSCULOSKELETAL: No cyanosis. When pressing for 30 seconds, appears the patient has 2+ edema, no different than yesterday. BACK: Nontender without obvious deformity. No CVA tenderness. Results - Labs CBC & Chem 7: 03/31/18 05:50 03/31/18 05:50 Laboratory Results - last 24 hr 03/31/18 03/31/18 03/31/18 05:50 05:50 05:50 WBC 19.8 H RBC 4.01 Hgb 12.3 Hct 36.7 MCV 91.6 MCH 30.8 MCHC 33.6 RDW 15.7 Plt Count 333 MPV 8.0 Prelim Diff (Auto) Slide review pending Neut % (Auto) 78.4 H Lymph % (Auto) 12.3 [place] % (Auto) 8.5 H Eos % (Auto) 0.6 Baso % (Auto) 0.2 Neut # (Auto) 15.6 H Lymph # (Auto) 2.4 [place] # (Auto) 1.7 H Eos # (Auto) 0.1 Baso # (Auto) 0.0 WBC Differential . Diff Scan Auto diff confirmed Differential Comment . Sodium 135 L Potassium 3.5 Chloride 96 L Carbon Dioxide 25.4 Anion Gap 14 BUN 22 H Creatinine 0.97 Estimated GFR 59 L Random Glucose 116 H Calcium 8.3 L Phosphorus 3.4 Magnesium 2.0 B-Natriuretic Peptide 22 Albumin 2.6 L - Procedures None Assessment and Plan - Plan This patient is a 58-year-old obese female who presented to our emergency department with complaints of shortness of breath as well as chest tightness. She was found to have an elevated troponin as well as bilateral diffuse infiltrates seen on chest x-ray. 1. Acute hypoxic hypercapnic restaurant failure likely secondary to community- acquired pneumonia The patient is currently on 4 L supplemental oxygen, down from 5 L L of supplemental oxygen yesterday.. Chest x-ray shows bilateral infiltrates with no significant change from previous chest x-rays. Pulmonary team is following the patient. Rheumatoid factor and ELIN positive Patient was evaluated by infectious disease today. 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 Continue IV antibiotics, continue current recommendations from the pulmonary team. Cardiology following and does not believe the patient's hypoxic restaurant failure is cardiac in origin. = 03/29. Discussed with pulmonology. Plan for discharge in the next few days. Have ordered home oxygen evaluation. = 03/30 increased O2 requirement we will repeat chest x-ray. Discussed with pulmonology. = 03/31. Repeat chest x-ray yesterday with pulmonary edema. BNP is not elevated however. Patient does have significant bilateral lower extremity edema. Will give dose of Lasix today. Continue to monitor. Continue treatment as per pulmonology. Appreciate assistance. 2. NSTEMI/hyperlipidemia Cardiology following Initial troponin was elevated at 0.55 which then showed a down trend. EKG showed normal sinus rhythm without any specific ST segment or T wave changes. The patient underwent cardiac catheterization today which showed mild 2 vessel coronary artery disease. Recommendations from cardiology are to continue with medical management. She will be continued on aspirin, statin, and beta-he. She will be counseled on diet and weight loss. Continue supplemental oxygen. 3. GERD Continue Protonix 4. Obesity Patient was counseled on diet. 5. Vaginal pruritic sensation as per patient starting Vaginal Candidiasis started on local Clotrimazole Cream. Prophylaxis GI-pantoprazole DVT SCD/heparin subcu Discharge Planning: Hopefully discharge home in the next 2-3 days. Pending home oxygen evaluation.
[2018-04-01] MEDS: Benzonatate 100 MG Capsule PO SCH ×3 (05:44→21:07)
[2018-04-01] MEDS: Heparin - SQ 10,000 UNITS/ML Vial SQ SCH ×3 (05:45→21:07)
[2018-04-01] MEDS: guaiFENesin 600 MG ER Tablet PO SCH ×2 (08:35→21:06)
[2018-04-01] MEDS: Senna/Docusate Sodium 8.6/50 MG Tablet PO SCH ×2 (08:35→21:07)
[2018-04-01] MEDS: Furosemide 20 MG Tablet PO SCH ×2 (08:35→18:06)
[2018-04-01] MEDS: predniSONE 10 MG Tablet PO SCH ×3 (08:35→18:06)
[2018-04-01] MEDS: Spironolactone 25 MG Tablet PO SCH ×2 (08:35→18:06)
[2018-04-01] MEDS: Pantoprazole Inj 40 MG Vial IV.PUSH SCH (08:36)
[2018-04-01] MEDS: Budesonide-Formoterol 160/4.5 MCG 6 GM Inhaler INH SCH ×2 (08:38→21:07)
--- NOTE | 2018-04-01 11:48 | P.PNCA ---
Subjective Interval history: on 4 L nc in nad Medications and Allergies Active Medications: Active Medications Acetaminophen (Tylenol) 650 mg PO Q6H PRN PRN Reason: Fever >100f Hydrocodone Bitart/Acetaminophen ([place] 5/325) 1 tab PO Q4H PRN PRN Reason: PAIN SCALE 1 TO 5 Last Admin: 03/21/18 23:57 Dose: 1 tab Al Hydroxide/Mg Hydroxide (Milk Of Magnesia Liq) 30 ml PO Q12H PRN PRN Reason: Mild Constipation Last Admin: 04/01/18 05:44 Dose: 30 ml Albuterol (Albuterol Neb (Prn)) 2.5 mg NEB Q2HR NEB PRN PRN Reason: SHORTNESS OF BREATH/WHEEZING Last Admin: 04/01/18 05:39 Dose: 2.5 mg Aspirin (Aspirin Chew) 81 mg PO DAILY [facility] Last Admin: 04/01/18 08:35 Dose: 81 mg Atorvastatin Calcium (Lipitor) 40 mg PO HS [facility] Last Admin: 03/31/18 21:42 Dose: 40 mg Benzonatate (Tessalon Perles) 200 mg PO Q8HR [facility] Last Admin: 04/01/18 05:44 Dose: 200 mg Bisacodyl (Dulcolax Supp) 10 mg RECTAL DAILY PRN PRN Reason: SEVERE CONSITIPATION Budesonide/Formoterol Fumarate (Symbicort 160/4.5 Mcg Inh) 2 puff INH BID [facility] Last Admin: 04/01/18 08:38 Dose: 2 puff Furosemide (Lasix) 20 mg PO BID@0900,1800 [facility] Last Admin: 04/01/18 08:35 Dose: 20 mg Guaifenesin (Mucinex Er) 600 mg PO BID [facility] Last Admin: 04/01/18 08:35 Dose: 600 mg Heparin Sodium (Porcine) (Heparin Inj) 5,000 units SQ Q8HR [facility] Last Admin: 04/01/18 05:45 Dose: Not Given Levofloxacin/Dextrose (Levaquin 750 Mg Premix Inj) 150 mls @ 100 mls/hr IV.SIG Q24H [facility] Last Infusion: 03/31/18 13:33 Dose: Infused Lactulose (Lactulose Liq) 30 ml PO DAILY PRN PRN Reason: SEVERE CONSITIPATION Miscellaneous (Pill Splitter) 1 each OTHER [facility] Morphine Sulfate (Morphine Inj) 2 mg IV.PUSH Q2H PRN PRN Reason: PAIN SCALE 6 TO 10 Ondansetron HCl (Zofran Inj) 4 mg IV.PUSH Q6H PRN PRN Reason: NAUSEA OR VOMITING Pantoprazole Sodium (Protonix Inj) 40 mg IV.PUSH DAILY [facility] Last Admin: 04/01/18 08:36 Dose: 40 mg Prednisone (Deltasone) 10 mg PO TID [facility] Last Admin: 04/01/18 08:35 Dose: 10 mg Senna/Docusate Sodium (Sofi-Colace) 1 tab PO BID [facility] Last Admin: 04/01/18 08:35 Dose: 1 tab Sennosides (Senokot) 17.2 mg PO Q12H PRN PRN Reason: Moderate Constipation Last Admin: 04/01/18 08:36 Dose: 17.2 mg Sodium Chloride (Ns Flush) 2 ml IV.FLUSH BID [facility] Last Admin: 04/01/18 08:36 Dose: 2 ml Sodium Chloride (Ns Flush) 2 ml IV.FLUSH PRN PRN PRN Reason: FLUSH AFTER USING IV ACCESS Spironolactone (Aldactone) 25 mg PO BID@0900,1800 [facility] Last Admin: 04/01/18 08:35 Dose: 25 mg Allergies Allergy/AdvReac Type Severity Reaction Status Date / Time Penicillins Allergy Intermediate Hives Verified 03/19/18 21:08 Sulfa (Sulfonamide Allergy Intermediate Anxiety Verified 03/18/18 14:16 Antibiotics) Physical Exam Vital signs: Vital Signs 03/31/18 12:00 03/31/18 16:00 03/31/18 20:00 Temperature 98.2 F 98.3 F 98.8 F Pulse Rate 96 H 78 99 H Respiratory Rate 20 20 18 Blood Pressure 93/50 L 104/52 L 98/51 L Pulse Oximetry 88 L 98 92 L 03/31/18 21:19 04/01/18 00:00 04/01/18 04:00 Temperature 98.0 F Pulse Rate 90 81 73 Respiratory Rate 16 20 Blood Pressure 105/53 L Pulse Oximetry 94 L 92 L 04/01/18 05:30 04/01/18 05:41 04/01/18 08:00 Temperature 98.1 F 98.1 F Pulse Rate 96 H 86 80 Respiratory Rate 20 22 18 Blood Pressure 100/60 104/57 L Pulse Oximetry 95 92 L 04/01/18 10:39 Temperature Pulse Rate Respiratory Rate Blood Pressure Pulse Oximetry 95 Intake & Output 03/31/18 04/01/18 04/01/18 18:59 06:59 18:59 Intake Total 630 / 630 680 / 680 Output Total 560 / 560 Balance 70 / 70 680 / 680 Intake: IV 150 / 150 Levaquin 750 mg Premix Inj 150 150 / 150 ML @ 100 mls/hr IV.SIG Q24H [facility] Rx#:[id number] Oral 480 / 480 680 / 680 Output: Urine 560 / 560 Other: # Voids 2 Date of Last Bowel Movement 03/30/18 - Constitutional no acute distress - Routine HEENT Exam Head: Present: normocephalic, atraumatic - Routine Neck Exam Present: supple, full ROM - Routine Respiratory Exam Present: CTA bilaterally - Routine Cardiovascular Exam Present: S1, S2 - Routine Abdominal Exam Present: soft - Routine Extremities Exam Comments: no [email or web address] Results 03/31/18 05:50 03/31/18 05:50 Cardiac Enzymes 03/31/18 Range/Units 05:50 B-Natriuretic Peptide 22 (0-100) pg/mL Coagulation 03/31/18 Range/Units 05:50 B-Natriuretic Peptide 22 (0-100) pg/mL CBC 03/31/18 Range/Units 05:50 WBC 19.8 H (4.0-11.0) th/mm3 RBC 4.01 (4.00-5.30) mil/mm3 Hgb 12.3 (11.6-15.3) gm/dL Hct 36.7 (35.0-46.0) % Plt Count 333 (150-450) th/mm3 Neut # (Auto) 15.6 H (1.8-7.7) th/mm3 Lymph # (Auto) 2.4 (1.0-4.8) th/mm3 [place] # (Auto) 1.7 H (0.0-0.9) th/mm3 Eos # (Auto) 0.1 (0.0-0.4) th/mm3 Baso # (Auto) 0.0 (0.0-0.2) th/mm3 Comprehensive Metabolic Panel 03/31/18 Range/Units 05:50 Sodium 135 L (136-145) meq/L Potassium 3.5 (3.5-5.1) meq/L Chloride 96 L (98-107) meq/L Carbon Dioxide 25.4 (21.0-32.0) meq/L BUN 22 H (7-18) mg/dL Creatinine 0.97 (0.50-1.00) mg/dL Calcium 8.3 L (8.5-10.1) mg/dL Albumin 2.6 L (3.4-5.0) g/dL Intake and Output 03/31/18 04/01/18 04/01/18 22:59 06:59 14:59 Intake Total 480 / 480 680 / 680 Output Total 560 / 560 Balance -80 / -80 680 / 680 Intake: Oral 480 / 480 680 / 680 Output: Urine 560 / 560 Other: # Voids 2 - Imaging and Cardiology Imaging: Impressions Chest X-Ray 03/30/18 00:00 CONCLUSION: Worsening bilateral pulmonary infiltrates suggestive of worsening pulmonary edema versus pneumonia. Clinical correlation is recommended. Assessment and Plan - Assessment (1) NSTEMI (non-ST elevated myocardial infarction) Code(s): I21.4 - Non-ST elevation (NSTEMI) myocardial infarction Status: Acute (2) CHF (congestive heart failure) Code(s): I50.9 - Heart failure, unspecified Status: Acute (3) Hypoxia Code(s): R09.02 - Hypoxemia Status: Acute (4) Dyspnea Code(s): R06.00 - Dyspnea, unspecified Status: Acute - Plan 1.) CAD - mild, continue aspirin, lipitor 2.) Hypoxia - noncardiac in origin, rhc/lvedp wnl, she had a @ 5% increase in ra sat to pa sat possibly suggesting a small l to r shunt but doubt this is enough to account for degree of hypoxia or explain improving trends over time, could consider repeat tt echo to re eval or alin if/when patient off oxygen, to further assess, d/w patient; O2 weaned down to 4 L, trending down slowly 3.) Patient requests to dc beta he due to hypotension, i think that is reasonable, d/w nurse and advised patient to d/w ordering physician
--- NOTE | 2018-04-01 13:32 | P.PNIM ---
Subjective Interval history: Patient says she is breathing a little better than yesterday. Denies any chest pain. Had a bowel movement. Feels that constipation has improved. Physical Exam Vital signs: Vital Signs 03/31/18 16:00 03/31/18 20:00 03/31/18 21:19 Temperature 98.3 F 98.8 F Pulse Rate 78 99 H 90 Respiratory Rate 20 18 16 Blood Pressure 104/52 L 98/51 L Pulse Oximetry 98 92 L 94 L 04/01/18 00:00 04/01/18 04:00 04/01/18 05:30 Temperature 98.0 F 98.1 F Pulse Rate 81 73 96 H Respiratory Rate 20 20 Blood Pressure 105/53 L 100/60 Pulse Oximetry 92 L 95 04/01/18 05:41 04/01/18 08:00 04/01/18 10:39 Temperature 98.1 F Pulse Rate 86 80 Respiratory Rate 22 18 Blood Pressure 104/57 L Pulse Oximetry 92 L 95 04/01/18 12:00 Temperature 98.7 F Pulse Rate 94 H Respiratory Rate 18 Blood Pressure 110/60 Pulse Oximetry 92 L Intake & Output 03/31/18 04/01/18 04/01/18 18:59 06:59 18:59 Intake Total 630 / 630 680 / 680 Output Total 560 / 560 Balance 70 / 70 680 / 680 Intake: IV 150 / 150 Levaquin 750 mg Premix Inj 150 150 / 150 ML @ 100 mls/hr IV.SIG Q24H [facility] Rx#:[id number] Oral 480 / 480 680 / 680 Output: Urine 560 / 560 Other: # Voids 2 Date of Last Bowel Movement 03/30/18 Narrative: GENERAL: Patient sitting up in bed. Appears comfortable. On 5 L nasal cannula. Alert and oriented x3. SKIN: Warm and dry. HEAD: Normocephalic. EYES: No scleral icterus. No injection or drainage. NECK: Supple, trachea midline. No JVD. CARDIOVASCULAR: Regular rate and rhythm without murmurs, gallops, or rubs. RESPIRATORY: Breath sounds equal bilaterally. No accessory muscle use. GASTROINTESTINAL: Abdomen soft, non-tender, nondistended. MUSCULOSKELETAL: No cyanosis. When pressing for 30 seconds, appears the patient has 2+ edema, no different than yesterday. BACK: Nontender without obvious deformity. No CVA tenderness. Results - Labs CBC & Chem 7: 03/31/18 05:50 03/31/18 05:50 Laboratory Results - last 24 hr 03/31/18 05:50 B-Natriuretic Peptide 22 - Procedures None Assessment and Plan - Plan This patient is a 58-year-old obese female who presented to our emergency department with complaints of shortness of breath as well as chest tightness. She was found to have an elevated troponin as well as bilateral diffuse infiltrates seen on chest x-ray. 1. Acute hypoxic hypercapnic restaurant failure likely secondary to community- acquired pneumonia The patient is currently on 4 L supplemental oxygen, down from 5 L L of supplemental oxygen yesterday.. Chest x-ray shows bilateral infiltrates with no significant change from previous chest x-rays. Pulmonary team is following the patient. Rheumatoid factor and ELIN positive Patient was evaluated by infectious disease today. 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 Continue IV antibiotics, continue current recommendations from the pulmonary team. Cardiology following and does not believe the patient's hypoxic restaurant failure is cardiac in origin. = 03/29. Discussed with pulmonology. Plan for discharge in the next few days. Have ordered home oxygen evaluation. = 03/30 increased O2 requirement we will repeat chest x-ray. Discussed with pulmonology. = 03/31. Repeat chest x-ray yesterday with pulmonary edema. BNP is not elevated however. Patient does have significant bilateral lower extremity edema. Will give dose of Lasix today. Continue to monitor. Continue treatment as per pulmonology. Appreciate assistance. = 04/01. Breathing somewhat improved. We will continue to monitor oxygen requirement. Will add Singulair and Claritin. //NSTEMI/hyperlipidemia Cardiology following Initial troponin was elevated at 0.55 which then showed a down trend. EKG showed normal sinus rhythm without any specific ST segment or T wave changes. The patient underwent cardiac catheterization today which showed mild 2 vessel coronary artery disease. Recommendations from cardiology are to continue with medical management. She will be continued on aspirin, statin, and beta-he. She will be counseled on diet and weight loss. Continue supplemental oxygen. 3. GERD Continue Protonix 4. Obesity Patient was counseled on diet. 5. Vaginal pruritic sensation as per patient starting Vaginal Candidiasis started on local Clotrimazole Cream. Prophylaxis GI-pantoprazole DVT SCD/heparin subcu Discharge Planning: Hopefully discharge home in the next 2-3 days. Apparently her insurance does not pay for oxygen, and this would be self-pay.
[2018-04-01] MEDS: Loratadine 10 MG Tablet PO SCH (13:39)
[2018-04-01] MEDS: Montelukast 10 MG Tablet PO SCH (21:07)
[2018-04-02] MEDS: Benzonatate 100 MG Capsule PO SCH ×2 (05:50→14:02)
[2018-04-02] MEDS: Heparin - SQ 10,000 UNITS/ML Vial SQ SCH ×2 (08:18→14:03)
[2018-04-02] MEDS: guaiFENesin 600 MG ER Tablet PO SCH (08:21)
[2018-04-02] MEDS: Senna/Docusate Sodium 8.6/50 MG Tablet PO SCH ×2 (08:21→20:25)
[2018-04-02] MEDS: Loratadine 10 MG Tablet PO SCH (08:21)
[2018-04-02] MEDS: predniSONE 10 MG Tablet PO SCH ×3 (08:22→17:04)
[2018-04-02] MEDS: Pantoprazole Inj 40 MG Vial IV.PUSH SCH (08:22)
[2018-04-02] MEDS: Furosemide 20 MG Tablet PO SCH ×2 (08:25→17:04)
[2018-04-02] MEDS: Budesonide-Formoterol 160/4.5 MCG 6 GM Inhaler INH SCH ×2 (08:29→20:27)
[2018-04-02] MEDS: Spironolactone 25 MG Tablet PO SCH ×2 (08:30→17:05)
--- NOTE | 2018-04-02 09:51 | P.PNIM ---
Subjective Interval history: Patient says that shortness of breath improved today. Denies any chest pain. Physical Exam Vital signs: Vital Signs 04/01/18 10:39 04/01/18 12:00 04/01/18 16:00 Temperature 98.7 F 97.9 F Pulse Rate 95 H 100 H Respiratory Rate 18 29 H Blood Pressure 110/60 102/59 L Pulse Oximetry 95 92 L 92 L 04/01/18 20:00 04/01/18 20:53 04/01/18 22:13 Temperature Pulse Rate 102 H 102 H Respiratory Rate 27 H Blood Pressure Pulse Oximetry 93 L 97 04/02/18 00:00 04/02/18 04:00 04/02/18 05:34 Temperature 98 F 98 F Pulse Rate 84 88 82 Respiratory Rate 18 18 20 Blood Pressure 99/54 L 104/50 L Pulse Oximetry 91 L 93 L 04/02/18 08:00 Temperature 98 F Pulse Rate 79 Respiratory Rate 17 Blood Pressure 112/55 L Pulse Oximetry 98 Intake & Output 04/01/18 04/02/18 04/02/18 18:59 06:59 18:59 Intake Total 630 / 630 360 / 360 Output Total 720 / 720 1200 / 1200 Balance -90 / -90 -840 / -840 Weight 85.4 kg Intake: IV 150 / 150 Levaquin 750 mg Premix Inj 150 150 / 150 ML @ 100 mls/hr IV.SIG Q24H [facility] Rx#:[id number] Oral 480 / 480 360 / 360 Output: Urine 720 / 720 1200 / 1200 Other: # Bowel Movements 0 Narrative: GENERAL: Patient sitting up in bed. Appears comfortable. On 4 L nasal cannula. Alert and oriented x3. SKIN: Warm and dry. HEAD: Normocephalic. EYES: No scleral icterus. No injection or drainage. NECK: Supple, trachea midline. No JVD. CARDIOVASCULAR: Regular rate and rhythm without murmurs, gallops, or rubs. RESPIRATORY: Breath sounds equal bilaterally. No accessory muscle use. GASTROINTESTINAL: Abdomen soft, non-tender, nondistended. MUSCULOSKELETAL: No cyanosis. Edema improved. BACK: Nontender without obvious deformity. No CVA tenderness. Results - Labs CBC & Chem 7: 03/31/18 05:50 03/31/18 05:50 - Procedures None Assessment and Plan - Plan This patient is a 58-year-old obese female who presented to our emergency department with complaints of shortness of breath as well as chest tightness. She was found to have an elevated troponin as well as bilateral diffuse infiltrates seen on chest x-ray. 1. Acute hypoxic hypercapnic restaurant failure likely secondary to community- acquired pneumonia The patient is currently on 4 L supplemental oxygen, down from 5 L L of supplemental oxygen yesterday.. Chest x-ray shows bilateral infiltrates with no significant change from previous chest x-rays. Pulmonary team is following the patient. Rheumatoid factor and ELIN positive Patient was evaluated by infectious disease today. Recommendations are to have the patient follow-up with rheumatology after she is discharged as we do not have a infectious disease physician that works in house. Continue IV antibiotics, continue current recommendations from the pulmonary team. Cardiology following and does not believe the patient's hypoxic restaurant failure is cardiac in origin. = 03/29. Discussed with pulmonology. Plan for discharge in the next few days. Have ordered home oxygen evaluation. = 03/30 increased O2 requirement we will repeat chest x-ray. Discussed with pulmonology. = 03/31. Repeat chest x-ray yesterday with pulmonary edema. BNP is not elevated however. Patient does have significant bilateral lower extremity edema. Will give dose of Lasix today. Continue to monitor. Continue treatment as per pulmonology. Appreciate assistance. = 04/01. Breathing somewhat improved. We will continue to monitor oxygen requirement. Will add Singulair and Claritin. = 04/02. Patient feels her breathing is somewhat improved. Down to 4 L O2. //NSTEMI/hyperlipidemia Cardiology following Initial troponin was elevated at 0.55 which then showed a down trend. EKG showed normal sinus rhythm without any specific ST segment or T wave changes. The patient underwent cardiac catheterization today which showed mild 2 vessel coronary artery disease. Recommendations from cardiology are to continue with medical management. She will be continued on aspirin, statin, and beta-he. She will be counseled on diet and weight loss. Continue supplemental oxygen. 3. GERD Continue Protonix 4. Obesity Patient was counseled on diet. 5. Vaginal pruritic sensation as per patient starting Vaginal Candidiasis started on local Clotrimazole Cream. Prophylaxis GI-pantoprazole DVT SCD/heparin subcu Discharge Planning: Hopefully discharge home in the next 2-3 days. Apparently her insurance does not pay for oxygen, and this would be self-pay. = We will need pulmonology and ID clearance
--- NOTE | 2018-04-02 11:13 | XR ---
EXAM DATE: 04/02/2018 12:00 AM EDT AGE/SEX: 58 years / Female INDICATIONS: Shortness of breath with cough. CLINICAL DATA: This is the patient's subsequent encounter. Patient reports that signs and symptoms h ave been present for 2 weeks and indicates a pain score of 0/10. MEDICAL/SURGICAL HISTORY: . Renal insufficiency, chronic. Gastroesophageal reflux disease. Asth ma. Hyperlipidemia. None. COMPARISON: Chest x-ray 03/30/2018. FINDINGS: A single portable frontal view the chest shows no interval change. Diffuse bilateral pulmonary infilt rates again noted. No effusions. Heart is normal in size. Bony structures are unremarkable. CONCLUSION: Unchanged diffuse bilateral infiltrates. Electronically signed by: Haroldo Chen MD 04/02/2018 11:12 AM EDT
--- NOTE | 2018-04-02 14:34 | P.PNCA ---
Subjective Interval history: alert in nad, on 2 L nc Medications and Allergies Active Medications: Active Medications Acetaminophen (Tylenol) 650 mg PO Q6H PRN PRN Reason: Fever >100f Hydrocodone Bitart/Acetaminophen ([place] 5/325) 1 tab PO Q4H PRN PRN Reason: PAIN SCALE 1 TO 5 Last Admin: 03/21/18 23:57 Dose: 1 tab Al Hydroxide/Mg Hydroxide (Milk Of Magnesia Liq) 30 ml PO Q12H PRN PRN Reason: Mild Constipation Last Admin: 04/01/18 05:44 Dose: 30 ml Albuterol (Albuterol Neb (Prn)) 2.5 mg NEB Q2HR [facility]B PRN PRN Reason: SHORTNESS OF BREATH/WHEEZING Last Admin: 04/02/18 05:34 Dose: 2.5 mg Aspirin (Aspirin Chew) 81 mg PO DAILY [facility] Last Admin: 04/02/18 08:20 Dose: 81 mg Atorvastatin Calcium (Lipitor) 40 mg PO HS [facility] Last Admin: 04/01/18 21:06 Dose: 40 mg Benzonatate (Tessalon Perles) 200 mg PO Q8HR [facility] Last Admin: 04/02/18 14:02 Dose: 200 mg Bisacodyl (Dulcolax Supp) 10 mg RECTAL DAILY PRN PRN Reason: SEVERE CONSITIPATION Budesonide/Formoterol Fumarate (Symbicort 160/4.5 Mcg Inh) 2 puff INH BID [facility] Last Admin: 04/02/18 08:29 Dose: 2 puff Furosemide (Lasix) 20 mg PO BID@0900,1800 [facility] Last Admin: 04/02/18 08:25 Dose: 20 mg Guaifenesin (Mucinex Er) 600 mg PO BID [facility] Last Admin: 04/02/18 08:21 Dose: 600 mg Heparin Sodium (Porcine) (Heparin Inj) 5,000 units SQ Q8HR [facility] Last Admin: 04/02/18 08:18 Dose: Not Given Levofloxacin/Dextrose (Levaquin 750 Mg Premix Inj) 150 mls @ 100 mls/hr IV.SIG Q24H [facility] Last Infusion: 04/02/18 14:04 Dose: Infused Lactulose (Lactulose Liq) 30 ml PO DAILY PRN PRN Reason: SEVERE CONSITIPATION Loratadine (Claritin) 10 mg PO DAILY [facility] Last Admin: 04/02/18 08:21 Dose: 10 mg Miscellaneous (Pill Splitter) 1 each OTHER [facility] Montelukast Sodium (Singulair) 10 mg PO HS [facility] Last Admin: 04/01/18 21:07 Dose: 10 mg Morphine Sulfate (Morphine Inj) 2 mg IV.PUSH Q2H PRN PRN Reason: PAIN SCALE 6 TO 10 Ondansetron HCl (Zofran Inj) 4 mg IV.PUSH Q6H PRN PRN Reason: NAUSEA OR VOMITING Pantoprazole Sodium (Protonix Inj) 40 mg IV.PUSH DAILY [facility] Last Admin: 04/02/18 08:22 Dose: 40 mg Prednisone (Deltasone) 10 mg PO TID [facility] Last Admin: 04/02/18 12:23 Dose: 10 mg Senna/Docusate Sodium (Sofi-Colace) 1 tab PO BID [facility] Last Admin: 04/02/18 08:21 Dose: 1 tab Sennosides (Senokot) 17.2 mg PO Q12H PRN PRN Reason: Moderate Constipation Last Admin: 04/01/18 08:36 Dose: 17.2 mg Sodium Chloride (Ns Flush) 2 ml IV.FLUSH BID [facility] Last Admin: 04/02/18 08:22 Dose: 2 ml Sodium Chloride (Ns Flush) 2 ml IV.FLUSH PRN PRN PRN Reason: FLUSH AFTER USING IV ACCESS Spironolactone (Aldactone) 25 mg PO BID@0900,1800 [facility] Last Admin: 04/02/18 08:30 Dose: 25 mg Allergies Allergy/AdvReac Type Severity Reaction Status Date / Time Penicillins Allergy Intermediate Hives Verified 03/19/18 21:08 Sulfa (Sulfonamide Allergy Intermediate Anxiety Verified 03/18/18 14:16 Antibiotics) Physical Exam Vital signs: Vital Signs 04/01/18 16:00 04/01/18 20:00 04/01/18 20:53 Temperature 97.9 F Pulse Rate 100 H 102 H 102 H Respiratory Rate 29 H 27 H Blood Pressure 102/59 L Pulse Oximetry 92 L 93 L 04/01/18 22:13 04/02/18 00:00 04/02/18 04:00 Temperature 98 F 98 F Pulse Rate 84 88 Respiratory Rate 18 18 Blood Pressure 99/54 L 104/50 L Pulse Oximetry 97 91 L 93 L 04/02/18 05:34 04/02/18 08:00 04/02/18 12:00 Temperature 98 F 98.1 F Pulse Rate 82 79 90 Respiratory Rate 20 17 17 Blood Pressure 112/55 L 112/59 L Pulse Oximetry 98 97 Intake & Output 04/01/18 04/02/18 04/02/18 18:59 06:59 18:59 Intake Total 630 / 630 360 / 360 150 / 150 Output Total 720 / 720 1200 / 1200 Balance -90 / -90 -840 / -840 150 / 150 Weight 85.4 kg Intake: IV 150 / 150 150 / 150 Levaquin 750 mg Premix Inj 150 150 / 150 150 / 150 ML @ 100 mls/hr IV.SIG Q24H [facility] Rx#:[id number] Oral 480 / 480 360 / 360 Output: Urine 720 / 720 1200 / 1200 Other: # Bowel Movements 0 - Constitutional no acute distress - Routine HEENT Exam Head: Present: normocephalic, atraumatic - Routine Neck Exam Present: supple, full ROM - Routine Respiratory Exam Present: CTA bilaterally - Routine Cardiovascular Exam Present: S1, S2 - Routine Abdominal Exam Present: soft - Routine Extremities Exam Comments: no [email or web address] Results 03/31/18 05:50 03/31/18 05:50 Cardiac Enzymes 03/31/18 Range/Units 05:50 B-Natriuretic Peptide 22 (0-100) pg/mL Coagulation 03/31/18 Range/Units 05:50 B-Natriuretic Peptide 22 (0-100) pg/mL Intake and Output 04/01/18 04/02/18 04/02/18 22:59 06:59 14:59 Intake Total 630 / 630 360 / 360 150 / 150 Output Total 720 / 720 1200 / 1200 Balance -90 / -90 -840 / -840 150 / 150 Intake: IV 150 / 150 150 / 150 Levaquin 750 mg Premix Inj 150 150 / 150 150 / 150 ML @ 100 mls/hr IV.SIG Q24H [facility] Rx#:[id number] Oral 480 / 480 360 / 360 Output: Urine 720 / 720 1200 / 1200 Other: # Bowel Movements 0 Weight 85.4 kg - Imaging and Cardiology Imaging: Impressions Chest X-Ray 04/02/18 00:00 CONCLUSION: Unchanged diffuse bilateral infiltrates. Assessment and Plan - Assessment (1) NSTEMI (non-ST elevated myocardial infarction) Code(s): I21.4 - Non-ST elevation (NSTEMI) myocardial infarction Status: Acute (2) CHF (congestive heart failure) Code(s): I50.9 - Heart failure, unspecified Status: Acute (3) Hypoxia Code(s): R09.02 - Hypoxemia Status: Acute (4) Dyspnea Code(s): R06.00 - Dyspnea, unspecified Status: Acute - Plan 1.) CAD - mild, continue aspirin, lipitor 2.) Hypoxia - noncardiac in origin, rhc/lvedp wnl, she had a @ 5% increase in ra sat to pa sat possibly suggesting a small l to r shunt but doubt this is enough to account for degree of hypoxia or explain improving trends over time, could consider repeat tt echo to re eval or alin if/when patient off oxygen, to further assess, d/w patient; O2 weaned down to 2 L, trending down slowly
[2018-04-02 16:40] LABS: Bilirubin,Urine Negative (Negative); Clarity,Urine Clear (Clear); Color,Urine Straw (Yellw/Straw); Glucose,Urine (UA) Negative (Negative); Leukocyte Esterase,Urine Negative (Negative); Nitrite,Urine Negative (Negative); Specific Gravity,Urine 1.005 (1.002-1.035); Squamous Epithelial Cell,Urine <1 /hpf (0-5)
--- NOTE | 2018-04-02 16:50 | P.PNID ---
Subjective Remarks: ID Xcover for . 58-year-old white female who presented to the emergency department with respiratory distress. Mycoplasma IgG positive. Rheumatoid factor positive. ELIN titer high. Chest x-ray showing improvement. history of exposure to passive smoking extensively in past. Overnight events reviewed. Remains in ICU. On oxygen, able to talk in complete sentences. No diarrhea No N/V Dry cough WBC improved. On steroids. No fever Antibiotics: Levaquin IV Lines: Lines ok Past Medical History: PAST MEDICAL HISTORY: Bronchitis, gastroesophageal reflux disease, chronic kidney disease stage II, hyperlipidemia, bunionectomy. Allergies/Adverse Reactions: Allergies Penicillins Allergy (Intermediate, Verified 03/19/18 21:08) Hives Sulfa (Sulfonamide Antibiotics) Allergy (Intermediate, Verified 03/18/18 14:16) Anxiety Objective Vital Signs 04/01/18 20:00 04/01/18 20:53 04/01/18 22:13 Temperature Pulse Rate 102 H 102 H Respiratory Rate 27 H Blood Pressure Pulse Oximetry 93 L 97 04/02/18 00:00 04/02/18 04:00 04/02/18 05:34 Temperature 98 F 98 F Pulse Rate 84 88 82 Respiratory Rate 18 18 20 Blood Pressure 99/54 L 104/50 L Pulse Oximetry 91 L 93 L 04/02/18 08:00 04/02/18 12:00 Temperature 98 F 98.1 F Pulse Rate 79 90 Respiratory Rate 17 17 Blood Pressure 112/55 L 112/59 L Pulse Oximetry 98 97 Intake & Output 04/01/18 04/02/18 04/02/18 18:59 06:59 18:59 Intake Total 630 / 630 360 / 360 150 / 150 Output Total 720 / 720 1200 / 1200 Balance -90 / -90 -840 / -840 150 / 150 Weight 85.4 kg Intake: IV 150 / 150 150 / 150 Levaquin 750 mg Premix Inj 150 150 / 150 150 / 150 ML @ 100 mls/hr IV.SIG Q24H JENA Rx#:[id number] Oral 480 / 480 360 / 360 Output: Urine 720 / 720 1200 / 1200 Other: # Bowel Movements 0 04/02/18 13:59 Blood - Peripheral Blood Fungal Culture - Pending 04/02/18 13:59 Blood - Peripheral Blood Fungal Culture - Pending Imaging: ITS Impressions Abdomen X-Ray 03/18/18 00:00 CONCLUSION: Negative examination. Venous Doppler Study 03/18/18 00:00 CONCLUSION: 1. The study is negative for bilateral lower extremity deep venous thrombosis. Chest CTA 03/18/18 16:02 CONCLUSION: 1. There is no evidence of PE for technique. 2. Extensive airspace process most likely inflammatory and pneumonia, possibility of pulmonary edema is not excluded. 3. Tiny bilateral pleural effusions with nonspecific most likely benign lymph nodes within the mediastinum. Chest X-Ray 04/02/18 00:00 CONCLUSION: Unchanged diffuse bilateral infiltrates. Physical Exam: PHYSICAL EXAMINATION: GENERAL: Awake and alert and oriented. HEENT: Head is atraumatic. Extraocular movements are grossly intact. Pupils reactive to light. No icterus. Oropharynx, moist mucosa. No visible lesions. NECK: Supple. no adenopathy or swelling.. LUNGS: Decreased breath sounds throughout. No rhonchi. HEART: Regular rate and rhythm without murmurs, rubs or gallops. ABDOMEN: Bowel sounds present. Soft, obese, nontender. EXTREMITIES: No clubbing, cyanosis or edema. SKIN: No rash. NEUROLOGIC: Nonfocal. PSYCH: Calm and cooperative. Assessment and Plan - Plan IMPRESSION: Bilateral pulmonary infiltrates showing little improvement. Questionable etiology. Nonproductive cough. The patient presented with fever, nausea, and dyspnea on exertion. Possible atypical versus viral pneumonia. Elevated ELIN titer. RECOMMENDATIONS: Continue Levaquin for now. Procalcitonin normalized but will repeat since WBC increased. No fevers, clinically down to If overnight change in clinical consider broadening coverage. If prolactin normal and CXR still abnormal despite diuresis will consider Voriconazole for possible aspergillus allergic pneumonitis until serology back. If Voriconazole started then Levaquin will need to be switched to Doxy and 12 lead EKG repeated to ensure QT interval normal. makenzie Ordonez dw patient all workup ordered today. makenzie Kaplan about CXR findings: Likely fluid related. Repeat CXR in am after diuresis and then reassess.
--- NOTE | 2018-04-02 19:48 | P.PNPL ---
Subjective Interval history: 58 YOWF with br asthma, bilat diffuse infilt, hypoxic RF no fever Cough, not able to expactorate Weaned to 2LNC Did't sleep well ELIN and RF positive HIV Negative Feels better, ambulates Made laps in hallway DW Physical Exam Vital signs: Vital Signs 04/01/18 20:00 04/01/18 20:53 04/01/18 22:13 Temperature Pulse Rate 102 H 102 H Respiratory Rate 27 H Blood Pressure Pulse Oximetry 93 L 97 04/02/18 00:00 04/02/18 04:00 04/02/18 05:34 Temperature 98 F 98 F Pulse Rate 84 88 82 Respiratory Rate 18 18 20 Blood Pressure 99/54 L 104/50 L Pulse Oximetry 91 L 93 L 04/02/18 08:00 04/02/18 12:00 04/02/18 16:00 Temperature 98 F 98.1 F 98.3 F Pulse Rate 79 90 104 H Respiratory Rate 17 17 18 Blood Pressure 112/55 L 112/59 L 135/63 Pulse Oximetry 98 97 93 L 04/02/18 16:46 Temperature Pulse Rate Respiratory Rate Blood Pressure Pulse Oximetry 96 Intake & Output 04/02/18 04/02/18 04/03/18 06:59 18:59 06:59 Intake Total 360 / 360 1350 / 1350 Output Total 1200 / 1200 950 / 950 Balance -840 / -840 400 / 400 Weight 85.4 kg Intake: IV 150 / 150 Levaquin 750 mg Premix Inj 150 150 / 150 ML @ 100 mls/hr IV.SIG Q24H JENA Rx#:[id number] Oral 360 / 360 1200 / 1200 Output: Urine 1200 / 1200 950 / 950 Other: # Bowel Movements 0 1 GENERAL: MBMN NAD SKIN: Warm and dry. HEAD: Normocephalic. EYES: No scleral icterus. No injection or drainage. NECK: Supple, trachea midline. No JVD or lymphadenopathy. CARDIOVASCULAR: Regular rate and rhythm without murmurs, gallops, or rubs. RESPIRATORY: Breath sounds equal bilaterally. No accessory muscle use. GASTROINTESTINAL: Abdomen soft, non-tender, nondistended. MUSCULOSKELETAL: No cyanosis, or edema. BACK: Nontender without obvious deformity. No CVA tenderness. Assessment and Plan - Plan IMPRESSION: 1. Hypoxic respiratory failure. 2. Bilateral diffuse lung infiltrates, possibly viral pneumonia, atypical pneumonia or inflammatory process. 3. Non-ST elevation myocardial infarction. 4. History of bronchial asthma. PLAN: Prednisone 10 mg po tid Cont Abx, ID following Supplement 02 with 2LNC Titerate 02 to keep sat >90% Use Acapella and IS Rheumatology eval as out patient 02 walk wilbert Diurease with Lasix ID [id number] underway DC Mucinex and Tessalon
[2018-04-02] MEDS: Montelukast 10 MG Tablet PO SCH (20:25)
[2018-04-03] MEDS: Heparin - SQ 10,000 UNITS/ML Vial SQ SCH ×4 (02:38→21:36)
[2018-04-03 06:05] LABS: Baso % (Auto) 0.2 % (0.0-2.0); Eos # (Auto) 0.1 th/mm3 (0.0-0.4); Eos % (Auto) 0.5 % (0.0-4.0); Hematocrit 34.6 % (35.0-46.0); Hemoglobin 11.3 gm/dL (11.6-15.3); Lymph # (Auto) 2.6 th/mm3 (1.0-4.8); Lymph % (Auto) 11.2 % (9.0-44.0); Mean Corpuscular HGB Conc 32.7 % (32.0-36.0); Mean Corpuscular Hemoglobin 30.4 pg (27.0-34.0); Mean Corpuscular Volume 93.1 fL (80.0-100.0); Mean Platelet Volume 8.2 fL (7.0-11.0); Mono # (Auto) 2.1 th/mm3 (0.0-0.9); Mono % (Auto) 9.2 % (0.0-8.0); Neut # (Auto) 18.2 th/mm3 (1.8-7.7); Neut % (Auto) 78.9 % (16.0-70.0); Platelet Count 306 th/mm3 (150-450); Red Blood Count 3.72 mil/mm3 (4.00-5.30); Red Cell Distribution Width 15.6 % (11.6-17.2); White Blood Count 23.1 th/mm3 (4.0-11.0)
[2018-04-03 06:47] LABS: Albumin 2.7 g/dL (3.4-5.0); Carbon Dioxide 26.9 meq/L (21.0-32.0); Magnesium 2.5 mg/dL (1.5-2.5); Phosphorus 3.4 mg/dL (2.5-4.9); Potassium 3.5 meq/L (3.5-5.1)
--- NOTE | 2018-04-03 07:54 | XR ---
EXAM DATE: 04/03/2018 12:00 AM EDT AGE/SEX: 58 years / Female INDICATIONS: Short of breath, coughing CLINICAL DATA: This is the patient's subsequent encounter. Patient reports that signs and symptoms h ave been present for 2 weeks and indicates a pain score of 0/10. MEDICAL/SURGICAL HISTORY: Asthma. Gastroesophageal reflux disease. Renal insufficiency. pneu monia, sepsis Non-responsive. COMPARISON: [facility] [place], CHEST 1V SINGLE AP, 04/02/2018. . FINDINGS: Patchy bilateral nodular infiltrates are noted with more confluent consolidation in the lower lobes. This is stable. Cardiomegaly. No effusions. Osseous structures demonstrate degenerative changes. CONCLUSION: Stable bilateral airspace disease. Electronically signed by: Parmjit Vallecillo MD 04/03/2018 7:53 AM EDT
[2018-04-03] MEDS: Loratadine 10 MG Tablet PO SCH (08:39)
[2018-04-03] MEDS: predniSONE 10 MG Tablet PO SCH ×3 (08:39→17:20)
[2018-04-03] MEDS: Senna/Docusate Sodium 8.6/50 MG Tablet PO SCH ×2 (08:39→21:34)
[2018-04-03] MEDS: levoFLOXacin 750 MG Tablet PO SCH (08:39)
[2018-04-03] MEDS: Pantoprazole Inj 40 MG Vial IV.PUSH SCH (08:39)
[2018-04-03] MEDS: Spironolactone 25 MG Tablet PO SCH ×2 (08:42→17:20)
[2018-04-03] MEDS: Furosemide 20 MG Tablet PO SCH ×2 (08:42→17:20)
[2018-04-03] MEDS: Budesonide-Formoterol 160/4.5 MCG 6 GM Inhaler INH SCH ×2 (08:43→21:36)
--- NOTE | 2018-04-03 13:59 | P.PNID ---
Subjective Remarks: ID Xcover for . 58-year-old white female who presented to the emergency department with respiratory distress. Mycoplasma IgG positive. Rheumatoid factor positive. ELIN titer high. Chest x-ray showing improvement. history of exposure to passive smoking extensively in past. Overnight events reviewed. Oxygen requirements decreased from 4L yday am to 1L NC currently. Sats 98% on RA sitting. Using IS 3 times a day. No diarrhea No N/V Dry cough WBC increased but on steroids. No fever Antibiotics: Levaquin Lines: Lines ok Past Medical History: PAST MEDICAL HISTORY: Bronchitis, gastroesophageal reflux disease, chronic kidney disease stage II, hyperlipidemia, bunionectomy. Allergies/Adverse Reactions: Allergies Penicillins Allergy (Intermediate, Verified 03/19/18 21:08) Hives Sulfa (Sulfonamide Antibiotics) Allergy (Intermediate, Verified 03/18/18 14:16) Anxiety Objective Vital Signs 04/02/18 16:00 04/02/18 16:46 04/02/18 20:00 Temperature 98.3 F 98.2 F Pulse Rate 104 H 91 H Respiratory Rate 18 18 Blood Pressure 135/63 118/61 Pulse Oximetry 93 L 96 93 L 04/02/18 21:04 04/03/18 00:00 04/03/18 04:00 Temperature 98 F 98.4 F Pulse Rate 84 110 H 87 Respiratory Rate 16 16 19 Blood Pressure 113/53 L 111/58 L Pulse Oximetry 94 L 92 L 92 L 04/03/18 05:57 04/03/18 08:00 Temperature 98.1 F Pulse Rate 91 H 94 H Respiratory Rate 22 18 Blood Pressure 110/57 L Pulse Oximetry 91 L Intake & Output 04/02/18 04/03/18 04/03/18 18:59 06:59 18:59 Intake Total 1350 / 1350 Output Total 950 / 950 Balance 400 / 400 Weight 84.5 kg Intake: IV 150 / 150 Levaquin 750 mg Premix Inj 150 150 / 150 ML @ 100 mls/hr IV.SIG Q24H JENA Rx#:[id number] Oral 1200 / 1200 Output: Urine 950 / 950 Other: # Voids 1 # Bowel Movements 1 04/02/18 13:59 Blood - Peripheral Blood Fungal Culture - Pending 04/02/18 13:59 Blood - Peripheral Blood Fungal Culture - Pending Lab - Hematology Results 04/03/18 05:10 WBC 23.1 H RBC 3.72 L Hgb 11.3 L Hct 34.6 L MCV 93.1 MCH 30.4 MCHC 32.7 RDW 15.6 Plt Count 306 MPV 8.2 Neut % (Auto) 78.9 H Lymph % (Auto) 11.2 [place] % (Auto) 9.2 H Eos % (Auto) 0.5 Baso % (Auto) 0.2 Neut # (Auto) 18.2 H Lymph # (Auto) 2.6 [place] # (Auto) 2.1 H Eos # (Auto) 0.1 Baso # (Auto) 0.0 WBC Differential . Differential Comment Auto diff final Lab - Chemistry Results 04/02/18 04/03/18 13:59 05:10 Sodium 133 L Potassium 3.5 Chloride 96 L Carbon Dioxide 26.9 Anion Gap 10 BUN 22 H Creatinine 0.76 Estimated GFR 78 L Random Glucose 91 Calcium 8.0 L Phosphorus 3.4 Magnesium 2.5 Albumin 2.7 L Procalcitonin 0.07 Imaging: ITS Impressions Abdomen X-Ray 03/18/18 00:00 CONCLUSION: Negative examination. Venous Doppler Study 03/18/18 00:00 CONCLUSION: 1. The study is negative for bilateral lower extremity deep venous thrombosis. Chest CTA 03/18/18 16:02 CONCLUSION: 1. There is no evidence of PE for technique. 2. Extensive airspace process most likely inflammatory and pneumonia, possibility of pulmonary edema is not excluded. 3. Tiny bilateral pleural effusions with nonspecific most likely benign lymph nodes within the mediastinum. Chest X-Ray 04/03/18 00:00 CONCLUSION: Stable bilateral airspace disease. Physical Exam: PHYSICAL EXAMINATION: GENERAL: Awake and alert and oriented. HEENT: Head is atraumatic. Extraocular movements are grossly intact. Pupils reactive to light. No icterus. Oropharynx, moist mucosa. No visible lesions. NECK: Supple. no adenopathy or swelling.. LUNGS: Decreased breath sounds throughout. No rhonchi. HEART: Regular rate and rhythm without murmurs, rubs or gallops. ABDOMEN: Bowel sounds present. Soft, obese, nontender. EXTREMITIES: No clubbing, cyanosis or edema. SKIN: No rash. NEUROLOGIC: Nonfocal. PSYCH: Calm and cooperative. Assessment and Plan - Plan IMPRESSION: Bilateral pulmonary infiltrates showing little improvement. Questionable etiology. Nonproductive cough. The patient presented with fever, nausea, and dyspnea on exertion. Possible atypical versus viral pneumonia. Elevated ELIN titer. RECOMMENDATIONS: DC Levaquin. Start oral doxy for another 7 days. Please world travel counselor about Sun exposure and importance of use of sunscreen while on Doxy. Please world travel counselor about sitting upright for an hour after taking doxy to prevent pill esophagitis. Clinically improved on antibiotics will not start Voriconazole now. Will have her follow up with Pulmonology and ID Dr.Reba Sun as outpatient. Recommend repeating CXR if abnormal a CT chest and consider bronchoscopy if non resolving infiltrates. Dw Patient needs Pulm, ID and Rheum follow up. makenzie Ordonez dw patient all workup ordered and pending results need follow up and to ask MDs following her up to review results with her at time of follow up. Will sign off please call back if any change in clinical condition or questions.
--- NOTE | 2018-04-03 18:25 | P.PNPL ---
Subjective Interval history: 58 YOWF with br asthma, bilat diffuse infilt, hypoxic RF no fever Cough, not able to expactorate Weaned to 2LNC Did't sleep well ELIN and RF positive HIV Negative Feels better, ambulates C/o constipation Physical Exam Vital signs: Vital Signs 04/02/18 20:00 04/02/18 21:04 04/03/18 00:00 Temperature 98.2 F 98 F Pulse Rate 91 H 84 110 H Respiratory Rate 18 16 16 Blood Pressure 118/61 113/53 L Pulse Oximetry 93 L 94 L 92 L 04/03/18 04:00 04/03/18 05:57 04/03/18 08:00 Temperature 98.4 F 98.1 F Pulse Rate 87 91 H 94 H Respiratory Rate 19 22 18 Blood Pressure 111/58 L 110/57 L Pulse Oximetry 92 L 91 L 04/03/18 12:00 04/03/18 16:00 Temperature 98.8 F 98.6 F Pulse Rate 99 H 101 H Respiratory Rate 18 18 Blood Pressure 98/50 L 112/56 L Pulse Oximetry 90 L 91 L Intake & Output 04/02/18 04/03/18 04/03/18 18:59 06:59 18:59 Intake Total 1350 / 1350 Output Total 950 / 950 Balance 400 / 400 Weight 84.5 kg Intake: IV 150 / 150 Levaquin 750 mg Premix Inj 150 150 / 150 ML @ 100 mls/hr IV.SIG Q24H JENA Rx#:[id number] Oral 1200 / 1200 Output: Urine 950 / 950 Other: # Voids 1 # Bowel Movements 1 GENERAL: MBMN NAD SKIN: Warm and dry. HEAD: Normocephalic. EYES: No scleral icterus. No injection or drainage. NECK: Supple, trachea midline. No JVD or lymphadenopathy. CARDIOVASCULAR: Regular rate and rhythm without murmurs, gallops, or rubs. RESPIRATORY: Breath sounds equal bilaterally. No accessory muscle use. GASTROINTESTINAL: Abdomen soft, non-tender, nondistended. MUSCULOSKELETAL: No cyanosis, or edema. BACK: Nontender without obvious deformity. No CVA tenderness. Assessment and Plan - Plan IMPRESSION: 1. Hypoxic respiratory failure. 2. Bilateral diffuse lung infiltrates, possibly viral pneumonia, atypical pneumonia or inflammatory process. 3. Non-ST elevation myocardial infarction. 4. History of bronchial asthma. PLAN: Prednisone 10 mg po tid Cont Abx, ID following Supplement 02 with 2LNC Titerate 02 to keep sat >90% Use Acapella and IS Rheumatology eval as out patient 02 walk test
--- NOTE | 2018-04-03 19:12 | P.PNIM ---
Subjective Interval history: patient says she is feeling better today. Down to 1-2 L of oxygen. Physical Exam Vital signs: Vital Signs 04/02/18 20:00 04/02/18 21:04 04/03/18 00:00 Temperature 98.2 F 98 F Pulse Rate 91 H 84 110 H Respiratory Rate 18 16 16 Blood Pressure 118/61 113/53 L Pulse Oximetry 93 L 94 L 92 L 04/03/18 04:00 04/03/18 05:57 04/03/18 08:00 Temperature 98.4 F 98.1 F Pulse Rate 87 91 H 90 Respiratory Rate 19 22 18 Blood Pressure 111/58 L 110/57 L Pulse Oximetry 92 L 91 L 04/03/18 12:00 04/03/18 16:00 Temperature 98.8 F 98.6 F Pulse Rate 101 H 99 H Respiratory Rate 18 18 Blood Pressure 98/50 L 112/56 L Pulse Oximetry 90 L 91 L Intake & Output 04/03/18 04/03/18 04/04/18 06:59 18:59 06:59 Intake Total 960 / 960 Balance 960 / 960 Weight 84.5 kg Intake: Oral 960 / 960 Other: # Voids 1 6 # Bowel Movements 5 Narrative: GENERAL: Patient sitting up in bed. Appears comfortable. On 1 L nasal cannula. Alert and oriented x3. SKIN: Warm and dry. HEAD: Normocephalic. EYES: No scleral icterus. No injection or drainage. NECK: Supple, trachea midline. No JVD. CARDIOVASCULAR: Regular rate and rhythm without murmurs, gallops, or rubs. RESPIRATORY: Breath sounds equal bilaterally. No accessory muscle use. GASTROINTESTINAL: Abdomen soft, non-tender, nondistended. MUSCULOSKELETAL: No cyanosis. Edema improved. BACK: Nontender without obvious deformity. No CVA tenderness. Results - Labs CBC & Chem 7: 04/03/18 05:10 04/03/18 05:10 Laboratory Results - last 24 hr 04/02/18 04/03/18 04/03/18 13:59 05:10 05:10 WBC 23.1 H RBC 3.72 L Hgb 11.3 L Hct 34.6 L MCV 93.1 MCH 30.4 MCHC 32.7 RDW 15.6 Plt Count 306 MPV 8.2 Neut % (Auto) 78.9 H Lymph % (Auto) 11.2 [place] % (Auto) 9.2 H Eos % (Auto) 0.5 Baso % (Auto) 0.2 Neut # (Auto) 18.2 H Lymph # (Auto) 2.6 [place] # (Auto) 2.1 H Eos # (Auto) 0.1 Baso # (Auto) 0.0 WBC Differential . Differential Comment Auto diff final Sodium 133 L Potassium 3.5 Chloride 96 L Carbon Dioxide 26.9 Anion Gap 10 BUN 22 H Creatinine 0.76 Estimated GFR 78 L Random Glucose 91 Calcium 8.0 L Phosphorus 3.4 Magnesium 2.5 Albumin 2.7 L Procalcitonin 0.07 - Imaging Impressions Chest X-Ray 04/03/18 00:00 CONCLUSION: Stable bilateral airspace disease. - Procedures None Assessment and Plan - Plan This patient is a 58-year-old obese female who presented to our emergency department with complaints of shortness of breath as well as chest tightness. She was found to have an elevated troponin as well as bilateral diffuse infiltrates seen on chest x-ray. 1. Acute hypoxic hypercapnic restaurant failure likely secondary to community- acquired pneumonia The patient is currently on 4 L supplemental oxygen, down from 5 L L of supplemental oxygen yesterday.. Chest x-ray shows bilateral infiltrates with no significant change from previous chest x-rays. Pulmonary team is following the patient. Rheumatoid factor and ELIN positive Patient was evaluated by infectious disease today. Recommendations are to have the patient follow-up with rheumatology after she is discharged as we do not have a dredge hand that works in house. Continue IV antibiotics, continue current recommendations from the pulmonary team. Cardiology following and does not believe the patient's hypoxic restaurant failure is cardiac in origin. = 03/29. Discussed with pulmonology. Plan for discharge in the next few days. Have ordered home oxygen evaluation. = 03/30 increased O2 requirement we will repeat chest x-ray. Discussed with pulmonology. = 03/31. Repeat chest x-ray yesterday with pulmonary edema. BNP is not elevated however. Patient does have significant bilateral lower extremity edema. Will give dose of Lasix today. Continue to monitor. Continue treatment as per pulmonology. Appreciate assistance. = 04/01. Breathing somewhat improved. We will continue to monitor oxygen requirement. Will add Singulair and Claritin. = 04/02. Patient feels her breathing is somewhat improved. Down to 4 L O2. =10/9. Down to 1 L by nasal cannula. Improved. Discussed with infectious disease. Hopefully discharge tomorrow if okay with pulmonology. //NSTEMI/hyperlipidemia Cardiology following Initial troponin was elevated at 0.55 which then showed a down trend. EKG showed normal sinus rhythm without any specific ST segment or T wave changes. The patient underwent cardiac catheterization today which showed mild 2 vessel coronary artery disease. Recommendations from cardiology are to continue with medical management. She will be continued on aspirin, statin, and beta-he. She will be counseled on diet and weight loss. Continue supplemental oxygen. 3. GERD Continue Protonix 4. Obesity Patient was counseled on diet. 5. Vaginal pruritic sensation as per patient starting Vaginal Candidiasis started on local Clotrimazole Cream. Prophylaxis GI-pantoprazole DVT SCD/heparin subcu Discharge Planning: Hopefully discharge home in the next 2-3 days. Apparently her insurance does not pay for oxygen, and this would be self-pay. = We will need pulmonology clearance
--- NOTE | 2018-04-03 20:08 | P.PNCA ---
Subjective Interval history: alert in nad Medications and Allergies Active Medications: Active Medications Acetaminophen (Tylenol) 650 mg PO Q6H PRN PRN Reason: Fever >100f Hydrocodone Bitart/Acetaminophen ([place] 5/325) 1 tab PO Q4H PRN PRN Reason: PAIN SCALE 1 TO 5 Last Admin: 03/21/18 23:57 Dose: 1 tab Albuterol (Albuterol Neb (Prn)) 2.5 mg NEB Q2HR NEB PRN PRN Reason: SHORTNESS OF BREATH/WHEEZING Last Admin: 04/03/18 19:58 Dose: 2.5 mg Aspirin (Aspirin Chew) 81 mg PO DAILY [facility] Last Admin: 04/03/18 08:39 Dose: 81 mg Atorvastatin Calcium (Lipitor) 40 mg PO HS [facility] Last Admin: 04/02/18 20:25 Dose: 40 mg Bisacodyl (Dulcolax Supp) 10 mg RECTAL DAILY PRN PRN Reason: SEVERE CONSITIPATION Budesonide/Formoterol Fumarate (Symbicort 160/4.5 Mcg Inh) 2 puff INH BID [facility] Last Admin: 04/03/18 08:43 Dose: 2 puff Doxycycline Hyclate (Vibramycin) 100 mg PO Q12HR [facility] Furosemide (Lasix) 20 mg PO BID@0900,1800 [facility] Last Admin: 04/03/18 17:20 Dose: 20 mg Heparin Sodium (Porcine) (Heparin Inj) 5,000 units SQ Q8HR [facility] Last Admin: 04/03/18 13:04 Dose: Not Given Lactulose (Lactulose Liq) 30 ml PO DAILY PRN PRN Reason: SEVERE CONSITIPATION Levofloxacin (Levaquin) 750 mg PO DAILY [facility] Last Admin: 04/03/18 08:39 Dose: 750 mg Loratadine (Claritin) 10 mg PO DAILY [facility] Last Admin: 04/03/18 08:39 Dose: 10 mg Miscellaneous (Pill Splitter) 1 each OTHER [facility] Montelukast Sodium (Singulair) 10 mg PO HS [facility] Last Admin: 04/02/18 20:25 Dose: 10 mg Morphine Sulfate (Morphine Inj) 2 mg IV.PUSH Q2H PRN PRN Reason: PAIN SCALE 6 TO 10 Ondansetron HCl (Zofran Inj) 4 mg IV.PUSH Q6H PRN PRN Reason: NAUSEA OR VOMITING Pantoprazole Sodium (Protonix Inj) 40 mg IV.PUSH DAILY [facility] Last Admin: 04/03/18 08:39 Dose: 40 mg Prednisone (Deltasone) 10 mg PO TID [facility] Last Admin: 04/03/18 17:20 Dose: 10 mg Senna/Docusate Sodium (Sofi-Colace) 1 tab PO BID [facility] Last Admin: 04/03/18 08:39 Dose: 1 tab Sennosides (Senokot) 17.2 mg PO Q12H PRN PRN Reason: Moderate Constipation Last Admin: 04/01/18 08:36 Dose: 17.2 mg Sodium Chloride (Ns Flush) 2 ml IV.FLUSH BID [facility] Last Admin: 04/03/18 08:43 Dose: 2 ml Sodium Chloride (Ns Flush) 2 ml IV.FLUSH PRN PRN PRN Reason: FLUSH AFTER USING IV ACCESS Spironolactone (Aldactone) 25 mg PO BID@0900,1800 [facility] Last Admin: 04/03/18 17:20 Dose: 25 mg Allergies Allergy/AdvReac Type Severity Reaction Status Date / Time Penicillins Allergy Intermediate Hives Verified 03/19/18 21:08 Sulfa (Sulfonamide Allergy Intermediate Anxiety Verified 03/18/18 14:16 Antibiotics) Physical Exam Vital signs: Vital Signs 04/02/18 21:04 04/03/18 00:00 04/03/18 04:00 Temperature 98 F 98.4 F Pulse Rate 84 110 H 87 Respiratory Rate 16 16 19 Blood Pressure 113/53 L 111/58 L Pulse Oximetry 94 L 92 L 92 L 04/03/18 05:57 04/03/18 08:00 04/03/18 12:00 Temperature 98.1 F 98.8 F Pulse Rate 91 H 90 101 H Respiratory Rate 22 18 18 Blood Pressure 110/57 L 98/50 L Pulse Oximetry 91 L 90 L 04/03/18 16:00 04/03/18 19:59 Temperature 98.6 F Pulse Rate 99 H 69 Respiratory Rate 18 17 Blood Pressure 112/56 L Pulse Oximetry 91 L 93 L Intake & Output 04/03/18 04/03/18 04/04/18 06:59 18:59 06:59 Intake Total 960 / 960 Balance 960 / 960 Weight 84.5 kg Intake: Oral 960 / 960 Other: # Voids 1 6 # Bowel Movements 5 - Constitutional no acute distress - Routine HEENT Exam Head: Present: normocephalic, atraumatic - Routine Neck Exam Present: supple - Routine Respiratory Exam Present: CTA bilaterally - Routine Cardiovascular Exam Present: S1, S2 - Routine Abdominal Exam Present: soft - Routine Extremities Exam Comments: no [email or web address] Results 04/03/18 05:10 04/03/18 05:10 CBC 04/03/18 Range/Units 05:10 WBC 23.1 H (4.0-11.0) th/mm3 RBC 3.72 L (4.00-5.30) mil/mm3 Hgb 11.3 L (11.6-15.3) gm/dL Hct 34.6 L (35.0-46.0) % Plt Count 306 (150-450) th/mm3 Neut # (Auto) 18.2 H (1.8-7.7) th/mm3 Lymph # (Auto) 2.6 (1.0-4.8) th/mm3 Person # (Auto) 2.1 H (0.0-0.9) th/mm3 Eos # (Auto) 0.1 (0.0-0.4) th/mm3 Baso # (Auto) 0.0 (0.0-0.2) th/mm3 Comprehensive Metabolic Panel 04/03/18 Range/Units 05:10 Sodium 133 L (136-145) meq/L Potassium 3.5 (3.5-5.1) meq/L Chloride 96 L (98-107) meq/L Carbon Dioxide 26.9 (21.0-32.0) meq/L BUN 22 H (7-18) mg/dL Creatinine 0.76 (0.50-1.00) mg/dL Calcium 8.0 L (8.5-10.1) mg/dL Albumin 2.7 L (3.4-5.0) g/dL Intake and Output 04/03/18 04/03/18 04/03/18 06:59 14:59 22:59 Intake Total 960 / 960 Balance 960 / 960 Intake: Oral 960 / 960 Other: # Voids 1 6 # Bowel Movements 5 Weight 84.5 kg - Imaging and Cardiology Imaging: Impressions Chest X-Ray 04/02/18 00:00 CONCLUSION: Unchanged diffuse bilateral infiltrates. Chest X-Ray 04/03/18 00:00 CONCLUSION: Stable bilateral airspace disease. Assessment and Plan - Assessment (1) NSTEMI (non-ST elevated myocardial infarction) Code(s): I21.4 - Non-ST elevation (NSTEMI) myocardial infarction Status: Acute (2) CHF (congestive heart failure) Code(s): I50.9 - Heart failure, unspecified Status: Acute (3) Hypoxia Code(s): R09.02 - Hypoxemia Status: Acute (4) Dyspnea Code(s): R06.00 - Dyspnea, unspecified Status: Acute - Plan 1.) CAD - mild, continue aspirin, lipitor 2.) Hypoxia - noncardiac in origin, rhc/lvedp wnl, she had a @ 5% increase in ra sat to pa sat possibly suggesting a small l to r shunt but doubt this is enough to account for degree of hypoxia or explain improving trends over time, could consider repeat tt echo to re eval or alin if/when patient off oxygen, to further assess, d/w patient; O2 weaned down to 2 L, trending down slowly
[2018-04-03] MEDS: Montelukast 10 MG Tablet PO SCH (21:35)
[2018-04-04] MEDS: Heparin - SQ 10,000 UNITS/ML Vial SQ SCH ×3 (06:46→23:04)
[2018-04-04] MEDS: Senna/Docusate Sodium 8.6/50 MG Tablet PO SCH ×2 (08:15→20:50)
[2018-04-04] MEDS: Spironolactone 25 MG Tablet PO SCH ×2 (08:15→17:07)
[2018-04-04] MEDS: Loratadine 10 MG Tablet PO SCH (08:15)
[2018-04-04] MEDS: levoFLOXacin 750 MG Tablet PO SCH (08:16)
[2018-04-04] MEDS: Furosemide 20 MG Tablet PO SCH ×2 (08:16→17:08)
[2018-04-04] MEDS: predniSONE 10 MG Tablet PO SCH ×3 (08:16→17:07)
[2018-04-04] MEDS: Pantoprazole Inj 40 MG Vial IV.PUSH SCH (08:16)
[2018-04-04] MEDS: Budesonide-Formoterol 160/4.5 MCG 6 GM Inhaler INH SCH ×2 (08:17→20:51)
--- NOTE | 2018-04-04 10:21 | P.PNIM ---
Subjective Interval history: Patient says that shortness of breath continues stable. Denies any chest pain. Is back on 3 L by nasal cannula this morning. Physical Exam Vital signs: Vital Signs 04/03/18 12:00 04/03/18 16:00 04/03/18 19:59 Temperature 98.8 F 98.6 F Pulse Rate 101 H 99 H 69 Respiratory Rate 18 18 17 Blood Pressure 98/50 L 112/56 L Pulse Oximetry 90 L 91 L 93 L Pulse Oximetry [Resting on Room Air] Pulse Oximetry [Resting with Oxygen] 04/03/18 20:00 04/04/18 00:00 04/04/18 04:00 Temperature 97.7 F 97.5 F L Pulse Rate 108 H 78 91 H Respiratory Rate 18 18 Blood Pressure 108/55 L 113/57 L Pulse Oximetry 92 L 93 L Pulse Oximetry [Resting on Room Air] Pulse Oximetry [Resting with Oxygen] 04/04/18 04:04 04/04/18 09:49 Temperature Pulse Rate 82 Respiratory Rate 17 Blood Pressure Pulse Oximetry Pulse Oximetry [Resting on Room Air] 81 L Pulse Oximetry [Resting with Oxygen] 90 L Intake & Output 04/03/18 04/04/18 04/04/18 18:59 06:59 18:59 Intake Total 960 / 960 480 / 480 Balance 960 / 960 480 / 480 Weight 84.1 kg Intake: Oral 960 / 960 480 / 480 Other: # Voids 6 6 Date of Last Bowel Movement 04/04/18 # Bowel Movements 5 1 Narrative: GENERAL: Patient sitting up in bed. Appears comfortable. On 3L nasal cannula. Alert and oriented x3. SKIN: Warm and dry. HEAD: Normocephalic. EYES: No scleral icterus. No injection or drainage. NECK: Supple, trachea midline. No JVD. CARDIOVASCULAR: Regular rate and rhythm without murmurs, gallops, or rubs. RESPIRATORY: Breath sounds equal bilaterally. No accessory muscle use. GASTROINTESTINAL: Abdomen soft, non-tender, nondistended. MUSCULOSKELETAL: No cyanosis. Edema improved. BACK: Nontender without obvious deformity. No CVA tenderness. Results - Labs CBC & Chem 7: 04/03/18 05:10 04/03/18 05:10 - Procedures None Assessment and Plan - Plan This patient is a 58-year-old obese female who presented to our emergency department with complaints of shortness of breath as well as chest tightness. She was found to have an elevated troponin as well as bilateral diffuse infiltrates seen on chest x-ray. // Acute hypoxic hypercapnic restaurant failure likely secondary to community- acquired pneumonia The patient is currently on 4 L supplemental oxygen, down from 5 L L of supplemental oxygen yesterday.. Chest x-ray shows bilateral infiltrates with no significant change from previous chest x-rays. Pulmonary team is following the patient. Rheumatoid factor and ELIN positive Patient was evaluated by infectious disease today. 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 Continue IV antibiotics, continue current recommendations from the pulmonary team. Cardiology following and does not believe the patient's hypoxic restaurant failure is cardiac in origin. = 03/29. Discussed with pulmonology. Plan for discharge in the next few days. Have ordered home oxygen evaluation. = 03/30 increased O2 requirement we will repeat chest x-ray. Discussed with pulmonology. = 03/31. Repeat chest x-ray yesterday with pulmonary edema. BNP is not elevated however. Patient does have significant bilateral lower extremity edema. Will give dose of Lasix today. Continue to monitor. Continue treatment as per pulmonology. Appreciate assistance. = 04/01. Breathing somewhat improved. We will continue to monitor oxygen requirement. Will add Singulair and Claritin. = 04/02. Patient feels her breathing is somewhat improved. Down to 4 L O2. =04/03. Down to 1 L by nasal cannula. Improved. Discussed with infectious disease. Hopefully discharge tomorrow if okay with pulmonology. = 04/04. Will need 7 days of doxycycline as per infectious disease. Can discharge patient today on through the //NSTEMI/hyperlipidemia Cardiology following Initial troponin was elevated at 0.55 which then showed a down trend. EKG showed normal sinus rhythm without any specific ST segment or T wave changes. The patient underwent cardiac catheterization today which showed mild 2 vessel coronary artery disease. Recommendations from cardiology are to continue with medical management. She will be continued on aspirin, statin, and beta-he. She will be counseled on diet and weight loss. Continue supplemental oxygen. = 04/04. Yesterday patient says she has some muscle aches and pains due to statin medication. Will discontinue statin. Advised her to revisit this issue with primary care as outpatient. 3. GERD Continue Protonix 4. Obesity Patient was counseled on diet. 5. Vaginal pruritic sensation as per patient starting Vaginal Candidiasis started on local Clotrimazole Cream. Prophylaxis GI-pantoprazole DVT SCD/heparin subcu Discharge Planning: Hopefully discharge home in the next 2-3 days. Apparently her insurance does not pay for oxygen, and this would be self-pay. = Need to follow with pulmonology, rheumatology as outpatient.
--- NOTE | 2018-04-04 10:34 | P.DS ---
Date of admission: 03/18/18 15:58 Primary care physician: UNKNOWN Brief History from admission: This is a 58-year-old female. Date of admission 03/18/2018. Past medical history includes gastroesophageal reflux disease, seasonal asthma, elevated BMI, hyperlipidemia untreated and chronic kidney disease. Today, she presents to [facility] for evaluation of 1 week history of SOB. She is originally from [facility]. Her chief complaint consists of shortness of breath, chest tightness without radiation to the neck, down left arm or back, persistent nausea without emesis, abdominal pain or diarrhea. Her original temperature was 102 Fahrenheit according to patient, patient was evaluated in [place]. At that time, she states the chest x-ray was "clear. " At that time the provider suspected that she was having asthma symptoms. She was prescribed albuterol nebulizers and sent home. She is normally on an albuterol inhaler at home along with ranitidine and intermittently intermixing with PPI for gastroesophageal reflux disease. She states that her respiratory and nausea symptoms became acutely worse 2 days ago after flying to [facility] from [place]. She states that she is unable to walk "even a few feet" without GALINDO. Lying flat also makes symptoms worse. Chest x-ray revealed diffuse pulmonary fluffy infiltrates bilaterally.. EKG revealed sinus tachycardia with normal VA, QRS and QT intervals. Troponin was 0.55. She was seen in consultation by cardiology who recommended possible heart catheterization in the a.m. Will trend troponins. She is currently undergoing a CT angiogram of the chest. She received piperacillin/tazobactam and vancomycin in the ED. Her white blood cell count is normal. Her lactate was normal. Her d-dimer was slightly elevated. She complains of some slightly increased swelling in her bilateral lower extremities. She was placed on 100% nonrebreather with saturations currently 99-100%. At the present time she is able to speak complete sentences. Denies cough DS: Summary Hospital Course: This patient is a 58-year-old obese female who presented to our emergency department with complaints of shortness of breath as well as chest tightness. She was found to have an elevated troponin as well as bilateral diffuse infiltrates seen on chest x-ray. // Acute hypoxic hypercapnic restaurant failure likely secondary to community- acquired pneumonia The patient is currently on 4 L supplemental oxygen, down from 5 L L of supplemental oxygen yesterday.. Chest x-ray shows bilateral infiltrates with no significant change from previous chest x-rays. Pulmonary team is following the patient. Rheumatoid factor and ELIN positive Patient was evaluated by infectious disease today. 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 Continue IV antibiotics, continue current recommendations from the pulmonary team. Cardiology following and does not believe the patient's hypoxic restaurant failure is cardiac in origin. = 03/29. Discussed with pulmonology. Plan for discharge in the next few days. Have ordered home oxygen evaluation. = 03/30 increased O2 requirement we will repeat chest x-ray. Discussed with pulmonology. = 03/31. Repeat chest x-ray yesterday with pulmonary edema. BNP is not elevated however. Patient does have significant bilateral lower extremity edema. Will give dose of Lasix today. Continue to monitor. Continue treatment as per pulmonology. Appreciate assistance. = 04/01. Breathing somewhat improved. We will continue to monitor oxygen requirement. Will add Singulair and Claritin. = 04/02. Patient feels her breathing is somewhat improved. Down to 4 L O2. =04/03. Down to 1 L by nasal cannula. Improved. Discussed with infectious disease. Hopefully discharge tomorrow if okay with pulmonology. = 04/04. Will need 7 days of doxycycline as per infectious disease. Can discharge patient today on through the //NSTEMI/hyperlipidemia Cardiology following Initial troponin was elevated at 0.55 which then showed a down trend. EKG showed normal sinus rhythm without any specific ST segment or T wave changes. The patient underwent cardiac catheterization today which showed mild 2 vessel coronary artery disease. Recommendations from cardiology are to continue with medical management. She will be continued on aspirin, statin, and beta-he. She will be counseled on diet and weight loss. Continue supplemental oxygen. = 04/04. Yesterday patient says she has some muscle aches and pains due to statin medication. Will discontinue statin. Advised her to revisit this issue with primary care as outpatient. 3. GERD Continue Protonix 4. Obesity Patient was counseled on diet. 5. Vaginal pruritic sensation as per patient starting Vaginal Candidiasis started on local Clotrimazole Cream. Prophylaxis GI-pantoprazole DVT SCD/heparin subcu Discharge Planning: Hopefully discharge home in the next 2-3 days. Apparently her insurance does not pay for oxygen, and this would be self-pay. = Need to follow with pulmonology, rheumatology as outpatient. - Time Spent with Patient Total time spent providing and/or coordinating discharge services: Greater than 30 minutes - Quality: VTE Deep Vein Thrombosis/Pulmonary Embolism Present on Admission: No Exam Vital signs: Vital Signs 04/03/18 12:00 04/03/18 16:00 04/03/18 19:59 Temperature 98.8 F 98.6 F Pulse Rate 101 H 99 H 69 Respiratory Rate 18 18 17 Blood Pressure 98/50 L 112/56 L Pulse Oximetry 90 L 91 L 93 L Pulse Oximetry [Resting on Room Air] Pulse Oximetry [Resting with Oxygen] 04/03/18 20:00 04/04/18 00:00 04/04/18 04:00 Temperature 97.7 F 97.5 F L Pulse Rate 108 H 78 91 H Respiratory Rate 18 18 Blood Pressure 108/55 L 113/57 L Pulse Oximetry 92 L 93 L Pulse Oximetry [Resting on Room Air] Pulse Oximetry [Resting with Oxygen] 04/04/18 04:04 04/04/18 09:49 Temperature Pulse Rate 82 Respiratory Rate 17 Blood Pressure Pulse Oximetry Pulse Oximetry [Resting on Room Air] 81 L Pulse Oximetry [Resting with Oxygen] 90 L Intake & Output 04/03/18 04/04/18 04/04/18 18:59 06:59 18:59 Intake Total 960 / 960 480 / 480 Balance 960 / 960 480 / 480 Weight 84.1 kg Intake: Oral 960 / 960 480 / 480 Other: # Voids 6 6 Date of Last Bowel Movement 04/04/18 # Bowel Movements 5 1 Results Procedures completed during hospitalization: Cardiac catheterization. - Impressions ITS Impressions Abdomen X-Ray 03/18/18 00:00 CONCLUSION: Negative examination. Venous Doppler Study 03/18/18 00:00 CONCLUSION: 1. The study is negative for bilateral lower extremity deep venous thrombosis. Chest CTA 03/18/18 16:02 CONCLUSION: 1. There is no evidence of PE for technique. 2. Extensive airspace process most likely inflammatory and pneumonia, possibility of pulmonary edema is not excluded. 3. Tiny bilateral pleural effusions with nonspecific most likely benign lymph nodes within the mediastinum. Chest X-Ray 04/03/18 00:00 CONCLUSION: Stable bilateral airspace disease. Discharge Plan - Discharge Disposition Patient Disposition: 01 Discharge Home - Discharge Condition Condition: Critical - Discharge Order Discharge Orders: Discharge Order (Routine); Ordered 04/04/18 Ordered By: Francis Alaniz - Discharge Details Anticipated Discharge Date: 04/05/18 - Physicians Team Primary Care Provider: UNKNOWN, Attending Provider: Francis Alaniz Other Providers: Duarte Calixto MD ; Joseluis Hudson MD ; Levy Smith MD
[2018-04-04 13:32] LABS: Cryptococcus Ag Screen Negative (Negative)
--- NOTE | 2018-04-04 14:59 | P.PNCA ---
Subjective Interval history: alert in nad Medications and Allergies Active Medications: Active Medications Acetaminophen (Tylenol) 650 mg PO Q6H PRN PRN Reason: Fever >100f Hydrocodone Bitart/Acetaminophen ([place] 5/325) 1 tab PO Q4H PRN PRN Reason: PAIN SCALE 1 TO 5 Last Admin: 03/21/18 23:57 Dose: 1 tab Albuterol (Albuterol Neb (Prn)) 2.5 mg NEB Q2HR NEB PRN PRN Reason: SHORTNESS OF BREATH/WHEEZING Last Admin: 04/04/18 04:03 Dose: 2.5 mg Aspirin (Aspirin Chew) 81 mg PO DAILY [facility] Last Admin: 04/04/18 08:16 Dose: 81 mg Atorvastatin Calcium (Lipitor) 40 mg PO HS [facility] Last Admin: 04/03/18 21:32 Dose: Not Given Bisacodyl (Dulcolax Supp) 10 mg RECTAL DAILY PRN PRN Reason: SEVERE CONSITIPATION Budesonide/Formoterol Fumarate (Symbicort 160/4.5 Mcg Inh) 2 puff INH BID [facility] Last Admin: 04/04/18 08:17 Dose: 2 puff Doxycycline Hyclate (Vibramycin) 100 mg PO Q12HR [facility] Last Admin: 04/04/18 08:15 Dose: 100 mg Furosemide (Lasix) 20 mg PO BID@0900,1800 [facility] Last Admin: 04/04/18 08:16 Dose: 20 mg Heparin Sodium (Porcine) (Heparin Inj) 5,000 units SQ Q8HR [facility] Last Admin: 04/04/18 13:01 Dose: Not Given Lactulose (Lactulose Liq) 30 ml PO DAILY PRN PRN Reason: SEVERE CONSITIPATION Levofloxacin (Levaquin) 750 mg PO DAILY [facility] Last Admin: 04/04/18 08:16 Dose: 750 mg Loratadine (Claritin) 10 mg PO DAILY [facility] Last Admin: 04/04/18 08:15 Dose: 10 mg Miscellaneous (Pill Splitter) 1 each OTHER [facility] Montelukast Sodium (Singulair) 10 mg PO HS [facility] Last Admin: 04/03/18 21:35 Dose: 10 mg Morphine Sulfate (Morphine Inj) 2 mg IV.PUSH Q2H PRN PRN Reason: PAIN SCALE 6 TO 10 Ondansetron HCl (Zofran Inj) 4 mg IV.PUSH Q6H PRN PRN Reason: NAUSEA OR VOMITING Pantoprazole Sodium (Protonix Inj) 40 mg IV.PUSH DAILY [facility] Last Admin: 04/04/18 08:16 Dose: 40 mg Prednisone (Deltasone) 10 mg PO TID [facility] Last Admin: 04/04/18 12:14 Dose: 10 mg Senna/Docusate Sodium (Sofi-Colace) 1 tab PO BID [facility] Last Admin: 04/04/18 08:15 Dose: 1 tab Sennosides (Senokot) 17.2 mg PO Q12H PRN PRN Reason: Moderate Constipation Last Admin: 04/01/18 08:36 Dose: 17.2 mg Sodium Chloride (Ns Flush) 2 ml IV.FLUSH BID [facility] Last Admin: 04/04/18 08:16 Dose: 2 ml Sodium Chloride (Ns Flush) 2 ml IV.FLUSH PRN PRN PRN Reason: FLUSH AFTER USING IV ACCESS Spironolactone (Aldactone) 25 mg PO BID@0900,1800 [facility] Last Admin: 04/04/18 08:15 Dose: 25 mg Allergies Allergy/AdvReac Type Severity Reaction Status Date / Time Penicillins Allergy Intermediate Hives Verified 03/19/18 21:08 Sulfa (Sulfonamide Allergy Intermediate Anxiety Verified 03/18/18 14:16 Antibiotics) Physical Exam Vital signs: Vital Signs 04/03/18 16:00 04/03/18 19:59 04/03/18 20:00 Temperature 98.6 F 97.7 F Pulse Rate 99 H 69 108 H Respiratory Rate 18 17 18 Blood Pressure 112/56 L 108/55 L Pulse Oximetry 91 L 93 L 92 L Pulse Oximetry [Resting on Room Air] Pulse Oximetry [Resting with Oxygen] 04/04/18 00:00 04/04/18 04:00 04/04/18 04:04 Temperature 97.5 F L Pulse Rate 78 91 H 82 Respiratory Rate 18 17 Blood Pressure 113/57 L Pulse Oximetry 93 L Pulse Oximetry [Resting on Room Air] Pulse Oximetry [Resting with Oxygen] 04/04/18 08:00 04/04/18 09:49 04/04/18 12:00 Temperature 98.4 F 97.9 F Pulse Rate 68 86 Respiratory Rate 18 18 Blood Pressure 124/66 111/53 L Pulse Oximetry 98 95 Pulse Oximetry [Resting on Room Air] 81 L Pulse Oximetry [Resting with Oxygen] 90 L Intake & Output 04/03/18 04/04/18 04/04/18 18:59 06:59 18:59 Intake Total 960 / 960 480 / 480 Balance 960 / 960 480 / 480 Weight 84.1 kg Intake: Oral 960 / 960 480 / 480 Other: # Voids 6 6 Date of Last Bowel Movement 04/04/18 # Bowel Movements 5 1 - Routine HEENT Exam Head: Present: normocephalic - Routine Neck Exam Present: full ROM - Routine Respiratory Exam Present: CTA bilaterally - Routine Cardiovascular Exam Present: S1, S2 - Routine Abdominal Exam Present: soft - Routine Exam Comments: no [email or web address] Results 04/03/18 05:10 04/03/18 05:10 CBC 04/03/18 Range/Units 05:10 WBC 23.1 H (4.0-11.0) th/mm3 RBC 3.72 L (4.00-5.30) mil/mm3 Hgb 11.3 L (11.6-15.3) gm/dL Hct 34.6 L (35.0-46.0) % Plt Count 306 (150-450) th/mm3 Neut # (Auto) 18.2 H (1.8-7.7) th/mm3 Lymph # (Auto) 2.6 (1.0-4.8) th/mm3 [place] # (Auto) 2.1 H (0.0-0.9) th/mm3 Eos # (Auto) 0.1 (0.0-0.4) th/mm3 Baso # (Auto) 0.0 (0.0-0.2) th/mm3 Comprehensive Metabolic Panel 04/03/18 Range/Units 05:10 Sodium 133 L (136-145) meq/L Potassium 3.5 (3.5-5.1) meq/L Chloride 96 L (98-107) meq/L Carbon Dioxide 26.9 (21.0-32.0) meq/L BUN 22 H (7-18) mg/dL Creatinine 0.76 (0.50-1.00) mg/dL Calcium 8.0 L (8.5-10.1) mg/dL Albumin 2.7 L (3.4-5.0) g/dL Intake and Output 04/03/18 04/04/18 04/04/18 22:59 06:59 14:59 Intake Total 960 / 960 480 / 480 Balance 960 / 960 480 / 480 Intake: Oral 960 / 960 480 / 480 Other: # Voids 6 6 Date of Last Bowel Movement 04/04/18 # Bowel Movements 5 1 Weight 84.1 kg - Imaging and Cardiology Imaging: Impressions Chest X-Ray 04/03/18 00:00 CONCLUSION: Stable bilateral airspace disease. Assessment and Plan - Assessment (1) NSTEMI (non-ST elevated myocardial infarction) Code(s): I21.4 - Non-ST elevation (NSTEMI) myocardial infarction Status: Acute (2) CHF (congestive heart failure) Code(s): I50.9 - Heart failure, unspecified Status: Acute (3) Hypoxia Code(s): R09.02 - Hypoxemia Status: Acute (4) Dyspnea Code(s): R06.00 - Dyspnea, unspecified Status: Acute - Plan 1.) CAD - mild, continue aspirin, lipitor 2.) Hypoxia - noncardiac in origin, rhc/lvedp wnl, she had a @ 5% increase in ra sat to pa sat possibly suggesting a small l to r shunt but doubt this is enough to account for degree of hypoxia or explain improving trends over time, could consider repeat tt echo to re eval or alin if/when patient off oxygen, to further assess, d/w patient; O2 back upto 3 L, trending down slowly
--- NOTE | 2018-04-04 20:00 | P.PNPL ---
Subjective Interval history: 58 YOWF with br asthma, bilat diffuse infilt, hypoxic RF no fever Cough, not able to expactorate Weaned to 2LNC Feels better, ambulates Became very anxious when discuusing dc planning, required 3LNC Sister at BS Physical Exam Vital signs: Vital Signs 04/03/18 19:59 04/03/18 20:00 04/04/18 00:00 Temperature 97.7 F Pulse Rate 69 108 H 78 Respiratory Rate 17 18 Blood Pressure 108/55 L Pulse Oximetry 93 L 92 L Pulse Oximetry [Resting on Room Air] Pulse Oximetry [Resting with Oxygen] 04/04/18 04:00 04/04/18 04:04 04/04/18 08:00 Temperature 97.5 F L 98.4 F Pulse Rate 91 H 82 96 H Respiratory Rate 18 17 18 Blood Pressure 113/57 L 124/66 Pulse Oximetry 93 L 98 Pulse Oximetry [Resting on Room Air] Pulse Oximetry [Resting with Oxygen] 04/04/18 09:49 04/04/18 12:00 04/04/18 15:50 Temperature 97.9 F Pulse Rate 89 Respiratory Rate 18 Blood Pressure 111/53 L Pulse Oximetry 95 95 Pulse Oximetry [Resting on Room Air] 81 L Pulse Oximetry [Resting with Oxygen] 90 L 04/04/18 16:00 Temperature 98.1 F Pulse Rate 91 H Respiratory Rate 18 Blood Pressure 91/58 L Pulse Oximetry 96 Pulse Oximetry [Resting on Room Air] Pulse Oximetry [Resting with Oxygen] Intake & Output 04/04/18 04/04/18 04/05/18 06:59 18:59 06:59 Intake Total 480 / 480 600 / 600 Output Total 600 / 600 Balance 480 / 480 0 / 0 Weight 84.1 kg Intake: Oral 480 / 480 600 / 600 Output: Urine 600 / 600 Other: # Voids 6 Date of Last Bowel Movement 04/04/18 # Bowel Movements 1 1 GENERAL: MBMN WF, calm, no sob SKIN: Warm and dry. HEAD: Normocephalic. EYES: No scleral icterus. No injection or drainage. NECK: Supple, trachea midline. No JVD or lymphadenopathy. CARDIOVASCULAR: Regular rate and rhythm without murmurs, gallops, or rubs. RESPIRATORY: Breath sounds equal bilaterally. No accessory muscle use. GASTROINTESTINAL: Abdomen soft, non-tender, nondistended. MUSCULOSKELETAL: No cyanosis, or edema. BACK: Nontender without obvious deformity. No CVA tenderness. Assessment and Plan - Plan IMPRESSION: 1. Hypoxic respiratory failure. 2. Bilateral diffuse lung infiltrates, possibly viral pneumonia, atypical pneumonia or inflammatory process. 3. Non-ST elevation myocardial infarction. 4. History of bronchial asthma. PLAN: Prednisone 10 mg po tid Cont Abx, ID following Supplement 02 with 2LNC Titerate 02 to keep sat >90% Use Acapella and IS Rheumatology eval as out patient Home [address] r[address] chest 4-6 weeks
[2018-04-04] MEDS: Montelukast 10 MG Tablet PO SCH (20:50)
[2018-04-05] MEDS: Heparin - SQ 10,000 UNITS/ML Vial SQ SCH ×2 (05:10→12:59)
[2018-04-05] MEDS: levoFLOXacin 750 MG Tablet PO SCH (08:41)
[2018-04-05] MEDS: Furosemide 20 MG Tablet PO SCH ×4 (08:42→17:07)
[2018-04-05] MEDS: Senna/Docusate Sodium 8.6/50 MG Tablet PO SCH (08:42)
[2018-04-05] MEDS: Loratadine 10 MG Tablet PO SCH (08:42)
[2018-04-05] MEDS: predniSONE 10 MG Tablet PO SCH ×3 (08:42→17:06)
[2018-04-05] MEDS: Spironolactone 25 MG Tablet PO SCH ×2 (08:42→17:06)
[2018-04-05] MEDS: Pantoprazole Inj 40 MG Vial IV.PUSH SCH (08:44)
[2018-04-05] MEDS: Budesonide-Formoterol 160/4.5 MCG 6 GM Inhaler INH SCH (08:45)
--- NOTE | 2018-04-05 11:46 | P.PN ---
Subjective Interval history: She is in the chair she appears in not acute distress at this time. Feels a little bit tired does says she was walking with physical therapy up and down the stairs. However she was noted desaturating. No fever or chills. No cough. No palpitations. She is now wheezing at this time. Physical Exam Vital signs: Vital Signs 04/04/18 12:00 04/04/18 15:50 04/04/18 16:00 Temperature 97.9 F 98.1 F Pulse Rate 89 91 H Respiratory Rate 18 18 Blood Pressure 111/53 L 91/58 L Pulse Oximetry 95 95 96 04/04/18 20:00 04/04/18 22:16 04/05/18 00:00 Temperature 98.5 F 98 F Pulse Rate 90 79 Respiratory Rate 18 19 Blood Pressure 117/70 118/78 Pulse Oximetry 95 96 95 04/05/18 02:20 04/05/18 04:00 04/05/18 08:00 Temperature 97.9 F 97.9 F Pulse Rate 78 79 89 Respiratory Rate 16 18 32 H Blood Pressure 120/65 119/57 L Pulse Oximetry 92 L 90 L 04/05/18 11:42 Temperature 98.3 F Pulse Rate 91 H Respiratory Rate 28 H Blood Pressure 111/59 L Pulse Oximetry 96 Intake & Output 04/04/18 04/05/18 04/05/18 18:59 06:59 18:59 Intake Total 600 / 600 Output Total 600 / 600 Balance 0 / 0 Weight 69.3 kg Intake: Oral 600 / 600 Output: Urine 600 / 600 Other: # Voids 2 Date of Last Bowel Movement 04/04/18 # Bowel Movements 1 2 Narrative: GENERAL: Patient sitting in the chair, she appears in not acute distress at this time. On 3L nasal cannula. Alert and oriented x3. CARDIOVASCULAR: Regular rate and rhythm without murmurs, gallops, or rubs. RESPIRATORY: Breath sounds equal bilaterally. No accessory muscle use. GASTROINTESTINAL: Abdomen soft, non-tender, nondistended. MUSCULOSKELETAL: No cyanosis. Edema improved. BACK: Nontender without obvious deformity. No CVA tenderness. Results - Labs CBC & Chem 7: 04/03/18 05:10 04/03/18 05:10 Laboratory Results - last 24 hr 04/02/18 04/02/18 13:59 13:59 Blastomyces Ab (EIA) Negative Cryptococcus Ag Screen Negative - Procedures Cardiac catheterization. Assessment and Plan - Plan This patient is a 58-year-old obese female who presented to our emergency department with complaints of shortness of breath as well as chest tightness. She was found to have an elevated troponin as well as bilateral diffuse infiltrates seen on chest x-ray. Acute hypoxic hypercapnic restaurant failure likely secondary to community- acquired pneumonia The patient is currently on 4 L supplemental oxygen, down from 5 L L of supplemental oxygen yesterday.. Chest x-ray shows bilateral infiltrates with no significant change from previous chest x-rays. Pulmonary team is following the patient. Rheumatoid factor and ELIN positive Patient was evaluated by infectious disease today. Recommendations are to have the patient follow-up with rheumatology after she is discharged as we do not have a dietetic technician that works in house. Continue IV antibiotics, continue current recommendations from the pulmonary team. Cardiology following and does not believe the patient's hypoxic restaurant failure is cardiac in origin. = 03/29. Discussed with pulmonology. Plan for discharge in the next few days. Have ordered home oxygen evaluation. = 03/30 increased O2 requirement we will repeat chest x-ray. Discussed with pulmonology. = 03/31. Repeat chest x-ray yesterday with pulmonary edema. BNP is not elevated however. Patient does have significant bilateral lower extremity edema. Will give dose of Lasix today. Continue to monitor. Continue treatment as per pulmonology. Appreciate assistance. = 04/01. Breathing somewhat improved. We will continue to monitor oxygen requirement. Will add Singulair and Claritin. = 04/02. Patient feels her breathing is somewhat improved. Down to 4 L O2. =04/03. Down to 1 L by nasal cannula. Improved. Discussed with infectious disease. Hopefully discharge tomorrow if okay with pulmonology. = 04/04. Will need 7 days of doxycycline as per infectious disease. Can discharge patient today on through the NSTEMI/hyperlipidemia Cardiology following Initial troponin was elevated at 0.55 which then showed a down trend. EKG showed normal sinus rhythm without any specific ST segment or T wave changes. The patient underwent cardiac catheterization today which showed mild 2 vessel coronary artery disease. Recommendations from cardiology are to continue with medical management. She will be continued on aspirin, statin, and beta-he. She will be counseled on diet and weight loss. Continue supplemental oxygen. = 04/04. Yesterday patient says she has some muscle aches and pains due to statin medication. Will discontinue statin. Advised her to revisit this issue with primary care as outpatient. GERD Continue Protonix Obesity Patient was counseled on diet. Vaginal pruritic sensation as per patient starting Vaginal Candidiasis started on local Clotrimazole Cream. Prophylaxis GI-pantoprazole DVT SCD/heparin subcu Discharge Planning: Hopefully discharge home tomorrow. Apparently her insurance does not pay for oxygen, and this would be self-pay. = Need to follow with pulmonology, rheumatology as outpatient.
--- NOTE | 2018-04-05 14:41 | P.PNCA ---
Subjective Interval history: alert in nad, on 3L nc Medications and Allergies Active Medications: Active Medications Acetaminophen (Tylenol) 650 mg PO Q6H PRN PRN Reason: Fever >100f Hydrocodone Bitart/Acetaminophen ([place] 5/325) 1 tab PO Q4H PRN PRN Reason: PAIN SCALE 1 TO 5 Last Admin: 03/21/18 23:57 Dose: 1 tab Albuterol (Albuterol Neb (Prn)) 2.5 mg NEB Q2HR NEB PRN PRN Reason: SHORTNESS OF BREATH/WHEEZING Last Admin: 04/05/18 02:18 Dose: 2.5 mg Aspirin (Aspirin Chew) 81 mg PO DAILY [facility] Last Admin: 04/05/18 08:42 Dose: 81 mg Atorvastatin Calcium (Lipitor) 40 mg PO HS [facility] Last Admin: 04/04/18 20:51 Dose: Not Given Bisacodyl (Dulcolax Supp) 10 mg RECTAL DAILY PRN PRN Reason: SEVERE CONSITIPATION Budesonide/Formoterol Fumarate (Symbicort 160/4.5 Mcg Inh) 2 puff INH BID [facility] Last Admin: 04/05/18 08:45 Dose: 2 puff Doxycycline Hyclate (Vibramycin) 100 mg PO Q12HR [facility] Last Admin: 04/05/18 08:41 Dose: 100 mg Furosemide (Lasix) 20 mg PO BID@0900,1800 [facility] Last Admin: 04/05/18 08:44 Dose: Not Given Heparin Sodium (Porcine) (Heparin Inj) 5,000 units SQ Q8HR [facility] Last Admin: 04/05/18 12:59 Dose: Not Given Lactulose (Lactulose Liq) 30 ml PO DAILY PRN PRN Reason: SEVERE CONSITIPATION Levofloxacin (Levaquin) 750 mg PO DAILY [facility] Last Admin: 04/05/18 08:41 Dose: 750 mg Loratadine (Claritin) 10 mg PO DAILY [facility] Last Admin: 04/05/18 08:42 Dose: 10 mg Miscellaneous (Pill Splitter) 1 each [facility] Montelukast Sodium (Singulair) 10 mg PO HS [facility] Last Admin: 04/04/18 20:50 Dose: 10 mg Morphine Sulfate (Morphine Inj) 2 mg IV.PUSH Q2H PRN PRN Reason: PAIN SCALE 6 TO 10 Ondansetron HCl (Zofran Inj) 4 mg IV.PUSH Q6H PRN PRN Reason: NAUSEA OR VOMITING Pantoprazole Sodium (Protonix Inj) 40 mg IV.PUSH DAILY [facility] Last Admin: 04/05/18 08:44 Dose: 40 mg Prednisone (Deltasone) 10 mg PO TID [facility] Last Admin: 04/05/18 12:59 Dose: 10 mg Senna/Docusate Sodium (Sofi-Colace) 1 tab PO BID [facility] Last Admin: 04/05/18 08:42 Dose: Not Given Sennosides (Senokot) 17.2 mg PO Q12H PRN PRN Reason: Moderate Constipation Last Admin: 04/01/18 08:36 Dose: 17.2 mg Sodium Chloride (Ns Flush) 2 ml IV.FLUSH BID [facility] Last Admin: 04/05/18 08:42 Dose: 2 ml Sodium Chloride (Ns Flush) 2 ml IV.FLUSH PRN PRN PRN Reason: FLUSH AFTER USING IV ACCESS Spironolactone (Aldactone) 25 mg PO BID@0900,1800 [facility] Last Admin: 04/05/18 08:42 Dose: 25 mg Allergies Allergy/AdvReac Type Severity Reaction Status Date / Time Penicillins Allergy Intermediate Hives Verified 03/19/18 21:08 Sulfa (Sulfonamide Allergy Intermediate Anxiety Verified 03/18/18 14:16 Antibiotics) Physical Exam Vital signs: Vital Signs 04/04/18 15:50 04/04/18 16:00 04/04/18 20:00 Temperature 98.1 F 98.5 F Pulse Rate 91 H 90 Respiratory Rate 18 18 Blood Pressure 91/58 L 117/70 Pulse Oximetry 95 96 95 04/04/18 22:16 04/05/18 00:00 04/05/18 02:20 Temperature 98 F Pulse Rate 79 78 Respiratory Rate 19 16 Blood Pressure 118/78 Pulse Oximetry 96 95 04/05/18 04:00 04/05/18 08:00 04/05/18 11:42 Temperature 97.9 F 97.9 F 98.3 F Pulse Rate 79 89 91 H Respiratory Rate 18 32 H 28 H Blood Pressure 120/65 119/57 L 111/59 L Pulse Oximetry 92 L 90 L 96 Intake & Output 04/04/18 04/05/18 04/05/18 18:59 06:59 18:59 Intake Total 600 / 600 Output Total 600 / 600 Balance 0 / 0 Weight 69.3 kg Intake: Oral 600 / 600 Output: Urine 600 / 600 Other: # Voids 2 Date of Last Bowel Movement 04/04/18 # Bowel Movements 1 2 Results 04/03/18 05:10 04/03/18 05:10 Intake and Output 04/04/18 04/05/18 04/05/18 22:59 06:59 14:59 Intake Total 600 / 600 Output Total 600 / 600 Balance 0 / 0 Intake: Oral 600 / 600 Output: Urine 600 / 600 Other: # Voids 2 Date of Last Bowel Movement 04/04/18 # Bowel Movements 1 2 Weight 69.3 kg Assessment and Plan - Assessment (1) NSTEMI (non-ST elevated myocardial infarction) Code(s): I21.4 - Non-ST elevation (NSTEMI) myocardial infarction Status: Acute (2) CHF (congestive heart failure) Code(s): I50.9 - Heart failure, unspecified Status: Acute (3) Hypoxia Code(s): R09.02 - Hypoxemia Status: Acute (4) Dyspnea Code(s): R06.00 - Dyspnea, unspecified Status: Acute - Plan 1.) CAD - mild, continue aspirin, lipitor 2.) Hypoxia - noncardiac in origin, rhc/lvedp wnl, she had a @ 5% increase in ra sat to pa sat possibly suggesting a small l to r shunt but doubt this is enough to account for degree of hypoxia or explain improving trends over time, could consider repeat tt echo to re eval or alin if/when patient off oxygen, to further assess, d/w patient; O2 3 L, trending down slowly 3.) Advised patient to f/u with in network health and safety tech [place] after discharge, she understands
[2018-04-05 16:21] VITALS: BP 108/56; RESP 18; TEMP 98; O2SAT 97
--- NOTE | 2018-04-05 16:32 | P.PNPL ---
Subjective Interval history: 58 YOWF with br asthma, bilat diffuse infilt, hypoxic RF no fever Cough, not able to expactorate Weaned to 2LNC Feels better, ambulates Sister at BS Anxious to go home. Physical Exam Vital signs: Vital Signs 04/04/18 20:00 04/04/18 22:16 04/05/18 00:00 Temperature 98.5 F 98 F Pulse Rate 90 79 Respiratory Rate 18 19 Blood Pressure 117/70 118/78 Pulse Oximetry 95 96 95 04/05/18 02:20 04/05/18 04:00 04/05/18 08:00 Temperature 97.9 F 97.9 F Pulse Rate 78 79 89 Respiratory Rate 16 18 32 H Blood Pressure 120/65 119/57 L Pulse Oximetry 92 L 90 L 04/05/18 11:42 04/05/18 15:13 04/05/18 16:00 Temperature 98.3 F 98.0 F Pulse Rate 91 H 101 H Respiratory Rate 28 H 18 Blood Pressure 111/59 L 108/56 L Pulse Oximetry 96 95 97 Intake & Output 04/04/18 04/05/18 04/05/18 18:59 06:59 18:59 Intake Total 600 / 600 Output Total 600 / 600 Balance 0 / 0 Weight 69.3 kg Intake: Oral 600 / 600 Output: Urine 600 / 600 Other: # Voids 2 Date of Last Bowel Movement 04/04/18 # Bowel Movements 1 2 GENERAL: Elderly WF,NAD SKIN: Warm and dry. HEAD: Normocephalic. EYES: No scleral icterus. No injection or drainage. NECK: Supple, trachea midline. No JVD or lymphadenopathy. CARDIOVASCULAR: Regular rate and rhythm without murmurs, gallops, or rubs. RESPIRATORY: Breath sounds equal bilaterally. No accessory muscle use. GASTROINTESTINAL: Abdomen soft, non-tender, nondistended. MUSCULOSKELETAL: No cyanosis, or edema. BACK: Nontender without obvious deformity. No CVA tenderness. Assessment and Plan - Plan IMPRESSION: 1. Hypoxic respiratory failure. 2. Bilateral diffuse lung infiltrates, possibly viral pneumonia, atypical pneumonia or inflammatory process. 3. Non-ST elevation myocardial infarction. 4. History of bronchial asthma. PLAN: Prednisone 10 mg po tid Cont Abx, ID following Supplement 02 with 2LNC Titerate 02 to keep sat >90% Use Acapella and IS Rheumatology eval as out patient Home [address] rpt CT chest 4-6 weeks DW pt and her sister FU in office 2 weeks.
[2018-04-05 18:27] VITALS: PULSE 94
[2018-04-05 20:02] LABS: Histoplasma Antigen Result Negative (Negative); Histoplasma Antigen Value 0 ng/mL
[2018-04-06 15:27] LABS: Cocci Immunodiffusion IgG Negative (Negative); Histoplasma Abs Yeast Negative (Negative)
== END 2018-04-05 17:44 | disposition home or self-care (01) ==
LOC: NEPC 13:28 → NEDA 15:58 → HIMC 17:18 → N04 03-28 22:38
PROVIDERS: ADMIT Hospitalist; ATTEND Hospitalist